=== PATIENT | male | born 1935 | race Caucasian/White ===

== ENCOUNTER → 2018-01-11 07:34 | Outpatient (CLI) | payer MEDICARE, SELFPAY ==
[2018-01-11 11:49] LABS: AST(SGOT) 21 U/L (15-37); Alanine Aminotransfer ALT/SGPT 26 U/L (16-61); Albumin, Serum 3.5 g/dL (3.2-5.0); Alkaline Phosphatase 85 U/L (45-117); Anion Gap 7 (5-15); BUN 12 mg/dL (7-18); BUN/Creat Ratio 12.5 RATIO (10-20); Calcium,Total 8.5 mg/dL (8.5-10.1); Chloride 102 mmol/L (98-107); Cholesterol 123 mg/dL (200); Creatinine, Serum 0.96 mg/dL (0.70-1.30); EST Glomerular Filtration Rate 80 mL/min (>60); Est Glom Filt Rate - Afr Amer 96 mL/min (>60); Globulin 3.4 g/dL (2.2-4.2); Glucose 84 mg/dL (74-106); High Density Lipoprotein 41 mg/dL; Protein, Total 6.9 g/dL (6.4-8.2); Sodium Level 139 mmol/L (136-145); Thyroid Stim Hormone (TSH) 1.34 uIU/mL (0.358-3.74); Triglycerides 78 mg/dL; Very Low Density Lipoprotein 16 mg/dL (5-40)
== END ==
PROVIDERS: Family Provider Family Medicine; PCP Family Medicine; Referring Provider Family Medicine; Visit Provider Family Medicine
DX: I10 Essential (primary) hypertension (principal); Z79.899 Other long term (current) drug therapy
CPT/HCPCS: 80053; 80061; 84443

== ENCOUNTER → 2018-07-11 | Outpatient (CLI) | payer MEDICARE, SELFPAY ==
[2018-07-11 11:23] LABS: Hematocrit 50.3 % (40-54); Hemoglobin 16.7 g/dl (13.0-16.5); Mean Corp Hgb Conc 33.2 g/gl (32-36); Mean Corpuscular Hgb 30.2 pg (27.0-32.0); Mean Platelet Vol. 11.6 fl (6.2-12.0); Platelet Count 209 K/mm3 (150-450); RBC Distribution Width SD 46.4 fl (35.1-43.9); Red Blood Count 5.53 M/mm3 (4.6-6.2); Scan Indicated on CBC? Y/N NO; White Blood Count 4.8 K/mm3 (4.4-11.0)
[2018-07-11 11:37] LABS: ALB/GLOB Ratio 1.2 RATIO (0.9-2.4); AST(SGOT) 24 U/L (15-37); Alanine Aminotransfer ALT/SGPT 31 U/L (16-61); Albumin, Serum 3.6 g/dL (3.2-5.0); Alkaline Phosphatase 76 U/L (45-117); Anion Gap 1 (5-15); BUN 13 mg/dL (7-18); BUN/Creat Ratio 12.7 RATIO (10-20); Calcium,Total 8.5 mg/dL (8.5-10.1); Chloride 105 mmol/L (98-107); Creatinine, Serum 1.02 mg/dL (0.70-1.30); EST Glomerular Filtration Rate 74 mL/min (>60); Est Glom Filt Rate - Afr Amer 90 mL/min (>60); Globulin 3.1 g/dL (2.2-4.2); Glucose 96 mg/dL (74-106); Potassium 4.6 mmol/L (3.5-5.1); Protein, Total 6.7 g/dL (6.4-8.2); Sodium Level 137 mmol/L (136-145)
== END | disposition home or self-care (01) ==
LOC: LABSPEC 10:55
PROVIDERS: Family Provider Family Medicine; PCP Family Medicine; Referring Provider Family Medicine; Visit Provider Family Medicine
DX: I10 Essential (primary) hypertension (principal); Z79.899 Other long term (current) drug therapy
CPT/HCPCS: 80053; 85027

== ENCOUNTER → 2019-01-15 | Outpatient (CLI) | payer MEDICARE, SELFPAY ==
[2019-01-15 14:07] LABS: Cholesterol 144 mg/dL (200); High Density Lipoprotein 47 mg/dL; Triglycerides 68 mg/dL; Very Low Density Lipoprotein 14 mg/dL (5-40)
== END | disposition home or self-care (01) ==
LOC: LABSPEC 13:14
PROVIDERS: Family Provider Family Medicine; PCP Family Medicine; Referring Provider Family Medicine; Visit Provider Family Medicine
DX: E78.2 Mixed hyperlipidemia (principal); Z79.899 Other long term (current) drug therapy
CPT/HCPCS: 80061; 84443

== ENCOUNTER 2020-04-11 08:44 | Outpatient (RCR) | payer MEDICARE, SELFPAY | END 2020-04-11 23:59 | LOC: IMMUN 08:44 | PROVIDERS: PCP Family Medicine; Referring Provider Family Medicine; Visit Provider Family Medicine | DX: Z23 Encounter for immunization (principal) | CPT/HCPCS: 0011A; 0012A ==

== ENCOUNTER → 2020-06-17 12:27 | Outpatient (CLI) | payer MEDICARE, SELFPAY ==
[2020-06-17 13:43] LABS: Potassium 4.9 mmol/L (3.5-5.1)
== END ==
PROVIDERS: PCP Family Medicine; Referring Provider Family Medicine; Visit Provider Family Medicine
DX: E87.5 Hyperkalemia (principal)
CPT/HCPCS: 84132

== ENCOUNTER → 2020-06-23 12:34 | Outpatient (CLI) | payer MEDICARE, SELFPAY ==
[2020-06-23 13:20] LABS: PSA,Total - Annual Screen 1.22 ng/mL (0.00-4.00)
== END ==
PROVIDERS: PCP Family Medicine; Visit Provider Family Medicine
DX: Z12.5 Encounter for screening for malignant neoplasm of prostate (principal)
CPT/HCPCS: 84153; G0103

== ENCOUNTER 2024-11-30 10:19 | Inpatient (IN) | payer MEDICARE, SELFPAY ==
[2024-11-30] VITALS (15 sets, daily range): BP systolic 148–192; BP diastolic 63–109; PULSE 59–80; RESP 15–19; TEMP 36.3–36.6; O2SAT 92–98; BMI 26.4; BMI 25.6
--- NOTE | 2024-11-30 11:32 | EKG12_ITS ---
Test Reason : SOB Blood Pressure : */* mmHG Vent. Rate : 71 BPM Atrial Rate : 71 BPM P-R Int : 194 ms QRS Dur : 80 ms QT Int : 374 ms P-R-T Axes : 62 -20 5 degrees QTcB Int : 406 ms Normal sinus rhythm Normal ECG Confirmed by MARY JO TEJADA ([id number]), copy editor ERROL PORTILLO ([id number]) on 12/03/2024 9:11:48 AM Referred By: ALEX/JENNA Confirmed By: MARY JO TEJADA
--- NOTE | 2024-11-30 11:42 | RAD_ITS ---
PROCEDURE: CHEST PA AND LATERAL 11/30/2024 REASON FOR EXAM: SHORTNESS OF BREATH TECHNIQUE: Procedure Code: RADCXR Modality: DX Procedure: CHEST PA AND LATERAL COMPARISON: None provided. RAD/Chest PA and Lateral IMPRESSION: A small right pleural effusion is seen. No definite left pleural effusion is noted. A mild degree of interstitial pulmonary edema is seen. No focal infiltrate is appreciated. The cardiomediastinal silhouette is remarkable for a partially calcified aorta. No evidence of cardiomegaly. Mild thoracic spine degenerative changes are seen, along with multiple mild wed ge compression fractures. No subluxation is evident. Reading Location: [id number]
[2024-11-30 11:46] LABS: Hematocrit 44.9 % (40-54); Hemoglobin 15.2 g/dL (13.0-16.5); Immature Granulocytes Count 0.020 X10^3/uL (0.0-0.0); Mean Corp Hgb Conc 33.9 g/dL (32-36); Mean Corpuscular Volume 95.5 fL (80-94); Mean Platelet Vol. 10.9 fl (6.2-12.0); NRBC Flagged by Analyzer 0 % (0-5); POSITIVE DIFFERENTIAL YES; Platelet Count 213 K/mm3 (150-450); RBC Distribution Width CV 13.0 % (11.6-14.6); RBC Distribution Width SD 46.2 fl (35.1-43.9); Red Blood Count 4.70 M/mm3 (4.6-6.2); White Blood Count 7.4 K/mm3 (4.4-11.0)
--- NOTE | 2024-11-30 11:49 | ED.VIS.DYS ---
HPI History of Present Illness Chief Complaint: Shortness of Breath Narrative Narrative: Chief complaint and HPI: 89-year-old male with past medical history of HTN, remote asthma, tremor presents for evaluation of shortness of breath. Patient states that yesterday he developed shortness of breath. Worse with exertion. States he does not regularly take anything for his asthma. States he has an albuterol inhaler that is a-year-old and that he has not used it. He denies any fever, chills, URI symptoms, chest pain abdominal pain, nausea, vomiting. Review of systems: See HPI Medications: As listed on the chart Allergies: As listed on the chart PFSH: Per chart Vital signs: As listed on the chart. Reviewed. Physical exam: Gen: A&O x3, NAD Head: Normocephalic, atraumatic Eyes: No sclera icterus, conjunctiva clear ENT: Moist mucous membranes Neck: Trachea midline, No JVD CV: RRR, no murmurs, no peripheral edema Resp: Lungs CTA BL, with expiratory wheezing GI: Abd soft, non-distended, non-tender, no r/r/g Musc: Full ROM, no deformity Skin: Warm, dry Neuro: Alert, oriented, grossly intact, sensation intact Psych: Cooperative, appropriate mood and affect no clear reason for your pain at this time [facility] Medical History (Updated 11/30/24 @ 11:39 by Alla Castaneda) Asthma Home Medications Medication Instructions Recorded Last Taken Type aspirin 81 mg tablet,delayed 81 mg PO DAILY 11/30/24 Unknown History release (Adult Aspirin Regimen) losartan 100 mg tablet 100 mg PO DAILY 11/30/24 Unknown History metoprolol succinate 25 mg 25 mg PO DAILY 11/30/24 Unknown History tablet,extended release 24 hr primidone 50 mg tablet 200 mg PO DAILY 11/30/24 Unknown History simvastatin 20 mg tablet 20 mg PO QHS 11/30/24 Unknown History Allergy/AdvReac Type Severity Reaction Status Date / Time No Known Allergies Allergy Verified 11/30/24 10:24 Social History Smoking Status: Never smoker EXAM Physical Exam Const Vital Signs: 11/30/24 10:21 11/30/24 11:31 11/30/24 11:38 Temperature 97.8 F Temperature Source Oral Pulse Rate 74 Respiratory Rate 16 Respiratory Effort Respiratory Pattern Blood Pressure 185/105 H Blood Pressure Mean 131 Pulse Ox 95 92 Oxygen Delivery Method Room Air Room Air 11/30/24 11:59 11/30/24 12:36 11/30/24 13:00 Temperature Temperature Source Pulse Rate 59 L 61 62 Respiratory Rate 16 18 15 Respiratory Effort Respiratory Pattern Blood Pressure 155/87 H 160/82 H Blood Pressure Mean 109 108 Pulse Ox 96 98 Oxygen Delivery Method Room Air 11/30/24 13:23 Temperature Temperature Source Pulse Rate Respiratory Rate Respiratory Effort Short of Breath Respiratory Pattern Tachypnea Blood Pressure Blood Pressure Mean Pulse Ox Oxygen Delivery Method Room Air MDM MDM MDM Narrative Medical decision making narrative: 89-year-old male with past medical history of HTN, remote asthma, tremor presents for evaluation of shortness of breath. Patient states that yesterday he developed shortness of breath. Worse with exertion. States he does not regularly take anything for his asthma. States he has an albuterol inhaler that is a-year-old and that he has not used it. He denies any fever, chills, URI symptoms, chest pain abdominal pain, nausea, vomiting. On presentation, patient no acute distress. Hypertensive otherwise vitals are stable. Physical exam unremarkable except for mild expiratory wheezing. Differential diagnosis includes is not limited to asthma exacerbation, pneumonia, viral illness, CHF, ACS. Prednisone, albuterol, DuoNeb, hydralazine ordered for symptoms. Respiratory/cardiac workup ordered. EKG and chest x-ray reviewed. During patient's workup, his blood pressure improved without need for hydralazine. CBC without leukocytosis or anemia. BMP unremarkable. BNP unremarkable. Troponin 26 and 31 although patient not endorsing any chest pain. He has a moderate heart score. Patient's symptoms align more with asthma exacerbation. Patient states that shortness of breath has improved after DuoNeb along with his wheezing. He was ambulated in the emergency department and became hypoxic at 84% on room air. Wheezing worsened after walking as well. Had another DuoNeb ordered. Blood pressure increased after ambulation but slowly improving with rest. Patient will warrant admission for his acute hypoxia secondary to asthma exacerbation. I spoke with the patient who confirmed understanding of the plan and results. Dr. Ward accepted admission. EKG: Interpreted by me/EM physician: EKG shows normal sinus rhythm without any acute ischemic changes. Heart rate 71 Diagnostic: Interpreted by me/EM physician: Chest x-ray without pneumonia, large effusion, cardiomegaly. Patient has some interstitial increased markings. Radiology in agreement. Per them suspect more edema. Impression: 1. Acute hypoxia with exertion 2. Asthma exacerbation Lab Data Labs: Laboratory Results - last 24 hr 11/30/24 11/30/24 11:20 13:33 WBC 7.4 RBC 4.70 Hgb 15.2 Hct 44.9 MCV 95.5 H MCH 32.3 H MCHC 33.9 RDW Std Deviation 46.2 H RDW Coeff of Adria 13.0 Plt Count 213 MPV 10.9 Immature Gran % (Auto) 0.300 Neut % (Auto) 79.4 H Lymph % (Auto) 8.1 L [place] % (Auto) 9.6 Eos % (Auto) 2.3 Baso % (Auto) 0.3 Absolute Neuts (auto) 5.9 Absolute Lymphs (auto) 0.60 L Nucleated RBC % 0 Sodium 133 Potassium 4.9 Chloride 100 Carbon Dioxide 22.6 Anion Gap 10 BUN 12 Creatinine 0.79 Estim Creat Clear Calc 61.75 Est GFR (MDRD) Non-Af 86 BUN/Creatinine Ratio 15.8 Glucose 101 H Calcium 8.4 Troponin T High Sens 26 H Troponin T Hi Sens 2 Hr 31 H NT pro BNP II 449 Radiography Diagnostic Testing: Clinical Impression(s) from Imaging Studies Chest X-Ray 11/30/24 11:42 IMPRESSION: A small right pleural effusion is seen. No definite left pleural effusion is noted. A mild degree of interstitial pulmonary edema is seen. No focal infiltrate is appreciated. The cardiomediastinal silhouette is remarkable for a partially calcified aorta. No evidence of cardiomegaly. Mild thoracic spine degenerative changes are seen, along with multiple mild wedge compression fractures. No subluxation is evident. Reading Location: [address] Discharge Plan Triage Chief Complaint: Shortness of Breath ED Provider: Saqib Jiang Dx/Rx/DC Orders Primary Care Provider: Damir Chávez Referrals: Damir Chávez MD [Primary Care Provider, [facility]] Print Language: Georgian
[2024-11-30] MEDS: Albuterol 2.5 MG/3 ML VIAL.NEB. INHALATION (11:57)
--- OUTSIDE RECORDS SUMMARY | 2024-11-30 12:15 | XMS RPT_ITS | CCD ---
Author Organization [facility] Care Team Providers Care Wireworker Name Role Phone Eladio Chávez MD Primary Care Provider ELADIO CHÁVEZ Primary Care Unavailab CHRIS Coffey Referring Unavailable CHRIS MERCEDES Attending Unavailable CHRIS MERCEDES Admitting Unavailable REENA SALGADO Referring Unavailable CHRIS MERCEDES Attending Unavailable ELADIO CHÁVEZ Primary Care Unavailab Eladio Boone MD Primary Care Provider Eladio Chávez MD Primary Care Provider Podlogar PLUG MACHINE OPERATOR.Natalie SOL Unavailable [place] PLUG MACHINE OPERATOR.Nessa SOL Unavailable ELADIO CHÁVEZ Referring Unavailab ELADIO Boone Primary Care Unavailab ELADIO Boone Attending Unavailab ELADIO Boone Primary Care Unavailab ELADIO Boone Referring Unavailab ELADIO Boone Primary Care Unavailab ELADIO Boone Attending Unavailab ELADIO Boone Primary Care Unavailab CHRIS Coffey Attending Unavailable ELADIO CHÁVEZ Primary Care Unavailab ELADIO Boone Primary Care Unavailab KENISHA Pickens Referring Unavailable ELADIO CHÁVEZ Primary Care Unavailab ELADIO Boone Attending Unavailab ELADIO Boone Primary Care Unavailab ELADIO Boone Attending Unavailab ELADIO Boone Primary Care Unavailab le Allergies Allergy Classification Reported Allergen(s) Allergy Type Date of Onset Reaction(s) Facility (20 sources) amLODIPine; Translations: [AMLODIPINE] Drug Allergy 05-31-2023 Other: See Comments, Swelling [facility] Work Phone: Medications Current Medications Medication Drug Class(es) Dates Sig (Normalized) Sig (Original) [id number] 200 actuat albuterol 0.09 mg/actuat metered dose inhaler (20 sources) beta2-Adrenergic Agonist Start: 12-19-2019 End: 03-13-2024 take 2 puff(s) by inhalation four times daily as needed albuterol HFA (PROAIR HFA) 90 mcg/actuation inhaler Inhale 2 Puffs as instructed four times a day as needed. 18 g 2 03/13/2024 Active Comment on above: Inhale 2 Puffs as in structed four times daily as needed. aspirin 81 mg chewable tablet (20 sources) Platelet Aggregation Inhibitor, Nonsteroidal Anti-inflammatory Drug take 1 tablet by mouth once daily aspirin 81 mg chewable tablet Take 81 mg by mouth once daily. Active Comment on above: Take 81 mg by mouth once daily. benzonatate 100 mg oral capsule (1 source) Non-narcotic Antitussive Start: 04-18-2024 End: 04-25-2024 take 1 capsule by mouth three times daily as needed for cough benzonatate (TESSALON PERLE) 100 mg capsule Indications: Acute cough Take 1 capsule by mouth three times a day as needed for cough for up to 7 days. 21 capsule 04/18/2024 04/25/2024 Active diflorasone diacetate 0.0005 mg/mg topical ointment (20 sources) Corticosteroid Start: 01-25-2019 Diflorasone Diacetate 0.05 % ointment Apply to affected area twice daily as needed. 01/25/2019 Active Comment on above: Apply to affected ar ea twice daily as needed. fluticasone propionate 0.05 mg/actuat metered dose nasal spray (8 sources) Corticosteroid Start: 03-13-2024 End: 06-11-2024 take 2 spray(s) nasal route once daily fluticasone (FLONASE) 50 mcg/actuation nasal spray Use 2 Sprays in each nostril once daily. 1 Each 2 03/13/2024 06/11/2024 Active Start: 12-19-2019 End: 10-22-2021 take 2 spray(s) nasal route once daily fluticasone (FLONASE) 50 mcg/actuation nasal spray Use 2 Sprays in each nostril once daily. 1 Each 2 07/24/2021 10/22/2021 Active Comment on above: Use 2 Sprays in each nostril once daily. latanoprost 0.05 mg/ml ophthalmic solution (20 sources) Prostaglandin Analog Start: XALATAN 0.005 % EYE DROPS One gtt each eye daily. 0 06/12/2005 Active Comment on above: One gtt each eye oneida ly. losartan potassium 100 mg oral tablet (20 sources) Angiotensin 2 Receptor Anna Start: 5 End: 6 take 1 tablet by mouth once daily losartan (COZAAR) 100 mg tablet Indications: Essential hypertension Take 1 tablet by mouth once daily. 90 tablet 1 09/11/2024 03/10/2025 Active Start: 08-18-2022 End: 02-02-2025 take 1.5 tablets by mouth once daily losartan (COZAAR) 50 mg tablet Indications: Essential hypertension Take 1.5 tablets by mouth once daily. 135 tablet 1 08/06/2024 09/11/2024 Discontinued Start: 07-05-2022 End: 01-31-2023 take 1 tablet by mouth once daily losartan (COZAAR) 50 mg tablet Indications: Essential hypertension Take 1 tablet by mouth once daily. 90 tablet 1 08/04/2022 08/18/2022 Discontinued Comment on above: Take 1 tablet by judit th once daily. Take 1.5 tablets by mouth once daily. 24 hr metoprolol succinate 25 mg extended release oral tablet (3 sources) beta-Adrenergic Anna Start: 5 End: 6 take 1 tablet by mouth once daily metoprolol succinate ER (TOPROL XL) 25 mg 24 hr tablet Take 1 tablet by mouth once daily. 90 tablet 1 11/13/2024 05/12/2025 Active Miscellaneous Medical Supply (BLOOD PRESSURE CUFF) (20 sources) Start: 0 Miscellaneous Medical Supply (BLOOD PRESSURE CUFF) Indications: Essential hypertension 1 Each as needed. Automatic BP cuff to be used as directed to monitor hypertension. 1 Each 01/03/2020 Active Start: 01-03-2020 Miscellaneous Medical Supply (BLOOD PRESSURE CUFF) Indications: Essential hypertension 1 Each as needed. Automatic BP cuff to be used as directed to monitor hypertension. 1 Each 0 01/03/2020 Active Comment on above: 1 Each as needed. Au tomatic BP cuff to be used as directed to monitor hypertension. Multivitamins-[place] als-Lutein (CENTRUM SILVER) tab (20 sources) Start: 01-31-20 13 take 1 tablet by mouth once daily Multivitamins-Mineral s-Lutein (CENTRUM SILVER) tab Take 1 tablet by mouth once daily. 0 01/30/2013 Active Comment on above: Take 1 tablet by judit once daily. predniSONE 10 mg oral tablet (1 source) Start: 04-18-19 25 End: 04-23-19 25 take 1 tablet by mouth twice daily predniSONE (DELTASONE) 10 mg tablet Indications: Mild intermittent asthma, uncomplicated Take 1 tablet by mouth two times a day for 5 days. 10 tablet 04/18/2024 04/23/2024 Active primidone 50 mg oral tablet (20 sources) Anti-epileptic Agent Start: 08-05-19 23 End: 03-10-19 26 take 4 tablets by mouth once daily primidone (MYSOLINE) 50 mg tablet Indications: Essential tremor Take 4 tablets by mouth once daily. 360 tablet 1 09/11/2024 03/10/2025 Active Start: 02-01-2022 End: 10-02-2022 take 3 tablets by mouth once daily primidone (MYSOLINE) 50 mg tablet Indications: Essential tremor Take 3 tablets by mouth once daily. 270 tablet 1 08/04/2022 08/04/2022 Discontinued Start: 01-12-2021 End: 07-14-2022 take 2 tablets by mouth once daily primidone (MYSOLINE) 50 mg tablet Indications: Essential tremor Take 2 tablets by mouth once daily. 180 tablet 1 01/15/2022 02/01/2022 Discontinued Comment on above: Take 2 tablets by mo ut once daily. Take 3 tablets by mo ut once daily. Take 4 tablets by mo uth once daily. psyllium seed/sucrose(METAMUCI L ORAL POWDER) (20 sources) Start: 8 take 1 [tsp_us] by mouth once daily psyllium seed/sucrose(METAMUC IL ORAL POWDER) one teaspoon daily 0 07/26/2007 Active Comment on above: one teaspoon daily simvastatin 20 mg oral tablet (20 sources) HMG-CoA Reductase Inhibitor Start: 3 End: 5 take 1 tablet by mouth once daily at bedtime simvastatin (ZOCOR) 20 mg tablet Take 1 tablet by mouth daily at bedtime. 90 tablet 1 10/02/2024 Active Start: 06-23-2020 End: 08-04-2022 take 1 tablet by mouth once daily at bedtime simvastatin (ZOCOR) 20 mg tablet Indications: Mixed hyperlipidemia Take 1 tablet by mouth daily at bedtime. 90 tablet 1 08/04/2022 Active Comment on above: Take 1 tablet by judit th daily at bedtime. 12 hr timolol 5 mg/ml ophthalmic solution (20 sources) beta-Adrenergic Anna Start: 01-06-20 take 1 drop(s) into the eye(s) twice daily timolol (TIMOPTIC) 0.5 % OPHTHALMIC Drop one drop twice daily each eye 0 01/05/2007 Active Comment on above: one drop twice daily each eye triamcinolone acetonide 0.001 mg/mg topical ointment (19 sources) Corticosteroid Start: 03-31-19 triamcinolone acetonide (KENALOG) 0.1 % ointment 03/31/2023 Active Completed/Discontinued Medications Medication Drug Class(es) Dates Sig (Normalized) Sig (Original) amLODIPine 5 mg oral tablet (5 sources) Dihydropyridine Calcium Channel Anna Start: 02-18-20 End: 08-10-19 take 1 tablet by mouth once daily amLODIPine (NORVASC) 5 mg tablet Indications: Essential hypertension Take 1 tablet by mouth once daily. 90 tablet 0 05/11/2022 07/05/2022 Discontinued Comment on above: Take 1 tablet by judit th once daily. folic acid 1 mg oral tablet (14 sources) Start: 12-11-19 End: 08-05-19 FOLIC ACID 1 MG TAB Take one(1) tablet daily. 0 12/10/2004 08/04/2022 Discontinued Comment on above: Take one(1) tablet d aily. hydroCHLOROthiazide 25 mg oral tablet (4 sources) Thiazide Diuretic Start: 02-03-20 End: 05-03-19 23 take 1 tablet by mouth once daily hydroCHLOROthiazide (HYDRODIURIL, ESIDRIX) 25 mg tablet Indications: Essential hypertension Take 1 tablet by mouth once daily. 30 tablet 2 02/02/2022 02/17/2022 Discontinued Comment on above: Take 1 tablet by judit th once daily. lidocaine 50 mg/ml topical cream (2 sources) Antiarrhythmic, Amide Local Anesthetic Start: 04-20-19 End: 04-22-19 24 lidocaine (ANECREAM5) crea Apply to affected area as directed for 2 days. Apply to procedure site the evening before and morning of procedure 15 g 0 04/20/2023 04/22/2023 Comment on above: Apply to affected ar ea as directed for 2 days. Apply to procedure site the evening before and morning of procedure lisinopril 40 mg oral tablet (9 sources) Angiotensin Converting Enzyme Inhibitor Start: 03-19-19 End: 08-01-19 23 take 1 tablet by mouth once daily lisinopril (ZESTRIL, PRINIVIL) 40 mg tablet Indications: Essential hypertension Take 1 tablet by mouth once daily. 90 tablet 1 02/01/2022 02/01/2022 Discontinued Comment on above: Take 1 tablet by judit once daily. Problems Active Problems Problem Classification Problem Date Documented Date Episodic/Chronic Asthma (20 sources) Mild intermittent asthma; Translations: [Mild intermittent asthma, uncomplicated] Onset: 01-05-2007 Resolved: 01-10-2017 01-10-2017 Chronic Cardiac dysrhythmias (20 sources) Premature atrial contraction; Translations: [Atrial premature depolarization] Onset: 06-23-2020 06-23-2020 Chronic Deficiency and other anemia (1 source) Increased hemoglobin; Translations: [Other hemoglobinopathies] Chronic Disorders of lipid metabolism (20 sources) Mixed hyperlipidemia; Translations: [Mixed hyperlipidemia] Onset: 12-10-2004 Resolved: 01-05-2016 Chronic Diverticulosis and diverticulitis (20 sources) Diverticulosis of colon; Translations: [Diverticulosis of large intestine without perforation or abscess without bleeding] Onset: 08-07-2012 01-24-2006 Chronic Essential hypertension (20 sources) Essential hypertension; Translations: [Essential (primary) hypertension] Onset: 01-05-2007 07-09-2020 Chronic Fluid and electrolyte disorders (4 sources) Hyperkalemia; Translations: [Hyperkalemia] Episodic Glaucoma (20 sources) Glaucoma; Translations: [Other specified glaucoma] Onset: 08-10-2023 01-10-2017 Chronic Immunizations and screening for infectious disease (2 sources) Needs influenza immunization; Translations: [Encounter for immunization] Episodic Melanomas of skin (20 sources) Malignant melanoma of skin of chest; Translations: [Malignant melanoma of other part of trunk] Onset: 05-06-2023 04-21-2023 Chronic Other and unspecified benign neoplasm (20 sources) History of polyp of colon; Translations: [Personal history of colonic polyps] 01-24-2006 Episodic Other circulatory disease (2 sources) History of transient ischemic attack; Translations: [Personal history of transient ischemic attack (TIA), and cerebral infarction without residual deficits] Episodic Other connective tissue disease (2 sources) Swelling of bilateral feet; Translations: [Other specified soft tissue disorders] Episodic Other diseases of veins and lymphatics (2 sources) Lymphedema; Translations: [Lymphedema, not elsewhere classified] 04-21-2023 Chronic Other diseases of veins and lymphatics (1 source) Lymphedema, not elsewhere classified; Translations: [Lymphedema] Onset: 05-13-2023 Chronic Other hereditary and degenerative nervous system conditions (20 sources) Essential tremor; Translations: [Essential tremor] Onset: 01-05-2007 01-10-2017 Chronic Other hereditary and degenerative nervous system conditions (1 source) Essential tremor; Translations: [Essential tremor] Onset: 01-10-2017 Chronic Other inflammatory condition of skin (20 sources) Psoriasis; Translations: [Other psoriasis] Onset: 11-21-2005 06-21-2009 Chronic Other inflammatory condition of skin (1 source) Psoriasis, unspecified; Translations: [Psoriasis] Onset: 09-11-2024 Chronic Other lower respiratory disease (1 source) Cough; Translations: [Acute cough] 04-18-2024 Episodic Other male genital disorders (20 sources) Male erectile dysfunction, unspecified; Translations: [Impotence of organic origin] 01-10-2017 Chronic Other male genital disorders (20 sources) Hydrocele of testis; Translations: [Hydrocele, unspecified] 07-08-2016 Episodic Other upper respiratory infections (1 source) Acute upper respiratory infection; Translations: [Acute upper respiratory infection, unspecified] 04-18-2024 Episodic Retinal detachments; defects; vascular occlusion; and retinopathy (20 sources) Exudative age-related macular degeneration; Translations: [Exudative age-related macular degeneration, unspecified eye, stage unspecified] Onset: 01-25-2019 01-25-2019 Chronic Past or Other Problems Problem Classification Problem Date Documented Da te Episodic/Chronic Allergic reactions (20 sources) Solar degeneration; Translations: [Other skin changes due to chronic exposure to nonionizing radiation] Onset: 11-21-2005 Resolved: 09-08-2011 11-21-2011 Episodic Anal and rectal conditions (17 sources) Anorectal pain; Translations: [Other specified diseases of anus and rectum] Onset: 01-05-2007 Resolved: 02-04-2014 02-04-2014 Episodic Esophageal disorders (20 sources) Hernández's esophagus; Translations: [Hernández's esophagus without dysplasia] Onset: 08-11-2010 Resolved: 08-10-2023 08-11-2010 Chronic Esophageal disorders (17 sources) Esophagitis; Translations: [Esophagitis, unspecified] Onset: 08-05-2010 Resolved: 01-10-2017 01-10-2017 Episodic Genitourinary symptoms and ill-defined conditions (20 sources) Nocturia; Translations: [Nocturia] Onset: 12-10-2004 12-10-2004 Episodic Malaise and fatigue (17 sources) Malaise and fatigue; Translations: [Other malaise] Onset: 12-10-2004 Resolved: 02-04-2014 02-04-2014 Episodic Miscellaneous mental health disorders (17 sources) Psychosexual dysfunction; Translations: [Unspecified sexual dysfunction not due to a substance or known physiological condition] Resolved: 01-10-2017 01-10-2017 Chronic Neoplasms of unspecified nature or uncertain behavior (17 sources) Neoplasm of uncertain behavior of skin; Translations: [Neoplasm of uncertain behavior of skin] Onset: 07-29-2006 Resolved: 09-08-2011 09-08-2011 Episodic Other and unspecified benign neoplasm (17 sources) Benign neoplasm of skin of trunk; Translations: [Other benign neoplasm of skin of trunk] Onset: 11-16-2007 Resolved: 09-08-2011 09-08-2011 Episodic Other gastrointestinal disorders (20 sources) Dysphagia, unspecified; Translations: [Dysphagia, unspecified] Onset: 08-05-2010 08-05-2010 Episodic Other inflammatory condition of skin (17 sources) Disorder of integument; Translations: [Other psoriasis] Resolved: 02-04-2014 02-04-2014 Chronic Other inflammatory condition of skin (20 sources) Other specified erythematous conditions; Translations: [Other specified erythematous conditions] Onset: 07-29-2006 Resolved: 09-08-2011 09-16-2008 Episodic Other non-epithelial cancer of skin (18 sources) Squamous cell carcinoma of skin of face; Translations: [Squamous cell carcinoma of skin of unspecified parts of face] Onset: 08-10-2023 08-10-2023 Episodic Other screening for suspected conditions (not mental disorders or infectious disease) (4 sources) Patient encounter status; Translations: [Encounter for screening for malignant neoplasm of prostate] Onset: 03-13-2024 03-13-2024 Episodic Other skin disorders (20 sources) Inflamed seborrheic keratosis; Translations: [Inflamed seborrheic keratosis] Onset: 11-21-2005 09-25-2010 Episodic Other skin disorders (20 sources) Solar lentigo; Translations: [Other melanin hyperpigmentation] Onset: 11-21-2011 11-21-2011 Episodic Other skin disorders (20 sources) Asteatosis cutis; Translations: [Xerosis cutis] Onset: 06-19-2012 06-19-2012 Episodic Other skin disorders (18 sources) Actinic keratosis; Translations: [Actinic keratosis] Onset: 11-21-2005 Resolved: 02-04-2014 Episodic Other skin disorders (17 sources) Disorder of skin pigmentation; Translations: [Disorder of pigmentation, unspecified] Onset: 07-29-2006 Resolved: 09-08-2011 09-08-2011 Episodic Other skin disorders (20 sources) Seborrheic keratosis; Translations: [Other seborrheic keratosis] Onset: 02-14-2007 Resolved: 02-04-2014 09-08-2011 Episodic Other skin disorders (17 sources) Scar conditions and fibrosis of skin; Translations: [Scar conditions and fibrosis of skin] Onset: 11-16-2007 Resolved: 09-08-2011 09-08-2011 Episodic Other skin disorders (17 sources) Disorder of sebaceous gland; Translations: [Other specified follicular disorders] Onset: 09-16-2008 Resolved: 09-08-2011 09-08-2011 Episodic Other skin disorders (17 sources) Skin tag; Translations: [Other hypertrophic disorders of the skin] Onset: 09-08-2011 Resolved: 02-04-2014 02-04-2014 Episodic Other skin disorders (17 sources) Scar; Translations: [Scar conditions and fibrosis of skin] Onset: 11-21-2011 Resolved: 07-08-2016 07-08-2016 Episodic Residual codes; unclassified (20 sources) Family history of aneurysm of abdominal aorta; Translations: [Family history of ischemic heart disease and other diseases of the circulatory system] Onset: 08-04-2022 Episodic Screening and history of mental health and substance abuse codes (2 sources) Encounter for screening for depression; Translations: [Encounter for screening examination for other mental health and behavioral disorders] Onset: 03-13-2024 Episodic Viral infection (17 sources) Verruca vulgaris; Translations: [Viral wart, unspecified] Onset: 11-21-2005 Resolved: 09-08-2011 09-08-2011 Episodic Results Test Name Value Interpretation Reference Range Facility [facility] 11-13-2024 CNOV Office Visit (FAMPWS ) CRISTINE MENA ([id number]) 1935 M Date Time Provider Department 11/13/24 9:00 AM ELADIO CHÁVEZ During your visit today, we recorded the following information about you: Pulse Blood pressure Weight Height 90/minute 130/80 75.3 kg 1.702 m Eladio Chávez MD 11/13/2024 8:58 AM Signed Chief Complaint Patient presents with: Blood Pressure Check Recording using Acer software for draft documentation of the visit was discussed with the patient/authorized primary care sales representative; all questions welcomed and answered. Patient/authorized primary care sales representative agreed to proceed HPI Cristine Mena is a 89 year old male who presents here today for Above Complaints.. Hypertension: - rCistine Mena recently started on metoprolol 25 mg daily; reports it really did the trick. - Cristine experiences occasional flatulence since starting metoprolol. - Denies lightheadedness, dizziness, chest pain, dyspnea, palpitations, fevers, or chills. - Home BP readings range from 110/85 to 130/83 mmHg; heart rates between 60-90 bpm. PACs: - Occasional skipped beats noted.r. 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 - Plans to attend a fair and walk around. - Discussed flu shot timing; prefers to wait until December. - States that he went to the [facility] and they told him as long as he had his glasses on, he could drive. Past medical history, appointments, medications, allergies reviewed. Previous Medical History PAST MEDICAL HISTORY Diagnosis Date Acute, but ill-defined, cerebrovascular disease possible TIA Asthma (HCC) Hernández's esophagus EGD negative for Barretts 07/2017. Diverticulosis of colon (without mention of hemorrhage) Diverticulosis Erectile dysfunction Essential tremor Family history of abdominal aortic aneurysm (AAA) Family history of malignant neoplasm of gastrointestinal tract Glaucoma Dr. 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, Stage IB Nocturia Other and unspecified hyperlipidemia Other psoriasis and similar disorders Psoriasis PAC (premature atrial contraction) Personal history of colonic polyps Colon polyps Squamous cell carcinoma, face [facility] Stroke (HCC) Pt reports possible TIA in 2002 w/ symptoms of dizzyness Unspecified essential hypertension Previous Surgical History PAST SURGICAL HISTORY Procedure Laterality Date COLONOSCOPY FLX DX W/COLLJ SPEC WHEN PFRMD 07/24/2003 Colonoscopy COLONOSCOPY FLX DX W/COLLJ SPEC WHEN PFRMD 07/22/2010 COLONOSCOPY FLX DX W/COLLJ SPEC WHEN PFRMD 09/08/2012 COLONOSCOPY FLX DX W/COLLJ SPEC WHEN PFRMD 07/27/2017 Colonoscopy EGD TRANSORAL BIOPSY SINGLE/MULTIPLE 08/05/2010 EGD W/O BRSH SPECIMEN W/BX 08/20/2014 repeat in 5 years ESOPHAGOGASTRODUODENOSCOPY TRANSORAL DIAGNOSTIC 09/04/2003 EGD ESOPHAGOGASTRODUODENOSCOPY TRANSORAL DIAGNOSTIC 09/08/2012 EGD ESOPHAGOGASTRODUODENOSCOPY TRANSORAL DIAGNOSTIC 07/27/2017 EGD PAST SURGICAL HISTORY OF 2016 MOHs procedure on scalp PAST SURGICAL HISTORY OF 05/13/2023 Wide Local Excision of Chest Melanoma RM[facility] CORNEO-SCLL SCTJ 08/2008, right Cataract removal RPR 1ST INGUN HRNA AGE 6 YRS/> REDUCIBLE right and left Hernia repair, inguinal TONSILLECTOMY PRIMARY/SECONDARY [facility] L[facility] PROSTH W/O ECP left Cataract Removal Family History FAMILY HISTORY Problem Relation Age of Onset other (gallbladder) Mother Cancer Father rectal cancer, mi Cancer Brother prostate cancer Pancreatic Cancer Brother Heart Brother mi Aneurysm Brother AAA Patient Allergies ALLERGIES Allergen Reactions Amlodipine Swelling Current Medications Current Outpatient Medications on File Prior to Visit Medication Sig metoprolol succinate ER (TOPROL XL) 25 mg 24 hr tablet Take 1 tablet by mouth once daily. simvastatin (ZOCOR) 20 mg tablet Take 1 tablet by mouth daily at bedtime. primidone (MYSOLINE) 50 mg tablet Take 4 tablets by mouth once daily. losartan (COZAAR) 100 mg tablet Take 1 tablet by mouth once daily. albuterol HFA (PROAIR HFA) 90 mcg/actuation inhaler Inhale 2 Puffs as instructed four times a day as needed. triamcinolone acetonide (KENALOG) 0.1 % ointment aspirin 81 mg chewable tablet Take 81 mg by mouth once daily. Miscellaneous Medical Supply (BLOOD PRESSURE CUFF) 1 Each as needed. Automatic BP cuff to be used as directed to monitor hypertension. Diflorasone Diacetate 0.05 % ointment Apply to affected area twice daily as needed. Uuclmnawvalwh-Nhxhiwnl-Obtbg n (CENTRUM SILVER) tab Take 1 tablet by mouth once daily. psyllium seed/sucrose(METAMUCIL ORAL POWDER) one teaspoon daily timolol (TIMOPTIC) 0.5 % OPHTHALMIC Drop (more content not included)... Normal [facility] CNOVon 10-30-2024 CNOV Office Visit (FAMPWS ) CRISTINE MENA ([id number]) 1935 M Date Time Provider Department 10/30/24 9:00 AM ELADIO CHÁVEZ During your visit today, we recorded the following information about you: Pulse Blood pressure Weight Height 65/minute 151/94 75.4 kg 1.702 m Eladio Chávez MD 10/30/2024 8:59 AM Signed Chief Complaint Patient presents with: Hypertension: Follow up for elevated BP Recording using Acer software for draft documentation of the visit was discussed with the patient/authorized primary care sales representative; all questions welcomed and answered. Patient/authorized primary care sales representative agreed to proceed HPI Cristine Mena is a 89 year old male who presents here today for Above Complaints. Hypertension: - Home blood pressure readings range from 120s-130s/90s. - Home heart rate readings range from 80s-90s. - Cristine denies headaches, vision changes, chest pain, dyspnea, or dizziness. - Cristine reports decreased exercise tolerance. - Cristine adheres to losartan regimen; spouse assists with medication management. - Cristine consumes two diluted cups of coffee daily; denies excessive salt intake. - Previous issues with amlodipine causing edema. Past medical history, appointments, medications, allergies reviewed. Previous Medical History PAST MEDICAL HISTORY Diagnosis Date Acute, but ill-defined, cerebrovascular disease possible TIA Asthma (HCC) Hernández's esophagus EGD negative for Barretts 07/2017. Diverticulosis of colon (without mention of hemorrhage) Diverticulosis Erectile dysfunction Essential tremor Family history of abdominal aortic aneurysm (AAA) Family history of malignant neoplasm of gastrointestinal tract Glaucoma Dr. Rivera and Francisco Hydrocele of testis Macular degeneration, wet (HCC) left Malignant melanoma (HCC) 05/2023 Chest, Stage IB Nocturia Other and unspecified hyperlipidemia Other psoriasis and similar disorders Psoriasis PAC (premature atrial contraction) Personal history of colonic polyps Colon polyps Squamous cell carcinoma, face [facility] Stroke (HCC) Pt reports possible TIA in 2002 w/ symptoms of dizzyness Unspecified essential hypertension Previous Surgical History PAST SURGICAL HISTORY Procedure Laterality Date COLONOSCOPY FLX DX W/COLLJ SPEC WHEN PFRMD 07/24/2003 Colonoscopy COLONOSCOPY FLX DX W/COLLJ SPEC WHEN PFRMD 07/22/2010 COLONOSCOPY FLX DX W/COLLJ SPEC WHEN PFRMD 09/08/2012 COLONOSCOPY FLX DX W/COLLJ SPEC WHEN PFRMD 07/27/2017 Colonoscopy EGD TRANSORAL BIOPSY SINGLE/MULTIPLE 08/05/2010 EGD W/O BRSH SPECIMEN W/BX 08/20/2014 repeat in 5 years ESOPHAGOGASTRODUODENOSCOPY TRANSORAL DIAGNOSTIC 09/04/2003 EGD ESOPHAGOGASTRODUODENOSCOPY TRANSORAL DIAGNOSTIC 09/08/2012 EGD ESOPHAGOGASTRODUODENOSCOPY TRANSORAL DIAGNOSTIC 07/27/2017 EGD PAST SURGICAL HISTORY OF 2015 MOHs procedure on scalp PAST SURGICAL HISTORY OF 05/13/2023 Wide Local Excision of Chest Melanoma RMVL SEC MEMBRANOUS CTRC CORNEO-SCLL SCTJ 08/2008, right Cataract removal RPR 1ST INGUN HRNA AGE 6 YRS/> REDUCIBLE right and left Hernia repair, inguinal TONSILLECTOMY PRIMARY/SECONDARY Tonsillectomy XCAPSL CTRC RMVL INSJ IO LENS PROSTH W/O ECP left Cataract Removal Family History FAMILY HISTORY Problem Relation Age of Onset other (gallbladder) Mother Cancer Father rectal cancer, mi Cancer Brother prostate cancer Pancreatic Cancer Brother Heart Brother mi Aneurysm Brother AAA Patient Allergies ALLERGIES Allergen Reactions Amlodipine Swelling Current Medications Current Outpatient Medications on File Prior to Visit Medication Sig simvastatin (ZOCOR) 20 mg tablet Take 1 tablet by mouth daily at bedtime. primidone (MYSOLINE) 50 mg tablet Take 4 tablets by mouth once daily. losartan (COZAAR) 100 mg tablet Take 1 tablet by mouth once daily. albuterol HFA (PROAIR HFA) 90 mcg/actuation inhaler Inhale 2 Puffs as instructed four times a day as needed. triamcinolone acetonide (KENALOG) 0.1 % ointment aspirin 81 mg chewable tablet Take 81 mg by mouth once daily. Miscellaneous Medical Supply (BLOOD PRESSURE CUFF) 1 Each as needed. Automatic BP cuff to be used as directed to monitor hypertension. Diflorasone Diacetate 0.05 % ointment Apply to affected area twice daily as needed. Ppkryuiqjkgst-Qzthfrww-Uyafl n (CENTRUM SILVER) tab Take 1 tablet by mouth once daily. psyllium seed/sucrose(METAMUCIL ORAL POWDER) one teaspoon daily timolol (TIMOPTIC) 0.5 % OPHTHALMIC Drop one drop twice daily each eye XALATAN 0.005 % EYE DROPS One gtt each eye daily. No current facility-administered medications on file prior to visit. Social History SOCIAL HISTORY[1] Review of Symptoms REVIEW OF SYSTEMS See HPI EXAM: BP 151/94 Pulse 65 Ht 170.2 cm (5' 7") Wt 75.4 kg (166 lb 3.2 oz) B (more content not included)... Normal [facility] 10-25-2024 CNPN Telephone (FAMPWS) CRISTINE MENA ([id number]) 1935 M Date Time Provider Department 10/25/24 ELADIO CHÁVEZ [facility] During your visit today, we recorded the following information about you: Dede Gilbert MA 10/25/2024 2:[address] Chávez Patient presented to office today with spouse for spouse's GIOVANNY consult. Patient requested this MA to take BP. BP at time of appointment 165/90 with HR 94-denies cardiac symptoms Patient suggested taking additional 1/2 tablet Losartan. Advised patient to continue taking medication as prescribed by PCP (repeatedly during visit) until seen at [facility] 10/30/24 with PCP and would update PCP on BP today. Also instructed patient to keep record of BP reading at home from now until appointment. Patient verbalized understanding of instructions. VALENTÍN Biggs Christopher B, MD 10/25/2024 2:11 PM Signed Have him continue current regimen and will check BP at OV in 5 days with Eugenio BP. If he has a cuff at home, would have him check it daily and bring readings and cuff to appointment to review. Call with readings at home >160/100. Johana Evans MA 10/25/2024 2:20 PM Signed Patient was here in office with . Given message per Dede Gilbert MA. Johana Evans MA Allergies As of Date: 10/25/2024 Noted Allergy Reaction AMLODIPINE 08/04/2022 7 - Swelling Date Reviewed: 09/11/2024 Reviewed by: Johana Evans MA - Fully Assessed Reason for Visit: Patient Update [1234] Prescriptions as of 10/25/2024 - simvastatin (ZOCOR) 20 mg tablet Take 1 tablet by mouth daily at bedtime. - primidone (MYSOLINE) 50 mg tablet Take 4 tablets by mouth once daily. - losartan (COZAAR) 100 mg tablet Take 1 tablet by mouth once daily. - albuterol HFA (PROAIR HFA) 90 mcg/actuation inhaler Inhale 2 Puffs as instructed four times a day as needed. - triamcinolone acetonide (KENALOG) 0.1 % ointment - aspirin 81 mg chewable tablet Take 81 mg by mouth once daily. - Miscellaneous Medical Supply (BLOOD PRESSURE CUFF) 1 Each as needed. Automatic BP cuff to be used as directed to monitor hypertension. - Diflorasone Diacetate 0.05 % ointment Apply to affected area twice daily as needed. - Kcofggpbkgscj-Qhxtjokv-Asrce n (CENTRUM SILVER) tab Take 1 tablet by mouth once daily. - psyllium seed/sucrose(METAMUCIL ORAL POWDER) one teaspoon daily - timolol (TIMOPTIC) 0.5 % OPHTHALMIC Drop one drop twice daily each eye - XALATAN 0.005 % EYE DROPS One gtt each eye daily. Problem List As Of Date 10/25/2024 Noted Resolved Hyperlipidemia [E78.5] 12/10/2004 01/05/2016 NOCTURIA [R35.1] 12/10/2004 Other malaise and fatigue [R53.81, R53.83] 12/10/2004 02/04/2014 ACTINIC KERATOSES (Premalignant AK's) [L57.0] 11/21/2005 02/04/2014 SEBORRHEIC KERATOSIS IRRITATED//INFLAMED [L82.0]11/21/2005 Viral warts, unspecified [B07.9] 11/21/2005 09/08/2011 PSORIASIS [L40.8] 11/21/2005 CHR SOLAR SKIN DAMAGE NOS [L57.8] 11/21/2005 09/16/2008 Glaucoma [H40.9] DIVERTICULOSIS OF COLON W/O BLEED [K57.30] PERS HX COLONIC POLYPS [Z86.0100] Other psoriasis and similar disorders [L40.8] 02/04/2014 Psychosexual dysfunction, unspecified [F52.9] 01/10/2017 Neoplasm of uncertain behavior of skin [D48.5] 07/29/2006 09/08/2011 ERYTHEMATOUS COND NEC [L53.8] 07/29/2006 09/16/2008 SOLAR LENTIGINES////DYSCHROMIA OTHER [L81.9] 07/29/2006 09/08/2011 Mild persistent asthma without complication [J4*01/05/2007 01/10/2017 Essential hypertension [I10] 01/05/2007 Essential tremor [G25.0] 01/05/2007 Anal or rectal pain [K62.89] 01/05/2007 02/04/2014 Other seborrheic keratosis [L82.1] 02/14/2007 09/08/2011 Benign neoplasm of skin of trunk, except scrotu*11/16/2007 09/08/2011 Scar condition and fibrosis of skin [L90.5] 11/16/2007 09/08/2011 Contact dermatitis and other eczema, due to uns*09/16/2008 09/08/2011 INTERTRIGO///ERYTHEMATOUS COND NEC [L53.8] 09/16/2008 09/08/2011 ACTINIC DAMAGE///CHR SOLAR SKIN DAMAGE NOS [L57*09/16/2008 09/08/2011 XEROSIS///SEBACEOUS GLAND DIS NEC [L73.8] 09/16/2008 09/08/2011 Esophagitis, unspecified [K20.90] 08/05/2010 01/10/2017 Dysphagia, unspecified [R13.10] 08/05/2010 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] 08/11/2010 08/10/2023 Skin tag [L91.8] 09/08/2011 02/04/2014 Actinic skin damage [L57.8] 11/21/2011 Scars [L90.5] 11/21/2011 07/08/2016 Solar Lentigines [L81.4] 11/21/2011 Xerosis cutis [L85.3] 06/19/2012 Other seborrheic keratosis [L82.1] 06/19/2012 02/04/2014 Diverticulitis [K57.92] 08/07/2012 Mixed hyperlipidemia [E78.2] 01/05/2016 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] Mild intermittent asthma, uncomplicated [J45.20]01/10/2017 Erectile dysfunction [N52.9] Macular degeneration, 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] PAC (premature atrial contraction) [I49.1] Family history of abdominal aortic aneurysm (AA*08/04/2022 Malignant melanoma (HCC) [C43.9] 05/24 (more content not included)... Normal [facility] CBC W Auto Differential pane l (Bld)on 09-11-2024 Basophils (Bld) [#/Vol] 0.03 10*3/uL [facility] Basophils/100 WBC (Bld) 0.4 % [facility] Differential cell count method Nom (Bld) Auto [facility] Eosinophils (Bld) [#/Vol] 0.18 10*3/uL [facility] Eosinophils/100 WBC (Bld) 2.3 % [facility] Erythrocyte distribution width (RBC) [Ratio] 12.7 % 11.5 - 15.0 % [facility] Hematocrit (Bld) [Volume fraction] 50.2 % 39.0 - 51.0 % [facility] Hemoglobin (Bld) [Mass/Vol] 16.9 g/dL 13.0 - 17.0 g/dL [facility] Immature granulocytes (Bld) [#/Vol] [facility] Immature granulocytes/100 WBC (Bld) 0.3 % [facility] Interpretation and review of laboratory results Abnormal [facility] Lymphocytes (Bld) [#/Vol] 0.93 10*3/uL Low [facility] Lymphocytes/100 WBC (Bld) 12 % [facility] MCH (RBC) [Entitic mass] 31.9 pg 26.0 - 34.0 pg [facility] MCHC (RBC) [Mass/Vol] 33.7 g/dL 30.5 - 36.0 g/dL [facility] MCV (RBC) [Entitic vol] 94.9 fL 80.0 - 100.0 fL [facility] Monocytes (Bld) [#/Vol] 0.89 10*3/uL High [facility] Monocytes/100 WBC (Bld) 11.5 % [facility] Neutrophils (Bld) [#/Vol] 5.71 10*3/uL [facility] Neutrophils/100 WBC (Bld) 73.5 % [facility] Nucleated RBC (Bld) [#/Vol] NINF [facility] Nucleated RBC/100 WBC (Bld) [Ratio] 0 % /100 WBC [facility] Platelet mean volume (Bld) [Entitic vol] 12.2 fL 9.0 - 12.7 fL [facility] Platelets (Bld) [#/Vol] 243 10*3/uL [facility] RBC (Bld) [#/Vol] 5.29 10*6/uL 4.20 - 6.0 0 m/uL [facility] WBC (Bld) [#/Vol] 7.76 10*3/uL [facility] Basophils (Bld) [#/Vol] 0.03 10*3/uL Normal <0.[address] [facility] Comment on above: Order Comment: Speci men Type: BLOOD SPECIMENOrdering Facility: [facility] Address: [address] [place] [address] Performed By: #### 5 7021-8 ####[facility] LABCLIA [id number] [place] [address] [place] Basophils/100 WBC (Bld) 0.4 % Normal [facility] Comment on above: Order Comment: Speci men Type: BLOOD SPECIMENOrdering Facility: [facility] Address: [address] [place] [address] Performed By: #### 5 7021-8 ####[facility] LABCLIA [id number] [place] [address] [place] Differential cell count method Nom (Bld) Auto Normal [facility] Comment on above: Order Comment: Speci men Type: BLOOD SPECIMENOrdering Facility: [facility] Address: [address] [place] [address] Performed By: #### 5 7021-8 ####[facility] LABCLIA [id number] [place] [address] [place] Eosinophils (Bld) [#/Vol] 0.18 10*3/uL Normal <0.[address] [facility] Comment on above: Order Comment: Speci men Type: BLOOD SPECIMENOrdering Facility: [facility] Address: [address] [place] [address] Performed By: #### 5 7021-8 ####[facility] LABCLIA [id number] [facility] [address], [facility] [place] Eosinophils/100 WBC (Bld) 2.3 % Normal [facility] Comment on above: Order Comment: Speci men Type: BLOOD SPECIMENOrdering Facility: [facility] Address: [address] [place] [address] Performed By: #### 5 7021-8 ####[facility] LABCLIA [id number] [address], [place] [address] [place] Erythrocyte distribution width (RBC) [Ratio] 12.7 % Normal 11.5-15.[address] [facility] Comment on above: Order Comment: Speci men Type: BLOOD SPECIMENOrdering Facility: [facility] Address: [address] [place] [address] Performed By: #### 5 7021-8 ####[facility] LABIA [id number] [address] [place] Hematocrit (Bld) [Volume fraction] 50.2 % Normal 39.0-51.[address] [facility] Comment on above: Order Comment: Speci men Type: BLOOD SPECIMENOrdering Facility: [facility] Address: [address] [place] [address] Performed By: #### 5 7021-8 ####[facility] LABIA [id number] [place] [id number] [place] Hemoglobin (Bld) [Mass/Vol] 16.9 g/dL Normal 13.0-17.[address] [facility] Comment on above: Order Comment: Speci men Type: BLOOD SPECIMENOrdering Facility: [facility] Address: [address] [place] [address] Performed By: #### 5 7021-8 ####[facility] LABCLIA [id number] [place] [address] [place] Immature granulocytes (Bld) [#/Vol] 10*3/uL Normal <0.[address] [facility] Comment on above: Order Comment: Speci men Type: BLOOD SPECIMENOrdering Facility: [facility] Address: [address] [place] [address] Performed By: #### 5 7021-8 ####[facility] LABCLIA [id number] [place] [address] [place] Immature granulocytes/100 WBC (Bld) 0.3 % Normal [facility] Comment on above: Order Comment: Speci men Type: BLOOD SPECIMENOrdering Facility: [facility] Address: [address] [place] [address] Performed By: #### 5 7021-8 ####[facility] LABCLIA [id number] [place] [address] [place] Lymphocytes (Bld) [#/Vol] 0.93 10*3/uL Low 1.00-4.[address] [facility] Comment on above: Order Comment: Speci men Type: BLOOD SPECIMENOrdering Facility: [facility] Address: [address] [place] [address] Performed By: #### 5 7021-8 ####[facility] LABCLIA [id number] [place] [address] [place] Lymphocytes/100 WBC (Bld) 12.0 % Normal [facility] Comment on above: Order Comment: Speci men Type: BLOOD SPECIMENOrdering Facility: [facility] Address: [address] [place] [address] Performed By: #### 5 7021-8 ####[facility] LABCLIA [id number] [place] [address] [place] MCH (RBC) [Entitic mass] 31.9 pg Normal 26.0-34.[address] [facility] Comment on above: Order Comment: Speci men Type: BLOOD SPECIMENOrdering Facility: [facility] Address: [address] [place] [address] Performed By: #### 5 7021-8 ####[facility] LABIA [id number] [place] [address] [place] MCHC (RBC) [Mass/Vol] 33.7 g/dL Normal 30.5-36.[address] [facility] Comment on above: Order Comment: Speci men Type: BLOOD SPECIMENOrdering Facility: [facility] Address: [address] [place] [address] Performed By: #### 5 7021-8 ####[facility] LABIA [id number] [place] [address] [place] MCV (RBC) [Entitic vol] 94.9 fL Normal 80.0-100.[address] [facility] Comment on above: Order Comment: Speci men Type: BLOOD SPECIMENOrdering Facility: [facility] Address: [address] [place] [address] Performed By: #### 5 7021-8 ####[facility] LABIA [id number] [place] [address] [place] Monocytes (Bld) [#/Vol] 0.89 10*3/uL High <0.[address] [facility] Comment on above: Order Comment: Speci men Type: BLOOD SPECIMENOrdering Facility: [facility] Address: [address] [place] [address] Performed By: #### 5 7021-8 ####[facility] LABIA [id number] [address] [place] Monocytes/100 WBC (Bld) 11.5 % Normal [facility] Comment on above: Order Comment: Speci men Type: BLOOD SPECIMENOrdering Facility: [facility] Address: [address] [place] [address] Performed By: #### 5 7021-8 ####[facility] LABCLIA [id number] [address] [place] [address] [place] Neutrophils (Bld) [#/Vol] 5.71 10*3/uL Normal 1.45-7.[address] [facility] Comment on above: Order Comment: Speci men Type: BLOOD SPECIMENOrdering Facility: [facility] Address: [address] [place] [address] Performed By: #### 5 7021-8 ####[facility] LABCLIA [id number] [facility] [address], [place] [address] [place] Neutrophils/100 WBC (Bld) 73.5 % Normal [facility] Comment on above: Order Comment: Speci men Type: BLOOD SPECIMENOrdering Facility: [facility] Address: [address] [place] [address] Performed By: #### 5 7021-8 ####[facility] LABCLIA [id number] [facility] [address], [facility] [place] Nucleated RBC (Bld) [#/Vol] 10*3/uL Normal <0.[address] [facility] Comment on above: Order Comment: Speci men Type: BLOOD SPECIMENOrdering Facility: [facility] Address: [address] [place] [address] Performed By: #### 5 7021-8 ####[facility] LABCLIA [id number] [facility] [address], [facility] [place] Nucleated RBC/100 WBC (Bld) [Ratio] 0.0 /100 WBC Normal [facility] Comment on above: Order Comment: Speci men Type: BLOOD SPECIMENOrdering Facility: [facility] Address: [address] [place] [address] Performed By: #### 5 7021-8 ####[facility] LABCLIA [id number] [address] [place] [address] [place] Platelet mean volume (Bld) [Entitic vol] 12.2 fL Normal 9.0-12.[address] [facility] Comment on above: Order Comment: Speci men Type: BLOOD SPECIMENOrdering Facility: [facility] Address: [address] [place] [address] Performed By: #### 5 7021-8 ####[facility] LABIA [id number] [place] [address] [place] Platelets (Bld) [#/Vol] 243 10*3/uL Normal 150-[address] [facility] Comment on above: Order Comment: Speci men Type: BLOOD SPECIMENOrdering Facility: [facility] Address: [address] [place] [address] Performed By: #### 5 7021-8 ####[facility] LABIA [id number] [place] [address] [place] RBC (Bld) [#/Vol] 5.29 10*6/uL Normal 4.20-6.00 [facility] Comment on above: Order Comment: Speci men Type: BLOOD SPECIMENOrdering Facility: [facility] Address: [address] [place] [address] Performed By: #### 5 7021-8 ####[facility] LABIA [id number] [place] [id number] [place] WBC (Bld) [#/Vol] 7.76 10*3/uL Normal 3.70-11.00 [facility] Comment on above: Order Comment: Speci men Type: BLOOD SPECIMENOrdering Facility: [facility] Address: [address] [place] [address] Performed By: #### 5 7021-8 ####[facility] LABIA [id number] [place] [id number] [place] CNOVon 09-11-2024 [facility] CRISTINE MENA ([id number]) 1935 M Date Time Provider Department 09/11/24 10:40 AM ELADIO CHÁVEZ During your visit today, we recorded the following information about you: Pulse Blood pressure Weight Height 72/minute 141/90 76.7 kg 1.702 m Eladio Chávez MD 09/11/2024 12:13 PM Signed Chief Complaint Patient presents with: 6 Month Exam Recording using [employer] software for draft documentation of the visit was discussed with the patient/authorized primary care sales representative; all questions welcomed and answered. Patient/authorized primary care sales representative agreed to proceed HPI Cristine Mena is a 89 year old male who presents here today for Above Complaints. Essential Tremor: - Taking primidone 150 mg daily; previously increased to 200 mg daily but experienced headaches, prompting a return to 150 mg. - Tremor primarily affects hands during eating and writing; denies significant impact on daily activities. - Inquiring about stronger medication options that would not impair driving ability. Hypertension: - Previously taking losartan 50 mg 1.5 tablets daily; increased to 2 tablets daily without consulting a physician. - Home blood pressure readings improved with increased dosage, now averaging 128-130/100 mmHg. - Previous readings were 140-150 mmHg. Glaucoma and Macular Degeneration: - Undergoing treatment with Dr. Salcedo in [place], receiving intravitreal injections every 3 months. - Reports significant vision loss in the left eye, described as "pretty well shot," with only peripheral vision remaining. - No recent changes in vision; denies new black spots or further vision loss. - Recent eyeglass prescription adjustment to improve distance vision; reports better reading vision without glasses. - Denies difficulty seeing while driving; continues to drive regularly, including to medical appointments in [place]. Psoriasis: - Managed with triamcinolone ointment as needed. - Reports improvement in symptoms with current treatment. Past medical history, appointments, medications, allergies reviewed. Previous Medical History PAST MEDICAL HISTORY Diagnosis Date Acute, but ill-defined, cerebrovascular disease possible TIA Asthma (HCC) Hernández's esophagus EGD negative for Barretts 07/2017. Diverticulosis of colon (without mention of hemorrhage) Diverticulosis Erectile dysfunction Essential tremor Family history of abdominal aortic aneurysm (AAA) Family history of malignant neoplasm of gastrointestinal tract Glaucoma Dr. Rivera and Francisco Hydrocele of testis Macular degeneration, wet (HCC) left Malignant melanoma (HCC) 05/2023 Chest, Stage IB Nocturia Other and unspecified hyperlipidemia Other psoriasis and similar disorders Psoriasis PAC (premature atrial contraction) Personal history of colonic polyps Colon polyps Squamous cell carcinoma, face [facility] Stroke (HCC) Pt reports possible TIA in 2002 w/ symptoms of dizzyness Unspecified essential hypertension Previous Surgical History PAST SURGICAL HISTORY Procedure Laterality Date COLONOSCOPY FLX DX W/COLLJ SPEC WHEN PFRMD 07/24/2003 Colonoscopy COLONOSCOPY FLX DX W/COLLJ SPEC WHEN PFRMD 07/22/2010 COLONOSCOPY FLX DX W/COLLJ SPEC WHEN PFRMD 09/08/2012 COLONOSCOPY FLX DX W/COLLJ SPEC WHEN PFRMD 07/27/2017 Colonoscopy EGD TRANSORAL BIOPSY SINGLE/MULTIPLE 08/05/2010 EGD W/O BRSH SPECIMEN W/BX 08/20/2014 repeat in 5 years ESOPHAGOGASTRODUODENOSCOPY TRANSORAL DIAGNOSTIC 09/04/2003 EGD ESOPHAGOGASTRODUODENOSCOPY TRANSORAL DIAGNOSTIC 09/08/2012 EGD ESOPHAGOGASTRODUODENOSCOPY TRANSORAL DIAGNOSTIC 07/27/2017 EGD PAST SURGICAL HISTORY OF 2016 MOHs procedure on scalp PAST SURGICAL HISTORY OF 05/13/2023 Wide Local Excision of Chest Melanoma RMVL SEC MEMBRANOUS CTRC CORNEO-SCLL SCTJ 08/2008, right Cataract removal RPR 1ST INGUN HRNA AGE 5 YRS/> REDUCIBLE right and left Hernia repair, inguinal TONSILLECTOMY PRIMARY/SECONDARY Tonsillectomy XCAPSL CTRC RMVL INSJ IO LENS PROSTH W/O ECP left Cataract Removal Family History FAMILY HISTORY Problem Relation Age of Onset other (gallbladder) Mother Cancer Father rectal cancer, mi Cancer Brother prostate cancer Pancreatic Cancer Brother Heart Brother mi Aneurysm Brother AAA Patient Allergies ALLERGIES Allergen Reactions Amlodipine Swelling Current Medications Current Outpatient Medications on File Prior to Visit Medication Sig losartan (COZAAR) 50 mg tablet Take 1.5 tablets by mouth once daily. albuterol HFA (PROAIR HFA) 90 mcg/actuation inhaler Inhale 2 Puffs as instructed four times a day as needed. simvastatin (ZOCOR) 20 mg tablet Take 1 tablet by mouth daily at bedtime. primidone (MYSOLINE) 50 mg tablet Take 4 tablets by mouth once daily. triamcinolone lena (more content not included)... Normal [facility] Comprehensive metabolic 2000 panelon 09-11-2024 Albumin [Mass/Vol] 4.2 g/dL Normal 3.9-4.9 [facility] Comment on above: Order Comment: Speci men Type: BLOOD SPECIMENOrdering Facility: [facility] Address: [address] [place] [address] Performed By: #### L IPNF, ####[facility] LABCLIA [id number] [place] [address] [place] ALP [Catalytic activity/Vol] 108 U/L Normal 38-[address] [facility] Comment on above: Order Comment: Speci men Type: BLOOD SPECIMENOrdering Facility: [facility] Address: [address] [place] [address] Performed By: #### L IPNF, 41774-2 ####[facility] LABIA [id number] [place] [address] [place] ALT [Catalytic activity/Vol] 38 U/L Normal 10-[address] [facility] Comment on above: Order Comment: Speci men Type: BLOOD SPECIMENOrdering Facility: [facility] Address: [address] [place] [address] Performed By: #### L IPNF, ####[facility] LABCLIA [id number] [place] [address] [place] Anion gap [Moles/Vol] 12 mmol/L Normal 8-[address] [facility] Comment on above: Order Comment: Speci men Type: BLOOD SPECIMENOrdering Facility: [facility] Address: [address] [place] [address] Performed By: #### L IPNF, ####[facility] LABCLIA [id number] [address] [place] [address] [place] AST [Catalytic activity/Vol] 25 U/L Normal 14-[address] [facility] Comment on above: Order Comment: Speci men Type: BLOOD SPECIMENOrdering Facility: [facility] Address: [address] [place] [address] Performed By: #### L IPNF, 39536-0 ####[facility] LABCLIA [id number] [address] [place] [address] [place] Bilirubin [Mass/Vol] 0.7 mg/dL Normal 0.2-1.[address] [facility] Comment on above: Order Comment: Speci men Type: BLOOD SPECIMENOrdering Facility: [facility] Address: [address] [place] [address] Performed By: #### L IPIVANA, 91770-2 ####[facility] LABCLIA [id number] [address], [facility] [place] Calcium [Mass/Vol] 9.1 mg/dL Normal 8.5-10.2 [facility] Comment on above: Order Comment: Speci men Type: BLOOD SPECIMENOrdering Facility: [facility] Address: [address] [place] [address] Performed By: #### L IPNF, 99850-4 ####[facility] LABCLIA [id number] [address], [facility] [place] Chloride [Moles/Vol] 98 mmol/L Normal 98-[address] [facility] Comment on above: Order Comment: Speci men Type: BLOOD SPECIMENOrdering Facility: [facility] Address: [address] [place] [address] Performed By: #### L IPNF, 38748-0 ####[facility] LABCLIA [id number] [address] [place] [address] [place] CO2 [Moles/Vol] 23 mmol/L Normal 22-[address] [facility] Comment on above: Order Comment: Speci men Type: BLOOD SPECIMENOrdering Facility: [facility] Address: [address] [place] [address] Performed By: #### L IPNF, 15174-3 ####[facility] LABCLIA [id number] [facility] [address] [address] [place] Creatinine [Mass/Vol] 0.91 mg/dL Normal 0.73-1.[address] [facility] Comment on above: Order Comment: Speci men Type: BLOOD SPECIMENOrdering Facility: [facility] Address: [address] [place] [address] Performed By: #### L IPNF, 69666-8 ####[facility] LABCLIA [id number] [facility] [address] [address] [place] Creatinine and Glomerular filtration rate.predicted panel (S/P/Bld) 81 mL/min/1.73m??? Normal >=[address] [facility] Comment on above: Order Comment: Speci men Type: BLOOD SPECIMENOrdering Facility: [facility] Address: [address] [place] [address] Result Comment: Vanessa mated Glomerular Filtration Rate (eGFR) is calculated using the 2020 CKD-EPI creatinine equation. This equation utilizes serum creatinine, sex, and age as parameters. The creatinine assay has traceable calibration to isotope dilution-mass spectrometry. Refer to KDIGO guidelines for clinical interpretation. In patients with unstable renal function, e.g. those with acute kidney injury, the eGFR may not accurately reflect actual GFR. Performed By: #### L IPNF, 92975-5 ####[facility] LABCLIA [id number] [facility] [address] [address] [place] Glucose [Mass/Vol] 97 mg/dL Normal 74-99 [facility] Comment on above: Order Comment: Speci men Type: BLOOD SPECIMENOrdering Facility: [facility] Address: [address] [place] [address] Result Comment: The [place] Diabetes Association (ADA) provides guidance for cutoff values for fasting glucose and random glucose. The ADA defines fasting as no caloric intake for at least 8 hours. Fasting plasma glucose results between 100 to 125 mg/dL indicate increased risk for diabetes (prediabetes). Fasting plasma glucose results greater than or equal to 126 mg/dL meet the criteria for diagnosis of diabetes. In the absence of unequivocal hyperglycemia, results should be confirmed by repeat testing. In a patient with classic symptoms of hyperglycemia or hyperglycemic crisis, random plasma glucose results greater than or equal to 200 mg/dL meet the criteria for diagnosis of diabetes. Reference: Standards of Medical Care in Diabetes 2016, [place] Diabetes Association. Diabetes Care. 2016.39(Suppl 1). Performed By: #### L IPNF, 14855-8 ####[facility] LABCLIA [id number] [place] [address] [place] Potassium [Moles/Vol] 5.1 mmol/L Normal 3.7-5.[address] [facility] Comment on above: Order Comment: Speci men Type: BLOOD SPECIMENOrdering Facility: [facility] Address: [address] [place] [address] Performed By: #### L IPNF, 77976-1 ####[facility] LABCLIA [id number] [place] [address] [place] Protein [Mass/Vol] 6.6 g/dL Normal 6.3-8.0 [facility] Comment on above: Order Comment: Yamileti men Type: BLOOD SPECIMENOrdering Facility: [facility] Address: [address] [place] [address] Performed By: #### L IPNF, 70402-0 ####[facility] LABCLIA [id number] [place] [id number] [place] Sodium [Moles/Vol] 133 mmol/L Low 136-144 [facility] Comment on above: Order Comment: Speci men Type: BLOOD SPECIMENOrdering Facility: [facility] Address: [address] [place] [address] Performed By: #### L IPNF, ####[facility] LABCLIA [id number] [address] [place] [address] [place] Urea nitrogen [Mass/Vol] 14 mg/dL Normal 9-[address] [facility] Comment on above: Order Comment: Speci men Type: BLOOD SPECIMENOrdering Facility: [facility] Address: [address] [place] [address] Performed By: #### L IPNF, 28595-8 ####[facility] LABCLIA [id number] [address] [place] [address] [place] LIPID PANEL, NONFASTINGon Cholesterol [Mass/Vol] 143 mg/dL Normal <[address] [facility] Comment on above: Order Comment: Speci men Type: BLOOD SPECIMENOrdering Facility: [facility] Address: [address] [place] [address] Result Comment: <200 mg/dL, Desirable 200-239 mg/dL, Borderline high >239 mg/dL, High Performed By: #### L IPNF, 98901-6 ####[facility] LABCLIA [id number] [address], [facility] [place] HDL CHOLESTEROL, NF 46 mg/dL Normal >[address] [facility] Comment on above: Order Comment: Speci men Type: BLOOD SPECIMENOrdering Facility: [facility] Address: [address] [place] [address] Result Comment: 40-5 9 mg/dL, Acceptable >59 mg/dL, High: Negative risk factor for coronary heart disease <40 mg/dL, Low: Positive risk factor for coronary heart disease Performed By: #### L IPNF, 43166-5 ####[facility] LABCLIA [id number] [place] [id number] [place] LDL CHOLESTEROL CALCULATED, NF 83 mg/dL Normal <[address] [facility] Comment on above: Order Comment: Speci men Type: BLOOD SPECIMENOrdering Facility: [facility] Address: [address] [place] [address] Result Comment: <100 mg/dL, Optimal 100-129 mg/dL, Near optimal/above optimal 130-159 mg/dL, Borderline high 160-189 mg/dL, High >189 mg/dL, Very high Secondary prevention optimal LDL Cholesterol levels are recommended to be <70 mg/dL LDL cholesterol is calculated using the Duque-NIH equation. Performed By: #### L MINGO, 07444-3 ####[facility] LABCLIA [id number] [address] LDL/HDL RATIO, NF 1.80 mg/dL Normal <2.54 [facility] Comment on above: Order Comment: Carlitos watson Type: BLOOD SPECIMENOrdering Facility: [facility] Address: [address] [place] [address] Result Comment: Refe rence: 1. National Cholesterol Education Program ATP III Guideline At-A-Glance Quick Desk Reference: National Heart, Lung, and Blood [place]. National Institutes of Health. 2001: NIH Publication No. 01-3305. 2. An International Atherosclerosis Society position paper: global recommendations for the management of dyslipidemia: executive summary, Atherosclerosis. 2014: 232(2):410-413. Performed By: #### L MINGO, ####[facility] LABIA [id number] [address] NON HDL CHOL, NF 97 mg/dL Normal <[address] [facility] Comment on above: Order Comment: Carlitos watson Type: BLOOD SPECIMENOrdering Facility: [facility] Address: [address] [place] [address] Result Comment: <130 mg/dL, Optimal 130-159 mg/dL, Near optimal/above optimal 160-189 mg/dL, Borderline high 190-219 mg/dL, High >219 mg/dL, Very high Secondary prevention optimal non HDL Cholesterol levels are recommended to be <100 mg/dL Performed By: #### L MINGO, ####[facility] LABCLIA [id number] [address] [facility] T CHOL/HDL RATIO NF 3.11 mg/dL Normal <5.[address] [facility] Comment on above: Order Comment: Speci men Type: BLOOD SPECIMENOrdering Facility: [facility] Address: [address] [place] [address] Performed By: #### L IPNF, 75601-5 ####[facility] LABCLIA [id number] [place] [address] [place] TRIGLYCERIDES, NF 73 mg/dL Normal <150 [facility] Comment on above: Order Comment: Speci men Type: BLOOD SPECIMENOrdering Facility: [facility] Address: [address] [place] [address] Result Comment: <150 mg/dL, Normal 150-199 mg/dL, Borderline high 200-499 mg/dL, High >499 mg/dL, Very high Performed By: #### L IPNF, 30162-3 ####[facility] LABCLIA [id number] [place] [address] [place] VLDL CHOLESTEROL, NF 11 mg/dL Normal <[address] [facility] Comment on above: Order Comment: Speci men Type: BLOOD SPECIMENOrdering Facility: [facility] Address: [address] [place] [address] Performed By: #### L IPNF, 67575-8 ####[facility] LABCLIA [id number] [address] [place] CNOVon 04-18-2024 CNOV Office Visit (UCWSTR ) CRISTINE MENA ([id number]) 1935 M Date Time Provider Department 04/18/24 3:15 PM KENISHA JIMENEZ [facility] During your visit today, we recorded the following information about you: Temperature Pulse Respiration Blood pressure 98.8 degrees 75/minute 18/minute 151/72 Weight 78.5 kg Kenisha Jimenez PA-C 04/18/2024 4:26 PM Signed This note was created using [employer]. Subjective Cristine Mena is a 88 year old male. Patient is an 88-year-old male who complains of congestion and cough that he has been experiencing for the past 2 days. Patient also reports low-grade fever. Patient denies sinus pressure, ear pain or sore throat. Patient does have asthma and states that he is using his albuterol inhaler for episodes of wheezing. Patient also states that he does have a history of pneumonia and is concerned about development of same today. Patient has no history of COPD and does not smoke. Patient did receive the influenza vaccine. Cough Associated symptoms include wheezing. Review of Systems Constitutional: Positive for fever. HENT: Positive for congestion. Respiratory: Positive for cough and wheezing. All other systems reviewed and are negative. Objective BP 151/72 Pulse 75 Temp 37.1 ?C (98.8 ?F) Resp 18 Wt 78.5 kg (173 lb 1 oz) SpO2 96% BMI 27.11 kg/m? Physical Exam Vitals and nursing note reviewed. Constitutional: Appearance: Normal appearance. He is normal weight. HENT: Head: Normocephalic and atraumatic. Right Ear: Tympanic membrane, ear canal and external ear normal. Left Ear: Tympanic membrane, ear canal and external ear normal. Nose: Nose normal. Mouth/Throat: Mouth: Mucous membranes are moist. Pharynx: Oropharynx is clear. Eyes: Extraocular Movements: Extraocular movements intact. Conjunctiva/sclera: Conjunctivae normal. Pupils: Pupils are equal, round, and reactive to light. Cardiovascular: Rate and Rhythm: Normal rate and regular rhythm. Pulses: Normal pulses. Heart sounds: Normal heart sounds. Pulmonary: Effort: Pulmonary effort is normal. Breath sounds: Wheezing present. Musculoskeletal: Cervical back: Normal range of motion and neck supple. Skin: General: Skin is warm and dry. Capillary Refill: Capillary refill takes less than 2 seconds. Neurological: General: No focal deficit present. Mental Status: He is alert and oriented to person, place, and time. Psychiatric: Mood and Affect: Mood normal. Behavior: Behavior normal. Thought Content: Thought content normal. Judgment: Judgment normal. Assessment and Plan Physical exam findings as noted above. Chest x-ray is negative for acute findings as reported by the radiologist. Patient was provided with prescriptions for prednisone 10 mg and Tessalon 100 mg. Supportive care instructions were discussed and the patient verbalizes excellent understanding of same. CLINICAL IMPRESSION: Acute URI; Asthma ASSESSMENT/PLAN: 1. Acute cough - ICD9: 786.2, ICD10: R05.1 (primary diagnosis) - XR CHEST 2V FRONTAL/LAT - BENZONATATE 100 MG CAPSULE 2. Acute URI - ICD9: 465.9, ICD10: J06.9 3. Mild intermittent asthma, uncomplicated - ICD9: 493.90, ICD10: J45.20 - PREDNISONE 10 MG TABLET Kenisha Jimenez PA-C Allergies As of Date: 04/18/2024 Noted Allergy Reaction AMLODIPINE 08/04/2022 7 - Swelling Date Reviewed: 04/18/2024 Reviewed by: Micheline Rowe MA - Fully Assessed Reason for Visit: Cough [28] Cmt: Chest congestion, fever x5 days Primary Visit Diagnosis:Acute cough [R05.1] Other Visit Diagnoses:Acute URI [J06.9] Mild intermittent asthma, uncomplicated [J45.20] Order(s):XR CHEST 2V FRONTAL/LAT [[id number]] Order #: [id number] #:[id number] predniSONE (DELTASONE) 10 mg tabletTake 1 tablet by mouth two times a day for 5 days.Disp: 10 tabletRfl: 0 benzonatate (TESSALON PERLE) 100 mg capsuleTake 1 capsule by mouth three times a day as needed for cough for up to 7 days.Disp: 21 capsuleRfl: 0 Prescriptions as of 04/18/2024 - predniSONE (DELTASONE) 10 mg tablet Take 1 tablet by mouth two times a day for 5 days. - benzonatate (TESSALON PERLE) 100 mg capsule Take 1 capsule by mouth three times a day as needed for cough for up to 7 days. - fluticasone (FLONASE) 50 mcg/actuation nasal spray Use 2 Sprays in each nostril once daily. - albuterol HFA (PROAIR HFA) 90 mcg/actuation inhaler Inhale 2 Puffs as instructed four times a day as needed. - simvastatin (ZOCOR) 20 mg tablet Take 1 tablet by mouth daily at bedtime. - losartan (COZAAR) 50 mg tablet Take 1.5 tablets by mouth once daily. - primidone (MYSOLINE) 50 mg tablet Take 4 tablets by mouth once daily. - triamcinolone acetonide (KENALOG) 0.1 % ointment - aspirin 81 mg chewable tablet Take 81 mg by mouth once daily. - Miscellaneous Medical Supply (BLOOD PRESSURE CUFF) (more content not included)... Normal [facility] XR CHEST 2V FRONTAL/LATon XR CHEST 2V FRONTAL/LAT * * *Final Report* * * DATE OF EXAM: Apr 18 2024 4:09PM WOX [id number] - XR CHEST 2V FRONTAL/LAT / PROCEDURE REASON: Acute cough * * * * Physician Interpretation * * * * EXAMINATION: CHEST RADIOGRAPH (2 VIEW FRONTAL and LATERAL) CLINICAL HISTORY: Acute cough MQ: XC2_6 EXAM DATE/TIME: 04/18/2024 4:09 PM COMPARISON: Thoracic spine radiographs and chest radiograph dated 06/15/2016 RESULT: Lines, tubes, and devices: None. Lungs and pleura: No consolidation. No lung mass. No pleural effusion. No pneumothorax. Cardiomediastinal silhouette: Normal cardiomediastinal silhouette. Bones and soft tissues: Osseous demineralization. Chronic multilevel mild to moderate compression deformities in the thoracic spine. IMPRESSION: No acute radiographic abnormality. Account Analyst: ROXY Transcribe Date/Time: Apr 18 2024 4:10P Dictated by : ROMULO RAINES MD This examination was interpreted and the report reviewed and electronically signed by: ROMULO RAINES MD on Apr 18 2024 4:11PM EST [id number] Normal [facility] XR Chest PA and Lateralon IMPRESSION: No acute radiographic abnormality. Account Analyst: ROXY Transcribe Date/Time: Apr 18 2024 4:10P Dictated by : ROMULO RAINES MD This examination was interpreted and the report reviewed and electronically signed by: ROMULO RAINES MD on Apr 18 2024 4:11PM EST DIVISION OF RADIOLOGY * * *Final Report* * * DATE OF EXAM: Apr 18 2024 4:09PM WOX 5291 - XR CHEST 2V FRONTAL/LAT / PROCEDURE REASON: Acute cough * * * * Physician Interpretation * * * * EXAMINATION: CHEST RADIOGRAPH (2 VIEW FRONTAL & LATERAL) CLINICAL HISTORY: Acute cough MQ: XC2_6 EXAM DATE/TIME: 04/18/2024 4:09 PM COMPARISON: Thoracic spine radiographs and chest radiograph dated 06/15/2016 RESULT: Lines, tubes, and devices: None. Lungs and pleura: No consolidation. No lung mass. No pleural effusion. No pneumothorax. Cardiomediastinal silhouette: Normal cardiomediastinal silhouette. Bones and soft tissues: Osseous demineralization. Chronic multilevel mild to moderate compression deformities in the thoracic spine. DIVISION OF RADIOLOGY Provider, [facility] - 04/18/2024 * * *Final Report* * * DATE OF EXAM: Apr 18 2024 4:09PM WOX 5291 - XR CHEST 2V FRONTAL/LAT / PROCEDURE REASON: Acute cough * * * * Physician Interpretation * * * * EXAMINATION: CHEST RADIOGRAPH (2 VIEW FRONTAL & LATERAL) CLINICAL HISTORY: Acute cough MQ: XC2_6 EXAM DATE/TIME: 04/18/2024 4:09 PM COMPARISON: Thoracic spine radiographs and chest radiograph dated 06/15/2016 RESULT: Lines, tubes, and devices: None. Lungs and pleura: No consolidation. No lung mass. No pleural effusion. No pneumothorax. Cardiomediastinal silhouette: Normal cardiomediastinal silhouette. Bones and soft tissues: Osseous demineralization. Chronic multilevel mild to moderate compression deformities in the thoracic spine. IMPRESSION IMPRESSION: No acute radiographic abnormality. Account Analyst: PSCB Transcribe Date/Time: Apr 18 2024 4:10P Dictated by : ROMULO RAINES MD This examination was interpreted and the report reviewed and electronically signed by: ROMULO RAINES MD on Apr 18 2024 4:11PM EST [facility] Radiology Study observation (narrative) [facility] XR Chest PA and LateralOrder ed By: Cc Provider on 04-18-2024 [facility] CNPNon 03-14-2024 CNPN Telephone (FAMPWS) CRISTINE MENA ([id number]) 1935 M Date Time Provider Department 03/14/24 ELADIO CHÁVEZ During your visit today, we recorded the following information about you: Ruba Limon LPN 03/14/2024 7:14 AM Signed ----- Message from Eladio Chávez MD sent at 03/14/2024 7:00 AM EST ----- Normal labs. PSA normal/negative to screen for prostate cancer. No change in regimen. Mary Hendrix LPN 03/14/2024 2:34 PM Signed Telephone call placed to patient. Made aware of results and recommendations. Voices understanding. Mary Hendrix LPN Allergies As of Date: 03/14/2024 Noted Allergy Reaction AMLODIPINE 08/04/2022 14 - Other: See Comments Comments: Leg swelling Date Reviewed: 03/13/2024 Reviewed by: Eladio Chávez MD - Fully Assessed Reason for Visit: Results [95] Prescriptions as of 03/27/2024 - fluticasone (FLONASE) 50 mcg/actuation nasal spray Use 2 Sprays in each nostril once daily. - albuterol HFA (PROAIR HFA) 90 mcg/actuation inhaler Inhale 2 Puffs as instructed four times a day as needed. - simvastatin (ZOCOR) 20 mg tablet Take 1 tablet by mouth daily at bedtime. - losartan (COZAAR) 50 mg tablet Take 1.5 tablets by mouth once daily. - primidone (MYSOLINE) 50 mg tablet Take 4 tablets by mouth once daily. - triamcinolone acetonide (KENALOG) 0.1 % ointment - aspirin 81 mg chewable tablet Take 81 mg by mouth once daily. - Miscellaneous Medical Supply (BLOOD PRESSURE CUFF) 1 Each as needed. Automatic BP cuff to be used as directed to monitor hypertension. - Diflorasone Diacetate 0.05 % ointment Apply to affected area twice daily as needed. - Lchsevliymujd-Wmoqruqd-Jhhia n (CENTRUM SILVER) tab Take 1 tablet by mouth once daily. - psyllium seed/sucrose(METAMUCIL ORAL POWDER) one teaspoon daily - timolol (TIMOPTIC) 0.5 % OPHTHALMIC Drop one drop twice daily each eye - XALATAN 0.005 % EYE DROPS One gtt each eye daily. Problem List As Of Date 03/14/2024 Noted Resolved Hyperlipidemia [E78.5] 12/10/2004 01/05/2016 NOCTURIA [R35.1] 12/10/2004 Other malaise and fatigue [R53.81, R53.83] 12/10/2004 02/04/2014 ACTINIC KERATOSES (Premalignant AK's) [L57.0] 11/21/2005 02/04/2014 SEBORRHEIC KERATOSIS IRRITATED//INFLAMED [L82.0]11/21/2005 Viral warts, unspecified [B07.9] 11/21/2005 09/08/2011 PSORIASIS [L40.8] 11/21/2005 CHR SOLAR SKIN DAMAGE NOS [L57.8] 11/21/2005 09/16/2008 Glaucoma [H40.9] DIVERTICULOSIS OF COLON W/O BLEED [K57.30] PERS HX COLONIC POLYPS [Z86.0100] Other psoriasis and similar disorders [L40.8] 02/04/2014 Psychosexual dysfunction, unspecified [F52.9] 01/10/2017 Neoplasm of uncertain behavior of skin [D48.5] 07/29/2006 09/08/2011 ERYTHEMATOUS COND NEC [L53.8] 07/29/2006 09/16/2008 SOLAR LENTIGINES////DYSCHROMIA OTHER [L81.9] 07/29/2006 09/08/2011 Mild persistent asthma without complication [J4*01/05/2007 01/10/2017 Essential hypertension [I10] 01/05/2007 Essential tremor [G25.0] 01/05/2007 Anal or rectal pain [K62.89] 01/05/2007 02/04/2014 Other seborrheic keratosis [L82.1] 02/14/2007 09/08/2011 Benign neoplasm of skin of trunk, except scrotu*11/16/2007 09/08/2011 Scar condition and fibrosis of skin [L90.5] 11/16/2007 09/08/2011 Contact dermatitis and other eczema, due to uns*09/16/2008 09/08/2011 INTERTRIGO///ERYTHEMATOUS COND NEC [L53.8] 09/16/2008 09/08/2011 ACTINIC DAMAGE///CHR SOLAR SKIN DAMAGE NOS [L57*09/16/2008 09/08/2011 XEROSIS///SEBACEOUS GLAND DIS NEC [L73.8] 09/16/2008 09/08/2011 Esophagitis, unspecified [K20.90] 08/05/2010 01/10/2017 Dysphagia, unspecified [R13.10] 08/05/2010 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] 08/11/2010 08/10/2023 Skin tag [L91.8] 09/08/2011 02/04/2014 Actinic skin damage [L57.8] 11/21/2011 Scars [L90.5] 11/21/2011 07/08/2016 Solar Lentigines [L81.4] 11/21/2011 Xerosis cutis [L85.3] 06/19/2012 Other seborrheic keratosis [L82.1] 06/19/2012 02/04/2014 Diverticulitis [K57.92] 08/07/2012 Mixed hyperlipidemia [E78.2] 01/05/2016 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] Mild intermittent asthma, uncomplicated [J45.20]01/10/2017 Erectile dysfunction [N52.9] Macular degeneration, 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] PAC (premature atrial contraction) [I49.1] Family history of abdominal aortic aneurysm (AA*08/04/2022 Malignant melanoma (HCC) [C43.9] 05/2023 Squamous cell carcinoma, 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 2 mg/dL [facility] Chloride [Moles/Vol] 99 mmol/L 98 - 107 mmol/L [facility] CO2 [Moles/Vol] 26 mmol/L 22 - 30 mmol/L [facility] Creatinine [Mass/Vol] 0.89 mg/dL 0.73 - 1.22 mg/dL [facility] GFR/1.73 sq M.predicted among non-blacks MDRD (S/P/Bld) [Vol rate/Area] 83 mL/min/{1.73_m2} - PINF [facility] Comment on above: Estimated Glomerular Filtration Rate (eGFR) is calculated using the 2020 CKD-EPI creatinine equation. This equation utilizes serum creatinine, sex, and age as parameters. The creatinine assay has traceable calibration to isotope dilution-mass spectrometry. Refer to KDIGO guidelines for clinical interpretation. In patients with unstable renal function, e.g. those with acute kidney injury, the eGFR may not accurately reflect actual GFR. Glucose [Mass/Vol] 98 mg/dL 74 - 99 mg/dL [facility] Comment on above: The [place] [employer] Association (ADA) provides guidance for cutoff values for fasting glucose and random glucose. The ADA defines fasting as no caloric intake for at least 8 hours. Fasting plasma glucose results between 100 to 125 mg/dL indicate increased risk for diabetes (prediabetes). Fasting plasma glucose results greater than or equal to 126 mg/dL meet the criteria for diagnosis of diabetes. In the absence of unequivocal hyperglycemia, results should be confirmed by repeat testing. In a patient with classic symptoms of hyperglycemia or hyperglycemic crisis, random plasma glucose results greater than or equal to 200 mg/dL meet the criteria for diagnosis of diabetes. Reference: Standards of Medical Care in Diabetes 2016, [place] [employer]. Diabetes Care. 2016.39(Suppl 1). Interpretation and review of laboratory results Normal [facility] Potassium [Moles/Vol] 5.0 mmol/L 3.7 - 5.1 mmol/L [facility] Protein [Mass/Vol] 7.2 g/dL 6.3 - 8.0 g/dL [facility] Sodium [Moles/Vol] 136 mmol/L 136 - 144 mmol/L [facility] Urea nitrogen [Mass/Vol] 13 mg/dL 9 - 24 mg/dL [facility] CNOVon 03-13-2024 CNOV Office Visit (FAMPWS ) TRINACRISTINE ([id number]) 1935 M Date Time Provider Department 03/13/24 10:00 AM ELADIO CHÁVEZ During your visit today, we recorded the following information about you: Pulse Respiration Blood pressure Weight 56/minute 16/minute 138/82 77.7 kg Eladio Chávez MD 03/14/2024 7:35 AM Signed Cristine De Oliveira Trina is a 88 year old male here for a Medicare wellness visit. Patient has been in good health without recent hospitalizations, ER visits, or falls. No concerns today. Had melanoma removed from his chest about 9-10 months ago. Due for prostate cancer screening. Gets up once at night. Occasional weak stream. Denies straining, dysuria, hematuria. Up to date on immunizations. Requesting refills today. Medicare Health Risk Assessment General Health Good Exercise: Minutes/Day 20 min Exercise: Days/Week 6 days Alcohol: Daily Use 2-4 times a month Alcohol: Drinks/Day 1 or 2 Alcohol: 6 or more drinks Never Feel off balance No Concerns: Teeth/Dentures No Concerns: Sexual function No Troubled by feelings Stressed Frequency: Eating healthy diet Nearly every day ADLs requiring help None of the above Safety precautions in home/vehicle Yes Smoke, vape, chews tobacco No Difficulty hearing No Difficulty seeing Yes (only peripheral vision in his left eye.) Current Providers Specialists: I have reviewed specialist-related care of the patient in the medical record. Current care team: Patient Care Team: Eladio Chávez MD as PCP - General (Family Medicine) Podlogar, VALERIE Estrada.SWETA as Pot Builder (Family Medicine) Outside specialists seen: Optho: Dr Rivera and Francisco, Dermatology: Dr. Torre Medical/Family history review Reviewed and updated problem list, medical/surgical/family/soci al history, medications, and allergies. Opioid use review Opioid Medications (last 90 days) No data to display Anxiety/Depression screening PHQ-2 Score: 0 (Lower risk for anxiety) Recommendation: no further intervention at this time Cognitive screening Mini Cog Score: 4 Cognitive screening reviewed and No further action needed (score 3-5). 4/5. Functional Observation Was the patient's Timed Up AND Go test unsteady or >= 12 seconds? No Advance Care Planning Surrogate decision maker and/or advance care plan documented Living will has not been scanned in, but he has one at home. Full code. Measurements BP 138/82 Pulse (!) 56 Resp 16 Wt 77.7 kg (171 lb 6.4 oz) SpO2 98% BMI 26.85 kg/m? Vision Screening: Right: 20/25 Left: 20/ Both: 20/30 with correction- patient only reports peripheral in left eye Latest Ref Rn 08/10/2023 WBC 3.70 - 11.00 k/uL 7.42 RBC 4.20 - 6.00 m/uL 5.09 Hemoglobin 13.0 - 17.0 g/dL 16.6 Hematocrit 39.0 - 51.0 % 49.7 MCV 80.0 - 100.0 fL 97.6 MCH 26.0 - 34.0 pg 32.6 MCHC 30.5 - 36.0 g/dL 33.4 RDW-CV 11.5 - 15.0 % 12.9 Platelet Count 150 - 400 k/uL 231 MPV 9.0 - 12.7 fL 12.1 Neut% % 73.2 Abs Neut (ANC) 1.45 - 7.50 k/uL 5.43 Lymph% % 13.3 Abs Lymph 1.00 - 4.00 k/uL 0.99 (L) [place]% % 11.1 Abs [place] <0.87 k/uL 0.82 Eosin% % 2.0 Abs Eosin <0.46 k/uL 0.15 Baso% % 0.3 Abs Baso <0.11 k/uL <0.03 Immature Gran % % 0.1 IMMATURE GRANS (ABS) <0.10 k/uL <0.03 NRBC /100 WBC 0.0 Absolute nRBC <0.01 k/uL <0.01 DTYPE Auto Protein, Total 6.3 - 8.0 g/dL 6.2 (L) Albumin 3.9 - 4.9 g/dL 4.1 Calcium 8.5 - 10.2 mg/dL 9.3 Bilirubin, Total 0.2 - 1.3 mg/dL 0.6 Alkaline Phosphatase 38 - 113 U/L 86 AST 14 - 40 U/L 26 ALT 10 - 54 U/L 22 Glucose 74 - 99 mg/dL 115 (H) BUN 9 - 24 mg/dL 16 Creatinine 0.73 - 1.22 mg/dL 0.96 Sodium 136 - 144 mmol/L 136 Potassium 3.7 - 5.1 mmol/L 4.6 Chloride 98 - 107 mmol/L 101 CO2 22 - 30 mmol/L 26 Anion Gap 8 - 15 mmol/L 9 eGFR >=60 mL/min/1.73m? 77 Total Cholesterol, Nonfasting <200 mg/dL 158 Triglycerides, Nonfasting <150 mg/dL 94 HDL Cholesterol, Nonfasting >39 mg/dL 48 LDL Cholesterol, Nonfasting <100 mg/dL 91 Non HDL Cholesterol, Nonfasting <130 mg/dL 110 VLDL Cholesterol, Nonfasting <30 mg/dL 19 Total Chol/HDL Ratio, Nonfasting <5.10 mg/dL 3.29 LDL/HDL Ratio, Nonfasting <2.54 mg/dL 1.90 Legend: (L) Low (H) High ASSESSMENT/PLAN: 1. Medicare annual wellness visit, subsequent - ICD9: V70.0, ICD10: Z00.00 (primary diagnosis) - Counseled on healthy diet and regular exercise - Fall avoidance information provided - Personalized prevention plan provided - COMPREHENSIVE METABOLIC PANEL 2. Screening for depression - ICD9: V79.0, ICD10: Z13.31 Negative. - DEPRESSION SCREENING 3. Encounter for screening examination for other mental health and behavioral disorders - ICD9: V79.8, ICD10: Z13.39 Negative. - ANXIETY SCREENING 4. Screening for prostate cancer - ICD9: V76.44, ICD10: Z12.5 Obtain PSA. Will call with results. - PSA/PROSTATE SP (more content not included)... Normal [facility] Comprehensive metabolic 2000 panelon 03-13-2024 Albumin [Mass/Vol] 4.5 g/dL Normal 3.9-4.9 [facility] Comment on above: Order Comment: Speci men Type: BLOOD SPECIMENOrdering Facility: [facility] Address: [address] [place] [address] Performed By: #### 2 4323-8 ####[facility] LABIA [id number] [place] [address] [place] ALP [Catalytic activity/Vol] 89 U/L Normal 38-[address] [facility] Comment on above: Order Comment: Speci men Type: BLOOD SPECIMENOrdering Facility: [facility] Address: [address] [place] [address] Performed By: #### 2 4323-8 ####[facility] LABIA [id number] [place] [address] [place] ALT [Catalytic activity/Vol] 25 U/L Normal 10-[address] [facility] Comment on above: Order Comment: Speci men Type: BLOOD SPECIMENOrdering Facility: [facility] Address: [address] [place] [address] Performed By: #### 2 4323-8 ####[facility] LABIA [id number] [place] [address] [place] Anion gap [Moles/Vol] 11 mmol/L Normal 8-[address] [facility] Comment on above: Order Comment: Speci men Type: BLOOD SPECIMENOrdering Facility: [facility] Address: [address] [place] [address] Performed By: #### 2 4323-8 ####[facility] LABIA [id number] [place] [address] [place] AST [Catalytic activity/Vol] 27 U/L Normal 14-[address] [facility] Comment on above: Order Comment: Speci men Type: BLOOD SPECIMENOrdering Facility: [facility] Address: [address] [place], [place] [id number] Performed By: #### 2 4323-8 ####[facility] LABCLIA [id number] [address] [address] [place] Bilirubin [Mass/Vol] 0.7 mg/dL Normal 0.2-1.[address] [facility] Comment on above: Order Comment: Speci men Type: BLOOD SPECIMENOrdering Facility: [facility] Address: [address] [place] [address] Performed By: #### 2 4323-8 ####[facility] LABCLIA [id number] [place] [address] [place] Calcium [Mass/Vol] 9.6 mg/dL Normal 8.5-10.2 [facility] Comment on above: Order Comment: Speci men Type: BLOOD SPECIMENOrdering Facility: [facility] Address: [address] [place], [place] [address] Performed By: #### 2 4323-8 ####[facility] LABCLIA [id number] [place] [address] [place] Chloride [Moles/Vol] 99 mmol/L Normal 98-[address] [facility] Comment on above: Order Comment: Speci men Type: BLOOD SPECIMENOrdering Facility: [facility] Address: [address] [place], [place] [address] Performed By: #### 2 4323-8 ####[facility] LABCLIA [id number] [place] [address] [place] CO2 [Moles/Vol] 26 mmol/L Normal 22-[address] [facility] Comment on above: Order Comment: Speci men Type: BLOOD SPECIMENOrdering Facility: [facility] Address: [address] [place], [place] [address] Performed By: #### 2 4323-8 ####[facility] LABCLIA [id number] [address] [address] [place] Creatinine [Mass/Vol] 0.89 mg/dL Normal 0.73-1.[address] [facility] Comment on above: Order Comment: Carlitos watson Type: BLOOD SPECIMENOrdering Facility: [facility] Address: [address] [place] [address] Performed By: #### 2 4323-8 ####[facility] LABIA [id number] [address] [facility] Creatinine and Glomerular filtration rate.predicted panel (S/P/Bld) 83 mL/min/1.73m??? Normal >=[address] [facility] Comment on above: Order Comment: Carlitos watson Type: BLOOD SPECIMENOrdering Facility: [facility] Address: [address] [place] [address] Result Comment: Vanessa mated Glomerular Filtration Rate (eGFR) is calculated using the 2020 CKD-EPI creatinine equation. This equation utilizes serum creatinine, sex, and age as parameters. The creatinine assay has traceable calibration to isotope dilution-mass spectrometry. Refer to KDIGO guidelines for clinical interpretation. In patients with unstable renal function, e.g. those with acute kidney injury, the eGFR may not accurately reflect actual GFR. Performed By: #### 2 4323-8 ####[facility] LABIA [id number] [place] [address] [place] Glucose [Mass/Vol] 98 mg/dL Normal 74-99 [facility] Comment on above: Order Comment: Carlitos watson Type: BLOOD SPECIMENOrdering Facility: [facility] Address: [address] [place] [address] Result Comment: The [place] Diabetes Association (ADA) provides guidance for cutoff values for fasting glucose and random glucose. The ADA defines fasting as no caloric intake for at least 8 hours. Fasting plasma glucose results between 100 to 125 mg/dL indicate increased risk for diabetes (prediabetes). Fasting plasma glucose results greater than or equal to 126 mg/dL meet the criteria for diagnosis of diabetes. In the absence of unequivocal hyperglycemia, results should be confirmed by repeat testing. In a patient with classic symptoms of hyperglycemia or hyperglycemic crisis, random plasma glucose results greater than or equal to 200 mg/dL meet the criteria for diagnosis of diabetes. Reference: Standards of Medical Care in Diabetes 2016, [place] [employer]. Diabetes Care. 2016.39(Suppl 1). Performed By: #### 2 4323-8 ####[facility] LABCLIA [id number] [place] [address] [place] Potassium [Moles/Vol] 5.0 mmol/L Normal 3.7-5.[address] [facility] Comment on above: Order Comment: Speci men Type: BLOOD SPECIMENOrdering Facility: [facility] Address: [address] [place] [address] Performed By: #### 2 4323-8 ####[facility] LABCLIA [id number] [place] [address] [place] Protein [Mass/Vol] 7.2 g/dL Normal 6.3-8.0 [facility] Comment on above: Order Comment: Speci men Type: BLOOD SPECIMENOrdering Facility: [facility] Address: [address] [place] [address] Performed By: #### 2 4323-8 ####[facility] LABCLIA [id number] [place] [address] [place] Sodium [Moles/Vol] 136 mmol/L Normal 136-144 [facility] Comment on above: Order Comment: Speci men Type: BLOOD SPECIMENOrdering Facility: [facility] Address: [address] [place] [address] Performed By: #### 2 4323-8 ####[facility] LABCLIA [id number] [place] [address] [place] Urea nitrogen [Mass/Vol] 13 mg/dL Normal 9-[address] [facility] Comment on above: Order Comment: Speci men Type: BLOOD SPECIMENOrdering Facility: [facility] Address: [address] [place] [address] Performed By: #### 2 4323-8 ####[facility] LABIA [id number] [place] [address] [place] PSA/PROSTATE SPECIFIC ANTIGE N SCREENINGon 03-13-2024 Interpretation and review of laboratory results Normal [facility] Prostate specific Ag [Mass/Vol] 1.79 ng/mL NINF - 2.60 ng/mL [facility] Comment on above: Total PSA test metho dology used is the Electrochemiluminescence Immunoassay by [employer]. Total PSA values by differing methodologies cannot be interchanged. [facility] Prostate specific Ag [Mass/Vol] 1.79 ng/mL Normal <2.[address] [facility] Comment on above: Order Comment: Speci men Type: BLOOD SPECIMENOrdering Facility: [facility] Address: [address] [place] [address] Result Comment: Tota l PSA test methodology used is the Electrochemiluminescence Immunoassay by [employer]. Total PSA values by differing methodologies cannot be interchanged. Performed By: #### P SAS1 ####[facility] LABIA [id number] [place] [address] [place] CNOVon 11-21-2023 CNOV Office Visit ([place] ) CRISTINE MENA ([id number]) 1935 M Date Time Provider Department 11/21/23 2:00 PM CHRIS MERCEDES During your visit today, we recorded the following information about you: Pulse Blood pressure Weight 61/minute 169/92 77.5 kg Chris Mercedes MD 11/21/2023 2:04 PM Signed Chris Mercedes M.D. Surgical Oncology [address] [facility], [address] [place] [id number] Plan SUBJECTIVE HPI Crsitine Mena is a 88 year old male presenting for follow up of stage IB melanoma of the chest. Patient was last seen in clinic about 3 months ago. He reports that he has been doing well. He has no new or worsening symptoms. He reports no significant changes to his medical history. He continues to follow with dermatology as scheduled. Review of Systems Constitutional: Negative for malaise/fatigue and weight loss. HENT: Negative for sore throat. Eyes: Negative for blurred vision and double vision. Respiratory: Negative for cough, hemoptysis, shortness of breath and stridor. Cardiovascular: Negative for palpitations, claudication and leg swelling. Gastrointestinal: Negative for abdominal pain, blood in stool, nausea and vomiting. Genitourinary: Negative for dysuria, flank pain and hematuria. Musculoskeletal: Negative for falls, joint pain and myalgias. Skin: Negative for rash. Neurological: Negative for speech change, focal weakness and headaches. Endo/Heme/Allergies: Does not bruise/bleed easily. Psychiatric/Behavioral: Negative for depression and memory loss. The patient is not nervous/anxious. The medical, surgical, family, and social history were reviewed by Chris Mercedes MD. OBJECTIVE BP 169/92 Pulse 61 Wt 77.5 kg (170 lb 13.7 oz) SpO2 97% BMI 26.76 kg/m? BMI 26.76 kg/(m2) Physical Exam Constitutional: General: He is not in acute distress. HENT: Head: Normocephalic and atraumatic. Eyes: Pupils: Pupils are equal, round, and reactive to light. Neck: Thyroid: No thyromegaly. Trachea: No tracheal deviation. Cardiovascular: Rate and Rhythm: Normal rate and regular rhythm. Heart sounds: Normal heart sounds. Pulmonary: Effort: Pulmonary effort is normal. No respiratory distress. Breath sounds: Normal breath sounds. No stridor. Abdominal: General: There is no distension. Palpations: Abdomen is soft. Tenderness: There is no abdominal tenderness. Musculoskeletal: General: No deformity. Normal range of motion. Lymphadenopathy: Cervical: No cervical adenopathy. Upper Body: Right upper body: No supraclavicular or axillary adenopathy. Left upper body: No supraclavicular or axillary adenopathy. Skin: General: Skin is warm and dry. Findings: No erythema or rash. Comments: Well healed WLE site of the chest. No nodularity or pigmentation concerning for recurrence Neurological: Mental Status: He is alert and oriented to person, place, and time. Psychiatric: Mood and Affect: Affect normal. Judgment: Judgment normal. ASSESSMENT AND PLAN 88 year old man with stage IB melanoma of the chest. Patient is currently DOMENICA. I discussed with patient his ongoing surveillance. I advised him to follow up with dermatology as scheduled and he will follow up with surgical oncology in 6 months. I spent a total of 20 minutes on the date of the service which included preparing to see the patient, completing clinical documentation, performing a medically appropriate examination, and counseling and educating the patient/family/caregiver. Chris Mercedes MD 11/21/2023 1:48 PM Allergies As of Date: 11/21/2023 Noted Allergy Reaction AMLODIPINE 08/04/2022 14 - Other: See Comments Comments: Leg swelling Date Reviewed: 11/21/2023 Reviewed by: Chris Mercedes MD - Fully Assessed Reason for Visit: Follow Up [171] Cmt: Malignant melanoma of torso excluding breast Primary Visit Diagnosis: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) [C43.59] Prescriptions as of 11/21/2023 - losartan (COZAAR) 50 mg tablet Take 1.5 tablets by mouth once daily. - simvastatin (ZOCOR) 20 mg tablet Take 1 tablet by mouth daily at bedtime. - primidone (MYSOLINE) 50 mg tablet Take 4 tablets by mouth once daily. - triamcinolone acetonide (KENALOG) 0.1 % ointment - albuterol HFA (PROAIR HFA) 90 mcg/actuation inhaler Inhale 2 Puffs as instructed four times daily as needed. - aspirin 81 mg chewable tablet Take 81 mg by mouth once daily. - Miscellaneous Medical Supply (BLOOD PRESSURE CUFF) 1 Each as needed. Automatic BP cuff to be used as directed to monitor hypertension. - Diflorasone Diacetate 0.05 % ointment Apply to affected area twice daily as needed. - Ssadnvrhgyjvu-Qbdjmbzx-Iumwm n (CENTRUM SILVER) tab Take 1 tablet by mouth once daily. - psyllium seed/sucrose(METAMUCIL ORAL POWDER) one teaspoon daily - t (more content not included)... Normal [facility] CBC W Auto Differential pane l (Bld)on 08-10-2023 Basophils (Bld) [#/Vol] [facility] Basophils/100 WBC (Bld) 0.3 % [facility] Differential cell count method Nom (Bld) Auto [facility] Eosinophils (Bld) [#/Vol] 0.15 10*3/uL [facility] Eosinophils/100 WBC (Bld) 2.0 % [facility] Erythrocyte distribution width (RBC) [Ratio] 12.9 % 11.5 - 15.0 % [facility] Hematocrit (Bld) [Volume fraction] 49.7 % 39.0 - 51.0 % [facility] Hemoglobin (Bld) [Mass/Vol] 16.6 g/dL 13.0 - 17.0 g/dL [facility] Immature granulocytes (Bld) [#/Vol] [facility] Immature granulocytes/100 WBC (Bld) 0.1 % [facility] Interpretation and review of laboratory results Abnormal [facility] Lymphocytes (Bld) [#/Vol] 0.99 10*3/uL Low [facility] Lymphocytes/100 WBC (Bld) 13.3 % [facility] MCH (RBC) [Entitic mass] 32.6 pg 26.0 - 34.0 pg [facility] MCHC (RBC) [Mass/Vol] 33.4 g/dL 30.5 - 36.0 g/dL [facility] MCV (RBC) [Entitic vol] 97.6 fL 80.0 - 100.0 fL [facility] Monocytes (Bld) [#/Vol] 0.82 10*3/uL [facility] Monocytes/100 WBC (Bld) 11.1 % [facility] Neutrophils (Bld) [#/Vol] 5.43 10*3/uL [facility] Neutrophils/100 WBC (Bld) 73.2 % [facility] Nucleated RBC (Bld) [#/Vol] [facility] Nucleated RBC/100 WBC (Bld) [Ratio] 0.0 % /100 WBC [facility] Platelet mean volume (Bld) [Entitic vol] 12.1 fL 9.0 - 12.7 fL [facility] Platelets (Bld) [#/Vol] 231 10*3/uL [facility] RBC (Bld) [#/Vol] 5.09 10*6/uL 4.20 - 6.0 0 m/uL [facility] WBC (Bld) [#/Vol] 7.42 10*3/uL [facility] Comprehensive metabolic 2000 panelon 08-10-2023 Albumin [Mass/Vol] 4.1 g/dL 3.9 - 4.9 g/dL [facility] ALP [Catalytic activity/Vol] 86 U/L 38 - 113 U/L [facility] ALT [Catalytic activity/Vol] 22 U/L 10 - 54 U/L [facility] Anion gap [Moles/Vol] 9 mmol/L 8 - 15 mmol/L [facility] AST [Catalytic activity/Vol] 26 U/L 14 - 40 U/L [facility] Bilirubin [Mass/Vol] 0.6 mg/dL 0.2 - 1.3 mg/dL [facility] Calcium [Mass/Vol] 9.3 mg/dL 8.5 - 10. 2 mg/dL [facility] Chloride [Moles/Vol] 101 mmol/L 98 - 107 mmol/L [facility] CO2 [Moles/Vol] 26 mmol/L 22 - 30 mmol/L [facility] Creatinine [Mass/Vol] 0.96 mg/dL 0.73 - 1.22 mg/dL [facility] GFR/1.73 sq M.predicted among non-blacks MDRD (S/P/Bld) [Vol rate/Area] 77 mL/min/{1.73_m2} - PINF [facility] Comment on above: Estimated Glomerular Filtration Rate (eGFR) is calculated using the 2020 CKD-EPI creatinine equation. This equation utilizes serum creatinine, sex, and age as parameters. The creatinine assay has traceable calibration to isotope dilution-mass spectrometry. Refer to KDIGO guidelines for clinical interpretation. In patients with unstable renal function, e.g. those with acute kidney injury, the eGFR may not accurately reflect actual GFR. Glucose [Mass/Vol] 115 mg/dL High 74 - 99 mg/dL [facility] Comment on above: The [place] Diabete s Association (ADA) provides guidance for cutoff values for fasting glucose and random glucose. The ADA defines fasting as no caloric intake for at least 8 hours. Fasting plasma glucose results between 100 to 125 mg/dL indicate increased risk for diabetes (prediabetes). Fasting plasma glucose results greater than or equal to 126 mg/dL meet the criteria for diagnosis of diabetes. In the absence of unequivocal hyperglycemia, results should be confirmed by repeat testing. In a patient with classic symptoms of hyperglycemia or hyperglycemic crisis, random plasma glucose results greater than or equal to 200 mg/dL meet the criteria for diagnosis of diabetes. Reference: Standards of Medical Care in Diabetes 2016, [place] [employer] Association. Diabetes Care. 2016.39(Suppl 1). Interpretation and review of laboratory results Abnormal [facility] Potassium [Moles/Vol] 4.6 mmol/L 3.7 - 5.1 mmol/L [facility] Protein [Mass/Vol] 6.2 g/dL Low 6.3 - 8.0 g/dL [facility] Sodium [Moles/Vol] 136 mmol/L 136 - 144 mmol/L [facility] Urea nitrogen [Mass/Vol] 16 mg/dL 9 - 24 mg/dL [facility] LIPID PANEL, NONFASTINGon Cholesterol [Mass/Vol] 158 mg/dL NINF - 200 mg/dL [facility] Comment on above: <200 mg/dL, Desirabl e 200-239 mg/dL, Borderline high >239 mg/dL, High HDL Cholesterol, Nonfasting 48 mg/dL 39 - PINF mg/dL [facility] Comment on above: 40-59 mg/dL, Accepta ble >59 mg/dL, High: Negative risk factor for coronary heart disease <40 mg/dL, Low: Positive risk factor for coronary heart disease Interpretation and review of laboratory results Normal [facility] LDL Cholesterol, Nonfasting 91 mg/dL NINF - 100 mg/dL [facility] Comment on above: <100 mg/dL, Optimal 100-129 mg/dL, Near optimal/above optimal 130-159 mg/dL, Borderline high 160-189 mg/dL, High >189 mg/dL, Very high Secondary prevention optimal LDL Cholesterol levels are recommended to be < 70 mg/dL LDL/HDL Ratio, Nonfasting 1.90 mg/dL NINF - 2.54 mg/dL [facility] Comment on above: Reference: 1. National Cholesterol Education Program ATP III Guideline At-A-Glance Quick Desk Reference: National Heart, Lung, and Blood [place]. National Institutes of Health. 2001: NIH Publication No. 01-3305. 2. An International Atherosclerosis Society position paper: global recommendations for the management of dyslipidemia: executive summary, Atherosclerosis. 2014: 232(2):410-413. Non HDL Cholesterol, Nonfasting 110 mg/dL NINF - 130 mg/dL [facility] Comment on above: <130 mg/dL, Optimal 130-159 mg/dL, Near optimal/above optimal 160-189 mg/dL, Borderline high 190-219 mg/dL, High >219 mg/dL, Very high Secondary prevention optimal non HDL Cholesterol levels are recommended to be <100 mg/dL Total Chol/HDL Ratio, Nonfasting 3.29 mg/dL NINF - 5.10 mg/dL [facility] Triglycerides, Nonfasting 94 mg/dL NINF - 150 mg/dL [facility] Comment on above: <150 mg/dL, Normal 150-199 mg/dL, Borderline high 200-499 mg/dL, High >499 mg/dL, Very high VLDL Cholesterol, Nonfasting 19 mg/dL NINF - 30 mg/dL [facility] No Panel Informationon 08-09 [facility] ALLIED HEALTHon 05-13-2023 ALLIED HEALTH HNO ID: [id number] Author: HAMILTON PUCKETT Chaplain Service: ? Author Type: Vacuum Truck Driver Type: Allied Health Filed: 05/13/2023 07:28 Note Text: SPIRITUAL CARE PROGRESS NOTE SERVICE DATE: 05/13/2023 SERVICE TIME: 7:15 AM As a shredded filler cigar maker machine I responded to a page for pre surgery prayer. Met with PT and 3 family/friends at the bedside. Exchanged pleasantries and prayed. To contact the Spiritual Care Department: Please call [phone]. SIGNATURE: Chaplain Ricardo PATIENT NAME: Cristine Mena DATE: May 13, 2023 TIME: 7:27 AM PAGER/CONTACT #: [phone] Normal [facility] ANES POSTPROC EVALon 024 ANES POSTPROC EVAL HNO ID: [id number] Author: MANAV BARKSDALE MD Service: Anesthesiology Author Type: Anesthesiologist Type: Anesthesia Postprocedure Evaluation Filed: 05/13/2023 14:29 Note Text: POST ANESTHESIA EVALUATION NOTE : 1935 Procedure Summary Date: 05/13/23 Room / Location: [facility] [place] OR Anesthesia Start: 3 Anesthesia Stop: 1249 Procedure: WIDE LOCAL EXCISION OF CHEST MELANOMA 3 CM (Chest) Diagnosis: 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) Lymphedema (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) [C43.59]) (Lymphedema [I89.0]) Surgeons: Chris Mercedes MD Responsible Provider: Manav Barksdale MD Anesthesia Type: general ASA Status: 3 Anesthesia Type: general Airway Type: ETT Last Vitals Vitals Value Taken Time BP 178/79 05/13/23 1300 Temp 36.2 ?C (97.2 ?F) 05/13/23 1300 HR SpO2 63 05/13/23 1302 Resp 15 05/13/23 1301 SpO2 95 % 05/13/23 1302 Vitals shown include unfiled device data. Post Anesthesia Patient Status Patient Evaluation: PACU. PACU/ICU Patient Condition: stable. Anticipated Disposition: phase 2 then home. Neurological Status: aware and responsive. Pulmonary Status: breathing comfortably on room air Cardiovascular Status: stable. Pain Management: clinically adequate Postoperative Hydration: acceptable. Intraoperative Events: no significant anesthesia events Post Operative Nausea/Vomiting Status: no significant post operative nausea or vomiting Recommendation: continue current plan of care. Anesthesia Observations No Documentation SIGNATURE: Manav Barksdale MD PATIENT NAME: Cristine Mena DATE: May 13, 2023 TIME: 2:29 PM CSN: [id number] [facility] ANES PRE-OPon 05-13-2023 ANES PRE-OP HNO ID: [id number] Author: WALE HART MD Service: Anesthesiology Author Type: Anesthesiologist Type: Anesthesia Preprocedure Evaluation Filed: 05/13/2023 11:37 Note Text: ANESTHESIOLOGY DAY OF SURGERY NOTE : 1935 Procedure Information Anesthesia Start Date/Time: 05/13/23 1113 Procedures: WIDE LOCAL EXCISION OF CHEST MELANOMA 3 CM (Chest) SENTINEL LYMPH NODE BIOPSY Location: [facility] [place] OR Surgeons: Chris Mercedes MD Estimated body mass index is 27.57 kg/m? as calculated from the following: Height as of 04/20/23: 170.2 cm (5' 7"). Weight as of 04/20/23: 79.8 kg (176 lb). Most recent hematocrit and potassium results: Hematocrit 52.1 07/29/2022 K 5.1 02/08/2023 Relevant Problems CARDIO (+) Essential hypertension (+) PAC (premature atrial contraction) NEURO-PSYCH (+) Personal history of colonic polyps PULMONARY (+) Mild intermittent asthma, uncomplicated I - PHYSICAL EVALUATION AIRWAY Patient intubated: No. Tracheostomy tube not present Mallampati: II. TM distance: >3 FB. Neck ROM: full ROM without neurological symptoms. Mouth opening: adequate. Short neck: no. Thick neck: no DENTAL Dentures, upper: complete. Dentures, lower: partial. II - ANESTHESIA PLAN ASA Score: 3 Anesthetic Plan: general Airway type: ETT NPO Status: adequate Beta Anna Monitoring Plan Monitoring plan: standard ASA. Post Procedure Analgesic Plan Postoperative analgesic plan: parenteral or oral opioids, multimodal analgesia and per surgical service. Informed Consent Anesthetic risks, benefits, alternatives, personnel and consent discussed: yes. Patient / Responsible Republican agrees to proceed: yes Patient / Surrogate agrees to blood products: Yes Vitals Value Taken Time BP 181/94 05/13/23 0916 Pulse 60 05/13/23915 Resp 18 05/13/23915 Temp 36.2 ?C (97.2 ?F) 05/13/23 09 SpO2 97 % 05/13/23 09 Facility-Administered Medications as of 05/13/2023 Medication Dose Route Frequency - [COMPLETED] enoxaparin 40 mg injection (LOVENOX) 40 mg SUBCUTANEOUS ONCE - lidocaine 10 mg/mL (1 %) 1-2 mg injection (XYLOCAINE) 0.1-0.2 mL INTRADERMAL PRN - lactated ringers iv infusion 5-30 mL/hr INTRAVENOUS CONTINUOUS - NaCl 0.9% iv flush bag 20 mL INTRAVENOUS PRN - [COMPLETED] acetaminophen 975 mg tab(s) (TYLENOL) 975 mg ORAL Pre-Op Once - [COMPLETED] celecoxib 400 mg cap(s) (CeleBREX) 400 mg ORAL Pre-Op Once - ceFAZolin iv piggyback 2 g in D5W (iso-osmotic) 100 mL (ANCEF) 2 g INTRAVENOUS Pre-Op Once Outpatient Medications as of 05/13/2023 Medication Sig - triamcinolone acetonide (KENALOG) 0.1 % ointment - losartan (COZAAR) 50 mg tablet Take 1.5 tablets by mouth once daily. - albuterol HFA (PROAIR HFA) 90 mcg/actuation inhaler Inhale 2 Puffs as instructed four times daily as needed. - primidone (MYSOLINE) 50 mg tablet Take 4 tablets by mouth once daily. (Patient taking differently: Take 200 mg by mouth once daily. Taking 3 tablets daily) - aspirin 81 mg chewable tablet Take 81 mg by mouth once daily. - Diflorasone Diacetate 0.05 % ointment Apply to affected area twice daily as needed. - Yuyigmylpfkwn-Xorjfwan-Hhext n (CENTRUM SILVER) tab Take 1 tablet by mouth once daily. - psyllium seed/sucrose(METAMUCIL ORAL POWDER) one teaspoon daily - timolol (TIMOPTIC) 0.5 % OPHTHALMIC Drop one drop twice daily each eye - XALATAN 0.005 % EYE DROPS One gtt each eye daily. - [] lidocaine (ANECREAM5) crea Apply to affected area as directed for 2 days. Apply to procedure site the evening before and morning of procedure - simvastatin (ZOCOR) 20 mg tablet Take 1 tablet by mouth daily at bedtime. - Miscellaneous Medical Supply (BLOOD PRESSURE CUFF) 1 Each as needed. Automatic BP cuff to be used as directed to monitor hypertension. I have interviewed and examined the patient. I have reviewed the medical record and/or the pre-anesthesia evaluation, pertinent labs, and test results. This contains updated information obtained within 48 hours of Surgery/Procedure. SIGNATURE: Wale Hart MD PATIENT NAME: Cristine Mena DATE: May 13, 2023 TIME: 11:36 AM CSN: [id number] [facility] BRIEF OP NOTon 05-13-2023 BRIEF OP NOT HNO ID: [id number] Author: SAVANNA LYNCH PA-C Service: General Surgery Author Type: Physician Rfid Systems Architect Type: Brief Op Note Filed: 05/13/2023 12:51 Note Text: BRIEF OPERATIVE / PROCEDURE NOTE LOG ID: [id number] SURGERY/PROCEDURE DATE: 05/13/2023 INCISION/PROCEDURE START TIME: 11:52 AM INCISION CLOSE/PROCEDURE END TIME: 12:34 PM SURGEON(S)/PROCEDURALIST(S) AND TAXONOMIST(S): Surgeon(s) and Role: * Chris Mercedes MD - Primary * Joel Spring DO - Resident - Assisting Physician Rfid Systems Architect: Savanna Lynch PA-C SURGERY/PROCEDURE(S): Wide local excision of chest melanoma ANESTHESIA: General FINDINGS: Unable to perform sentinel lymph node biopsy due to depth of localizer under clavicle ESTIMATED BLOOD LOSS: 5 mls SPECIMENS: wide local excision COMPLICATIONS: None CLOSURE TECHNIQUE: Primary PRE-OP/PRE-PROCEDURE DIAGNOSIS: Melanoma of chest POST-OP/POST-PROCEDURE DIAGNOSIS: Same as Preop SIGNATURE: Savanna Lynch PA-C PATIENT NAME: Cristine Mena DATE: May 13, 2023 TIME: 12:50 PM Normal [facility] HISTORY PHYSICALon HISTORY PHYSICAL HNO ID: [id number] Author: TONG LARA DO Service: General Surgery Author Type: Resident Type: H&P Filed: 05/13/2023 10:56 Note Text: Attestation signed by Chris Mercedes MD at 05/13/2023 11:47 AM I personally saw and examined the patient. I reviewed the resident's note. I agree with the resident's assessment and plan except as noted below. Plan of care discussed with: Provider, RN, Patient. UPDATED HISTORY AND PHYSICAL EXAMINATION SERVICE DATE: 05/13/2023 SERVICE TIME: 10:56 AM PHYSICAL EXAM MUST BE COMPLETED ON ADMISSION The History and Physical (completed in the past 30 days) has been reviewed and the patient has been examined. The contents accurately reflect the patient's condition with the following additions or revisions since the HANDP was completed. Examination indicates no changes. This HANDP can be found in the Electronic Medical Record dated 04/20/2023. SIGNATURE: Tong Lara DO PATIENT NAME: Cristine Mena DATE: May 13, 2023 TIME: 10:56 AM [facility] NM LYMPH NODE IMAGINGon NM LYMPH NODE IMAGING * * *Final Report* * * DATE OF EXAM: May 13 2023 8:33AM [facility] 0033 - NM LYMPH NODE IMAGING / PROCEDURE REASON: Lymphedema * * * * Physician Interpretation * * * * EXAMINATION: NM LYMPH NODE IMAGING PATIENT/TECHNOLOGIST PROVIDED HISTORY: Melanoma CLINICAL INFORMATION: Lymphedema COMPARISON: None TECHNIQUE: A total dose of 1.02 mCi of Tc-99m Lymphoseek was injected in 4 nearly equal aliquots. Four subdermal injections were made in each of the 4 quadrants around the site of melanoma in the chest. RESULTS: Evans lymph node identified in the left upper chest. IMPRESSION: Successful sentinel lymph node injection. Account Analyst: ROXY Transcribe Date/Time: May 13 2023 9:01A Dictated by : RANDI RM MD This examination was interpreted and the report reviewed and electronically signed by: RANDI MR MD on May 13 2023 9:10AM EST [id number] [facility] OPERATIVE NOon 05-13-2023 OPERATIVE NO HNO ID: [id number] Author: CHRIS MERCEDES MD Service: General Surgery Author Type: Physician Type: Operative Report Filed: 05/22/2023 13:18 Note Text: OPERATIVE/PROCEDURE REPORT LOG ID: [id number] SURGERY/PROCEDURE DATE: 05/13/2023 INCISION/PROCEDURE START TIME: 11:52 AM INCISION CLOSE/PROCEDURE END TIME: 12:34 PM SURGEON(S)/PROCEDURALIST(S) AND TAXONOMIST(S): Surgeon(s) and Role: * Chris Mercedes MD - Primary * Joel Spring DO - Resident - Assisting Physician Rfid Systems Architect: Savanna Lynch PA-C INDICATIONS: Patient is an 87 year old man presenting with a pigmented lesion. Biopsy revealed a 1.1 mm Breslow depth melanoma on the mid chest. He was offered WLE with SLNB and agreed to proceed. SURGERY/PROCEDURE(S): Procedure(s): WIDE LOCAL EXCISION OF CHEST MELANOMA 3 CM INTERMEDIATE WOUND CLOSURE 6 CM ANESTHESIA: General SURGERY/PROCEDURE DETAILS: After correct patient identification, the patient was brought to the operating room and placed in supine position. A pre-procedure checklist was performed. Appropriate DVT prophylaxis and perioperative antibiotics were given prior to the induction of general anesthesia. Patient was then prepped and draped in usual fashion and a surgical timeout was performed. Evaluation of the radiotracer revealed the the uptake noted on lymphoscintigraphy as deep to the clavicle. This was felt to likely represent a level III axillary lymph node versus a deep supraclavicular lymph node. In either case the approach to the lymph node was felt to be more risk than benefit and therefore we did not proceed with SLNB. Turning our attention to the WLE. A margin of 1 cm was marked around the melanoma site on mid chest. Incision was made with scalpel and dissection carried down to muscular fascia with sharp dissection and electrocautery. The specimen was then oriented by short stitch at 12:00 and long stitch at 3:00 and passed off the field for permanent analysis. The resulting wound measured 3 cm in diameter. The wound was closed in layers after excision of standing cutaneous deformities. We used deep dermal 3-0 vicryl sutures and 4-0 running monocryl in the skin. Total incision length was 6 cm. Surgical glue was applied. Commission on Cancer - Standard 5.5: Wide Local Excision for Primary Cutaneous Melanoma Operation performed with curative intent: Yes Original Breslow thickness of the lesion: 1.1 mm (to the tenth of a millimeter) Clinical margin with: 1 cm Depth of excision: Full-thickness skin and subcutaneous fat down to fascia Savanna Lynch PA-C assisted with the entire as there was no other qualified licensed physical therapist assistant. Anesthesia was then completed without incident and the patient transferred to recovery in stable condition. All sponge, needle, and instrument counts were correct at the end of this case. I was present for the critical steps of the procedure. PRE-OP/PRE-PROCEDURE DIAGNOSIS: melanoma POST-OP/POST-PROCEDURE DIAGNOSIS: melanoma ESTIMATED BLOOD LOSS: 5 mls SPECIMENS: ID Type Source Tests Collected by Time Destination A : wide local excision of chest, short stitch cotto 12 o'clock, long stitch cotto 3 o'clock Tissue SKIN WIDE EXCISION SURGICAL PATHOLOGY Chris Mercedes MD 05/13/2023 11:58 AM B : wide local excision of chest, additional 12 o'clock margin Tissue MARGIN DERM SURGICAL PATHOLOGY Chris Mercedes MD 05/13/2023 12:10 PM C : wide local excision of chest, additional 6 o'clock margin Tissue MARGIN DERM SURGICAL PATHOLOGY Chris eMrcedes MD 05/13/2023 12:12 PM IMPLANTABLE DEVICES: * No implants in log * DRAINS: None COMPLICATIONS: None SIGNATURE: Chris Mercedes MD PATIENT NAME: Cristine Mena DATE: May 22, 2023 1:12 PM Normal [facility] SURGICAL PATHOLOGYon 024 CASE REPORT Normal [facility] Comment on above: Order Comment: Speci men Type: TISSUE SPECIMEN Ordering Facility: [facility] Address: [address] [place] [address] Result Comment: Surg ical Pathology Report Case: [id number] Authorizing Provider: Chris Mercedes MD Collected: 05/13/2023 11:58 AM Ordering Location: [facility] Received: 05/16/2023 06:45 AM Pathologist: Ty Alcantara MD Specimens: A) - SKIN WIDE EXCISION, wide local excision of chest, short stitch cotto 12 o'clock, long stitch cotto 3 o'clock B) - MARGIN DERM, wide local excision of chest, additional 12 o'clock margin C) - MARGIN DERM, wide local excision of chest, additional 6 o'clock margin Performed By: #### S #### [facility] CLIA [id number] [address] [place] [address] [place] CLINICAL HISTORY Normal [facility] Comment on above: Order Comment: Speci men Type: TISSUE SPECIMEN Ordering Facility: [facility] Address: [address] [place] [address] Result Comment: Pre- op diagnosis: 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) [C43.59] Lymphedema [I89.0] Performed By: #### S #### [facility] CLIA [id number] [address] [place] [address] DIAGNOSIS COMMENT The small intraderma l nevus was reviewed by Dr. Mando Singh who agrees with this assessment. Normal [facility] Comment on above: Order Comment: Speci men Type: TISSUE SPECIMEN Ordering Facility: [facility] Address: [address] [place] [address] Performed By: #### S #### [facility] CLIA [id number] [address] FINAL DIAGNOSIS Normal [facility] Comment on above: Order Comment: Speci men Type: TISSUE SPECIMEN Ordering Facility: [facility] Address: [address] [place] [address] Result Comment: A. S kin of chest, wide local excision: - Benign skin with scar and small intradermal nevus. Negative for residual melanocytic neoplasm. See comment. B. Skin of chest, additional 12:00 margin: - No pathologic abnormalities. C. Skin of chest, additional 6:00 margin: - No pathologic abnormalities. Performed By: #### S #### [facility] CLIA [id number] [address] [place] [address] FINAL PERFORMING LAB Normal [facility] Comment on above: Order Comment: Speci men Type: TISSUE SPECIMEN Ordering Facility: [facility] Address: [address] [place] [address] Result Comment: Diag nostic interpretation performed at [facility], [address] [place] [address] CLIA# [id number] Director Of Coding: Ty Alcantara M.D. Performed By: #### S #### [facility] CLIA [id number] [address] [place] [address] GROSS DESCRIPTION [facility] Comment on above: Order Comment: Speci men Type: TISSUE SPECIMEN Ordering Facility: [facility] Address: [address] [place] [address] Result Comment: A. S KIN WIDE EXCISION Received in formalin labeled as "wide local excision of chest" is an oriented elliptical shaped segment of skin with underlying subcutaneous tissue measuring 2.5 x 2.0 x 1.5 cm. The specimen has been oriented, per the requisition, with a short stitch at 12:00 and a long stitch at 3:00. The margins are inked as follows: 12:00 margin-blue ink, 6:00 margin-orange ink, and deep margin-black ink. The skin surface demonstrates a 0.6 x 0.5 x 0.1 cm, slightly elevated, austin-brown lesion, the lesion extends within 0.2 cm from the superior margin, 0.5 cm from the 9:00 to, and greater than 1.5 cm from the remaining margins. No other gross abnormalities are seen. The specimen is entirely submitted as follows: A1-3:00 tip, shaved A2-9:00 tip, shaved A3-A4 lesion in relationship to 12:00, 6:00, and deep margins A5-A7 remainder of specimen with 12:00, 6:00 and deep margins B. MARGIN DERM Received in formalin labeled as "wide local excision of chest, additional 12:00 margin" is a dogear shaped segment of skin measuring 1.8 x 1.0 x 0.5 cm. The deep and lateral margins are inked black. The skin appears grossly unremarkable. Specimen is serially sectioned and totally submitted as follows: B1-tip, shaved B2-shave of side C. MARGIN DERM Received in formalin labeled as "wide local excision of chest, additional 6:00 margin" is a dogear shaped segment of skin with underlying subcutaneous tissue measuring 2.0 x 1.0 x 0.9 cm. The deep and lateral margins are inked black. A skin lesion is not identified. The specimen is sectioned and totally submitted as follows: C1-tip, shaved C2-shaved of side Gross examination performed at [facility], [address] [place] [address] CLIA#[id number] [facility] May 16, 2023 10:26 AM Performed By: #### S #### [facility] CLIA [id number] [address] OF [facility] CNOVon 04-20-2023 CNOV Office Visit (AGGENS 3) CRISTINE MENA ([id number]) 1935 M Date Time Provider Department 04/20/23 10:00 AM CHRIS MERCEDES3 During your visit today, we recorded the following information about you: Pulse Blood pressure Weight Height 60/minute 148/80 79.8 kg 1.702 m Chris Mercedes MD 04/28/2023 3:23 PM Signed Chris Mercedes M.D. Surgical Oncology 1 [facility], [facility] [address] [address] SUBJECTIVE HPI Cristine Mena is a 87 year old male presenting for newly diagnosed melanoma of the chest. Patient was recently seen by dermatology for skin evaluation. A pigmented lesion was noted on his chest. This was biopsied and demonstrated a 1.1 mm Breslow depth melanoma with no ulceration and a mitotic rate of 1. The deep margin was focally involved by invasive melanoma and the peripheral margin was involved for melanoma in situ. 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 This was treated by his java application engineer. Currently, patient reports no systemic symptoms related to this melanoma. No concerning neurologic or musculoskeletal symptoms. No blood in the stool, no abdominal pain. He reports no other concerning pigmented lesions or lymphadenopathy Review of Systems Constitutional: Negative for malaise/fatigue and weight loss. HENT: Negative for sore throat. Eyes: Negative for blurred vision and double vision. Respiratory: Negative for cough, hemoptysis, shortness of breath and stridor. Cardiovascular: Negative for palpitations, claudication and leg swelling. Gastrointestinal: Negative for abdominal pain, blood in stool, nausea and vomiting. Genitourinary: Negative for dysuria, flank pain and hematuria. Musculoskeletal: Negative for falls, joint pain and myalgias. Skin: Negative for rash. Neurological: Negative for speech change, focal weakness and headaches. Endo/Heme/Allergies: Does not bruise/bleed easily. Psychiatric/Behavioral: Negative for depression and memory loss. The patient is not nervous/anxious. PAST MEDICAL HISTORY Diagnosis Date Acute, but ill-defined, cerebrovascular disease possible TIA Asthma Hernández's esophagus EGD negative for Barretts 07/2017. Diverticulosis of colon (without mention of hemorrhage) Diverticulosis Erectile dysfunction Family history of abdominal aortic aneurysm (AAA) Family history of malignant neoplasm of gastrointestinal tract Glaucoma Dr. Rivera and Francisco Hydrocele of testis Macular degeneration, wet (HCC) left Nocturia Occasional tremors Other and unspecified hyperlipidemia Other psoriasis and similar disorders Psoriasis PAC (premature atrial contraction) Personal history of colonic polyps Colon polyps Skin cancer of scalp melanoma? Seen at [facility] Unspecified essential hypertension PAST SURGICAL HISTORY Procedure Laterality Date COLONOSCOPY FLX DX W/COLLJ SPEC WHEN PFRMD 07/24/2003 Colonoscopy COLONOSCOPY FLX DX W/COLLJ SPEC WHEN PFRMD 07/22/10 COLONOSCOPY FLX DX W/COLLJ SPEC WHEN PFRMD 09-08-12 COLONOSCOPY FLX DX W/COLLJ SPEC WHEN PFRMD 07/27/2017 Colonoscopy EGD TRANSORAL BIOPSY SINGLE/MULTIPLE 08/05/10 EGD W/O BRSH SPECIMEN W/BX 08-20-14 repeat in 5 years ESOPHAGOGASTRODUODENOSCOPY TRANSORAL DIAGNOSTIC 09/04/2003 EGD ESOPHAGOGASTRODUODENOSCOPY TRANSORAL DIAGNOSTIC 09-08-12 EGD ESOPHAGOGASTRODUODENOSCOPY TRANSORAL DIAGNOSTIC 07/27/2017 EGD PAST SURGICAL HISTORY OF 2016 MOHs procedure on scalp RMVL SEC MEMBRANOUS CTRC CORNEO-SCLL SCTJ 08/2008, right Cataract removal RPR 1ST INGUN HRNA AGE 6 YRS/> REDUCIBLE right and left Hernia repair, inguinal TONSILLECTOMY PRIMARY/SECONDARY Tonsillectomy XCAPSL CTRC RMVL INSJ IO LENS PROSTH W/O ECP left Cataract Removal Social History Tobacco Use Smoking status: Never Smokeless tobacco: Never Substance Use Topics Alcohol use: Yes Alcohol/week: 1.0 standard drink of alcohol Types: 1 Glasses of Wine (5oz) per week Comment: occasionally Drug use: No FAMILY HISTORY Problem Relation Age of Onset other (gallbladder) Mother Cancer Father rectal cancer, mi Cancer Brother prostate cancer Pancreatic Cancer Brother Heart Brother mi Aneurysm Brother AAA The ROS, medical, surgical, family, and social history were reviewed by Chris Mercedes MD ALLERGIES Allergen Reactions Amlodipine Other: See Comments Leg swelling Current Outpatient Medications Medication Sig losartan (COZAAR) 50 mg tablet Take 1.5 tablets by mouth once daily. simvastatin (ZOCOR) 20 mg tablet Take 1 tablet by mouth daily at bedtime. albuterol HFA (PROAIR HFA) 90 mcg/actuation inhaler Inhale 2 Puffs as instructed four times daily as needed. aspirin 81 mg chewable tablet Take 81 mg by mouth once daily. Miscellaneous Medical Supply (BLOOD [place] (more content not included)... Normal [facility] US SCREENING FOR AAAon 08-09 [facility] Comprehensive metabolic 2000 panelon 03-03-2022 Albumin [Mass/Vol] 4.3 g/dL 3.9 - 4.9 g/dL [facility] ALP [Catalytic activity/Vol] 96 U/L 38 - 113 U/L [facility] ALT [Catalytic activity/Vol] 24 U/L 10 - 54 U/L [facility] Anion gap [Moles/Vol] 8 mmol/L Low 9 - 18 mmol/L [facility] AST [Catalytic activity/Vol] 28 U/L 14 - 40 U/L [facility] Bilirubin [Mass/Vol] 0.7 mg/dL 0.2 - 1.3 mg/dL [facility] Calcium [Mass/Vol] 9.3 mg/dL 8.5 - 10. 2 mg/dL [facility] Chloride [Moles/Vol] 101 mmol/L 97 - 105 mmol/L [facility] CO2 [Moles/Vol] 28 mmol/L 22 - 30 mmol/L [facility] Creatinine [Mass/Vol] 0.86 mg/dL 0.73 - 1.22 mg/dL [facility] Estimated Glomerular Filtration Rate 85 mL/min/1.73m >=60 mL/min/1.73m [facility] Glucose [Mass/Vol] 99 mg/dL 74 - 99 mg/dL [facility] Potassium [Moles/Vol] 4.7 mmol/L 3.7 - 5.1 mmol/L [facility] Protein [Mass/Vol] 7.1 g/dL 6.3 - 8.0 g/dL [facility] Sodium [Moles/Vol] 137 mmol/L 136 - 144 mmol/L [facility] Urea nitrogen [Mass/Vol] 12 mg/dL 9 - 24 mg/dL [facility] POTASSIUM BLDon 07-17-2021 Potassium [Moles/Vol] 4.8 mmol/L 3.7 - 5.1 mmol/L [facility] CBC panel Auto (Bld)on 07-13 Erythrocyte distribution width (RBC) [Ratio] 12.8 % 11.5 - 15.0 % [facility] Hematocrit (Bld) [Volume fraction] 52.4 % High 39.0 - 51.0 % [facility] Hemoglobin (Bld) [Mass/Vol] 17.1 g/dL High 13.0 - 17.0 g/dL [facility] MCH (RBC) [Entitic mass] 31.7 pg 26.0 - 34.0 pg [facility] MCHC (RBC) [Mass/Vol] 32.6 g/dL 30.5 - 36.0 g/dL [facility] MCV (RBC) [Entitic vol] 97.2 fL 80.0 - 100.0 fL [facility] Nucleated RBC (Bld) [#/Vol] 10*3/uL <0.01 k/uL [facility] Platelet mean volume (Bld) [Entitic vol] 11.1 fL 9.0 - 12.7 fL [facility] Platelets (Bld) [#/Vol] 236 10*3/uL 150 - 400 k/uL [facility] RBC (Bld) [#/Vol] 5.39 10*6/uL 4.20 - 6.0 0 m/uL [facility] WBC (Bld) [#/Vol] 5.85 10*3/uL 3.70 - 11. 00 k/uL [facility] PSA,Total - Annual Screenon 06-23-2020 PSA,TOT SCREEN 1.22 ng/mL Normal 0.00-4.00 [facility] Comment on above: Result Comment: This test was performed using the TPSA assay method for the [employer] chemistry system. Values obtained with different assay methods cannot be used interchangably. When changing PSA assays in the course of monitoring a patient, additional sequential testing should be carried out to confirm baseline values. Performed By: #### L [id number] #### [facility] [place], [address] Potassiumon 06-17-2020 Potassium [Moles/Vol] 4.9 mmol/L Normal 3.5-5.1 [facility] Comment on above: Result Comment: Slig ht Hemolysis, Result may be falsely increased. Performed By: #### L [id number] #### [facility] [address] [place], [address] Vital Signs Date Time Vital Sign Value Performing Clinician Faci lity 11-13-2024 08:37-0400 Body height 170.2 cm Eladio Chávez MD Work Phone: [facility] 11-13-2024 08:37-0400 Body mass index (BMI) [Ratio] 26 kg/m2 Eladio Chávez MD Work Phone: [facility] 11-13-2024 08:37-0400 Body weight 75.3 kg Eladio Chávez MD Work Phone: [facility] 11-13-2024 08:37-0400 Diastolic blood pressure 80 mm[Hg] Eladio Chávez MD Work Phone: [facility] 11-13-2024 08:37-0400 Heart rate 90 /min Eladio Chávez MD Work Phone: [facility] 11-13-2024 08:37-0400 SaO2% (BldA) [Mass fraction] 98 % Eladio Chávez MD Work Phone: [facility] 11-13-2024 08:37-0400 Systolic blood pressure 130 mm[Hg] Eladio Chávez MD Work Phone: [facility] 10-30-2024 08:30-0400 Diastolic blood pressure 94 mm[Hg] Eladio Chávez MD Work Phone: [facility] Comment on above: Eugenio BP 10-30-2024 08:30-0400 Systolic blood pressure 151 mm[Hg] Eladio Chávez MD Work Phone: [facility] Comment on above: Eugenio BP 10-30-2024 08:22-0400 Body height 170.2 cm Eladio Chávez MD Work Phone: [facility] 10-30-2024 08:22-0400 Body mass index (BMI) [Ratio] 26.03 kg/m2 Eladio Chávez MD Work Phone: [facility] 10-30-2024 08:22-0400 Body weight 75.39 kg Eladio Chávez MD Work Phone: [facility] 10-30-2024 08:22-0400 Heart rate 65 /min Eladio Chávez MD Work Phone: [facility] 09-11-2024 12:01-0400 Diastolic blood pressure 90 mm[Hg] Eladio Chávez MD Work Phone: [facility] 09-11-2024 12:01-0400 Systolic blood pressure 141 mm[Hg] Eladio Chávez MD Work Phone: [facility] 09-11-2024 10:33-0400 Body height 170.2 cm Eladio Chávez MD Work Phone: [facility] 09-11-2024 10:33-0400 Body mass index (BMI) [Ratio] 26.47 kg/m2 Eladio Chávez MD Work Phone: [facility] 09-11-2024 10:33-0400 Body weight 76.66 kg Eladio Chávez MD Work Phone: [facility] 09-11-2024 10:33-0400 Heart rate 72 /min Eladio Chávez MD Work Phone: [facility] 04-18-2024 15:31-0500 Body mass index (BMI) [Ratio] 27.11 kg/m2 Kenisha Clutter PA-C Work Phone: [facility] 04-18-2024 15:31-0500 Body temperature 98.8 [degF] Kenisha Clutter PA-C Work Phone: [facility] 04-18-2024 15:31-0500 Body weight 78.5 kg Kenisha Clutter PA-C Work Phone: [facility] 04-18-2024 15:31-0500 Diastolic blood pressure 72 mm[Hg] Kenisha Clutter PA-C Work Phone: [facility] 04-18-2024 15:31-0500 Heart rate 75 /min Kenisha Clutter PA-C Work Phone: [facility] 04-18-2024 15:31-0500 Respiratory rate 18 /min Kenisha Clutter PA-C Work Phone: [facility] 04-18-2024 15:31-0500 SaO2% (BldA) [Mass fraction] 96 % Kenisha Clutter PA-C Work Phone: [facility] 04-18-2024 15:31-0500 Systolic blood pressure 151 mm[Hg] Kenisha Clutter PA-C Work Phone: [facility] 03-13-2024 10:00-0500 Body mass index (BMI) [Ratio] 26.85 kg/m2 Eladio Chávez MD Work Phone: [facility] 03-13-2024 10:00-0500 Body weight 77.75 kg Eladio Chávez MD Work Phone: [facility] 03-13-2024 10:00-0500 Diastolic blood pressure 82 mm[Hg] Eladio Chávez MD Work Phone: [facility] 03-13-2024 10:00-0500 Heart rate 56 /min Eladio Chávez MD Work Phone: [facility] 03-13-2024 10:00-0500 Respiratory rate 16 /min Eladio Chávez MD Work Phone: [facility] 03-13-2024 10:00-0500 SaO2% (BldA) [Mass fraction] 98 % Eladio Chávez MD Work Phone: [facility] 03-13-2024 10:00-0500 Systolic blood pressure 138 mm[Hg] Eladio Chávez MD Work Phone: [facility] 11-21-2023 13:43-0400 Body mass index (BMI) [Ratio] 26.76 kg/m2 Chris Mercedes MD Work Phone: [facility] 11-21-2023 13:43-0400 Body weight 77.5 kg Chris Mercedes MD Work Phone: [facility] 11-21-2023 13:43-0400 Diastolic blood pressure 92 mm[Hg] Chris Mercedes MD Work Phone: [facility] 11-21-2023 13:43-0400 Heart rate 61 /min Chris Mercedes MD Work Phone: [facility] 11-21-2023 13:43-0400 SaO2% (BldA) [Mass fraction] 97 % Chris Mercedes MD Work Phone: [facility] 11-21-2023 13:43-0400 Systolic blood pressure 169 mm[Hg] Chris Mercedes MD Work Phone: [facility] 08-22-2023 12:57-0400 Body mass index (BMI) [Ratio] 26.79 kg/m2 Chris Mercedes MD Work Phone: [facility] 08-22-2023 12:57-0400 Body weight 77.6 kg Chris Mercedes MD Work Phone: [facility] 08-22-2023 12:57-0400 Diastolic blood pressure 84 mm[Hg] Chris Mercedes MD Work Phone: [facility] 08-22-2023 12:57-0400 Heart rate 75 /min Chris Mercedes MD Work Phone: [facility] 08-22-2023 12:57-0400 SaO2% (BldA) [Mass fraction] 100 % Chris Mercedes MD Work Phone: [facility] 08-22-2023 12:57-0400 Systolic blood pressure 179 mm[Hg] Chris Mercedes MD Work Phone: [facility] 08-10-2023 08:36-0400 Body mass index (BMI) [Ratio] 26.78 kg/m2 Eladio Chávez MD Work Phone: [facility] 08-10-2023 08:36-0400 Body weight 77.56 kg Eladio Chávez MD Work Phone: [facility] 08-10-2023 08:36-0400 Diastolic blood pressure 78 mm[Hg] Eladio Chávez MD Work Phone: [facility] 08-10-2023 08:36-0400 Heart rate 62 /min Eladio Chávez MD Work Phone: [facility] 08-10-2023 08:36-0400 Respiratory rate 18 /min Eladio Chávez MD Work Phone: [facility] 08-10-2023 08:36-0400 SaO2% (BldA) [Mass fraction] 97 % Eladio Chávez MD Work Phone: [facility] 08-10-2023 08:36-0400 Systolic blood pressure 132 mm[Hg] Eladio Chávez MD Work Phone: [facility] 05-23-2023 14:12-0400 Body height 170.2 cm Chris Mercedes MD Work Phone: [facility] 05-23-2023 14:12-0400 Diastolic blood pressure 90 mm[Hg] Chris Mercedes MD Work Phone: [facility] 05-23-2023 14:12-0400 Heart rate 67 /min Chris Mercedes MD Work Phone: [facility] 05-23-2023 14:12-0400 SaO2% (BldA) [Mass fraction] 97 % Chris Mercedes MD Work Phone: [facility] 05-23-2023 14:12-0400 Systolic blood pressure 177 mm[Hg] Chris Mercedes MD Work Phone: [facility] 04-20-2023 09:32-0500 Body height 170.2 cm Chris Mercedes MD Work Phone: [facility] 04-20-2023 09:32-0500 Body weight 79.83 kg Chris Mercedes MD Work Phone: [facility] 04-20-2023 09:32-0500 Diastolic blood pressure 80 mm[Hg] Chris Mercedes MD Work Phone: [facility] 04-20-2023 09:32-0500 Heart rate 60 /min Chris Mercedes MD Work Phone: [facility] 04-20-2023 09:32-0500 SaO2% (BldA) [Mass fraction] 97 % Chris Mercedes MD Work Phone: [facility] 04-20-2023 09:32-0500 Systolic blood pressure 148 mm[Hg] Chris Mercedes MD Work Phone: [facility] 09-01-2022 08:44-0400 Body weight 79.56 kg 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 Work Phone: [facility] 09-01-2022 08:44-0400 Diastolic blood pressure 74 mm[Hg] 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 Work Phone: [facility] 09-01-2022 08:44-0400 Heart rate 64 /min 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 Work Phone: [facility] 09-01-2022 08:44-0400 Respiratory rate 16 /min 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 Work Phone: [facility] 09-01-2022 08:44-0400 SaO2% (BldA) [Mass fraction] 96 % 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 Work Phone: [facility] 09-01-2022 08:44-0400 Systolic blood pressure 130 mm[Hg] 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 Work Phone: [facility] 08-04-2022 08:48-0400 Diastolic blood pressure 80 mm[Hg] Eladio Chávez MD Work Phone: [facility] 08-04-2022 08:48-0400 Heart rate 55 /min Eladio Chávez MD Work Phone: [facility] 08-04-2022 08:48-0400 Systolic blood pressure 140 mm[Hg] Eladio Chávez MD Work Phone: [facility] 08-04-2022 08:29-0400 Body weight 79.83 kg Eladio Chávez MD Work Phone: [facility] 08-04-2022 08:29-0400 Respiratory rate 16 /min Eladio Chávez MD Work Phone: [facility] 07-05-2022 15:44-0400 Diastolic blood pressure 78 mm[Hg] Eladio Chávez MD Work Phone: [facility] 07-05-2022 15:44-0400 Heart rate 64 /min Eladio Chávez MD Work Phone: [facility] 07-05-2022 15:44-0400 Respiratory rate 16 /min Eladio Chávez MD Work Phone: [facility] 07-05-2022 15:44-0400 SaO2% (BldA) [Mass fraction] 96 % Eladio Chávez MD Work Phone: [facility] 07-05-2022 15:44-0400 Systolic blood pressure 140 mm[Hg] Eladio Chávez MD Work Phone: [facility] 02-16-2022 12:51-0500 Body weight 78.38 kg 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 Work Phone: [facility] 02-16-2022 12:51-0500 Diastolic blood pressure 84 mm[Hg] 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 Work Phone: [facility] 02-16-2022 12:51-0500 Heart rate 64 /min 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 Work Phone: [facility] 02-16-2022 12:51-0500 Respiratory rate 18 /min 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 Work Phone: [facility] 02-16-2022 12:51-0500 SaO2% (BldA) [Mass fraction] 97 % Natalie Mendez PLUG MACHINE OPERATOR.CRANBERRY SORTER Work Phone: [facility] 02-16-2022 12:51-0500 Systolic blood pressure 138 mm[Hg] Natalie Mendez PLUG MACHINE OPERATOR.CRANBERRY SORTER Work Phone: [facility] 02-01-2022 09:16-0500 Body weight 79.38 kg Eladio Chávez MD Work Phone: [facility] 02-01-2022 09:16-0500 Diastolic blood pressure 78 mm[Hg] Eladio Chávez MD Work Phone: [facility] 02-01-2022 09:16-0500 Heart rate 89 /min Eladio Chávez MD Work Phone: [facility] 02-01-2022 09:16-0500 Respiratory rate 18 /min Eladio Chávez MD Work Phone: [facility] 02-01-2022 09:16-0500 SaO2% (BldA) [Mass fraction] 93 % Eladio Chávez MD Work Phone: [facility] 02-01-2022 09:16-0500 Systolic blood pressure 138 mm[Hg] Eladio Chávez MD Work Phone: [facility] 07-24-2021 08:36-0400 Body weight 79.38 kg Eladio Chávez MD Work Phone: [facility] 07-24-2021 08:36-0400 Diastolic blood pressure 80 mm[Hg] Eladio Chávez MD Work Phone: [facility] 07-24-2021 08:36-0400 Heart rate 57 /min Eladio Chávez MD Work Phone: [facility] 07-24-2021 08:36-0400 Respiratory rate 18 /min Eladio Chávez MD Work Phone: [facility] 07-24-2021 08:36-0400 SaO2% (BldA) [Mass fraction] 96 % Eladio Chávez MD Work Phone: [facility] 07-24-2021 08:36-0400 Systolic blood pressure 124 mm[Hg] Eladio Chávez MD Work Phone: [facility] Encounters Encounter Date Encounter Type Care Provider Facility Start: 11-13-2024 End: 11-13-2024 Patient encounter procedure Eladio Chávez MD Work Phone: [facility] [place] Comment on above: Essential hypertensi on (Primary Dx) Start: 11-13-2024 End: 11-13-2024 ambulatory ELADIO CHÁVEZ Facility:[facility] Start: 10-30-2024 End: 10-30-2024 Patient encounter procedure Eladio Chávez MD Work Phone: [facility] [place] Comment on above: Essential hypertensi on (Primary Dx); PAC (premature atrial contraction) Start: 10-30-2024 End: 10-30-2024 ambulatory ELADIO CHÁVEZ Facility:[facility] Start: 10-25-2024 End: 10-25-2024 Telephone encounter Eladio Chávez MD Work Phone: [facility] [place] Comment on above: Patient Update Start: 10-02-2024 End: 10-02-2024 Refill Eladio Chávez MD Work Phone: [facility] Comment on above: Refill Request Start: 09-13-2024 End: 09-13-2024 Follow-up encounter Eladio Chávez MD Work Phone: [facility] [place] Comment on above: Results Start: 09-11-2024 End: 09-11-2024 ambulatory ELADIO CHÁVEZ Facility:[facility] Start: 09-11-2024 End: 09-11-2024 Patient encounter procedure Eladio Chávez MD Work Phone: [facility] [place] Comment on above: Essential hypertensi on (Primary Dx); Mixed hyperlipidemia; Essential tremor; PAC (premature atrial contraction); Glaucoma of both eyes, unspecified glaucoma type; Exudative age-related macular degeneration, unspecified laterality, unspecified stage (HCC); Malignant melanoma, unspecified site (HCC); Psoriasis Start: 09-11-2024 End: 09-11-2024 ambulatory ELADIO CHÁVEZ Facility:[facility] Start: 08-06-2024 End: 08-06-2024 Refill Eladio Chávez MD Work Phone: [facility] [place] Comment on above: Refill Request Start: 04-18-2024 End: 04-18-2024 Subsequent hospital visit by physician [facility] Work Phone: Radiology Comment on above: Acute cough [R05.1] Start: 04-18-2024 End: 04-18-2024 ambulatory ELADIO CHÁVEZ Facility:[facility] Start: 04-18-2024 End: 04-18-2024 Office outpatient new 30 minutes Kenisha Jimenez PA-C Work Phone: [facility] Comment on above: Acute cough (Primary Dx); Acute URI; Mild intermittent asthma, uncomplicated Start: 03-14-2024 End: 03-27-2024 Telephone encounter Eladio Chávez MD Work Phone: [facility] [place] Comment on above: Results Start: 03-13-2024 End: 03-13-2024 ambulatory ELADIO CHÁVEZ Facility:[facility] Start: 03-13-2024 End: 03-13-2024 Patient encounter procedure Eladio Chávez MD Work Phone: [facility] [place] Comment on above: Medicare annual well ness visit, subsequent (Primary Dx); Screening for depression; Encounter for screening examination for other mental health and behavioral disorders; Screening for prostate cancer Start: 03-13-2024 End: 03-13-2024 ambulatory ELADIO CHÁVEZ Facility:[facility] Start: 02-14-2024 End: 02-14-2024 Refill Eladio Chávez MD Work Phone: [facility] [place] Comment on above: Refill Request Start: 01-17-2024 End: 01-17-2024 Refill Eladio Chávez MD Work Phone: [facility] [place] Comment on above: Refill Request Start: 11-21-2023 End: 11-21-2023 ambulatory CHRIS MERCEDES Facility:[facility] Start: 11-21-2023 End: 11-21-2023 Office outpatient visit 15 minutes Chris Mercedes MD Work Phone: General Surgery Comment on above: 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) Start: 08-22-2023 End: 08-22-2023 Office outpatient visit 15 minutes Chris Mercedes MD Work Phone: General Surgery Comment on above: 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) Start: 08-11-2023 Telephone encounter Damir Chávez MD Work Phone: [facility] [place] Comment on above: Results Start: 08-10-2023 End: 08-10-2023 Patient encounter procedure Eladio Chávez MD Work Phone: [facility] Comment on above: Essential hypertensi on (Primary Dx); Mixed hyperlipidemia; Essential tremor; Malignant melanoma, unspecified site (HCC); Mild intermittent asthma, uncomplicated; Exudative age-related macular degeneration of left eye, unspecified stage (HCC); Squamous cell carcinoma, face; Encounter for immunization Start: 05-30-2023 Refill Eladio Chávez MD Work Phone: [facility] Start: 05-23-2023 End: 05-23-2023 Office outpatient visit 15 minutes Chris Mercedes MD Work Phone: General Surgery Comment on above: 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); Lymphedema Start: 04-20-2023 End: 04-20-2023 ambulatory REENA SALGADO Facility:[facility] Start: 04-20-2023 End: 04-20-2023 Office outpatient new 45 minutes Chris Mercedes MD Work Phone: [facility] Comment on above: Lymphedema Start: 09-01-2022 End: 09-01-2022 Patient encounter procedure Natalie Hillshahana PADILLA.CRANBERRY SORTER Work Phone: [facility] [place] Comment on above: Essential hypertensi on (Primary Dx); Blood pressure check Start: 09-01-2022 End: 09-01-2022 Patient encounter status Natalie Hillshahana PLUG MACHINE OPERATOR.CRANBERRY SORTER Work Phone: [facility] [place] Start: 08-09-2022 End: 08-09-2022 Subsequent hospital visit by physician [facility] Work Phone: Radiology Comment on above: Family history of ab dominal aortic aneurysm (AAA) [Z82.49] Start: 08-04-2022 End: 08-04-2022 Patient encounter procedure Eladio Chávez MD Work Phone: [facility] [place] Comment on above: Bilateral swelling o f feet (Primary Dx); Essential hypertension; Essential tremor; Mixed hyperlipidemia; Mild intermittent asthma, uncomplicated; Family history of abdominal aortic aneurysm (AAA); History of TIA (transient ischemic attack); Other glaucoma of both eyes; Exudative age-related macular degeneration, unspecified laterality, unspecified stage (HCC); PSORIASIS Start: 07-05-2022 End: 07-05-2022 Patient encounter procedure Eladio Chávez MD Work Phone: [facility] [place] Comment on above: Bilateral swelling o f feet (Primary Dx); Essential hypertension; Mixed hyperlipidemia Start: 05-11-2022 Refill Eladio Chávez MD Work Phone: [facility] [place] Comment on above: Refill Request Start: 04-05-2022 Telephone encounter Damir Chávez MD Work Phone: [facility] [place] Comment on above: Orders Start: 02-17-2022 Telephone encounter Damir Chávez MD Work Phone: [facility] [place] Comment on above: Results Start: 02-16-2022 End: 02-16-2022 Patient encounter procedure Natalie Andrea BARRCRANBERRY SORTER Work Phone: [facility] Comment on above: Essential hypertensi on (Primary Dx); Hyperkalemia Start: 02-01-2022 End: 02-01-2022 Patient encounter procedure Eladio Chávez MD Work Phone: [facility] Comment on above: Essential tremor (Pr imary Dx); Essential hypertension; Hyperkalemia; History of TIA (transient ischemic attack); Exudative age-related macular degeneration, unspecified laterality, unspecified stage (HCC); Other glaucoma of both eyes; PSORIASIS; Mixed hyperlipidemia; Elevated hemoglobin (HCC); Need for influenza vaccination Start: 01-15-2022 Refill Eladio Chávez MD Work Phone: [facility] Comment on above: Refill Request Start: 01-04-2022 Telephone encounter Damir Chávez MD Work Phone: [facility] Comment on above: Orders Start: 07-24-2021 End: 07-24-2021 Patient encounter procedure Eladio Chávez MD Work Phone: [facility] Comment on above: Essential tremor (Pr imary Dx); Essential hypertension; Mixed hyperlipidemia; Mild intermittent asthma, uncomplicated; Exudative age-related macular degeneration, unspecified laterality, unspecified stage (HCC); Other glaucoma of both eyes; AK (actinic keratosis); PSORIASIS Start: 07-14-2021 Telephone encounter Damir Chávez MD Work Phone: [facility] Comment on above: Results Start: 07-13-2021 Telephone encounter Eleonora Newman MA [facility] Comment on above: Orders Refill Request Procedures Date Procedure Procedure Detail Performing Clinician Start: 04-18-2024 Radiologic exam ches t 2 views Kenisha Jimenez PA-C Work Phone: Start: 03-13-2024 Adult depression scr eening assessment Eladio Chávez MD Work Phone: Start: 08-10-2023 [email or web address] COVI D-19 VACCINE (2023-24 SEASON) AGE 12+ YR Eladio Chávez MD Work Phone: Start: 08-09-2022 Us abdominal aorta r eal time screen study aaa Eladio Chávez MD Work Phone: Start: 02-01-2022 INFLUENZA SEASONAL QUADRIVALENT HIGH DOSE AGE 65+ Eladio hCávez MD Work Phone: Plan of Treatment Date Care Activity Detail Author Start: 09-12-2027 Diabetes Screening Diabetes Screenin g [facility] Start: 07-14-2027 Urine microalbumin profile [facility] Start: 03-13-2027 Diabetes Screening Diabetes Screenin [facility] Start: 08-09-2026 Diabetes Screening Diabetes Screenin g [facility] Start: 02-08-2026 [facility] Start: 09-03-2025 Influenza vaccination Influenza Vacc ine (#1) [facility] Comment on above: Postponed from 11/05 (Declined at this time) Start: 07-29-2025 DIABETES SCREEN DIABETES SCREEN [facility] Start: 07-29-2025 Diabetes Screening Diabetes Screenin [facility] Start: 03-18-2025 End: 03-18-2025 Patient encounter procedure 03/18/2025 12:00 PM EST Office Visit Family Ajith Gillette [address] [place] [address] PodlogarNatalie APRN.CRANBERRY SORTER [address] [facility] [place] [id number] 6 month follow up [facility] Ajith Gillette Comment on above: 6 month follow up Start: 03-13-2025 Anxiety Screening Anxiety Screening [facility] Start: 03-13-2025 Depression Screening Depression Scre ening [facility] Start: 03-03-2025 DIABETES SCREEN DIABETES SCREEN [facility] Start: 01-22-2025 DIABETES SCREEN DIABETES SCREEN [facility] Start: 11-13-2024 End: 11-13-2024 Patient encounter procedure 11/13/2024 9:00 AM EDT Office Visit Family [facility] [place] [address] [place] [address] Eladio Chávez MD [address] [facility] [place] [address] 2 week BP follow up. Family Ajith Gillette Comment on above: 2 week BP follow up. Start: 11-05-2024 Influenza vaccination Influenza Vacc ine (#1) [facility] Start: 10-30-2024 End: 10-30-2024 Patient encounter procedure 10/30/2024 9:00 AM EDT Office Visit Family Ajith Gillette [address] [facility], [place] [id number] Eladio Chávez MD [address] [facility], [place] [id number] Elevated BP. Family Ajith Gillette Comment on above: Elevated BP. Start: 10-14-2024 End: 01-13-2025 Comprehensive metabolic 2000 panel - Serum or Plasma COMPREHENSIVE METABOLIC PANEL Lab Routine Hyponatremia Expected: 10/14/2024, Expires: 01/13/2025 [facility] Work Phone: Comment on above: Expected: 10/14/2024 , Expires: 01/13/2025 Start: 09-11-2024 End: 12-11-2024 Comprehensive metabolic 2000 panel - Serum or Plasma [facility] Work Phone: Comment on above: Expected: 09/11/2024 , Expires: 12/11/2024 Start: 09-11-2024 End: 12-11-2024 LIPID PANEL, NONFASTING [facility] Comment on above: Expected: 09/11/2024 , Expires: 12/11/2024 Start: 09-11-2024 End: 09-11-2024 Patient encounter procedure 09/11/2024 10:40 AM EDT Office Visit Family Ajith Gillette [address] [place], [place] [phone] Eladio Chávez MD [address] [place], [place] [id number] 6 month follow up Family Ajith Gillette Comment on above: 6 month follow up Start: 06-11-2025 Covid-19 Vaccine ( season) Covid-19 Vaccine () [facility] Start: 07-13-2024 DIABETES SCREEN DIABETES SCREEN [facility] Start: 03-13-2024 End: 03-13-2024 Patient encounter procedure 03/13/2024 10:00 AM EST Office Visit Family Medicine [place] [address] [place] [address] Eladio Chávez MD [address] [facility] [place] [address] Medicare Wellness-02/13/24 reschedule [facility] Comment on above: Medicare Wellness- reschedule Start: 02-13-2024 End: 02-13-2024 Patient encounter procedure 02/13/2024 10:00 AM EST Office Visit Family Medicine [place] [address] [place] [address] Eladio Chávez MD [address] [facility] [place] [address] Medicare Wellness [facility] Comment on above: Medicare Wellness Start: 02-10-2024 End: 02-10-2024 Patient encounter procedure 02/10/2024 10:00 AM EST Office Visit Family [facility] [place] [address] [place] [address] Eladio Chávez MD [address] [facility] [place] [address] Medicare Wellness [facility] Comment on above: Medicare Wellness Start: 02-09-2024 Spirometry Spirometry [facility] Comment on above: Postponed from 06/24 (Declined at this time) Start: 01-13-2024 DIABETES SCREEN DIABETES SCREEN [facility] Start: 11-06-2023 Covid-19 Vaccine ( season) Covid-19 Vaccine () [facility] Start: 11-06-2023 Influenza vaccination Influenza Vacc ine (#1) [facility] Start: 08-22-2023 End: 08-22-2023 Patient encounter procedure 08/22/2023 1:15 PM EDT Office Visit General Surgery [address] [facility] [place] [address] Chris Mercedes MD [address] [facility] [place] [address] 3Month melanoma Follow up General Surgery Comment on above: 3Month melanoma Foll ow up Start: 03-07-2023 Advance Directive Discussion Advance Directive Discussion [facility] Start: 03-07-2023 Behavioral Health Screening Behavioral Health Screening [facility] Start: 03-07-2023 Depression Assessment Depression Ass essment [facility] Start: 03-06-2023 [facility] Comment on above: Postponed from 03/07 (Declined at this time) Start: 02-01-2023 COVID-19 VACCINE (5 - Booster for Moderna series) COVID-19 VACCINE (5 - Booster for Moderna series) [facility] Comment on above: Postponed from 09/19 (Declined at this time) Start: 11-05-2022 Covid-19 Vaccine (2022-24 season) Covid-19 Vaccine ( season) [facility] Start: 11-05-2022 Influenza vaccination Influenza Vacc ine (#1) [facility] Start: 07-24-2022 COVID-19 VACCINE (4 - Booster for Moderna series) COVID-19 VACCINE (4 - Booster for Moderna series) [facility] Comment on above: Postponed from 05/22 (Declined at this time) Start: 07-05-2022 End: 09-04-2022 CBC W Auto Differential panel - Blood CBC + DIFF Lab Routine Essential hypertension Expected: 07/05/2022, Expires: 09/04/2022 [facility] Work Phone: Comment on above: Expected: 07/05/2022 , Expires: 09/04/2022 Start: 07-05-2022 End: 09-04-2022 Comprehensive metabolic 2000 panel - Serum or Plasma COMP METABOLIC PANEL Lab Routine Essential hypertension Expected: 07/05/2022, Expires: 09/04/2022 [facility] Work Phone: Comment on above: Expected: 07/05/2022 , Expires: 09/04/2022 Start: 07-05-2022 End: 09-04-2022 LIPID PANEL, NONFASTING LIPID PANEL, NONFASTING Lab Routine Essential hypertension Expected: 07/05/2022, Expires: 09/04/2022 [facility] Work Phone: Comment on above: Expected: 07/05/2022 , Expires: 09/04/2022 Start: 03-07-2022 ADVANCE DIRECTIVE DISCUSSION ADVANCE DIRECTIVE DISCUSSION [facility] Start: 03-07-2022 DEPRESSION ASSESSMENT DEPRESSION ASS ESSMENT [facility] Start: 02-16-2022 End: 04-18-2022 Comprehensive metabolic 2000 panel - Serum or Plasma COMP METABOLIC PANEL Lab Routine Essential hypertension Expected: 02/16/2022, Expires: 04/18/2022 [facility] Work Phone: Comment on above: Expected: 02/16/2022 , Expires: 04/18/2022 Start: 02-01-2022 End: 04-03-2022 POTASSIUM BLD [facility] Work Phone: Comment on above: Expected: 02/01/2022 , Expires: 04/03/2022 Start: 01-04-2022 End: 03-06-2022 CBC W Auto Differential panel - Blood CBC + DIFF Lab Routine Essential hypertension Expected: 01/04/2022, Expires: 03/06/2022 [facility] Work Phone: Comment on above: Expected: 01/04/2022 , Expires: 03/06/2022 Start: 01-04-2022 End: 03-06-2022 Comprehensive metabolic 2000 panel - Serum or Plasma COMP METABOLIC PANEL Lab Routine Essential hypertension Expected: 01/04/2022, Expires: 03/06/2022 [facility] Work Phone: Comment on above: Expected: 01/04/2022 , Expires: 03/06/2022 Start: 11-05-2021 Influenza vaccination INFLUENZA (#1) [facility] Start: 09-19-2021 COVID-19 VACCINE (5 - Booster for Moderna series) COVID-19 VACCINE (5 - Booster for Moderna series) [facility] Start: 07-13-2021 End: 09-12-2021 Comprehensive metabolic 2000 panel - Serum or Plasma [facility] Work Phone: Comment on above: Expected: 07/13/2021 , Expires: 09/12/2021 Start: 07-13-2021 End: 09-12-2021 LIPID PANEL, NONFASTING [facility] Work Phone: Comment on above: Expected: 07/13/2021 , Expires: 09/12/2021 Start: 03-07-2021 ADVANCE DIRECTIVE DISCUSSION ADVANCE DIRECTIVE DISCUSSION [facility] Start: 03-07-2021 DEPRESSION ASSESSMENT DEPRESSION ASS ESSMENT [facility] Start: 1996 RSV Vaccine (1 - 1-d ose 60+ series) RSV Vaccine (1 - 1-dose 60+ series) [facility] Start: 1954 Anxiety Screening Anxiety Screening [facility] Start: 1954 Depression Screening Depression Scre ening [facility] Start: 1954 SPIROMETRY SPIROMETRY [facility] End: 05-18-2024 NM Lymph node Views NM LYMPH NODE IMAGING Radiology Routine Lymphedema 1 Occurrences starting 04/20/2023 until 05/18/2024 [facility] Work Phone: Comment on above: 1 Occurrences starti ng 04/20/2023 until 05/18/2024 End: 09-03-2023 Us abdominal aorta real time screen study aaa US SCREENING FOR AAA Radiology Routine Family history of abdominal aortic aneurysm (AAA) 1 Occurrences starting 08/04/2022 until 09/03/2023 [facility] Work Phone: Comment on above: 1 Occurrences starti ng 08/04/2022 until 09/03/2023 [facility] [place] [facility] Immunizations Immunization Date Immunization Notes Care Provider Iván garcia 01-24-2024 influenza, high dose seasonal, preservative-free Eladio Chávez MD Work Phone: [facility] 01-24-2024 influenza virus vaccine, unspecified formulation Eladio Chávez MD Work Phone: [facility] 08-10-2023 COVID-19 vaccine, ag e 12+ yr, season (EvertaleBIONTECH) Eladio Chávez MD Work Phone: [facility] 02-11-2023 respiratory syncytia l virus (RSV) vaccine, adjuvanted (AREXVY) Eladio Chávez MD Work Phone: [facility] 02-08-2023 COVID-19 vaccine, ag e 12+ yr, season ([email or web address].COM) Chris Mercedes MD Work Phone: [facility] 02-08-2023 influenza (HD-IIV4) vaccine, age 65+ yr, high dose, quadrivalent, PF (FLUZONE HIGH-DOSE) Chris Mercedes MD Work Phone: [facility] 02-08-2023 influenza virus vaccine, unspecified formulation Chris Mercedes MD Work Phone: [facility] 08-05-2022 COVID-19 original vaccine, full dose, monovalent (MODERNA) 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 Work Phone: [facility] 08-05-2022 COVID-19 vaccine, ag e 12+ yr, bivalent (MODERNA) Eladio Chávez MD Work Phone: [facility] 02-01-2022 COVID-19 booster vaccine, age 12+ yr, bivalent (MODERNA) 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 Work Phone: [facility] 02-01-2022 influenza, high-dose , quadrivalent vaccine (FLUZONE HIGH DOSE QUADRIVALENT) Eladio Chávez MD Work Phone: [facility] 02-01-2022 influenza virus vaccine, unspecified formulation Us 2 Work Phone: [facility] 07-25-2021 COVID-19 original vaccine, full dose, monovalent (MODERNA) Eladio Chávez MD Work Phone: [facility] 12-24-2020 influenza, high-dose , quadrivalent vaccine (FLUZONE HIGH DOSE QUADRIVALENT) Eleonora Newman [facility] 09-01-2020 zoster vaccine recombinant Eleonora Newman MA [facility] 05-09-2020 COVID-19 vaccine, fu ll dose (MODERNA) Eleonora Newman [facility] Work Phone: 04-11-2020 COVID-19 vaccine, fu ll dose (MODERNA) Eleonora Newman [facility] Work Phone: 02-14-2020 zoster vaccine recombinant Eleonora Newman [facility] 12-19-2019 influenza, high-dose , quadrivalent vaccine (FLUZONE HIGH DOSE QUADRIVALENT) Eleonora Newman VALENTÍN [facility] 01-25-2019 influenza, high dose seasonal, preservative-free Eleonora Cristine [facility] 01-20-2018 influenza, high dose seasonal, preservative-free Eleonora Cristine [facility] 01-10-2017 influenza, high dose seasonal, preservative-free Eleonora Newman [facility] 01-05-2016 influenza, high dose seasonal, preservative-free Eleonora Newman [facility] 09-02-2015 pneumococcal conjuga te vaccine, 13 valent Eleonora Newman [facility] 02-05-2015 influenza, high dose seasonal, preservative-free Eleonora Newman [facility] 02-04-2014 influenza, seasonal, injectable Eleonora Cristine [facility] 01-30-2013 influenza virus vaccine, unspecified formulation Eleonora Cristine LAURA [facility] 01-28-2012 influenza virus vaccine, unspecified formulation Eleonora Newman [facility] 12-28-2011 zoster vaccine, live Eleonora Freedman Bc [facility] 12-24-2011 influenza virus vaccine, unspecified formulation Eleonora Cristine [facility] 01-27-2011 influenza virus vaccine, unspecified formulation Eleonora Newman VALENTÍN [facility] 01-23-2010 influenza virus vaccine, unspecified formulation Eleonora Newman [facility] 01-23-2010 tetanus and diphther ia toxoids, adsorbed, preservative free, for adult use (2 Lf of tetanus toxoid and 2 Lf of diphtheria toxoid) Eleonora Newman MA [facility] 02-23-2008 pneumococcal polysaccharide vaccine, 23 valent Eleonora Newman MA [facility] 02-06-2008 influenza virus vaccine, unspecified formulation Eleonora Newman MA [facility] Work Phone: 01-05-2007 influenza virus vaccine, unspecified formulation Eleonora Newman MA [facility] Work Phone: 01-11-2006 influenza virus vaccine, unspecified formulation Eleonora Newman MA [facility] Work Phone: 01-05-2001 influenza virus vaccine, unspecified formulation Eleonora Newman MA [facility] Work Phone: 02-23-2000 pneumococcal polysaccharide vaccine, 23 valent Eleonora Newman MA [facility] Work Phone: 10-27-1999 diphtheria and tetan us toxoids, adsorbed for pediatric use Eleonora Newman MA [facility] Work Phone: Payers Date Payer Category Payer Medicare [employer] [place] [id number] 2012-Present [phone] [address] [place] [address] [facility] [id number] 2012 Medicare [employer] [place] [id number] 2012-Present [phone] [address] [place] [address] [facility] [id number] 2012 Medicare (Managed Care) [place] MED[place] [id number] 2012 Medicare [id number] Social History Date Type Detail Facility Start: 02-01-2022 Tobacco smoking stat [facility] Never smoked tobacco [facility] Start: 12-24-2020 End: 11-13-2024 Alcohol intake Current drinker of alcohol (finding) [facility] Start: 12-24-2020 End: 08-04-2022 Alcohol intake [facility] Work Phone: Start: 07-27-2017 History SDOH Alcohol Comment occasionally [facility] Start: 1935 Sex Assigned At Not on file [facility] Start: 07-03-2021 End: 02-01-2022 Exposure to SARS-CoV-2 (event) Not sure [facility] Start: 02-01-2022 Tobacco use and exposure Smokeless tobacco non-user [facility] Start: 08-04-2022 End: 03-13-2024 Tobacco use panel [facility] Work Phone: Start: 02-06-2012 Adult Depression Screening Assessment 0 [facility] Work Phone: How often to you hav e a drink containing alcohol? 2-4 times a month [facility] Work Phone: How many standard drinks containing alcohol do you have on a typical day? 1 or 2 [facility] Work Phone: How often do you hav e 6 or more drinks on 1 occasion? Never [facility] Work Phone: Functional Status Date Assessment Result Facility 08-12-2014 Are you deaf, or do you have serious difficulty hearing No 08/12/2014 8:01 AM Humberto Rodarte No [facility] 08-12-2014 Are you blind, or do you have serious difficulty seeing, even when wearing glasses No 08/12/2014 8:01 AM Humberto Rodarte No [facility] 08-12-2014 Do you have serious difficulty walking or climbing stairs No 08/12/2014 8:01 AM Humberto Rodarte [facility] 08-12-2014 Because of a physica l, mental, or emotional condition, do you have difficulty doing errands alone such as visiting a physician's office or shopping No 08/12/2014 8:01 AM EDT Humberto Chery No [facility] 08-05-2014 Do you have difficul ty dressing or bathing No 08/05/2014 9:47 AM EDT Kelsey Goode, STACY No [facility] Mental Status Date Assessment Result Facility 08-12-2014 Because of a physica l, mental, or emotional condition, do you have serious difficulty concentrating, remembering, or making decisions No 08/12/2014 8:01 AM EDT Humberto Chery No [facility] Clinical Notes 06-19-2012 to 11-13-2024 Patient InstructionsEladio Chávez MD - 11/13/2024 8:42 AM EDTPatient InstructionsEladio Chávez MD - 10/30/2024 8:40 AM EDTPatient InstructionsPatient Instructions Note Date & Type Note Facility 11-13-2024 Instructions Eladio Chávez MD - 11/13/2024 8:51 AM EDT - Continue metoprolol 25 mg once daily as prescribed. - A 90-day prescription for metoprolol will be sent to [facility]. - Plan to receive your annual flu shot in early to mid-December, either here or at your local pharmacy. - Contact the office if you experience lightheadedness, dizziness, chest pain, shortness of breath, or any new leg swelling. - Keep your scheduled 6-month follow-up appointment with Natalie in March. documented in this encounter [facility] 11-13-2024 Note HNO ID: [id number] Author: ELADIO CHÁVEZ MD Service: ? Author Type: Physician Type: Progress Notes Filed: 11/13/2024 08:58 Note Text: Chief Complaint Patient presents with: Blood Pressure Check Recording using Acer software for draft documentation of the visit was discussed with the patient/authorized primary care sales representative; all questions welcomed and answered. Patient/authorized primary care sales representative agreed to proceed HPI Cristine Mena is a 89 year old male who presents here today for Above Complaints.. Hypertension: - Cristine Mena recently started on metoprolol 25 mg daily; reports it really did the trick. - Cristine experiences occasional flatulence since starting metoprolol. - Denies lightheadedness, dizziness, chest pain, dyspnea, palpitations, fevers, or chills. - Home BP readings range from 110/85 to 130/83 mmHg; heart rates between 60-90 bpm. PACs: - Occasional skipped beats noted.r. 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 - Plans to attend a fair and walk around. - Discussed flu shot timing; prefers to wait until December. - States that he went to the [facility] and they told him as long as he had his glasses on, he could drive. Past medical history, appointments, medications, allergies reviewed. Previous Medical History PAST MEDICAL HISTORY Diagnosis Date Acute, but ill-defined, cerebrovascular disease possible TIA Asthma (HCC) Hernández's esophagus EGD negative for Barretts 07/2017. Diverticulosis of colon (without mention of hemorrhage) Diverticulosis Erectile dysfunction Essential tremor Family history of abdominal aortic aneurysm (AAA) Family history of malignant neoplasm of gastrointestinal tract Glaucoma Dr. Rivera and Francisco Hydrocele of testis Macular degeneration, wet (HCC) left Malignant melanoma (HCC) 05/2023 Chest, Stage IB Nocturia Other and unspecified hyperlipidemia Other psoriasis and similar disorders Psoriasis PAC (premature atrial contraction) Personal history of colonic polyps Colon polyps Squamous cell carcinoma, face [facility] Stroke (HCC) Pt reports possible TIA in 2002 w/ symptoms of dizzyness Unspecified essential hypertension Previous Surgical History PAST SURGICAL HISTORY Procedure Laterality Date COLONOSCOPY FLX DX W/COLLJ SPEC WHEN PFRMD 07/24/2003 Colonoscopy COLONOSCOPY FLX DX W/COLLJ SPEC WHEN PFRMD 07/22/2010 COLONOSCOPY FLX DX W/COLLJ SPEC WHEN PFRMD 09/08/2012 COLONOSCOPY FLX DX W/COLLJ SPEC WHEN PFRMD 07/27/2017 Colonoscopy EGD TRANSORAL BIOPSY SINGLE/MULTIPLE 08/05/2010 EGD W/O BRSH SPECIMEN W/BX 08/20/2014 repeat in 5 years ESOPHAGOGASTRODUODENOSCOPY TRANSORAL DIAGNOSTIC 09/04/2003 EGD ESOPHAGOGASTRODUODENOSCOPY TRANSORAL DIAGNOSTIC 09/08/2012 EGD ESOPHAGOGASTRODUODENOSCOPY TRANSORAL DIAGNOSTIC 07/27/2017 EGD PAST SURGICAL HISTORY OF 2016 MOHs procedure on scalp PAST SURGICAL HISTORY OF 05/13/2023 Wide Local Excision of Chest Melanoma RMVL SEC MEMBRANOUS CTRC CORNEO-SCLL SCTJ 08/2008, right Cataract removal RPR 1ST INGUN HRNA AGE 5 YRS/> REDUCIBLE right and left Hernia repair, inguinal TONSILLECTOMY PRIMARY/SECONDARY Tonsillectomy XCAPSL CTRC RMVL INSJ IO LENS PROSTH W/O ECP left Cataract Removal Family History FAMILY HISTORY Problem Relation Age of Onset other (gallbladder) Mother Cancer Father rectal cancer, mi Cancer Brother prostate cancer Pancreatic Cancer Brother Heart Brother mi Aneurysm Brother AAA Patient Allergies ALLERGIES Allergen Reactions Amlodipine Swelling Current Medications Current Outpatient Medications on File Prior to Visit Medication Sig metoprolol succinate ER (TOPROL XL) 25 mg 24 hr tablet Take 1 tablet by mouth once daily. simvastatin (ZOCOR) 20 mg tablet Take 1 tablet by mouth daily at bedtime. primidone (MYSOLINE) 50 mg tablet Take 4 tablets by mouth once daily. losartan (COZAAR) 100 mg tablet Take 1 tablet by mouth once daily. albuterol HFA (PROAIR HFA) 90 mcg/actuation inhaler Inhale 2 Puffs as instructed four times a day as needed. triamcinolone acetonide (KENALOG) 0.1 % ointment aspirin 81 mg chewable tablet Take 81 mg by mouth once daily. Miscellaneous Medical Supply (BLOOD PRESSURE CUFF) 1 Each as needed. Automatic BP cuff to be used as directed to monitor hypertension. Diflorasone Diacetate 0.05 % ointment Apply to affected area twice daily as needed. Gnxwldiomcabc-Khmeiksy-Hrfjho (CENTRUM SILVER) tab Take 1 tablet by mouth once daily. psyllium seed/sucrose(METAMUCIL ORAL POWDER) one teaspoon daily timolol (TIMOPTIC) 0.5 % OPHTHALMIC Drop one drop twice daily each eye XALATAN 0.005 % EYE DROPS One gtt each eye daily. No current facility-administered medications on file prior to visit. Social History SOCIAL HISTORY[1] Review of Symptoms REVIEW OF SYSTEMS GENERAL: No weight loss, malaise or feve (more content not included)... [facility] 11-13-2024 History of Presen t illness Narrative Chief Complaint Patient presents with: Blood Pressure Check Recording using ambient Locationary software for draft documentation of the visit was discussed with the patient/authorized primary care sales representative; all questions welcomed and answered. Patient/authorized primary care sales representative agreed to proceed HPI Cristine Mena is a 89 year old male who presents here today for Above Complaints.. Hypertension: - Cristine Mena recently started on metoprolol 25 mg daily; reports it "really did the trick." - Cristine experiences occasional flatulence since starting metoprolol. - Denies lightheadedness, dizziness, chest pain, dyspnea, palpitations, fevers, or chills. - Home BP readings range from 110/85 to 130/83 mmHg; heart rates between 60-90 bpm. PACs: - Occasional skipped beats noted.r. 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 - Plans to attend a fair and walk around. - Discussed flu shot timing; prefers to wait until December. - States that he went to the [facility] and they told him as long as he had his glasses on, he could drive. Past medical history, appointments, medications, allergies reviewed. Previous Medical History PAST MEDICAL HISTORY Diagnosis Date Acute, but ill-defined, cerebrovascular disease possible TIA Asthma (HCC) Hernández's esophagus EGD negative for Barretts 07/2017. Diverticulosis of colon (without mention of hemorrhage) Diverticulosis Erectile dysfunction Essential tremor Family history of abdominal aortic aneurysm (AAA) Family history of malignant neoplasm of gastrointestinal tract Glaucoma Dr. Rivera and Francisco Hydrocele of testis Macular degeneration, wet (HCC) left Malignant melanoma (HCC) 05/2023 Chest, Stage IB Nocturia Other and unspecified hyperlipidemia Other psoriasis and similar disorders Psoriasis PAC (premature atrial contraction) Personal history of colonic polyps Colon polyps Squamous cell carcinoma, face [facility] Stroke (HCC) Pt reports possible TIA in 2002 w/ symptoms of dizzyness Unspecified essential hypertension Previous Surgical History PAST SURGICAL HISTORY Procedure Laterality Date COLONOSCOPY FLX DX W/COLLJ SPEC WHEN PFRMD 07/24/2003 Colonoscopy COLONOSCOPY FLX DX W/COLLJ SPEC WHEN PFRMD 07/22/2010 COLONOSCOPY FLX DX W/COLLJ SPEC WHEN PFRMD 09/08/2012 COLONOSCOPY FLX DX W/COLLJ SPEC WHEN PFRMD 07/27/2017 Colonoscopy EGD TRANSORAL BIOPSY SINGLE/MULTIPLE 08/05/2010 EGD W/O BRSH SPECIMEN W/BX 08/20/2014 repeat in 5 years ESOPHAGOGASTRODUODENOSCOPY TRANSORAL DIAGNOSTIC 09/04/2003 EGD ESOPHAGOGASTRODUODENOSCOPY TRANSORAL DIAGNOSTIC 09/08/2012 EGD ESOPHAGOGASTRODUODENOSCOPY TRANSORAL DIAGNOSTIC 07/27/2017 EGD PAST SURGICAL HISTORY OF 2015 MOHs procedure on scalp PAST SURGICAL HISTORY OF 05/13/2023 Wide Local Excision of Chest Melanoma RMVL SEC MEMBRANOUS CTRC CORNEO-SCLL SCTJ 08/2008, right Cataract removal RPR 1ST INGUN HRNA AGE 6 YRS/> REDUCIBLE right and left Hernia repair, inguinal TONSILLECTOMY PRIMARY/SECONDARY <AGE 13 Tonsillectomy XCAPSL CTRC RMVL INSJ IO LENS PROSTH W/O ECP left Cataract Removal Family History FAMILY HISTORY Problem Relation Age of Onset other (gallbladder) Mother Cancer Father rectal cancer, mi Cancer Brother prostate cancer Pancreatic Cancer Brother Heart Brother mi Aneurysm Brother AAA Patient Allergies ALLERGIES Allergen Reactions Amlodipine Swelling Current Medications Current Outpatient Medications on File Prior to Visit Medication Sig metoprolol succinate ER (TOPROL XL) 25 mg 24 hr tablet Take 1 tablet by mouth once daily. simvastatin (ZOCOR) 20 mg tablet Take 1 tablet by mouth daily at bedtime. primidone (MYSOLINE) 50 mg tablet Take 4 tablets by mouth once daily. losartan (COZAAR) 100 mg tablet Take 1 tablet by mouth once daily. albuterol HFA (PROAIR HFA) 90 mcg/actuation inhaler Inhale 2 Puffs as instructed four times a day as needed. triamcinolone acetonide (KENALOG) 0.1 % ointment aspirin 81 mg chewable tablet Take 81 mg by mouth once daily. Miscellaneous Medical Supply (BLOOD PRESSURE CUFF) 1 Each as needed. Automatic BP cuff to be used as directed to monitor hypertension. Diflorasone Diacetate 0.05 % ointment Apply to affected area twice daily as needed. Vvmupjhxlporr-Zpbsairz-Gcmano (CENTRUM SILVER) tab Take 1 tablet by mouth once daily. psyllium seed/sucrose(METAMUCIL ORAL POWDER) one teaspoon daily timolol (TIMOPTIC) 0.5 % OPHTHALMIC Drop one drop twice daily each eye XALATAN 0.005 % EYE DROPS One gtt each eye daily. No current facility-administered medications on file prior to visit. Social History SOCIAL HISTORY[1] Review of Symptoms REVIEW OF SYSTEMS GENERAL: No weight loss, malaise or fevers RESPIRATORY: Negative for cough, hemoptysis, wheezing, COPD, dyspnea or shortness of breath CARDIOVASCULAR: Negative for chest pain, leg swelling, hypertension, CHF or palpitations GI: No nausea, vomiting, or diarrhea EXAM: BP 130/80 Pulse 90 Ht 170.2 cm (5' 7") Wt 75.3 kg (166 lb) SpO2 98% BMI 26.00 kg/m General Appearance: Well appearing, alert, in no acute distress, well-hydrated, well nourished.. Skin: Skin color, texture, turgor normal, no suspicious rashes or lesions. Lungs: Lungs clear to auscultation. No wheezing, rhonchi, rales.. Heart: RRR without murmur, gallop, or rubs. Positive findings: occasional ectopic beats consistent with his history of PACs. Abdomen: Normal abdominal exam, Abdomen soft, non-tender. Bowel sounds normal. No masses, organomegaly. Extremities: No deformities, edema, skin discoloration, clubbing or cyanosis. Good capillary refill. . Health Maintenance List Influenza Vaccine(1) due on 09/03/2025 Depression Screening due on 03/13/2025 Anxiety Screening due on 03/13/2025 DTaP,Tdap,Td Vaccine(4 - Td or Tdap) due on 07/14/2027 Diabetes Screening due on 09/12/2027 Advance Directive Discussion Completed RSV Vaccine Completed Medicare Advantage Annual Wellness Visit Completed Shingrix Vaccine Completed Pneumococcal Vaccine: 50+ Completed Data reviewed Latest Ref Rng 09/11/2024 WBC 3.70 - 11.00 k/uL 7.76 RBC 4.20 - 6.00 m/uL 5.29 Hemoglobin 13.0 - 17.0 g/dL 16.9 Hematocrit 39.0 - 51.0 % 50.2 MCV 80.0 - 100.0 fL 94.9 MCH 26.0 - 34.0 pg 31.9 MCHC 30.5 - 36.0 g/dL 33.7 RDW-CV 11.5 - 15.0 % 12.7 Platelet Count 150 - 400 k/uL 243 MPV 9.0 - 12.7 fL 12.2 Neut% % 73.5 Abs Neut (ANC) 1.45 - 7.50 k/uL 5.71 Lymph% % 12.0 Abs Lymph 1.00 - 4.00 k/uL 0.93 (L) [place]% % 11.5 Abs [place] <0.87 k/uL 0.89 (H) Eosin% % 2.3 Abs Eosin <0.46 k/uL 0.18 Baso% % 0.4 Abs Baso <0.11 k/uL 0.03 Immature Gran % % 0.3 IMMATURE GRANS (ABS) <0.10 k/uL <0.03 NRBC /100 WBC 0.0 Absolute nRBC <0.01 k/uL <0.01 DTYPE Auto Protein, Total 6.3 - 8.0 g/dL 6.6 Albumin 3.9 - 4.9 g/dL 4.2 Calcium 8.5 - 10.2 mg/dL 9.1 Bilirubin, Total 0.2 - 1.3 mg/dL 0.7 Alkaline Phosphatase 38 - 113 U/L 108 AST 14 - 40 U/L 25 ALT 10 - 54 U/L 38 Glucose 74 - 99 mg/dL 97 BUN 9 - 24 mg/dL 14 Creatinine 0.73 - 1.22 mg/dL 0.91 Sodium 136 - 144 mmol/L 133 (L) Potassium 3.7 - 5.1 mmol/L 5.1 Chloride 98 - 107 mmol/L 98 CO2 22 - 30 mmol/L 23 Anion Gap 8 - 15 mmol/L 12 eGFR >=60 mL/min/1.73m 81 Total Cholesterol, Nonfasting <200 mg/dL 143 Triglycerides, Nonfasting <150 mg/dL 73 HDL Cholesterol, Nonfasting >39 mg/dL 46 LDL Cholesterol Calculated, Nonfasting <100 mg/dL 83 Non HDL Cholesterol, Nonfasting <130 mg/dL 97 VLDL Cholesterol, Nonfasting <30 mg/dL 11 Total Chol/HDL Ratio, Nonfasting <5.10 mg/dL 3.11 LDL/HDL Ratio, Nonfasting <2.54 mg/dL 1.80 Legend: (L) Low (H) High 1. Essential hypertension (I10) - Blood pressure well-controlled on metoprolol 25 mg daily; home readings range from 110/85 mmHg to 130/83 mmHg, with heart rates in the 60s to 90s. - No reported side effects other than mild gas; no lightheadedness, dizziness, chest pain, shortness of breath, or palpitations. - Continue metoprolol 25 mg daily; 90-day prescription sent. - Advised patient to report any new symptoms such as lightheadedness or dizziness. - Follow-up in March as scheduled. Eladio Chávez MD [1] Social History Tobacco Use Smoking status: Never Smokeless tobacco: Never Substance Use Topics Alcohol use: Yes Alcohol/week: 1.0 standard drink of alcohol Types: 1 Glasses of Wine (5oz) per week Comment: occasionally Drug use: No documented in this encounter [facility] 10-30-2024 Instructions Eladio Chávez MD - 10/30/2024 8:56 AM EDT - Start metoprolol 25 mg once daily to help lower your blood pressure and heart rate; prescription sent to [facility] pharmacy. - Continue your current losartan dose as prescribed. - Measure and record your blood pressure and pulse at home daily until your next appointment. - Call the office right away if your blood pressure is consistently below 100/60 mmHg, your heart rate falls below 60 bpm, or you feel lightheaded or dizzy. - Limit sodium (salt) intake to less than 2,000 mg per day. - Restrict coffee to one cup per day. - Schedule a follow-up blood pressure check in about two weeks. - Our staff will contact the [facility] today to arrange Kayley gallardo INR check in approximately one week. documented in this encounter [facility] 10-30-2024 Note HNO ID: [id number] Author: ELADIO CHÁVEZ MD Service: ? Author Type: Physician Type: Progress Notes Filed: 10/30/2024 08:59 Note Text: Chief Complaint Patient presents with: Hypertension: Follow up for elevated BP Recording using Acer software for draft documentation of the visit was discussed with the patient/authorized primary care sales representative; all questions welcomed and answered. Patient/authorized primary care sales representative agreed to proceed HPI Cristine Mena is a 89 year old male who presents here today for Above Complaints. Hypertension: - Home blood pressure readings range from 120s-130s/90s. - Home heart rate readings range from 80s-90s. - Cristine denies headaches, vision changes, chest pain, dyspnea, or dizziness. - Cristine reports decreased exercise tolerance. - Cristine adheres to losartan regimen; spouse assists with medication management. - Cristine consumes two diluted cups of coffee daily; denies excessive salt intake. - Previous issues with amlodipine causing edema. Past medical history, appointments, medications, allergies reviewed. Previous Medical History PAST MEDICAL HISTORY Diagnosis Date Acute, but ill-defined, cerebrovascular disease possible TIA Asthma (HCC) Hernández's esophagus EGD negative for Barretts 07/2017. Diverticulosis of colon (without mention of hemorrhage) Diverticulosis Erectile dysfunction Essential tremor Family history of abdominal aortic aneurysm (AAA) Family history of malignant neoplasm of gastrointestinal tract Glaucoma Dr. Rivera and Francisco Hydrocele of testis Macular degeneration, wet (HCC) left Malignant melanoma (HCC) 05/2023 Chest, Stage IB Nocturia Other and unspecified hyperlipidemia Other psoriasis and similar disorders Psoriasis PAC (premature atrial contraction) Personal history of colonic polyps Colon polyps Squamous cell carcinoma, face [facility] Stroke (HCC) Pt reports possible TIA in 2002 w/ symptoms of dizzyness Unspecified essential hypertension Previous Surgical History PAST SURGICAL HISTORY Procedure Laterality Date COLONOSCOPY FLX DX W/COLLJ SPEC WHEN PFRMD 07/24/2003 Colonoscopy COLONOSCOPY FLX DX W/COLLJ SPEC WHEN PFRMD 07/22/2010 COLONOSCOPY FLX DX W/COLLJ SPEC WHEN PFRMD 09/08/2012 COLONOSCOPY FLX DX W/COLLJ SPEC WHEN PFRMD 07/27/2017 Colonoscopy EGD TRANSORAL BIOPSY SINGLE/MULTIPLE 08/05/2010 EGD W/O BRSH SPECIMEN W/BX 08/20/2014 repeat in 5 years ESOPHAGOGASTRODUODENOSCOPY TRANSORAL DIAGNOSTIC 09/04/2003 EGD ESOPHAGOGASTRODUODENOSCOPY TRANSORAL DIAGNOSTIC 09/08/2012 EGD ESOPHAGOGASTRODUODENOSCOPY TRANSORAL DIAGNOSTIC 07/27/2017 EGD PAST SURGICAL HISTORY OF 2016 MOHs procedure on scalp PAST SURGICAL HISTORY OF 05/13/2023 Wide Local Excision of Chest Melanoma RMVL SEC MEMBRANOUS CTRC CORNEO-SCLL SCTJ 08/2008, right Cataract removal RPR 1ST INGUN HRNA AGE 6 YRS/> REDUCIBLE right and left Hernia repair, inguinal TONSILLECTOMY PRIMARY/SECONDARY Tonsillectomy XCAPSL CTRC RMVL INSJ IO LENS PROSTH W/O ECP left Cataract Removal Family History FAMILY HISTORY Problem Relation Age of Onset other (gallbladder) Mother Cancer Father rectal cancer, mi Cancer Brother prostate cancer Pancreatic Cancer Brother Heart Brother mi Aneurysm Brother AAA Patient Allergies ALLERGIES Allergen Reactions Amlodipine Swelling Current Medications Current Outpatient Medications on File Prior to Visit Medication Sig simvastatin (ZOCOR) 20 mg tablet Take 1 tablet by mouth daily at bedtime. primidone (MYSOLINE) 50 mg tablet Take 4 tablets by mouth once daily. losartan (COZAAR) 100 mg tablet Take 1 tablet by mouth once daily. albuterol HFA (PROAIR HFA) 90 mcg/actuation inhaler Inhale 2 Puffs as instructed four times a day as needed. triamcinolone acetonide (KENALOG) 0.1 % ointment aspirin 81 mg chewable tablet Take 81 mg by mouth once daily. Miscellaneous Medical Supply (BLOOD PRESSURE CUFF) 1 Each as needed. Automatic BP cuff to be used as directed to monitor hypertension. Diflorasone Diacetate 0.05 % ointment Apply to affected area twice daily as needed. Rtjyiiyrbfvbk-Iimvaxiv-Xoehgm (CENTRUM SILVER) tab Take 1 tablet by mouth once daily. psyllium seed/sucrose(METAMUCIL ORAL POWDER) one teaspoon daily timolol (TIMOPTIC) 0.5 % OPHTHALMIC Drop one drop twice daily each eye XALATAN 0.005 % EYE DROPS One gtt each eye daily. No current facility-administered medications on file prior to visit. Social History SOCIAL HISTORY[1] Review of Symptoms REVIEW OF SYSTEMS See HPI EXAM: BP 151/94 Pulse 65 Ht 170.2 cm (5' 7") Wt 75.4 kg (166 lb 3.2 oz) BMI 26.03 kg/m? Home Cuff: 164/100 General Appearance: Well appearing, alert, in no acute distress, well-hydrated, well nourished.. Skin: Skin color, texture, turgor normal, no suspicious rashes or lesions. Lungs: Lungs clear to auscultation. No wheezing, rhonchi, ra (more content not included)... [facility] 08-26-2025 History of Presen t illness Narrative Chief Complaint Patient presents with: Hypertension: Follow up for elevated BP Recording using Acer software for draft documentation of the visit was discussed with the patient/authorized primary care sales representative; all questions welcomed and answered. Patient/authorized primary care sales representative agreed to proceed HPI Cristine Mena is a 89 year old male who presents here today for Above Complaints. Hypertension: - Home blood pressure readings range from 120s-130s/90s. - Home heart rate readings range from 80s-90s. - Cristine denies headaches, vision changes, chest pain, dyspnea, or dizziness. - Cristine reports decreased exercise tolerance. - Cristine adheres to losartan regimen; spouse assists with medication management. - Cristine consumes two diluted cups of coffee daily; denies excessive salt intake. - Previous issues with amlodipine causing edema. Past medical history, appointments, medications, allergies reviewed. Previous Medical History PAST MEDICAL HISTORY Diagnosis Date Acute, but ill-defined, cerebrovascular disease possible TIA Asthma (HCC) Hernández's esophagus EGD negative for Barretts 07/2017. Diverticulosis of colon (without mention of hemorrhage) Diverticulosis Erectile dysfunction Essential tremor Family history of abdominal aortic aneurysm (AAA) Family history of malignant neoplasm of gastrointestinal tract Glaucoma Dr. Rivera and Francisco Hydrocele of testis Macular degeneration, wet (HCC) left Malignant melanoma (HCC) 05/2023 Chest, Stage IB Nocturia Other and unspecified hyperlipidemia Other psoriasis and similar disorders Psoriasis PAC (premature atrial contraction) Personal history of colonic polyps Colon polyps Squamous cell carcinoma, face [facility] Stroke (HCC) Pt reports possible TIA in 2002 w/ symptoms of dizzyness Unspecified essential hypertension Previous Surgical History PAST SURGICAL HISTORY Procedure Laterality Date COLONOSCOPY FLX DX W/COLLJ SPEC WHEN PFRMD 07/24/2003 Colonoscopy COLONOSCOPY FLX DX W/COLLJ SPEC WHEN PFRMD 07/22/2010 COLONOSCOPY FLX DX W/COLLJ SPEC WHEN PFRMD 09/08/2012 COLONOSCOPY FLX DX W/COLLJ SPEC WHEN PFRMD 07/27/2017 Colonoscopy EGD TRANSORAL BIOPSY SINGLE/MULTIPLE 08/05/2010 EGD W/O BRSH SPECIMEN W/BX 08/20/2014 repeat in 5 years ESOPHAGOGASTRODUODENOSCOPY TRANSORAL DIAGNOSTIC 09/04/2003 EGD ESOPHAGOGASTRODUODENOSCOPY TRANSORAL DIAGNOSTIC 09/08/2012 EGD ESOPHAGOGASTRODUODENOSCOPY TRANSORAL DIAGNOSTIC 07/27/2017 EGD PAST SURGICAL HISTORY OF 2016 MOHs procedure on scalp PAST SURGICAL HISTORY OF 05/13/2023 Wide Local Excision of Chest Melanoma RMVL SEC MEMBRANOUS CTRC CORNEO-SCLL SCTJ 08/2008, right Cataract removal RPR 1ST INGUN HRNA AGE 6 YRS/> REDUCIBLE right and left Hernia repair, inguinal TONSILLECTOMY PRIMARY/SECONDARY <AGE 13 Tonsillectomy XCAPSL CTRC RMVL INSJ IO LENS PROSTH W/O ECP left Cataract Removal Family History FAMILY HISTORY Problem Relation Age of Onset other (gallbladder) Mother Cancer Father rectal cancer, mi Cancer Brother prostate cancer Pancreatic Cancer Brother Heart Brother mi Aneurysm Brother AAA Patient Allergies ALLERGIES Allergen Reactions Amlodipine Swelling Current Medications Current Outpatient Medications on File Prior to Visit Medication Sig simvastatin (ZOCOR) 20 mg tablet Take 1 tablet by mouth daily at bedtime. primidone (MYSOLINE) 50 mg tablet Take 4 tablets by mouth once daily. losartan (COZAAR) 100 mg tablet Take 1 tablet by mouth once daily. albuterol HFA (PROAIR HFA) 90 mcg/actuation inhaler Inhale 2 Puffs as instructed four times a day as needed. triamcinolone acetonide (KENALOG) 0.1 % ointment aspirin 81 mg chewable tablet Take 81 mg by mouth once daily. Miscellaneous Medical Supply (BLOOD PRESSURE CUFF) 1 Each as needed. Automatic BP cuff to be used as directed to monitor hypertension. Diflorasone Diacetate 0.05 % ointment Apply to affected area twice daily as needed. Zkesdcqlnclol-Failrlkq-Arrsjg (CENTRUM SILVER) tab Take 1 tablet by mouth once daily. psyllium seed/sucrose(METAMUCIL ORAL POWDER) one teaspoon daily timolol (TIMOPTIC) 0.5 % OPHTHALMIC Drop one drop twice daily each eye XALATAN 0.005 % EYE DROPS One gtt each eye daily. No current facility-administered medications on file prior to visit. Social History SOCIAL HISTORY[1] Review of Symptoms REVIEW OF SYSTEMS See HPI EXAM: BP 151/94 Pulse 65 Ht 170.2 cm (5' 7") Wt 75.4 kg (166 lb 3.2 oz) BMI 26.03 kg/m Home Cuff: 164/100 General Appearance: Well appearing, alert, in no acute distress, well-hydrated, well nourished.. Skin: Skin color, texture, turgor normal, no suspicious rashes or lesions. Lungs: Lungs clear to auscultation. No wheezing, rhonchi, rales.. Heart: RRR without murmur, gallop, or rubs. No ectopy, Negative findings: no murmurs, clicks, or gallops, Positive findings: occasional ectopic beats consistent with his history of PACs. Abdomen: Normal abdominal exam, Abdomen soft, non-tender. Bowel sounds normal. No masses, organomegaly. Extremities: No deformities, edema, skin discoloration, clubbing or cyanosis. Good capillary refill. . Health Maintenance List Influenza Vaccine(1) due on 11/05/2024 Depression Screening due on 03/13/2025 Anxiety Screening due on 03/13/2025 DTaP,Tdap,Td Vaccine(4 - Td or Tdap) due on 07/14/2027 Diabetes Screening due on 09/12/2027 Advance Directive Discussion Completed RSV Vaccine Completed Medicare Advantage Annual Wellness Visit Completed Shingrix Vaccine Completed Pneumococcal Vaccine: 50+ Completed Data reviewed Latest Ref Rng 09/11/2024 WBC 3.70 - 11.00 k/uL 7.76 RBC 4.20 - 6.00 m/uL 5.29 Hemoglobin 13.0 - 17.0 g/dL 16.9 Hematocrit 39.0 - 51.0 % 50.2 MCV 80.0 - 100.0 fL 94.9 MCH 26.0 - 34.0 pg 31.9 MCHC 30.5 - 36.0 g/dL 33.7 RDW-CV 11.5 - 15.0 % 12.7 Platelet Count 150 - 400 k/uL 243 MPV 9.0 - 12.7 fL 12.2 Neut% % 73.5 Abs Neut (ANC) 1.45 - 7.50 k/uL 5.71 Lymph% % 12.0 Abs Lymph 1.00 - 4.00 k/uL 0.93 (L) [place]% % 11.5 Abs [place] <0.87 k/uL 0.89 (H) Eosin% % 2.3 Abs Eosin <0.46 k/uL 0.18 Baso% % 0.4 Abs Baso <0.11 k/uL 0.03 Immature Gran % % 0.3 IMMATURE GRANS (ABS) <0.10 k/uL <0.03 NRBC /100 WBC 0.0 Absolute nRBC <0.01 k/uL <0.01 DTYPE Auto Protein, Total 6.3 - 8.0 g/dL 6.6 Albumin 3.9 - 4.9 g/dL 4.2 Calcium 8.5 - 10.2 mg/dL 9.1 Bilirubin, Total 0.2 - 1.3 mg/dL 0.7 Alkaline Phosphatase 38 - 113 U/L 108 AST 14 - 40 U/L 25 ALT 10 - 54 U/L 38 Glucose 74 - 99 mg/dL 97 BUN 9 - 24 mg/dL 14 Creatinine 0.73 - 1.22 mg/dL 0.91 Sodium 136 - 144 mmol/L 133 (L) Potassium 3.7 - 5.1 mmol/L 5.1 Chloride 98 - 107 mmol/L 98 CO2 22 - 30 mmol/L 23 Anion Gap 8 - 15 mmol/L 12 eGFR >=60 mL/min/1.73m 81 Total Cholesterol, Nonfasting <200 mg/dL 143 Triglycerides, Nonfasting <150 mg/dL 73 HDL Cholesterol, Nonfasting >39 mg/dL 46 LDL Cholesterol Calculated, Nonfasting <100 mg/dL 83 Non HDL Cholesterol, Nonfasting <130 mg/dL 97 VLDL Cholesterol, Nonfasting <30 mg/dL 11 Total Chol/HDL Ratio, Nonfasting <5.10 mg/dL 3.11 LDL/HDL Ratio, Nonfasting <2.54 mg/dL 1.80 Legend: (L) Low (H) High 1. Essential hypertension (I10) - Home BP readings range from 120s-130s/90s; in-office BP 158/94; home cuff reading 164/100. - On maximum dose of losartan; no missed doses reported. - No new headaches, vision changes, chest pain, dyspnea, edema, or orthostatic symptoms. - Start metoprolol 25 mg daily. - Advised to monitor BP and pulse regularly at home; instructed to call if BP <100/60 mmHg, HR <60 bpm, or if lightheadedness/dizziness occurs. - Advised to limit sodium intake to <2,000 mg/day and reduce coffee intake to 1 cup daily. - Follow-up in 2 weeks to reassess BP control and medication tolerance. 2. PAC (premature atrial contraction) (I49.1) - Exam today consistent with PACs. Will recheck at future OV. I would expect this to improve with addition of beta anna to his regimen. Eladio Chávez MD [1] Social History Tobacco Use Smoking status: Never Smokeless tobacco: Never Substance Use Topics Alcohol use: Yes Alcohol/week: 1.0 standard drink of alcohol Types: 1 Glasses of Wine (5oz) per week Comment: occasionally Drug use: No documented in this encounter [facility] 10-25-2024 Telephone encounter Note Patient was here in office with . Given message per Dede Gilbert MA. Johana Evans MA [facility] 10-25-2024 Miscellaneous Notes Patient was here in office with . Given message per Dede Gilbert MA. Johnaa Evans MA Have him continue current regimen and will check BP at OV in 5 days with Eugenio BP. If he has a cuff at home, would have him check it daily and bring readings and cuff to appointment to review. Call with readings at home >160/100. KELVIN Chávez Patient presented to office today with spouse for spouse's GIOVANNY consult. Patient requested this MA to take BP. BP at time of appointment 165/90 with HR 94-denies cardiac symptoms Patient suggested taking additional 1/2 tablet Losartan. Advised patient to continue taking medication as prescribed by PCP (repeatedly during visit) until seen at OV 10/30/24 with PCP and would update PCP on BP today. Also instructed patient to keep record of BP reading at home from now until appointment. Patient verbalized understanding of instructions. Dede Gilbert MA documented in this encounter [facility] 10-25-2024 Telephone encounter Note Have him continue current regimen and will check BP at OV in 5 days with Eugenio BP. If he has a cuff at home, would have him check it daily and bring readings and cuff to appointment to review. Call with readings at home >160/100. [facility] 10-25-2024 Telephone encounter Note KELVIN Chávez Patient presented to office today with spouse for spouse's GIOVANNY consult. Patient requested this MA to take BP. BP at time of appointment 165/90 with HR 94-denies cardiac symptoms Patient suggested taking additional 1/2 tablet Losartan. Advised patient to continue taking medication as prescribed by PCP (repeatedly during visit) until seen at OV 10/30/24 with PCP and would update PCP on BP today. Also instructed patient to keep record of BP reading at home from now until appointment. Patient verbalized understanding of instructions. Dede Gilbert MA [facility] 10-02-2024 Telephone encounter Note Prescription Refill Information The patient has been identified by name and date of : Yes Caregiver verified no other encounters exist for this prescription request: Yes Caregiver confirmed with patient/requestor that no other refills are due, in the near future, with this provider at this time: Yes The last office visit in the department: 09/11/24 Does the patient have a future office visit with this provider/department: Yes (03/18/25) Requested Prescriptions Pending Prescriptions Disp Refills simvastatin (ZOCOR) 20 mg tablet 90 tablet 1 Sig: Take 1 tablet by mouth daily at bedtime. Mary Perea RN October 02, 2024 1:00 PM [facility] 10-02-2024 Miscellaneous Notes Prescription Refill Information The patient has been identified by name and date of : Yes Caregiver verified no other encounters exist for this prescription request: Yes Caregiver confirmed with patient/requestor that no other refills are due, in the near future, with this provider at this time: Yes The last office visit in the department: 09/11/24 Does the patient have a future office visit with this provider/department: Yes (03/18/25) Requested Prescriptions Pending Prescriptions Disp Refills simvastatin (ZOCOR) 20 mg tablet 90 tablet 1 Sig: Take 1 tablet by mouth daily at bedtime. Mary Perea RN October 02, 2024 1:00 PM documented in this encounter [facility] 09-13-2024 Telephone encounter Note Patient asking about when he was to complete repeat lab work. Went over results, notes from Dr Chávez again with him with understanding. Patient said was told to watch the salt now my sodium is low. [facility] 09-13-2024 Miscellaneous Notes Patient asking about when he was to complete repeat lab work. Went over results, notes from Dr Chávez again with him with understanding. Patient said was told to watch the salt now my sodium is low. Pt informed Nori Austin MA ----- Message from Eladio Chávez MD sent at 09/13/2024 7:06 AM EDT ----- Normal labs aside from mildly low sodium level. Repeat level in 1 month. documented in this encounter [facility] 09-13-2024 Telephone encounter Note Pt informed Nori Austin MA [facility] 09-13-2024 Telephone encounter Note ----- Message from Eladio Chávez MD sent at 09/13/2024 7:06 AM EDT ----- Normal labs aside from mildly low sodium level. Repeat level in 1 month. [facility] 09-11-2024 Instructions Eladio Chávez MD - 09/11/2024 11:51 AM EDT - Primidone increase: begin taking 200 mg once daily. Use two 50 mg tablets each morning until your pharmacy supplies 100 mg tablets, then take one 100 mg tablet daily. Prescription sent to [facility] in [place]. - Losartan adjustment: continue one 100 mg tablet daily. Until the 100 mg tablets arrive, you may take two of your current 50 mg tablets each day. Refill called in to [facility] in [place]. - Home blood pressure checks: monitor daily. If readings stay above 140/90 mmHg, contact our office. - Headache and tremor monitoring: note whether headaches recur or hand shaking improves after the primidone increase; report any concerns. - Eye care: continue receiving your scheduled eye injections in [place] every three months [address]. Salcedo. - Vision safety and driving: wear your updated glasses. Be aware you may receive a notice from the [facility] asking you to retake vision and on-road driving tests; please complete any required evaluations to confirm you remain safe to drive. - Dermatology appointment: keep your [facility] visit on the to evaluate your skin lesions. - Psoriasis care: apply the triamcinolone ointment mixed with Vaseline to affected areas for up to two weeks as needed. Let us know if your rash does not improve. - Lab work: blood was drawn today for cholesterol, blood count, kidney, and liver function tests. - Records request: we will obtain your recent eye-doctor records to coordinate ongoing care. documented in this encounter [facility] 09-11-2024 Note HNO ID: [id number] Author: ELADIO CHÁVEZ MD Service: ? Author Type: Physician Type: Progress Notes Filed: 09/11/2024 12:13 Note Text: Chief Complaint Patient presents with: 6 Month Exam Recording using Acer software for draft documentation of the visit was discussed with the patient/authorized primary care sales representative; all questions welcomed and answered. Patient/authorized primary care sales representative agreed to proceed HPI Cristine Mena is a 89 year old male who presents here today for Above Complaints. Essential Tremor: - Taking primidone 150 mg daily; previously increased to 200 mg daily but experienced headaches, prompting a return to 150 mg. - Tremor primarily affects hands during eating and writing; denies significant impact on daily activities. - Inquiring about stronger medication options that would not impair driving ability. Hypertension: - Previously taking losartan 50 mg 1.5 tablets daily; increased to 2 tablets daily without consulting a physician. - Home blood pressure readings improved with increased dosage, now averaging 128-130/100 mmHg. - Previous readings were 140-150 mmHg. Glaucoma and Macular Degeneration: - Undergoing treatment with Dr. Salcedo in [place], receiving intravitreal injections every 3 months. - Reports significant vision loss in the left eye, described as "pretty well shot," with only peripheral vision remaining. - No recent changes in vision; denies new black spots or further vision loss. - Recent eyeglass prescription adjustment to improve distance vision; reports better reading vision without glasses. - Denies difficulty seeing while driving; continues to drive regularly, including to medical appointments in [place]. Psoriasis: - Managed with triamcinolone ointment as needed. - Reports improvement in symptoms with current treatment. Past medical history, appointments, medications, allergies reviewed. Previous Medical History PAST MEDICAL HISTORY Diagnosis Date Acute, but ill-defined, cerebrovascular disease possible TIA Asthma (HCC) Hernández's esophagus EGD negative for Barretts 07/2017. Diverticulosis of colon (without mention of hemorrhage) Diverticulosis Erectile dysfunction Essential tremor Family history of abdominal aortic aneurysm (AAA) Family history of malignant neoplasm of gastrointestinal tract Glaucoma Dr. Rivera and Francisco Hydrocele of testis Macular degeneration, wet (HCC) left Malignant melanoma (HCC) 05/2023 Chest, Stage IB Nocturia Other and unspecified hyperlipidemia Other psoriasis and similar disorders Psoriasis PAC (premature atrial contraction) Personal history of colonic polyps Colon polyps Squamous cell carcinoma, face [facility] Stroke (HCC) Pt reports possible TIA in 2002 w/ symptoms of dizzyness Unspecified essential hypertension Previous Surgical History PAST SURGICAL HISTORY Procedure Laterality Date COLONOSCOPY FLX DX W/COLLJ SPEC WHEN PFRMD 07/24/2003 Colonoscopy COLONOSCOPY FLX DX W/COLLJ SPEC WHEN PFRMD 07/22/2010 COLONOSCOPY FLX DX W/COLLJ SPEC WHEN PFRMD 09/08/2012 COLONOSCOPY FLX DX W/COLLJ SPEC WHEN PFRMD 07/27/2017 Colonoscopy EGD TRANSORAL BIOPSY SINGLE/MULTIPLE 08/05/2010 EGD W/O BRSH SPECIMEN W/BX 08/20/2014 repeat in 5 years ESOPHAGOGASTRODUODENOSCOPY TRANSORAL DIAGNOSTIC 09/04/2003 EGD ESOPHAGOGASTRODUODENOSCOPY TRANSORAL DIAGNOSTIC 09/08/2012 EGD ESOPHAGOGASTRODUODENOSCOPY TRANSORAL DIAGNOSTIC 07/27/2017 EGD PAST SURGICAL HISTORY OF 2016 MOHs procedure on scalp PAST SURGICAL HISTORY OF 05/13/2023 Wide Local Excision of Chest Melanoma RMVL SEC MEMBRANOUS CTRC CORNEO-SCLL SCTJ 08/2008, right Cataract removal RPR 1ST INGUN HRNA AGE 6 YRS/> REDUCIBLE right and left Hernia repair, inguinal TONSILLECTOMY PRIMARY/SECONDARY Tonsillectomy XCAPSL CTRC RMVL INSJ IO LENS PROSTH W/O ECP left Cataract Removal Family History FAMILY HISTORY Problem Relation Age of Onset other (gallbladder) Mother Cancer Father rectal cancer, mi Cancer Brother prostate cancer Pancreatic Cancer Brother Heart Brother mi Aneurysm Brother AAA Patient Allergies ALLERGIES Allergen Reactions Amlodipine Swelling Current Medications Current Outpatient Medications on File Prior to Visit Medication Sig losartan (COZAAR) 50 mg tablet Take 1.5 tablets by mouth once daily. albuterol HFA (PROAIR HFA) 90 mcg/actuation inhaler Inhale 2 Puffs as instructed four times a day as needed. simvastatin (ZOCOR) 20 mg tablet Take 1 tablet by mouth daily at bedtime. primidone (MYSOLINE) 50 mg tablet Take 4 tablets by mouth once daily. triamcinolone acetonide (KENALOG) 0.1 % ointment aspirin 81 mg chewable tablet Take 81 mg by mouth once daily. Miscellaneous Medical Supply (BLOOD PRESSURE CUFF) 1 Each as needed. Automatic BP cuff to be used as directed to monitor hypertension. Diflorasone Diacetate 0.05 % ointment A (more content not included)... [facility] 09-11-2024 History of Presen t illness Narrative Chief Complaint Patient presents with: 6 Month Exam Recording using Acer software for draft documentation of the visit was discussed with the patient/authorized primary care sales representative; all questions welcomed and answered. Patient/authorized primary care sales representative agreed to proceed HPI Cristine Mena is a 89 year old male who presents here today for Above Complaints. Essential Tremor: - Taking primidone 150 mg daily; previously increased to 200 mg daily but experienced headaches, prompting a return to 150 mg. - Tremor primarily affects hands during eating and writing; denies significant impact on daily activities. - Inquiring about stronger medication options that would not impair driving ability. Hypertension: - Previously taking losartan 50 mg 1.5 tablets daily; increased to 2 tablets daily without consulting a physician. - Home blood pressure readings improved with increased dosage, now averaging 128-130/100 mmHg. - Previous readings were 140-150 mmHg. Glaucoma and Macular Degeneration: - Undergoing treatment with Dr. Salcedo in [place], receiving intravitreal injections every 3 months. - Reports significant vision loss in the left eye, described as "pretty well shot," with only peripheral vision remaining. - No recent changes in vision; denies new black spots or further vision loss. - Recent eyeglass prescription adjustment to improve distance vision; reports better reading vision without glasses. - Denies difficulty seeing while driving; continues to drive regularly, including to medical appointments in [place]. Psoriasis: - Managed with triamcinolone ointment as needed. - Reports improvement in symptoms with current treatment. Past medical history, appointments, medications, allergies reviewed. Previous Medical History PAST MEDICAL HISTORY Diagnosis Date Acute, but ill-defined, cerebrovascular disease possible TIA Asthma (HCC) Hernández's esophagus EGD negative for Barretts 07/2017. Diverticulosis of colon (without mention of hemorrhage) Diverticulosis Erectile dysfunction Essential tremor Family history of abdominal aortic aneurysm (AAA) Family history of malignant neoplasm of gastrointestinal tract Glaucoma Dr. Rivera and Francisco Hydrocele of testis Macular degeneration, wet (HCC) left Malignant melanoma (HCC) 05/2023 Chest, Stage IB Nocturia Other and unspecified hyperlipidemia Other psoriasis and similar disorders Psoriasis PAC (premature atrial contraction) Personal history of colonic polyps Colon polyps Squamous cell carcinoma, face [facility] Stroke (HCC) Pt reports possible TIA in 2002 w/ symptoms of dizzyness Unspecified essential hypertension Previous Surgical History PAST SURGICAL HISTORY Procedure Laterality Date COLONOSCOPY FLX DX W/COLLJ SPEC WHEN PFRMD 07/24/2003 Colonoscopy COLONOSCOPY FLX DX W/COLLJ SPEC WHEN PFRMD 07/22/2010 COLONOSCOPY FLX DX W/COLLJ SPEC WHEN PFRMD 09/08/2012 COLONOSCOPY FLX DX W/COLLJ SPEC WHEN PFRMD 07/27/2017 Colonoscopy EGD TRANSORAL BIOPSY SINGLE/MULTIPLE 08/05/2010 EGD W/O BRSH SPECIMEN W/BX 08/20/2014 repeat in 5 years ESOPHAGOGASTRODUODENOSCOPY TRANSORAL DIAGNOSTIC 09/04/2003 EGD ESOPHAGOGASTRODUODENOSCOPY TRANSORAL DIAGNOSTIC 09/08/2012 EGD ESOPHAGOGASTRODUODENOSCOPY TRANSORAL DIAGNOSTIC 07/27/2017 EGD PAST SURGICAL HISTORY OF 2016 MOHs procedure on scalp PAST SURGICAL HISTORY OF 05/13/2023 Wide Local Excision of Chest Melanoma RMVL SEC MEMBRANOUS CTRC CORNEO-SCLL SCTJ 08/2008, right Cataract removal RPR 1ST INGUN HRNA AGE 6 YRS/> REDUCIBLE right and left Hernia repair, inguinal TONSILLECTOMY PRIMARY/SECONDARY <AGE 13 Tonsillectomy XCAPSL CTRC RMVL INSJ IO LENS PROSTH W/O ECP left Cataract Removal Family History FAMILY HISTORY Problem Relation Age of Onset other (gallbladder) Mother Cancer Father rectal cancer, mi Cancer Brother prostate cancer Pancreatic Cancer Brother Heart Brother mi Aneurysm Brother AAA Patient Allergies ALLERGIES Allergen Reactions Amlodipine Swelling Current Medications Current Outpatient Medications on File Prior to Visit Medication Sig losartan (COZAAR) 50 mg tablet Take 1.5 tablets by mouth once daily. albuterol HFA (PROAIR HFA) 90 mcg/actuation inhaler Inhale 2 Puffs as instructed four times a day as needed. simvastatin (ZOCOR) 20 mg tablet Take 1 tablet by mouth daily at bedtime. primidone (MYSOLINE) 50 mg tablet Take 4 tablets by mouth once daily. triamcinolone acetonide (KENALOG) 0.1 % ointment aspirin 81 mg chewable tablet Take 81 mg by mouth once daily. Miscellaneous Medical Supply (BLOOD PRESSURE CUFF) 1 Each as needed. Automatic BP cuff to be used as directed to monitor hypertension. Diflorasone Diacetate 0.05 % ointment Apply to affected area twice daily as needed. Dcttsmalhiagv-Vjzaexdq-Zwlhem (CENTRUM SILVER) tab Take 1 tablet by mouth once daily. psyllium seed/sucrose(METAMUCIL ORAL POWDER) one teaspoon daily timolol (TIMOPTIC) 0.5 % OPHTHALMIC Drop one drop twice daily each eye XALATAN 0.005 % EYE DROPS One gtt each eye daily. No current facility-administered medications on file prior to visit. Social History Social History Tobacco Use Smoking status: Never Smokeless tobacco: Never Substance Use Topics Alcohol use: Yes Alcohol/week: 1.0 standard drink of alcohol Types: 1 Glasses of Wine (5oz) per week Comment: occasionally Drug use: No Review of Symptoms REVIEW OF SYSTEMS GENERAL: No weight loss, malaise or fevers RESPIRATORY: Negative for cough, hemoptysis, wheezing, COPD, dyspnea or shortness of breath CARDIOVASCULAR: Negative for chest pain, leg swelling, hypertension, CHF or palpitations GI: No nausea, vomiting, or diarrhea SKIN: Negative for lesions, rash, and itching EXAM: BP 141/90 Pulse 72 Ht 170.2 cm (5' 7") Wt 76.7 kg (169 lb) BMI 26.47 kg/m General Appearance: Well appearing, alert, in no acute distress, well-hydrated, well nourished.. Skin: mild psoriasis rash on LE bilaterally with small AKs on cheeks and forehead. Eyes: PERRLA, EOMI. Unable to see fingers held up in front of his left eye with right eye closed. Lungs: Lungs clear to auscultation. No wheezing, rhonchi, rales.. Heart: RRR without murmur, gallop, or rubs. No ectopy. Abdomen: Normal abdominal exam, Abdomen soft, non-tender. Bowel sounds normal. No masses, organomegaly. Extremities: No deformities, edema, skin discoloration, clubbing or cyanosis. Good capillary refill. . Health Maintenance List Covid-19 Vaccine( season) due on 08/15/2024 Influenza Vaccine(1) due on 11/05/2024 Depression Screening due on 03/13/2025 Anxiety Screening due on 03/13/2025 Diabetes Screening due on 03/13/2027 DTaP,Tdap,Td Vaccine(4 - Td or Tdap) due on 07/14/2027 Advance Directive Discussion Completed RSV Vaccine Completed Medicare Advantage Annual Wellness Visit Completed Shingrix Vaccine Completed Pneumococcal Vaccine: 50+ Completed Data reviewed Latest Ref Rng 08/10/2023 03/13/2024 WBC 3.70 - 11.00 k/uL 7.42 RBC 4.20 - 6.00 m/uL 5.09 Hemoglobin 13.0 - 17.0 g/dL 16.6 Hematocrit 39.0 - 51.0 % 49.7 MCV 80.0 - 100.0 fL 97.6 MCH 26.0 - 34.0 pg 32.6 MCHC 30.5 - 36.0 g/dL 33.4 RDW-CV 11.5 - 15.0 % 12.9 Platelet Count 150 - 400 k/uL 231 MPV 9.0 - 12.7 fL 12.1 Neut% % 73.2 Abs Neut (ANC) 1.45 - 7.50 k/uL 5.43 Lymph% % 13.3 Abs Lymph 1.00 - 4.00 k/uL 0.99 (L) [place]% % 11.1 Abs [place] <0.87 k/uL 0.82 Eosin% % 2.0 Abs Eosin <0.46 k/uL 0.15 Baso% % 0.3 Abs Baso <0.11 k/uL <0.03 Immature Gran % % 0.1 IMMATURE GRANS (ABS) <0.10 k/uL <0.03 NRBC /100 WBC 0.0 Absolute nRBC <0.01 k/uL <0.01 DTYPE Auto Protein, Total 6.3 - 8.0 g/dL 6.2 (L) 7.2 Albumin 3.9 - 4.9 g/dL 4.1 4.5 Calcium 8.5 - 10.2 mg/dL 9.3 9.6 Bilirubin, Total 0.2 - 1.3 mg/dL 0.6 0.7 Alkaline Phosphatase 38 - 113 U/L 86 89 AST 14 - 40 U/L 26 27 ALT 10 - 54 U/L 22 25 Glucose 74 - 99 mg/dL 115 (H) 98 BUN 9 - 24 mg/dL 16 13 Creatinine 0.73 - 1.22 mg/dL 0.96 0.89 Sodium 136 - 144 mmol/L 136 136 Potassium 3.7 - 5.1 mmol/L 4.6 5.0 Chloride 98 - 107 mmol/L 101 99 CO2 22 - 30 mmol/L 26 26 Anion Gap 8 - 15 mmol/L 9 11 eGFR >=60 mL/min/1.73m 77 83 Total Cholesterol, Nonfasting <200 mg/dL 158 Triglycerides, Nonfasting <150 mg/dL 94 HDL Cholesterol, Nonfasting >39 mg/dL 48 LDL Cholesterol Calculated, Nonfasting <100 mg/dL 91 Non HDL Cholesterol, Nonfasting <130 mg/dL 110 VLDL Cholesterol, Nonfasting <30 mg/dL 19 Total Chol/HDL Ratio, Nonfasting <5.10 mg/dL 3.29 LDL/HDL Ratio, Nonfasting <2.54 mg/dL 1.90 PSA Screening <2.60 ng/mL 1.79 Legend: (L) Low (H) High 1. Essential hypertension (I10) - Blood pressure readings improved at home with increased dosage of losartan to 100 mg daily; previously 1.5 tablets of 50 mg. Still elevated today. - Ordered 100 mg tablets of losartan; instructed patient to take one tablet daily. - Advised patient to monitor blood pressure at home; report readings above 140/90 mmHg. recheck in 2 weeks. 2. Mixed hyperlipidemia (E78.2) - Ordered lipid panel to assess current status. 3. Essential tremor (G25.0) - Current medication: Primidone 150 mg, three tablets daily. - Previous attempt to increase to four tablets resulted in headaches; patient willing to retry higher dose. - Increased primidone to four tablets (200mg) daily; monitor for reduction in tremor and recurrence of headaches. - Prescription for increased dosage sent to [facility] pharmacy in [place]. 4. PAC (premature atrial contraction) (I49.1) - Occasional PACs auscultated during examination. - No new episodes of chest pain or palpitations reported. 5. Glaucoma of both eyes, unspecified glaucoma type (H40.9) 6. 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 Salcedo in [place]; receiving intravitreal injections every three months. 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 Unable to see fingers held up in front of his face today with right eye closed. - Discussed concerns about driving safety due to impaired vision. - Initiated process for [facility] vision and driving assessment to ensure patient safety. Patient refusing to sign V Request for Statement of Physician form. 7. Malignant melanoma, unspecified site (HCC) (C43.9) - Follow-up appointment scheduled with [facility] on the . - Recent history of seborrheic keratosis and actinic damage; no new suspicious lesions observed on examination. 8. Psoriasis (L40.9) - Currently using triamcinolone ointment mixed with Vaseline as needed. - Advised to continue current treatment and report any worsening of symptoms to java application engineer. Eladio Chávez MD documented in this encounter [facility] 08-06-2024 Telephone encounter Note Prescription Refill Information The patient has been identified by name and date of : Yes Caregiver verified no other encounters exist for this prescription request: Yes Caregiver confirmed with patient/requestor that no other refills are due, in the near future, with this provider at this time: Yes The last office visit in the department: 03/13/24 Does the patient have a future office visit with this provider/department: Yes-09/11/24 Requested Prescriptions Pending Prescriptions Disp Refills losartan (COZAAR) 50 mg tablet 135 tablet 1 Sig: Take 1.5 tablets by mouth once daily. Ruba Limon LPN August 06, 2024 9:52 AM [facility] 08-06-2024 Miscellaneous Notes Prescription Refill Information The patient has been identified by name and date of : Yes Caregiver verified no other encounters exist for this prescription request: Yes Caregiver confirmed with patient/requestor that no other refills are due, in the near future, with this provider at this time: Yes The last office visit in the department: 03/13/24 Does the patient have a future office visit with this provider/department: Yes-09/11/24 Requested Prescriptions Pending Prescriptions Disp Refills losartan (COZAAR) 50 mg tablet 135 tablet 1 Sig: Take 1.5 tablets by mouth once daily. Ruba Limon LPN August 06, 2024 9:52 AM documented in this encounter [facility] 04-18-2024 History of Presen t illness Narrative Radiology Service Progress Note PATIENT NAME: Cristine Mena DATE OF SERVICE: April 18, 2024 TIME: 3:53 PM PATIENT IDENTITY VERIFICATION COMPLETED USING TWO (2) IDENTIFIERS: Name and Date of confirmed by patient verbally. FALL SCREENING: Has the patient had 2 falls in the last year or 1 fall with injury or currently using an Ambulatory Assistive Device (Walker, Cane, Wheelchair, Crutches, etc.)? No PATIENT GENDER DATA: Assigned male at PATIENT RELEVANT IMPLANT DATA REVIEWED: Yes PATIENT PRESENTS WITH AN IMPLANTABLE OR ATTACHED R PROGRAMMER: No RADIOLOGY DEPARTMENT: General X-ray: Exam(s) Completed: Chest X-Ray PERIPHERAL IV DATA: Not applicable SIGNED BY: YAMILKA Melvin) April 18, 2024 3:53 PM documented in this encounter [facility] 04-18-2024 Note HNO ID: [id number] Author: RIGOBERTO DIAS RT (R) Service: ? Author Type: Pocket Maker Type: Progress Notes Filed: 04/18/2024 16:09 Note Text: Radiology Service Progress Note PATIENT NAME: Cristine Mena DATE OF SERVICE: April 18, 2024 TIME: 3:53 PM PATIENT IDENTITY VERIFICATION COMPLETED USING TWO (2) IDENTIFIERS: Name and Date of confirmed by patient verbally. FALL SCREENING: Has the patient had 2 falls in the last year or 1 fall with injury or currently using an Ambulatory Assistive Device (Walker, Cane, Wheelchair, Crutches, etc.)? No PATIENT GENDER DATA: Assigned male at PATIENT RELEVANT IMPLANT DATA REVIEWED: Yes PATIENT PRESENTS WITH AN IMPLANTABLE OR ATTACHED R PROGRAMMER: No RADIOLOGY DEPARTMENT: General X-ray: Exam(s) Completed: Chest X-Ray PERIPHERAL IV DATA: Not applicable SIGNED BY: RT Olegario(R) April 18, 2024 3:[address] [facility] 04-18-2024 Note HNO ID: [id number] Author: KENISHA JIMENEZ PA-C Service: ? Author Type: Physician Rfid Systems Architect Type: Progress Notes Filed: 04/18/2024 16:26 Note Text: This note was created using [employer]. Subjective Cristine Mena is a 88 year old male. Patient is an 88-year-old male who complains of congestion and cough that he has been experiencing for the past 2 days. Patient also reports low-grade fever. Patient denies sinus pressure, ear pain or sore throat. Patient does have asthma and states that he is using his albuterol inhaler for episodes of wheezing. Patient also states that he does have a history of pneumonia and is concerned about development of same today. Patient has no history of COPD and does not smoke. Patient did receive the influenza vaccine. Cough Associated symptoms include wheezing. Review of Systems Constitutional: Positive for fever. HENT: Positive for congestion. Respiratory: Positive for cough and wheezing. All other systems reviewed and are negative. Objective BP 151/72 Pulse 75 Temp 37.1 ?C (98.8 ?F) Resp 18 Wt 78.5 kg (173 lb 1 oz) SpO2 96% BMI 27.11 kg/m? Physical Exam Vitals and nursing note reviewed. Constitutional: Appearance: Normal appearance. He is normal weight. HENT: Head: Normocephalic and atraumatic. Right Ear: Tympanic membrane, ear canal and external ear normal. Left Ear: Tympanic membrane, ear canal and external ear normal. Nose: Nose normal. Mouth/Throat: Mouth: Mucous membranes are moist. Pharynx: Oropharynx is clear. Eyes: Extraocular Movements: Extraocular movements intact. Conjunctiva/sclera: Conjunctivae normal. Pupils: Pupils are equal, round, and reactive to light. Cardiovascular: Rate and Rhythm: Normal rate and regular rhythm. Pulses: Normal pulses. Heart sounds: Normal heart sounds. Pulmonary: Effort: Pulmonary effort is normal. Breath sounds: Wheezing present. Musculoskeletal: Cervical back: Normal range of motion and neck supple. Skin: General: Skin is warm and dry. Capillary Refill: Capillary refill takes less than 2 seconds. Neurological: General: No focal deficit present. Mental Status: He is alert and oriented to person, place, and time. Psychiatric: Mood and Affect: Mood normal. Behavior: Behavior normal. Thought Content: Thought content normal. Judgment: Judgment normal. Assessment and Plan Physical exam findings as noted above. Chest x-ray is negative for acute findings as reported by the radiologist. Patient was provided with prescriptions for prednisone 10 mg and Tessalon 100 mg. Supportive care instructions were discussed and the patient verbalizes excellent understanding of same. CLINICAL IMPRESSION: Acute URI; Asthma ASSESSMENT/PLAN: 1. Acute cough - ICD9: 786.2, ICD10: R05.1 (primary diagnosis) - XR CHEST 2V FRONTAL/LAT - BENZONATATE 100 MG CAPSULE 2. Acute URI - ICD9: 465.9, ICD10: J06.9 3. Mild intermittent asthma, uncomplicated - ICD9: 493.90, ICD10: J45.20 - PREDNISONE 10 MG TABLET Kenisha Jimenez PA-C [facility] 04-18-2024 History of Presen t illness Narrative This note was created using [employer]. Subjective Cristine Mena is a 88 year old male. Patient is an 88-year-old male who complains of congestion and cough that he has been experiencing for the past 2 days. Patient also reports low-grade fever. Patient denies sinus pressure, ear pain or sore throat. Patient does have asthma and states that he is using his albuterol inhaler for episodes of wheezing. Patient also states that he does have a history of pneumonia and is concerned about development of same today. Patient has no history of COPD and does not smoke. Patient did receive the influenza vaccine. Cough Associated symptoms include wheezing. Review of Systems Constitutional: Positive for fever. HENT: Positive for congestion. Respiratory: Positive for cough and wheezing. All other systems reviewed and are negative. Objective BP 151/72 Pulse 75 Temp 37.1 C (98.8 F) Resp 18 Wt 78.5 kg (173 lb 1 oz) SpO2 96% BMI 27.11 kg/m Physical Exam Vitals and nursing note reviewed. Constitutional: Appearance: Normal appearance. He is normal weight. HENT: Head: Normocephalic and atraumatic. Right Ear: Tympanic membrane, ear canal and external ear normal. Left Ear: Tympanic membrane, ear canal and external ear normal. Nose: Nose normal. Mouth/Throat: Mouth: Mucous membranes are moist. Pharynx: Oropharynx is clear. Eyes: Extraocular Movements: Extraocular movements intact. Conjunctiva/sclera: Conjunctivae normal. Pupils: Pupils are equal, round, and reactive to light. Cardiovascular: Rate and Rhythm: Normal rate and regular rhythm. Pulses: Normal pulses. Heart sounds: Normal heart sounds. Pulmonary: Effort: Pulmonary effort is normal. Breath sounds: Wheezing present. Musculoskeletal: Cervical back: Normal range of motion and neck supple. Skin: General: Skin is warm and dry. Capillary Refill: Capillary refill takes less than 2 seconds. Neurological: General: No focal deficit present. Mental Status: He is alert and oriented to person, place, and time. Psychiatric: Mood and Affect: Mood normal. Behavior: Behavior normal. Thought Content: Thought content normal. Judgment: Judgment normal. Assessment and Plan Physical exam findings as noted above. Chest x-ray is negative for acute findings as reported by the radiologist. Patient was provided with prescriptions for prednisone 10 mg and Tessalon 100 mg. Supportive care instructions were discussed and the patient verbalizes excellent understanding of same. CLINICAL IMPRESSION: Acute URI; Asthma ASSESSMENT/PLAN: 1. Acute cough - ICD9: 786.2, ICD10: R05.1 (primary diagnosis) - XR CHEST 2V FRONTAL/LAT - BENZONATATE 100 MG CAPSULE 2. Acute URI - ICD9: 465.9, ICD10: J06.9 3. Mild intermittent asthma, uncomplicated - ICD9: 493.90, ICD10: J45.20 - PREDNISONE 10 MG TABLET Kenisha Jimenez PA-C documented in this encounter [facility] 03-14-2024 Telephone encounter Note Telephone call placed to patient. Made aware of results and recommendations. Voices understanding. Mary Hendrix LPN [facility] 03-14-2024 Miscellaneous Notes Telephone call placed to patient. Made aware of results and recommendations. Voices understanding. Mary Hendrix LPN ----- Message from Eladio Chávez MD sent at 03/14/2024 7:00 AM EST ----- Normal labs. PSA normal/negative to screen for prostate cancer. No change in regimen. documented in this encounter [facility] 03-14-2024 Telephone encounter Note ----- Message from Eladio Chávez MD sent at 03/14/2024 7:00 AM EST ----- Normal labs. PSA normal/negative to screen for prostate cancer. No change in regimen. [facility] 03-13-2024 Instructions Eladio Chávez MD - 03/13/2024 10:05 AM EST PLEASE BRING IN A COPY OF YOUR LIVING WILL FOR OUR RECORDS. Screening schedule The following prevention plan is recommended: Spirometry Never done Depression Screening Never done Anxiety Screening Never done Advance Directive Discussion due on 03/07/2024 WHAT YOU CAN DO TO PREVENT FALLS Many falls can be prevented. By making some changes, you can lower your chances of falling. Four things YOU can do to prevent falls for you* and your caregiver 1. Begin a regular exercise program Exercise is one of the most important ways to lower your chances of falling. It makes you stronger and helps you feel better. Exercises that improve balance and coordination (like Roly Chi) are the most helpful. Lack of exercise leads to weakness and increases your chances of falling. Ask your doctor or health care provider about the best type of exercise program for you. 2. Have your health care provider review your medicines Have your doctor or pharmacist review all the medicines you take, even [id number] medicines. As you get older, the way medicines work in your body can change. Some medicines, or combinations of medicines, can make you sleepy or dizzy and can cause you to fall. 3. Have your vision checked Have your eyes checked by an eye doctor at least once a year. You may be wearing the wrong glasses or have a condition like glaucoma or cataracts that limits your vision. Poor vision can increase your chances of falling. 4. Make your home safer About half of all falls happen at home. To make your home safer: Remove things you can trip over (like papers, books, clothes, and shoes) from stairs and places where you walk. Remove small throw rugs or use double-sided tape to keep the rugs from slipping. Keep items you use often in cabinets you can reach easily without using a step stool. Have grab bars put in next to your toilet and in the tub or shower. Use non-slip mats in the bathtub and on shower floors. Improve the lighting in your home. As you get older, you need brighter lights to see well. Hang light-weight curtains or shades to reduce glare. Have handrails and lights put in on all staircases. Wear shoes both inside and outside the house. Avoid going barefoot or wearing slippers. For more information, contact: Centers for Disease Control and Prevention www.cdc.gov/injury * This information may not apply if you have certain medical conditions. documented in this encounter [facility] 03-13-2024 Note HNO ID: [id number] Author: ELADIO CHÁVEZ MD Service: ? Author Type: Physician Type: Progress Notes Filed: 03/14/2024 07:35 Note Text: Cristine Mena is a 88 year old male here for a Medicare wellness visit. Patient has been in good health without recent hospitalizations, ER visits, or falls. No concerns today. Had melanoma removed from his chest about 9-10 months ago. Due for prostate cancer screening. Gets up once at night. Occasional weak stream. Denies straining, dysuria, hematuria. Up to date on immunizations. Requesting refills today. Medicare Health Risk Assessment General Health Good Exercise: Minutes/Day 20 min Exercise: Days/Week 6 days Alcohol: Daily Use 2-4 times a month Alcohol: Drinks/Day 1 or 2 Alcohol: 6 or more drinks Never Feel off balance No Concerns: Teeth/Dentures No Concerns: Sexual function No Troubled by feelings Stressed Frequency: Eating healthy diet Nearly every day ADLs requiring help None of the above Safety precautions in home/vehicle Yes Smoke, vape, chews tobacco No Difficulty hearing No Difficulty seeing Yes (only peripheral vision in his left eye.) Current Providers Specialists: I have reviewed specialist-related care of the patient in the medical record. Current care team: Patient Care Team: Eladio Chávez MD as PCP - General (Family Medicine) Podlogar, VALERIE Estrada.SWETA as Pot Builder (Family Medicine) Outside specialists seen: Optho: Dr Rivera and Francisco, Dermatology: Dr. Torre Medical/Family history review Reviewed and updated problem list, medical/surgical/family/social history, medications, and allergies. Opioid use review Opioid Medications (last 90 days) No data to display Anxiety/Depression screening PHQ-2 Score: 0 (Lower risk for anxiety) Recommendation: no further intervention at this time Cognitive screening Mini Cog Score: 4 Cognitive screening reviewed and No further action needed (score 3-5). 4/5. Functional Observation Was the patient's Timed Up AND Go test unsteady or >= 12 seconds? No Advance Care Planning Surrogate decision maker and/or advance care plan documented Living will has not been scanned in, but he has one at home. Full code. Measurements BP 138/82 Pulse (!) 56 Resp 16 Wt 77.7 kg (171 lb 6.4 oz) SpO2 98% BMI 26.85 kg/m? Vision Screening: Right: 20/25 Left: 20/ Both: 20/30 with correction- patient only reports peripheral in left eye Latest Ref Rng 08/10/2023 WBC 3.70 - 11.00 k/uL 7.42 RBC 4.20 - 6.00 m/uL 5.09 Hemoglobin 13.0 - 17.0 g/dL 16.6 Hematocrit 39.0 - 51.0 % 49.7 MCV 80.0 - 100.0 fL 97.6 MCH 26.0 - 34.0 pg 32.6 MCHC 30.5 - 36.0 g/dL 33.4 RDW-CV 11.5 - 15.0 % 12.9 Platelet Count 150 - 400 k/uL 231 MPV 9.0 - 12.7 fL 12.1 Neut% % 73.2 Abs Neut (ANC) 1.45 - 7.50 k/uL 5.43 Lymph% % 13.3 Abs Lymph 1.00 - 4.00 k/uL 0.99 (L) [place]% % 11.1 Abs [place] <0.87 k/uL 0.82 Eosin% % 2.0 Abs Eosin <0.46 k/uL 0.15 Baso% % 0.3 Abs Baso <0.11 k/uL <0.03 Immature Gran % % 0.1 IMMATURE GRANS (ABS) <0.10 k/uL <0.03 NRBC /100 WBC 0.0 Absolute nRBC <0.01 k/uL <0.01 DTYPE Auto Protein, Total 6.3 - 8.0 g/dL 6.2 (L) Albumin 3.9 - 4.9 g/dL 4.1 Calcium 8.5 - 10.2 mg/dL 9.3 Bilirubin, Total 0.2 - 1.3 mg/dL 0.6 Alkaline Phosphatase 38 - 113 U/L 86 AST 14 - 40 U/L 26 ALT 10 - 54 U/L 22 Glucose 74 - 99 mg/dL 115 (H) BUN 9 - 24 mg/dL 16 Creatinine 0.73 - 1.22 mg/dL 0.96 Sodium 136 - 144 mmol/L 136 Potassium 3.7 - 5.1 mmol/L 4.6 Chloride 98 - 107 mmol/L 101 CO2 22 - 30 mmol/L 26 Anion Gap 8 - 15 mmol/L 9 eGFR >=60 mL/min/1.73m? 77 Total Cholesterol, Nonfasting <200 mg/dL 158 Triglycerides, Nonfasting <150 mg/dL 94 HDL Cholesterol, Nonfasting >39 mg/dL 48 LDL Cholesterol, Nonfasting <100 mg/dL 91 Non HDL Cholesterol, Nonfasting <130 mg/dL 110 VLDL Cholesterol, Nonfasting <30 mg/dL 19 Total Chol/HDL Ratio, Nonfasting <5.10 mg/dL 3.29 LDL/HDL Ratio, Nonfasting <2.54 mg/dL 1.90 Legend: (L) Low (H) High ASSESSMENT/PLAN: 1. Medicare annual wellness visit, subsequent - ICD9: V70.0, ICD10: Z00.00 (primary diagnosis) - Counseled on healthy diet and regular exercise - Fall avoidance information provided - Personalized prevention plan provided - COMPREHENSIVE METABOLIC PANEL 2. Screening for depression - ICD9: V79.0, ICD10: Z13.31 Negative. - DEPRESSION SCREENING 3. Encounter for screening examination for other mental health and behavioral disorders - ICD9: V79.8, ICD10: Z13.39 Negative. - ANXIETY SCREENING 4. Screening for prostate cancer - ICD9: V76.44, ICD10: Z12.5 Obtain PSA. Will call with results. - PSA/PROSTATE SPECIFIC ANTIGEN SCREENING Eladio Chávez MD [facility] 03-13-2024 History of Presen t illness Narrative Images from the original note were not included. Cristine Mena is a 88 year old male here for a Medicare wellness visit. Patient has been in good health without recent hospitalizations, ER visits, or falls. No concerns today. Had melanoma removed from his chest about 9-10 months ago. Due for prostate cancer screening. Gets up once at night. Occasional weak stream. Denies straining, dysuria, hematuria. Up to date on immunizations. Requesting refills today. Medicare Health Risk Assessment General Health Good Exercise: Minutes/Day 20 min Exercise: Days/Week 6 days Alcohol: Daily Use 2-4 times a month Alcohol: Drinks/Day 1 or 2 Alcohol: 6 or more drinks Never Feel off balance No Concerns: Teeth/Dentures No Concerns: Sexual function No Troubled by feelings Stressed Frequency: Eating healthy diet Nearly every day ADLs requiring help None of the above Safety precautions in home/vehicle Yes Smoke, vape, chews tobacco No Difficulty hearing No Difficulty seeing Yes (only peripheral vision in his left eye.) Current Providers Specialists: I have reviewed specialist-related care of the patient in the medical record. Current care team: Patient Care Team: Eladio Chávez MD as PCP - General (Family Medicine) Podlogar, VALERIE Estrada.CRANBERRY SORTER as Pot Builder (Family Medicine) Outside specialists seen: Optho: Dr Rivera and Francisco, Dermatology: Dr. Torre Medical/Family history review Reviewed and updated problem list, medical/surgical/family/social history, medications, and allergies. Opioid use review Opioid Medications (last 90 days) No data to display Anxiety/Depression screening PHQ-2 Score: 0 (Lower risk for anxiety) Recommendation: no further intervention at this time Cognitive screening Mini Cog Score: 4 Cognitive screening reviewed and No further action needed (score 3-5). 4/5. Functional Observation Was the patient's Timed Up & Go test unsteady or >= 12 seconds? No Advance Care Planning Surrogate decision maker and/or advance care plan documented Living will has not been scanned in, but he has one at home. Full code. Measurements BP 138/82 Pulse (!) 56 Resp 16 Wt 77.7 kg (171 lb 6.4 oz) SpO2 98% BMI 26.85 kg/m Vision Screening: Right: 20/25 Left: 20/ Both: 20/30 with correction- patient only reports peripheral in left eye Latest Ref Rng 08/10/2023 WBC 3.70 - 11.00 k/uL 7.42 RBC 4.20 - 6.00 m/uL 5.09 Hemoglobin 13.0 - 17.0 g/dL 16.6 Hematocrit 39.0 - 51.0 % 49.7 MCV 80.0 - 100.0 fL 97.6 MCH 26.0 - 34.0 pg 32.6 MCHC 30.5 - 36.0 g/dL 33.4 RDW-CV 11.5 - 15.0 % 12.9 Platelet Count 150 - 400 k/uL 231 MPV 9.0 - 12.7 fL 12.1 Neut% % 73.2 Abs Neut (ANC) 1.45 - 7.50 k/uL 5.43 Lymph% % 13.3 Abs Lymph 1.00 - 4.00 k/uL 0.99 (L) [place]% % 11.1 Abs [place] <0.87 k/uL 0.82 Eosin% % 2.0 Abs Eosin <0.46 k/uL 0.15 Baso% % 0.3 Abs Baso <0.11 k/uL <0.03 Immature Gran % % 0.1 IMMATURE GRANS (ABS) <0.10 k/uL <0.03 NRBC /100 WBC 0.0 Absolute nRBC <0.01 k/uL <0.01 DTYPE Auto Protein, Total 6.3 - 8.0 g/dL 6.2 (L) Albumin 3.9 - 4.9 g/dL 4.1 Calcium 8.5 - 10.2 mg/dL 9.3 Bilirubin, Total 0.2 - 1.3 mg/dL 0.6 Alkaline Phosphatase 38 - 113 U/L 86 AST 14 - 40 U/L 26 ALT 10 - 54 U/L 22 Glucose 74 - 99 mg/dL 115 (H) BUN 9 - 24 mg/dL 16 Creatinine 0.73 - 1.22 mg/dL 0.96 Sodium 136 - 144 mmol/L 136 Potassium 3.7 - 5.1 mmol/L 4.6 Chloride 98 - 107 mmol/L 101 CO2 22 - 30 mmol/L 26 Anion Gap 8 - 15 mmol/L 9 eGFR >=60 mL/min/1.73m 77 Total Cholesterol, Nonfasting <200 mg/dL 158 Triglycerides, Nonfasting <150 mg/dL 94 HDL Cholesterol, Nonfasting >39 mg/dL 48 LDL Cholesterol, Nonfasting <100 mg/dL 91 Non HDL Cholesterol, Nonfasting <130 mg/dL 110 VLDL Cholesterol, Nonfasting <30 mg/dL 19 Total Chol/HDL Ratio, Nonfasting <5.10 mg/dL 3.29 LDL/HDL Ratio, Nonfasting <2.54 mg/dL 1.90 Legend: (L) Low (H) High ASSESSMENT/PLAN: 1. Medicare annual wellness visit, subsequent - ICD9: V70.0, ICD10: Z00.00 (primary diagnosis) - Counseled on healthy diet and regular exercise - Fall avoidance information provided - Personalized prevention plan provided - COMPREHENSIVE METABOLIC PANEL 2. Screening for depression - ICD9: V79.0, ICD10: Z13.31 Negative. - DEPRESSION SCREENING 3. Encounter for screening examination for other mental health and behavioral disorders - ICD9: V79.8, ICD10: Z13.39 Negative. - ANXIETY SCREENING 4. Screening for prostate cancer - ICD9: V76.44, ICD10: Z12.5 Obtain PSA. Will call with results. - PSA/PROSTATE SPECIFIC ANTIGEN SCREENING Eladio Chávez MD documented in this encounter [facility] 02-14-2024 Telephone encounter Note Prescription Refill Information The patient has been identified by name and date of : Yes Caregiver verified no other encounters exist for this prescription request: Yes Caregiver confirmed with patient/requestor that no other refills are due, in the near future, with this provider at this time: Yes The last office visit in the department: 08/10/23 Does the patient have a future office visit with this provider/department: Yes-03/13/24 Requested Prescriptions Pending Prescriptions Disp Refills losartan (COZAAR) 50 mg tablet 135 tablet 1 Sig: Take 1.5 tablets by mouth once daily. Ruba Limon LPN February 14, 2024 10:55 AM [facility] 02-14-2024 Miscellaneous Notes Prescription Refill Information The patient has been identified by name and date of : Yes Caregiver verified no other encounters exist for this prescription request: Yes Caregiver confirmed with patient/requestor that no other refills are due, in the near future, with this provider at this time: Yes The last office visit in the department: 08/10/23 Does the patient have a future office visit with this provider/department: Yes-03/13/24 Requested Prescriptions Pending Prescriptions Disp Refills losartan (COZAAR) 50 mg tablet 135 tablet 1 Sig: Take 1.5 tablets by mouth once daily. Ruba Limon LPN February 14, 2024 10:55 AM documented in this encounter [facility] 01-17-2024 Telephone encounter Note Prescription Refill Information The patient has been identified by name and date of : Yes Caregiver verified no other encounters exist for this prescription request: Yes Caregiver confirmed with patient/requestor that no other refills are due, in the near future, with this provider at this time: Yes The last office visit in the department: 08/10/23 Does the patient have a future office visit with this provider/department: Yes-02/13/24 Requested Prescriptions Pending Prescriptions Disp Refills primidone (MYSOLINE) 50 mg tablet 360 tablet 1 Sig: Take 4 tablets by mouth once daily. Ruba Limon LPN January 17, 2024 10:16 AM [facility] 01-17-2024 Miscellaneous Notes Prescription Refill Information The patient has been identified by name and date of : Yes Caregiver verified no other encounters exist for this prescription request: Yes Caregiver confirmed with patient/requestor that no other refills are due, in the near future, with this provider at this time: Yes The last office visit in the department: 08/10/23 Does the patient have a future office visit with this provider/department: Yes-02/13/24 Requested Prescriptions Pending Prescriptions Disp Refills primidone (MYSOLINE) 50 mg tablet 360 tablet 1 Sig: Take 4 tablets by mouth once daily. Ruba Limon LPN January 17, 2024 10:16 AM documented in this encounter [facility] 11-21-2023 Note HNO ID: [id number] Author: CHRIS MERCEDES MD Service: ? Author Type: Physician Type: Progress Notes Filed: 11/21/2023 14:04 Note Text: Chris Mercedes M.D. Surgical Oncology [address] [place] [address], [facility] [address] [address] Plan SUBJECTIVE HPI Cristine Mena is a 88 year old male presenting for follow up of stage IB melanoma of the chest. Patient was last seen in clinic about 3 months ago. He reports that he has been doing well. He has no new or worsening symptoms. He reports no significant changes to his medical history. He continues to follow with dermatology as scheduled. Review of Systems Constitutional: Negative for malaise/fatigue and weight loss. HENT: Negative for sore throat. Eyes: Negative for blurred vision and double vision. Respiratory: Negative for cough, hemoptysis, shortness of breath and stridor. Cardiovascular: Negative for palpitations, claudication and leg swelling. Gastrointestinal: Negative for abdominal pain, blood in stool, nausea and vomiting. Genitourinary: Negative for dysuria, flank pain and hematuria. Musculoskeletal: Negative for falls, joint pain and myalgias. Skin: Negative for rash. Neurological: Negative for speech change, focal weakness and headaches. Endo/Heme/Allergies: Does not bruise/bleed easily. Psychiatric/Behavioral: Negative for depression and memory loss. The patient is not nervous/anxious. The medical, surgical, family, and social history were reviewed by Chris Mercedes MD. OBJECTIVE BP 169/92 Pulse 61 Wt 77.5 kg (170 lb 13.7 oz) SpO2 97% BMI 26.76 kg/m? BMI 26.76 kg/(m2) Physical Exam Constitutional: General: He is not in acute distress. HENT: Head: Normocephalic and atraumatic. Eyes: Pupils: Pupils are equal, round, and reactive to light. Neck: Thyroid: No thyromegaly. Trachea: No tracheal deviation. Cardiovascular: Rate and Rhythm: Normal rate and regular rhythm. Heart sounds: Normal heart sounds. Pulmonary: Effort: Pulmonary effort is normal. No respiratory distress. Breath sounds: Normal breath sounds. No stridor. Abdominal: General: There is no distension. Palpations: Abdomen is soft. Tenderness: There is no abdominal tenderness. Musculoskeletal: General: No deformity. Normal range of motion. Lymphadenopathy: Cervical: No cervical adenopathy. Upper Body: Right upper body: No supraclavicular or axillary adenopathy. Left upper body: No supraclavicular or axillary adenopathy. Skin: General: Skin is warm and dry. Findings: No erythema or rash. Comments: Well healed WLE site of the chest. No nodularity or pigmentation concerning for recurrence Neurological: Mental Status: He is alert and oriented to person, place, and time. Psychiatric: Mood and Affect: Affect normal. Judgment: Judgment normal. ASSESSMENT AND PLAN 88 year old man with stage IB melanoma of the chest. Patient is currently DOMENICA. I discussed with patient his ongoing surveillance. I advised him to follow up with dermatology as scheduled and he will follow up with surgical oncology in 6 months. I spent a total of 20 minutes on the date of the service which included preparing to see the patient, completing clinical documentation, performing a medically appropriate examination, and counseling and educating the patient/family/caregiver. Chris Mercedes MD 11/21/2023 1:[address] [facility] 11-21-2023 History of Presen t illness Narrative Images from the original note were not included. Chris Mercedes M.D. Surgical Oncology [address] [facility], [address] [place] [address] Plan SUBJECTIVE HPI Cristine Mena is a 88 year old male presenting for follow up of stage IB melanoma of the chest. Patient was last seen in clinic about 3 months ago. He reports that he has been doing well. He has no new or worsening symptoms. He reports no significant changes to his medical history. He continues to follow with dermatology as scheduled. Review of Systems Constitutional: Negative for malaise/fatigue and weight loss. HENT: Negative for sore throat. Eyes: Negative for blurred vision and double vision. Respiratory: Negative for cough, hemoptysis, shortness of breath and stridor. Cardiovascular: Negative for palpitations, claudication and leg swelling. Gastrointestinal: Negative for abdominal pain, blood in stool, nausea and vomiting. Genitourinary: Negative for dysuria, flank pain and hematuria. Musculoskeletal: Negative for falls, joint pain and myalgias. Skin: Negative for rash. Neurological: Negative for speech change, focal weakness and headaches. Endo/Heme/Allergies: Does not bruise/bleed easily. Psychiatric/Behavioral: Negative for depression and memory loss. The patient is not nervous/anxious. The medical, surgical, family, and social history were reviewed by Chris Mercedes MD. OBJECTIVE BP 169/92 Pulse 61 Wt 77.5 kg (170 lb 13.7 oz) SpO2 97% BMI 26.76 kg/m BMI 26.76 kg/(m^2) Physical Exam Constitutional: General: He is not in acute distress. HENT: Head: Normocephalic and atraumatic. Eyes: Pupils: Pupils are equal, round, and reactive to light. Neck: Thyroid: No thyromegaly. Trachea: No tracheal deviation. Cardiovascular: Rate and Rhythm: Normal rate and regular rhythm. Heart sounds: Normal heart sounds. Pulmonary: Effort: Pulmonary effort is normal. No respiratory distress. Breath sounds: Normal breath sounds. No stridor. Abdominal: General: There is no distension. Palpations: Abdomen is soft. Tenderness: There is no abdominal tenderness. Musculoskeletal: General: No deformity. Normal range of motion. Lymphadenopathy: Cervical: No cervical adenopathy. Upper Body: Right upper body: No supraclavicular or axillary adenopathy. Left upper body: No supraclavicular or axillary adenopathy. Skin: General: Skin is warm and dry. Findings: No erythema or rash. Comments: Well healed WLE site of the chest. No nodularity or pigmentation concerning for recurrence Neurological: Mental Status: He is alert and oriented to person, place, and time. Psychiatric: Mood and Affect: Affect normal. Judgment: Judgment normal. ASSESSMENT AND PLAN 88 year old man with stage IB melanoma of the chest. Patient is currently DOMENICA. I discussed with patient his ongoing surveillance. I advised him to follow up with dermatology as scheduled and he will follow up with surgical oncology in 6 months. I spent a total of 20 minutes on the date of the service which included preparing to see the patient, completing clinical documentation, performing a medically appropriate examination, and counseling and educating the patient/family/caregiver. Chris Mercedes MD 11/21/2023 1:48 PM documented in this encounter [facility] 08-22-2023 History of Presen t illness Narrative Images from the original note were not included. Chris Mercedes M.D. Surgical Oncology [address] [facility], [address] [place] [address] SUBJECTIVE HPI Cristine Mena is a 88 year old male presenting for follow up of a stage IB melanoma of the chest. Patient underwent resection on 05/13/3023 with aborted sentinel lymph node biopsy. Patient was last seen about 3 months ago. He reports that overall he is doing well. No new medical conditions. No new or worsening symptoms. He does want to have an evaluation of a nodule on his left flank that he reports has been present for about 1 year. He reports no significant symptoms from this. Occasionally it is tender when he leans on that side. Review of Systems Constitutional: Negative for malaise/fatigue and weight loss. HENT: Negative for sore throat. Eyes: Negative for blurred vision and double vision. Respiratory: Negative for cough, hemoptysis, shortness of breath and stridor. Cardiovascular: Negative for palpitations, claudication and leg swelling. Gastrointestinal: Negative for abdominal pain, blood in stool, nausea and vomiting. Genitourinary: Negative for dysuria, flank pain and hematuria. Musculoskeletal: Negative for falls, joint pain and myalgias. Skin: Negative for rash. Neurological: Negative for speech change, focal weakness and headaches. Endo/Heme/Allergies: Does not bruise/bleed easily. Psychiatric/Behavioral: Negative for depression and memory loss. The patient is not nervous/anxious. PAST MEDICAL HISTORY Diagnosis Date Acute, but ill-defined, cerebrovascular disease possible TIA Asthma Hernández's esophagus EGD negative for Barretts 07/2017. Diverticulosis of colon (without mention of hemorrhage) Diverticulosis Erectile dysfunction Essential tremor Family history of abdominal aortic aneurysm (AAA) Family history of malignant neoplasm of gastrointestinal tract Glaucoma Dr. Rivera and Francisco Hydrocele of testis Macular degeneration, wet (HCC) left Malignant melanoma (HCC) 05/2023 Chest, Stage IB Nocturia Other and unspecified hyperlipidemia Other psoriasis and similar disorders Psoriasis PAC (premature atrial contraction) Personal history of colonic polyps Colon polyps Squamous cell carcinoma, face Stroke (HCC) Pt reports possible TIA in 2002 w/ symptoms of dizzyness Unspecified essential hypertension PAST SURGICAL HISTORY Procedure Laterality Date COLONOSCOPY FLX DX W/COLLJ SPEC WHEN PFRMD 07/24/2003 Colonoscopy COLONOSCOPY FLX DX W/COLLJ SPEC WHEN PFRMD 07/22/2010 COLONOSCOPY FLX DX W/COLLJ SPEC WHEN PFRMD 09/08/2012 COLONOSCOPY FLX DX W/COLLJ SPEC WHEN PFRMD 07/27/2017 Colonoscopy EGD TRANSORAL BIOPSY SINGLE/MULTIPLE 08/05/2010 EGD W/O BRSH SPECIMEN W/BX 08/20/2014 repeat in 5 years ESOPHAGOGASTRODUODENOSCOPY TRANSORAL DIAGNOSTIC 09/04/2003 EGD ESOPHAGOGASTRODUODENOSCOPY TRANSORAL DIAGNOSTIC 09/08/2012 EGD ESOPHAGOGASTRODUODENOSCOPY TRANSORAL DIAGNOSTIC 07/27/2017 EGD PAST SURGICAL HISTORY OF 2016 MOHs procedure on scalp PAST SURGICAL HISTORY OF 05/13/2023 Wide Local Excision of Chest Melanoma RMVL SEC MEMBRANOUS CTRC CORNEO-SCLL SCTJ 08/2008, right Cataract removal RPR 1ST INGUN HRNA AGE 6 YRS/> REDUCIBLE right and left Hernia repair, inguinal TONSILLECTOMY PRIMARY/SECONDARY <AGE 13 Tonsillectomy XCAPSL CTRC RMVL INSJ IO LENS PROSTH W/O ECP left Cataract Removal Social History Tobacco Use Smoking status: Never Smokeless tobacco: Never Substance Use Topics Alcohol use: Yes Alcohol/week: 1.0 standard drink of alcohol Types: 1 Glasses of Wine (5oz) per week Comment: occasionally Drug use: No FAMILY HISTORY Problem Relation Age of Onset other (gallbladder) Mother Cancer Father rectal cancer, mi Cancer Brother prostate cancer Pancreatic Cancer Brother Heart Brother mi Aneurysm Brother AAA The ROS, medical, surgical, family, and social history were reviewed by Chris Mercedes MD ALLERGIES Allergen Reactions Amlodipine Other: See Comments Leg swelling Current Outpatient Medications Medication Sig losartan (COZAAR) 50 mg tablet Take 1.5 tablets by mouth once daily. simvastatin (ZOCOR) 20 mg tablet Take 1 tablet by mouth daily at bedtime. primidone (MYSOLINE) 50 mg tablet Take 4 tablets by mouth once daily. triamcinolone acetonide (KENALOG) 0.1 % ointment albuterol HFA (PROAIR HFA) 90 mcg/actuation inhaler Inhale 2 Puffs as instructed four times daily as needed. aspirin 81 mg chewable tablet Take 81 mg by mouth once daily. Miscellaneous Medical Supply (BLOOD PRESSURE CUFF) 1 Each as needed. Automatic BP cuff to be used as directed to monitor hypertension. Diflorasone Diacetate 0.05 % ointment Apply to affected area twice daily as needed. Sxeshjkmfnflb-Jsxmrupl-Fzsayu (CENTRUM SILVER) tab Take 1 tablet by mouth once daily. psyllium seed/sucrose(METAMUCIL ORAL POWDER) one teaspoon daily timolol (TIMOPTIC) 0.5 % OPHTHALMIC Drop one drop twice daily each eye XALATAN 0.005 % EYE DROPS One gtt each eye daily. No current facility-administered medications for this visit. OBJECTIVE BP 179/84 Pulse 75 Wt 77.6 kg (171 lb 1.2 oz) SpO2 100% BMI 26.79 kg/m BMI 26.79 kg/(m^2) Physical Exam Constitutional: General: He is not in acute distress. HENT: Head: Normocephalic and atraumatic. Eyes: Pupils: Pupils are equal, round, and reactive to light. Neck: Thyroid: No thyromegaly. Trachea: No tracheal deviation. Cardiovascular: Rate and Rhythm: Normal rate and regular rhythm. Heart sounds: Normal heart sounds. Pulmonary: Effort: Pulmonary effort is normal. No respiratory distress. Breath sounds: Normal breath sounds. No stridor. Abdominal: General: There is no distension. Palpations: Abdomen is soft. Tenderness: There is no abdominal tenderness. Musculoskeletal: General: No deformity. Normal range of motion. Lymphadenopathy: Cervical: No cervical adenopathy. Upper Body: Right upper body: No supraclavicular or axillary adenopathy. Left upper body: No supraclavicular or axillary adenopathy. Lower Body: No right inguinal adenopathy. No left inguinal adenopathy. Skin: General: Skin is warm and dry. Findings: No erythema or rash. Comments: Well healed WLE of the chest. ~1 subcutaneous nodule of the left flank/back. Neurological: Mental Status: He is alert and oriented to person, place, and time. Psychiatric: Mood and Affect: Affect normal. Judgment: Judgment normal. ASSESSMENT AND PLAN Plan 88 year old man with stage IB melanoma of the chest. Patient is currently DOMENICA. I advised patient that I would like to see him back for a surveillance visit in 3 months. Regarding his nodule I believe this is a lipoma. I advised patient that I would not recommend any treatment at this time since it does not seem to be growing or particularly symptomatic. Patient is agreeable to this plan. I spent a total of 20 minutes on the date of the service which included preparing to see the patient, completing clinical documentation, performing a medically appropriate examination, and counseling and educating the patient/family/caregiver. Chris Mercedes MD 08/22/2023 1:03 PM documented in this encounter [facility] 08-11-2023 Telephone encounter Note Pt returned call and given provider's message below with verbalized understanding. [facility] 08-11-2023 Miscellaneous Notes Pt returned call and given provider's message below with verbalized understanding. TC no answer. Left VM to return call. AMINATA Davis ----- Message from Eladio Chávez MD sent at 08/11/2023 8:35 AM EDT ----- Labs unremarkable. No change in regimen. Continue to work on healthy diet and exercise as able. documented in this encounter [facility] 08-11-2023 Telephone encounter Note TC no answer. Left VM to return call. AMINATA Davis [facility] 08-11-2023 Telephone encounter Note ----- Message from Eladio Chávez MD sent at 08/11/2023 8:35 AM EDT ----- Labs unremarkable. No change in regimen. Continue to work on healthy diet and exercise as able. [facility] 08-10-2023 History of Presen t illness Narrative Chief Complaint Patient presents with: Follow Up: 6 month follow up HPI Cristine Mena is a 88 year old male who presents here today for Above Complaints. Patient following up with dermatology at [facility] for melanoma on his chest. Had wide excision in May with general surgery. Unable to do sentinel lymph node biopsy. 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 . Also notes that he had SCC successfully removed from his forehead by [facility]. Has f/u with [facility] on Tuesday and f/u with general surgery on 08/21. Denies new skin lesions today. Taking primidone for essential tremor which has not been helping much with symptoms. Went down to 3 tablets from 4 tablets daily about 1-2 months ago due to intermittent headache. States that he was not on higher dosage long enough to see if it worked for him. HTN: Mr. Mena indicates that he is feeling well and denies any symptoms referable to elevated blood pressure. Specifically denies headache, chest pain, palpitations, dyspnea, and peripheral edema. Patient denies any side effects of his medication(s) and is compliant with their regimen. He does check BP's away from this office with average BP's in the 130's/80's range. Cristine works out regularly 7 times per week with walking. He watches his diet for sodium, low fat and low cholesterol most of the time. Last 3 Encounter BP Readings: Date: BP: 08/10/2023 132/78 05/23/2023 177/90 05/13/2023 162/84 Asthma: patient denies cough, wheezing, SOB. Uses albuterol inhaler about every other month. Denies vision changes with glaucoma and macular degeneration. Vision better in his right eye. Legally blind in his right eye. F/u with optho every 4 months for injection. Compliant with eye drops. Past medical history, appointments, medications, allergies reviewed. Previous Medical History PAST MEDICAL HISTORY Diagnosis Date Acute, but ill-defined, cerebrovascular disease possible TIA Asthma Hernández's esophagus EGD negative for Barretts 07/2017. Diverticulosis of colon (without mention of hemorrhage) Diverticulosis Erectile dysfunction Family history of abdominal aortic aneurysm (AAA) Family history of malignant neoplasm of gastrointestinal tract Glaucoma Dr. Rivera and Francisco Hydrocele of testis Macular degeneration, wet (HCC) left Malignant melanoma (HCC) 05/2023 Chest Nocturia Occasional tremors Other and unspecified hyperlipidemia Other psoriasis and similar disorders Psoriasis PAC (premature atrial contraction) Personal history of colonic polyps Colon polyps Skin cancer of scalp melanoma? Seen at [facility] Pt reports possible TIA in 2002 w/ symptoms of dizzyness Unspecified essential hypertension Previous Surgical History PAST SURGICAL HISTORY Procedure Laterality Date COLONOSCOPY FLX DX W/COLLJ SPEC WHEN PFRMD 07/24/2003 Colonoscopy COLONOSCOPY FLX DX W/COLLJ SPEC WHEN PFRMD 07/22/2010 COLONOSCOPY FLX DX W/COLLJ SPEC WHEN PFRMD 09/08/2012 COLONOSCOPY FLX DX W/COLLJ SPEC WHEN PFRMD 07/27/2017 Colonoscopy EGD TRANSORAL BIOPSY SINGLE/MULTIPLE 08/05/2010 EGD W/O BRSH SPECIMEN W/BX 08/20/2014 repeat in 5 years ESOPHAGOGASTRODUODENOSCOPY TRANSORAL DIAGNOSTIC 09/04/2003 EGD ESOPHAGOGASTRODUODENOSCOPY TRANSORAL DIAGNOSTIC 09/08/2012 EGD ESOPHAGOGASTRODUODENOSCOPY TRANSORAL DIAGNOSTIC 07/27/2017 EGD PAST SURGICAL HISTORY OF 2015 MOHs procedure on scalp PAST SURGICAL HISTORY OF 05/13/2023 Wide Local Excision of Chest Melanoma RMVL SEC MEMBRANOUS CTRC CORNEO-SCLL SCTJ 08/2008, right Cataract removal RPR 1ST INGUN HRNA AGE 6 YRS/> REDUCIBLE right and left Hernia repair, inguinal TONSILLECTOMY PRIMARY/SECONDARY <AGE 13 Tonsillectomy XCAPSL CTRC RMVL INSJ IO LENS PROSTH W/O ECP left Cataract Removal Family History FAMILY HISTORY Problem Relation Age of Onset other (gallbladder) Mother Cancer Father rectal cancer, mi Cancer Brother prostate cancer Pancreatic Cancer Brother Heart Brother mi Aneurysm Brother AAA Patient Allergies ALLERGIES Allergen Reactions Amlodipine Other: See Comments Leg swelling Current Medications Current Outpatient Medications on File Prior to Visit Medication Sig primidone (MYSOLINE) 50 mg tablet Take 4 tablets by mouth once daily. triamcinolone acetonide (KENALOG) 0.1 % ointment simvastatin (ZOCOR) 20 mg tablet Take 1 tablet by mouth daily at bedtime. albuterol HFA (PROAIR HFA) 90 mcg/actuation inhaler Inhale 2 Puffs as instructed four times daily as needed. aspirin 81 mg chewable tablet Take 81 mg by mouth once daily. Miscellaneous Medical Supply (BLOOD PRESSURE CUFF) 1 Each as needed. Automatic BP cuff to be used as directed to monitor hypertension. Diflorasone Diacetate 0.05 % ointment Apply to affected area twice daily as needed. Dnkxqxobljsih-Lyqgtyix-Ddiqeb (CENTRUM SILVER) tab Take 1 tablet by mouth once daily. psyllium seed/sucrose(METAMUCIL ORAL POWDER) one teaspoon daily timolol (TIMOPTIC) 0.5 % OPHTHALMIC Drop one drop twice daily each eye XALATAN 0.005 % EYE DROPS One gtt each eye daily. losartan (COZAAR) 50 mg tablet Take 1.5 tablets by mouth once daily. No current facility-administered medications on file prior to visit. Social History Social History Tobacco Use Smoking status: Never Smokeless tobacco: Never Substance Use Topics Alcohol use: Yes Alcohol/week: 1.0 standard drink of alcohol Types: 1 Glasses of Wine (5oz) per week Comment: occasionally Drug use: No Review of Symptoms REVIEW OF SYSTEMS GENERAL: No weight loss, malaise or fevers RESPIRATORY: Negative for cough, hemoptysis, wheezing, COPD, dyspnea or shortness of breath CARDIOVASCULAR: Negative for chest pain, leg swelling, hypertension, CHF or palpitations GI: No nausea, vomiting, or diarrhea SKIN: See HPI EXAM: BP 132/78 Pulse 62 Resp 18 Wt 77.6 kg (171 lb) SpO2 97% BMI 26.78 kg/m General Appearance: Well appearing, alert, in no acute distress, well-hydrated, well nourished.. Skin: Skin color, texture, turgor normal, no suspicious rashes or lesions. Lungs: Lungs clear to auscultation. No wheezing, rhonchi, rales.. Heart: RRR without murmur, gallop, or rubs. No ectopy. Abdomen: Normal abdominal exam, Abdomen soft, non-tender. Bowel sounds normal. No masses, organomegaly. Extremities: No deformities, edema, skin discoloration, clubbing or cyanosis. Good capillary refill. Neuro: mild to moderate tremor in both hands with use. Mild tremor at rest. Health Maintenance List Advance Directive Discussion due on 03/07/2023 Behavioral Health Screening Never done Covid-19 Vaccine(2022- season) due on 06/10/2023 Spirometry due on 02/09/2024 Diabetes Screening due on 02/08/2026 DTaP,Tdap,Td Vaccine(4 - Td or Tdap) due on 07/14/2027 Influenza Vaccine Completed RSV Vaccine Completed Shingrix Vaccine Completed Pneumococcal Vaccine: 65+ Completed Data reviewed Latest Ref Rng 07/29/2022 02/08/2023 WBC 3.70 - 11.00 k/uL 5.44 RBC 4.20 - 6.00 m/uL 5.34 Hemoglobin 13.0 - 17.0 g/dL 17.0 Hematocrit 39.0 - 51.0 % 52.1 (H) MCV 80.0 - 100.0 fL 97.6 MCH 26.0 - 34.0 pg 31.8 MCHC 30.5 - 36.0 g/dL 32.6 RDW-CV 11.5 - 15.0 % 13.3 Platelet Count 150 - 400 k/uL 217 MPV 9.0 - 12.7 fL 11.4 Neut% % 67.7 Abs Neut (ANC) 1.45 - 7.50 k/uL 3.69 Lymph% % 18.8 Abs Lymph 1.00 - 4.00 k/uL 1.02 [place]% % 10.1 Abs [place] <0.87 k/uL 0.55 Eosin% % 2.8 Abs Eosin <0.46 k/uL 0.15 Baso% % 0.4 Abs Baso <0.11 k/uL <0.03 Immature Gran % % 0.2 IMMATURE GRANS (ABS) <0.10 k/uL <0.03 NRBC /100 WBC 0.0 Absolute nRBC <0.01 k/uL <0.01 DTYPE Auto Protein, Total 6.3 - 8.0 g/dL 6.8 7.3 Albumin 3.9 - 4.9 g/dL 4.2 4.4 Calcium 8.5 - 10.2 mg/dL 9.2 9.2 Bilirubin, Total 0.2 - 1.3 mg/dL 0.8 0.8 Alkaline Phosphatase 38 - 113 U/L 84 99 AST 14 - 40 U/L 30 33 ALT 10 - 54 U/L 24 26 Glucose 74 - 99 mg/dL 103 (H) 102 (H) BUN 9 - 24 mg/dL 12 10 Creatinine 0.73 - 1.22 mg/dL 0.93 0.84 Sodium 136 - 144 mmol/L 135 (L) 136 Potassium 3.7 - 5.1 mmol/L 5.0 5.1 Chloride 97 - 105 mmol/L 103 99 CO2 22 - 30 mmol/L 24 28 Anion Gap 9 - 18 mmol/L 8 (L) 9 eGFR >=60 mL/min/1.73m 80 85 Total Cholesterol, Nonfasting <200 mg/dL 167 Triglycerides, Nonfasting <150 mg/dL 81 HDL Cholesterol, Nonfasting >39 mg/dL 52 LDL Cholesterol, Nonfasting <100 mg/dL 99 Non HDL Cholesterol, Nonfasting <130 mg/dL 115 VLDL Cholesterol, Nonfasting <30 mg/dL 16 Total Chol/HDL Ratio, Nonfasting <5.10 mg/dL 3.21 LDL/HDL Ratio, Nonfasting <2.54 mg/dL 1.90 Legend: (H) High (L) Low ASSESSMENT/PLAN: 1. Essential hypertension - ICD9: 401.9, ICD10: I10 (primary diagnosis) - Controlled - Continue current medications - Recommend home blood pressure monitoring, to bring results to next visit - Encouraged sodium restriction, DASH or Mediterranean diet - Recommend regular aerobic exercise - LOSARTAN 50 MG TABLET - COMPLETE BLOOD COUNT AND DIFFERENTIAL - COMPREHENSIVE METABOLIC PANEL 2. Mixed hyperlipidemia - ICD9: 272.2, ICD10: E78.2 - Control undetermined, due for labs - Continue current medications - Counseled on healthy diet and regular exercise - SIMVASTATIN 20 MG TABLET - LIPID PANEL, NONFASTING 3. Essential tremor - ICD9: 333.1, ICD10: G25.0 Uncontrolled on Primidone 150 mg. Patient will increase back to 200 mg daily and call with side effects or if symptoms not improved. 4. Malignant melanoma, unspecified site (HCC) - ICD9: 172.9, ICD10: C43.9 S/p excision. No new lesions. Keep f/u with dermatology and general surgery as scheduled. 5. Mild intermittent asthma, uncomplicated - ICD9: 493.90, ICD10: J45.20 - Mild intermittent asthma stable - Continue current medications - Avoidance of triggers recommended 6. Exudative age-related macular degeneration of left eye, unspecified stage (HCC) - ICD9: 362.52, ICD10: H35.3220 Recommendations per optho. 7. 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 ' 8. Encounter for immunization - ICD9: V03.89, ICD10: Z23 - PFIZER-BIONTECH COVID-19 VACCINE (2022- [place]) AGE 12+ YR Eladio Chávez MD documented in this encounter [facility] 05-30-2023 Miscellaneous Notes Patient has been identified by name and date of : Yes Patient in office in person for refill(s): Requested Prescriptions Pending Prescriptions Disp Refills primidone (MYSOLINE) 50 mg tablet 360 tablet 1 Sig: Take 4 tablets by mouth once daily. Date of last office visit in primary care: 02/08/2023 Date of next office visit in primary care: 08/10/2023 Patient requesting at least enough medication to get him through until 08/10/23 appointment Please advise. Thank you. Ruba Limon LPN. documented in this encounter [facility] 05-23-2023 History of Presen t illness Narrative Images from the original note were not included. Chris Mercedes M.D. Surgical Oncology [address] [place] [address], [address] [place] [address] SUBJECTIVE HPI Cristine Mena is a 87 year old male presenting for follow-up visit status post wide local excision of the chest melanoma. Patient underwent wide local excision of the chest melanoma with planned sentinel lymph node biopsy. However, we were unable to complete a sentinel lymph node biopsy since the node was located deep to the clavicle. Currently, patient reports that overall he is doing well. He reports no significant issues with his surgical site. He reports no significant pain. No changes to his medical history since his last visit and no new or worsening symptoms. Review of Systems Constitutional: Negative for malaise/fatigue and weight loss. HENT: Negative for sore throat. Respiratory: Negative for cough, hemoptysis, shortness of breath and stridor. Cardiovascular: Negative for palpitations, claudication and leg swelling. Gastrointestinal: Negative for abdominal pain, blood in stool, nausea and vomiting. Genitourinary: Negative for dysuria, flank pain and hematuria. Musculoskeletal: Negative for falls, joint pain and myalgias. Skin: Negative for rash. Neurological: Negative for speech change, focal weakness and headaches. Endo/Heme/Allergies: Does not bruise/bleed easily. Psychiatric/Behavioral: Negative for depression and memory loss. The patient is not nervous/anxious. PAST MEDICAL HISTORY Diagnosis Date Acute, but ill-defined, cerebrovascular disease possible TIA Asthma Hernández's esophagus EGD negative for Barretts 07/2017. Diverticulosis of colon (without mention of hemorrhage) Diverticulosis Erectile dysfunction Family history of abdominal aortic aneurysm (AAA) Family history of malignant neoplasm of gastrointestinal tract Glaucoma Dr. Rivera and Francisco Hydrocele of testis Macular degeneration, wet (HCC) left Malignant melanoma (HCC) 05/2023 Chest Nocturia Occasional tremors Other and unspecified hyperlipidemia Other psoriasis and similar disorders Psoriasis PAC (premature atrial contraction) Personal history of colonic polyps Colon polyps Skin cancer of scalp melanoma? Seen at [facility] Stroke (HCC) Pt reports possible TIA in 2002 w/ symptoms of dizzyness Unspecified essential hypertension PAST SURGICAL HISTORY Procedure Laterality Date COLONOSCOPY FLX DX W/COLLJ SPEC WHEN PFRMD 07/24/2003 Colonoscopy COLONOSCOPY FLX DX W/COLLJ SPEC WHEN PFRMD 07/22/2010 COLONOSCOPY FLX DX W/COLLJ SPEC WHEN PFRMD 09/08/2012 COLONOSCOPY FLX DX W/COLLJ SPEC WHEN PFRMD 07/27/2017 Colonoscopy EGD TRANSORAL BIOPSY SINGLE/MULTIPLE 08/05/2010 EGD W/O BRSH SPECIMEN W/BX 08/20/2014 repeat in 5 years ESOPHAGOGASTRODUODENOSCOPY TRANSORAL DIAGNOSTIC 09/04/2003 EGD ESOPHAGOGASTRODUODENOSCOPY TRANSORAL DIAGNOSTIC 09/08/2012 EGD ESOPHAGOGASTRODUODENOSCOPY TRANSORAL DIAGNOSTIC 07/27/2017 EGD PAST SURGICAL HISTORY OF 2016 MOHs procedure on scalp PAST SURGICAL HISTORY OF 05/13/2023 Wide Local Excision of Chest Melanoma RMVL SEC MEMBRANOUS CTRC CORNEO-SCLL SCTJ 08/2008, right Cataract removal RPR 1ST INGUN HRNA AGE 6 YRS/> REDUCIBLE right and left Hernia repair, inguinal TONSILLECTOMY PRIMARY/SECONDARY <AGE 13 Tonsillectomy XCAPSL CTRC RMVL INSJ IO LENS PROSTH W/O ECP left Cataract Removal Social History Tobacco Use Smoking status: Never Smokeless tobacco: Never Substance Use Topics Alcohol use: Yes Alcohol/week: 1.0 standard drink of alcohol Types: 1 Glasses of Wine (5oz) per week Comment: occasionally Drug use: No FAMILY HISTORY Problem Relation Age of Onset other (gallbladder) Mother Cancer Father rectal cancer, mi Cancer Brother prostate cancer Pancreatic Cancer Brother Heart Brother mi Aneurysm Brother AAA The ROS, medical, surgical, family, and social history were reviewed by Chris Mercedes MD ALLERGIES Allergen Reactions Amlodipine Other: See Comments Leg swelling Current Outpatient Medications Medication Sig triamcinolone acetonide (KENALOG) 0.1 % ointment losartan (COZAAR) 50 mg tablet Take 1.5 tablets by mouth once daily. simvastatin (ZOCOR) 20 mg tablet Take 1 tablet by mouth daily at bedtime. albuterol HFA (PROAIR HFA) 90 mcg/actuation inhaler Inhale 2 Puffs as instructed four times daily as needed. aspirin 81 mg chewable tablet Take 81 mg by mouth once daily. Miscellaneous Medical Supply (BLOOD PRESSURE CUFF) 1 Each as needed. Automatic BP cuff to be used as directed to monitor hypertension. Diflorasone Diacetate 0.05 % ointment Apply to affected area twice daily as needed. Zabndmbjtmcby-Vnyeolck-Swlffi (CENTRUM SILVER) tab Take 1 tablet by mouth once daily. psyllium seed/sucrose(METAMUCIL ORAL POWDER) one teaspoon daily timolol (TIMOPTIC) 0.5 % OPHTHALMIC Drop one drop twice daily each eye XALATAN 0.005 % EYE DROPS One gtt each eye daily. primidone (MYSOLINE) 50 mg tablet Take 4 tablets by mouth once daily. (Patient taking differently: Take 200 mg by mouth once daily. Taking 3 tablets daily) No current facility-administered medications for this visit. OBJECTIVE BP 177/90 Pulse 67 Ht 170.2 cm (5' 7") SpO2 97% BMI 27.57 kg/m No weight on file for this encounter. Physical Exam Constitutional: General: He is not in acute distress. HENT: Head: Normocephalic and atraumatic. Eyes: Pupils: Pupils are equal, round, and reactive to light. Neck: Thyroid: No thyromegaly. Trachea: No tracheal deviation. Cardiovascular: Rate and Rhythm: Normal rate and regular rhythm. Heart sounds: Normal heart sounds. Pulmonary: Effort: Pulmonary effort is normal. No respiratory distress. Breath sounds: Normal breath sounds. No stridor. Abdominal: General: There is no distension. Palpations: Abdomen is soft. Tenderness: There is no abdominal tenderness. Musculoskeletal: General: No deformity. Normal range of motion. Skin: General: Skin is warm and dry. Findings: No erythema or rash. Comments: Well healed surgical site of the mid upper chest. No signs of nodularity or infection Neurological: Mental Status: He is alert and oriented to person, place, and time. Psychiatric: Mood and Affect: Affect normal. Judgment: Judgment normal. ASSESSMENT AND PLAN Plan 87-year-old man with a stage IB melanoma of the mid chest. I discussed with patient the rationale for not completing his sentinel lymph node biopsy. I also discussed with patient that his disease was relatively low risk for regional or distant metastatic spread. Advised patient that I would like to see him in 3 months for a surveillance visit. Patient will follow-up with dermatology as scheduled. I answered all of his questions to his satisfaction and he is agreeable to this plan. I spent a total of 20 minutes on the date of the service which included preparing to see the patient, completing clinical documentation, performing a medically appropriate examination, and counseling and educating the patient/family/caregiver. Chris Mercedes MD 05/23/2023 2:16 PM documented in this encounter [facility] 05-13-2023 Note HNO ID: [id number] Author: TIM GALLEGO APRN.CRNA Service: Nursing Author Type: Nurse Metalizer Type: Anesthesia Procedure Notes Filed: 05/13/2023 11:50 Note Text: ANESTHESIOLOGY PROCEDURE NOTE Airway General Information Procedure Start Time/Medication Administration: 05/13/2023 11:26 AM Patient location during procedure: OR Timeout Performed Pre-procedure: timeout performed Consent Obtained: Yes Staffing MAINTENANCE SUPERVISOR: Tim Gallego APRN.CRNA SRNA: Layla Cagle SRNA Performed by: DALIA and MAINTENANCE SUPERVISOR Indications and Patient Condition Indications for airway management: anesthesia and airway protection Preoxygenated: yes anesthesia circuit Patient position: sniffing Method: asleep Cricoid Pressure: No Manual In-Line Stabilization: No Difficult Mask: No Airway Accessory: oral airway Final Airway Details Final airway type: endotracheal airway Final Endotracheal Airway: ETT Cuffed: yes Successful intubation technique: video laryngoscopy Devices used: Ramires Blade size: #4 ETT size (mm): 7.5 Measured from: lips Measurement (cm): 23 Placement verified by: capnometry Cormack-Lehane Classification: grade IIa - partial view of glottis Number of attempts at approach: 1 Failed airway: no Unrecognized esophageal intubation: no Airway not difficult SIGNATURE: Tim Gallego APRN.MAINTENANCE SUPERVISOR PATIENT NAME: Cristine Mena DATE: May 13, 2023 TIME: 11:47 AM CSN: [id number] [facility] 04-20-2023 Note HNO ID: [id number] Author: CHRIS MERCEDES MD Service: ? Author Type: Physician Type: Progress Notes Filed: 04/28/2023 15:23 Note Text: Chris Mercedes M.D. Surgical Oncology [address] [facility], [address] [place] [address] SUBJECTIVE HPI Cristine Mena is a 87 year old male presenting for newly diagnosed melanoma of the chest. Patient was recently seen by dermatology for skin evaluation. A pigmented lesion was noted on his chest. This was biopsied and demonstrated a 1.1 mm Breslow depth melanoma with no ulceration and a mitotic rate of 1. The deep margin was focally involved by invasive melanoma and the peripheral margin was involved for melanoma in situ. 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 This was treated by his java application engineer. Currently, patient reports no systemic symptoms related to this melanoma. No concerning neurologic or musculoskeletal symptoms. No blood in the stool, no abdominal pain. He reports no other concerning pigmented lesions or lymphadenopathy Review of Systems Constitutional: Negative for malaise/fatigue and weight loss. HENT: Negative for sore throat. Eyes: Negative for blurred vision and double vision. Respiratory: Negative for cough, hemoptysis, shortness of breath and stridor. Cardiovascular: Negative for palpitations, claudication and leg swelling. Gastrointestinal: Negative for abdominal pain, blood in stool, nausea and vomiting. Genitourinary: Negative for dysuria, flank pain and hematuria. Musculoskeletal: Negative for falls, joint pain and myalgias. Skin: Negative for rash. Neurological: Negative for speech change, focal weakness and headaches. Endo/Heme/Allergies: Does not bruise/bleed easily. Psychiatric/Behavioral: Negative for depression and memory loss. The patient is not nervous/anxious. PAST MEDICAL HISTORY Diagnosis Date Acute, but ill-defined, cerebrovascular disease possible TIA Asthma Hernández's esophagus EGD negative for Barretts 07/2017. Diverticulosis of colon (without mention of hemorrhage) Diverticulosis Erectile dysfunction Family history of abdominal aortic aneurysm (AAA) Family history of malignant neoplasm of gastrointestinal tract Glaucoma Dr. Rivera and Francisco Hydrocele of testis Macular degeneration, wet (HCC) left Nocturia Occasional tremors Other and unspecified hyperlipidemia Other psoriasis and similar disorders Psoriasis PAC (premature atrial contraction) Personal history of colonic polyps Colon polyps Skin cancer of scalp melanoma? Seen at [facility] Unspecified essential hypertension PAST SURGICAL HISTORY Procedure Laterality Date COLONOSCOPY FLX DX W/COLLJ SPEC WHEN PFRMD 07/24/2003 Colonoscopy COLONOSCOPY FLX DX W/COLLJ SPEC WHEN PFRMD 07/22/10 COLONOSCOPY FLX DX W/COLLJ SPEC WHEN PFRMD 09-08-12 COLONOSCOPY FLX DX W/COLLJ SPEC WHEN PFRMD 07/27/2017 Colonoscopy EGD TRANSORAL BIOPSY SINGLE/MULTIPLE 08/05/10 EGD W/O BRSH SPECIMEN W/BX 08-20-14 repeat in 5 years ESOPHAGOGASTRODUODENOSCOPY TRANSORAL DIAGNOSTIC 09/04/2003 EGD ESOPHAGOGASTRODUODENOSCOPY TRANSORAL DIAGNOSTIC 09-08-12 EGD ESOPHAGOGASTRODUODENOSCOPY TRANSORAL DIAGNOSTIC 07/27/2017 EGD PAST SURGICAL HISTORY OF 2016 MOHs procedure on scalp RMVL SEC MEMBRANOUS CTRC CORNEO-SCLL SCTJ 08/2008, right Cataract removal RPR 1ST INGUN HRNA AGE 5 YRS/> REDUCIBLE right and left Hernia repair, inguinal TONSILLECTOMY PRIMARY/SECONDARY Tonsillectomy XCAPSL CTRC RMVL INSJ IO LENS PROSTH W/O ECP left Cataract Removal Social History Tobacco Use Smoking status: Never Smokeless tobacco: Never Substance Use Topics Alcohol use: Yes Alcohol/week: 1.0 standard drink of alcohol Types: 1 Glasses of Wine (5oz) per week Comment: occasionally Drug use: No FAMILY HISTORY Problem Relation Age of Onset other (gallbladder) Mother Cancer Father rectal cancer, mi Cancer Brother prostate cancer Pancreatic Cancer Brother Heart Brother mi Aneurysm Brother AAA The ROS, medical, surgical, family, and social history were reviewed by Chris Mercedes MD ALLERGIES Allergen Reactions Amlodipine Other: See Comments Leg swelling Current Outpatient Medications Medication Sig losartan (COZAAR) 50 mg tablet Take 1.5 tablets by mouth once daily. simvastatin (ZOCOR) 20 mg tablet Take 1 tablet by mouth daily at bedtime. albuterol HFA (PROAIR HFA) 90 mcg/actuation inhaler Inhale 2 Puffs as instructed four times daily as needed. aspirin 81 mg chewable tablet Take 81 mg by mouth once daily. Miscellaneous Medical Supply (BLOOD PRESSURE CUFF) 1 Each as needed. Automatic BP cuff to be used as directed to monitor hypertension. Diflorasone Diacetate 0.05 % ointment Apply to affected area twice daily as needed. Uarljsalqxkdo-Yefruwws-Eailcz (CENTRUM SILVER) tab Take 1 tablet by mouth once daily. (more content not included)... [facility] 04-20-2023 History of Presen t illness Narrative Images from the original note were not included. Chris Mercedes M.D. Surgical Oncology [address] [facility], [address] [place] [address] SUBJECTIVE HPI Cristine Mena is a 87 year old male presenting for newly diagnosed melanoma of the chest. Patient was recently seen by dermatology for skin evaluation. A pigmented lesion was noted on his chest. This was biopsied and demonstrated a 1.1 mm Breslow depth melanoma with no ulceration and a mitotic rate of 1. The deep margin was focally involved by invasive melanoma and the peripheral margin was involved for melanoma in situ. 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 This was treated by his java application engineer. Currently, patient reports no systemic symptoms related to this melanoma. No concerning neurologic or musculoskeletal symptoms. No blood in the stool, no abdominal pain. He reports no other concerning pigmented lesions or lymphadenopathy Review of Systems Constitutional: Negative for malaise/fatigue and weight loss. HENT: Negative for sore throat. Eyes: Negative for blurred vision and double vision. Respiratory: Negative for cough, hemoptysis, shortness of breath and stridor. Cardiovascular: Negative for palpitations, claudication and leg swelling. Gastrointestinal: Negative for abdominal pain, blood in stool, nausea and vomiting. Genitourinary: Negative for dysuria, flank pain and hematuria. Musculoskeletal: Negative for falls, joint pain and myalgias. Skin: Negative for rash. Neurological: Negative for speech change, focal weakness and headaches. Endo/Heme/Allergies: Does not bruise/bleed easily. Psychiatric/Behavioral: Negative for depression and memory loss. The patient is not nervous/anxious. PAST MEDICAL HISTORY Diagnosis Date Acute, but ill-defined, cerebrovascular disease possible TIA Asthma Hernández's esophagus EGD negative for Barretts 07/2017. Diverticulosis of colon (without mention of hemorrhage) Diverticulosis Erectile dysfunction Family history of abdominal aortic aneurysm (AAA) Family history of malignant neoplasm of gastrointestinal tract Glaucoma Dr. Rivera and Francisco Hydrocele of testis Macular degeneration, wet (HCC) left Nocturia Occasional tremors Other and unspecified hyperlipidemia Other psoriasis and similar disorders Psoriasis PAC (premature atrial contraction) Personal history of colonic polyps Colon polyps Skin cancer of scalp melanoma? Seen at [facility] Unspecified essential hypertension PAST SURGICAL HISTORY Procedure Laterality Date COLONOSCOPY FLX DX W/COLLJ SPEC WHEN PFRMD 07/24/2003 Colonoscopy COLONOSCOPY FLX DX W/COLLJ SPEC WHEN PFRMD 07/22/10 COLONOSCOPY FLX DX W/COLLJ SPEC WHEN PFRMD 09-08-12 COLONOSCOPY FLX DX W/COLLJ SPEC WHEN PFRMD 07/27/2017 Colonoscopy EGD TRANSORAL BIOPSY SINGLE/MULTIPLE 08/05/10 EGD W/O BRSH SPECIMEN W/BX 08-20-14 repeat in 5 years ESOPHAGOGASTRODUODENOSCOPY TRANSORAL DIAGNOSTIC 09/04/2003 EGD ESOPHAGOGASTRODUODENOSCOPY TRANSORAL DIAGNOSTIC 09-08-12 EGD ESOPHAGOGASTRODUODENOSCOPY TRANSORAL DIAGNOSTIC 07/27/2017 EGD PAST SURGICAL HISTORY OF 2016 MOHs procedure on scalp RMVL SEC MEMBRANOUS CTRC CORNEO-SCLL SCTJ 08/2008, right Cataract removal RPR 1ST INGUN HRNA AGE 6 YRS/> REDUCIBLE right and left Hernia repair, inguinal TONSILLECTOMY PRIMARY/SECONDARY <AGE 13 Tonsillectomy XCAPSL CTRC RMVL INSJ IO LENS PROSTH W/O ECP left Cataract Removal Social History Tobacco Use Smoking status: Never Smokeless tobacco: Never Substance Use Topics Alcohol use: Yes Alcohol/week: 1.0 standard drink of alcohol Types: 1 Glasses of Wine (5oz) per week Comment: occasionally Drug use: No FAMILY HISTORY Problem Relation Age of Onset other (gallbladder) Mother Cancer Father rectal cancer, mi Cancer Brother prostate cancer Pancreatic Cancer Brother Heart Brother mi Aneurysm Brother AAA The ROS, medical, surgical, family, and social history were reviewed by Chris Mercedes MD ALLERGIES Allergen Reactions Amlodipine Other: See Comments Leg swelling Current Outpatient Medications Medication Sig losartan (COZAAR) 50 mg tablet Take 1.5 tablets by mouth once daily. simvastatin (ZOCOR) 20 mg tablet Take 1 tablet by mouth daily at bedtime. albuterol HFA (PROAIR HFA) 90 mcg/actuation inhaler Inhale 2 Puffs as instructed four times daily as needed. aspirin 81 mg chewable tablet Take 81 mg by mouth once daily. Miscellaneous Medical Supply (BLOOD PRESSURE CUFF) 1 Each as needed. Automatic BP cuff to be used as directed to monitor hypertension. Diflorasone Diacetate 0.05 % ointment Apply to affected area twice daily as needed. Hfqiwxpobtltg-Pjyadtgf-Acsubd (CENTRUM SILVER) tab Take 1 tablet by mouth once daily. psyllium seed/sucrose(METAMUCIL ORAL POWDER) one teaspoon daily timolol (TIMOPTIC) 0.5 % OPHTHALMIC Drop one drop twice daily each eye XALATAN 0.005 % EYE DROPS One gtt each eye daily. primidone (MYSOLINE) 50 mg tablet Take 4 tablets by mouth once daily. (Patient taking differently: Take 200 mg by mouth once daily. Taking 3 tablets daily) No current facility-administered medications for this visit. OBJECTIVE BP 148/80 Pulse 60 Ht 170.2 cm (5' 7") Wt 79.8 kg (176 lb) SpO2 97% BMI 27.57 kg/m BMI 27.57 kg/(m^2) Physical Exam Constitutional: General: He is not in acute distress. HENT: Head: Normocephalic and atraumatic. Eyes: Pupils: Pupils are equal, round, and reactive to light. Neck: Thyroid: No thyromegaly. Trachea: No tracheal deviation. Cardiovascular: Rate and Rhythm: Normal rate and regular rhythm. Heart sounds: Normal heart sounds. Pulmonary: Effort: Pulmonary effort is normal. No respiratory distress. Breath sounds: Normal breath sounds. No stridor. Abdominal: General: There is no distension. Palpations: Abdomen is soft. Tenderness: There is no abdominal tenderness. Musculoskeletal: General: No deformity. Normal range of motion. Lymphadenopathy: Cervical: No cervical adenopathy. Upper Body: Right upper body: No supraclavicular or axillary adenopathy. Left upper body: No supraclavicular or axillary adenopathy. Lower Body: No right inguinal adenopathy. No left inguinal adenopathy. Skin: General: Skin is warm and dry. Findings: No erythema or rash. Comments: Biopsy site of the upper mid chest with no obvious residual melanoma Neurological: Mental Status: He is alert and oriented to person, place, and time. Psychiatric: Mood and Affect: Affect normal. Judgment: Judgment normal. ASSESSMENT AND PLAN Plan 87-year-old man presenting with newly diagnosed melanoma of the chest. I discussed this finding with the patient and his family. Advised patient that it is reasonable to proceed with a wide local excision with a 1 cm margin. This would likely entail a primary closure however located rotation flap versus a skin graft was also possible. We also discussed the indications and rationale for sentinel lymph node biopsy. We had a thorough discussion of the risks and benefits of both the wide local excision and a sentinel lymph node biopsy. After answering all the patient's questions to his satisfaction patient was agreeable to proceed with a wide local excision with a 1 cm margin and sentinel lymph node biopsy. We will schedule him at his earliest convenience. I spent a total of 45 minutes on the date of the service which included preparing to see the patient, obtaining and/or reviewing separately obtained history, performing a medically appropriate examination, counseling and educating the patient/family/caregiver, and ordering medications, tests, or procedures. Chris Mercedes MD 04/20/2023 10:17 AM documented in this encounter [facility] 09-01-2022 History of Presen t illness Narrative 09/01/2022 Patient presents with: Blood Pressure: 2 week recheck SUBJECTIVE: This is a 87 year old that is here today for Above Complaints. BP elevated at last office appointment. Losartan increased. Taking BP daily with readings in 120-130's/70-80's. Denies visual changes, headaches, slurred speech,facial drooping, extremity numbness, tingling, weakness, SOB, dyspnea, chest pain or leg swelling. PAST MEDICAL HISTORY Diagnosis Date Acute, but ill-defined, cerebrovascular disease possible TIA Asthma Hernández's esophagus EGD negative for Barretts 07/2017. Diverticulosis of colon (without mention of hemorrhage) Diverticulosis Erectile dysfunction Family history of abdominal aortic aneurysm (AAA) Family history of malignant neoplasm of gastrointestinal tract Glaucoma Dr. Rivera and Francisco Hydrocele of testis Macular degeneration, wet (HCC) left Nocturia Occasional tremors Other and unspecified hyperlipidemia Other psoriasis and similar disorders Psoriasis PAC (premature atrial contraction) Personal history of colonic polyps Colon polyps Skin cancer of scalp melanoma? Seen at [facility] Unspecified essential hypertension ALLERGIES Amlodipine MEDICATIONS Current Outpatient Medications Medication Sig losartan (COZAAR) 50 mg tablet Take 1.5 tablets by mouth once daily. simvastatin (ZOCOR) 20 mg tablet Take 1 tablet by mouth daily at bedtime. albuterol HFA (PROAIR HFA) 90 mcg/actuation inhaler Inhale 2 Puffs as instructed four times daily as needed. primidone (MYSOLINE) 50 mg tablet Take 4 tablets by mouth once daily. (Patient taking differently: Take 200 mg by mouth once daily. Taking 3 tablets daily) aspirin 81 mg chewable tablet Take 81 mg by mouth once daily. Miscellaneous Medical Supply (BLOOD PRESSURE CUFF) 1 Each as needed. Automatic BP cuff to be used as directed to monitor hypertension. Diflorasone Diacetate 0.05 % ointment Apply to affected area twice daily as needed. Acldciawrttjw-Feansvki-Vbqmhs (CENTRUM SILVER) tab Take 1 tablet by mouth once daily. psyllium seed/sucrose(METAMUCIL ORAL POWDER) one teaspoon daily timolol (TIMOPTIC) 0.5 % OPHTHALMIC Drop one drop twice daily each eye XALATAN 0.005 % EYE DROPS One gtt each eye daily. No current facility-administered medications for this visit. Medications and allergies reviewed by this provider. SOCIAL HISTORY Social History Tobacco Use Smoking status: Never Smokeless tobacco: Never Substance Use Topics Alcohol use: Yes Alcohol/week: 2.5 standard drinks Types: 1 Glasses of Wine (5oz) per week Comment: occasionally Drug use: No REVIEW OF SYSTEMS All other reviewed and negative other than HPI. OBJECTIVE: BP 130/74 Pulse 64 Resp 16 Wt 79.6 kg (175 lb 6.4 oz) SpO2 96% BMI 27.47 kg/m . Vital signs reviewed by this provider. APPEARANCE Well appearing, alert, in no acute distress, well-hydrated, well nourished. SPIROMETRY Never done ADVANCE DIRECTIVE DISCUSSION Never done DEPRESSION ASSESSMENT due on 03/06/2023 DIABETES SCREEN due on 07/29/2025 DTAP,TDAP,TD(4 - Td or Tdap) due on 07/14/2027 INFLUENZA Completed SHINGRIX VACCINE Completed COVID-19 VACCINE Completed PNEUMOCOCCAL: 65+ Completed ASSESSMENT/PLAN: 1. Essential hypertension - ICD9: 401.9, ICD10: I10 (primary diagnosis) - Improving control - Continue current medications - Recommend home blood pressure monitoring, to bring results to next visit - Encouraged sodium restriction, DASH or Mediterranean diet - Recommend regular aerobic exercise - Discussed need for and benefit of weight loss. BMI 27.47 kg/(m^2) - Follow up in 6 months for hypertension visit - LOSARTAN 50 MG TABLET 2. Blood pressure check - ICD9: V81.1, ICD10: Z01.30 - plan as above - LOSARTAN 50 MG TABLET Natalie Mendez APRN.CNP Prescription instructions reviewed with patient as applicable. Patient advised if symptoms do not improve or if symptoms worsen sooner, to contact their primary care physician. Potential red flag symptoms discussed with the patient. Reviewed appropriate action plan to take if red flag symptoms occur. Patient agreeable to treatment plan. I spent a total of 20 minutes on the date of the service which included preparing to see the patient, [id number] patient care, completing clinical documentation, obtaining and/or reviewing separately obtained history, performing a medically appropriate examination, and counseling and educating the patient/family/caregiver. documented in this encounter [facility] 08-09-2022 History of Presen t illness Narrative Radiology Service Progress Note PATIENT NAME: Cristine Mena DATE OF SERVICE: August 09, 2022 TIME: 9:41 AM PATIENT IDENTITY VERIFICATION COMPLETED USING TWO (2) IDENTIFIERS: Name and Date of confirmed by patient verbally. FALL SCREENING: Has the patient had 2 falls in the last year or 1 fall with injury or currently using an Ambulatory Assistive Device (Walker, Cane, Wheelchair, Crutches, etc.)? No PATIENT GENDER DATA: Male PATIENT RELEVANT IMPLANT DATA REVIEWED: Not Applicable RADIOLOGY DEPARTMENT: Ultrasound PERIPHERAL IV DATA: Not applicable SIGNED BY: Belgica Tyler RDMS August 09, 2022 9:41 AM documented in this encounter [facility] 08-04-2022 History of Presen t illness Narrative Chief Complaint Patient presents with: F/U 6 months HPI Cristine Mena is a 87 year old male who presents here today for 6 month follow up. Previous HPI: Patient states that his primidone has not had much effect on 100 mg daily dosage. Has trouble with eating and writing still. Would like to try higher dosage. Denies side effects. HTN: Mr. Mena indicates that he is feeling well and denies any symptoms referable to elevated blood pressure. Specifically denies headache, chest pain, palpitations, dyspnea, and peripheral edema. Patient denies any side effects of his medication(s) and is compliant with their regimen. He does check BP's away from this office with average BP's in the 110-130/60's range. Cristine works out regularly 6-7 times per week with walking. He watches his diet for sodium, low fat and low cholesterol some of the time. Last 3 Encounter BP Readings: Date: BP: 02/01/2022 138/78 07/24/2021 124/80 12/24/2020 128/84 Taking statin on a daily basis without side effects. Last cholesterol in good range. States that he is no longer taking ASA for about a year now. States that he was not getting any bleeding or bruising symptoms on the ASA. Discussed history of possible TIA. No vision changes with history of glaucoma and macular degeneration. Managed by Dr. Rivera and Francisco. Compliant with timolol and xalatan. Getting injections into right eye every 3 months. States that he cannot read out of his left eye which has not changed. Noted elevated H&H on recent labs. Only drinking 3 glasses of water per day and drinks 2 cups of coffee. PHQ-2 / Depression screen He in the past two weeks denies having felt down, depressed, hopeless or with little interest or pleasure in doing things. Requesting flu shot today. Interim: Patient was in office about 2 weeks ago for leg swelling. Switched from Amlodipine to Losartan which has improved his swelling. Checking BP at home with typical readings in the 130's/60-70 range. Elevated here today without symptoms. Brought in letter from brother who has AAA. Patient requesting to be tested. Glaucoma unchanged from 6 months ago. Managed by dr. Rivera and Francisco. Shots and drops unchanged. Primidone increased to 150 mg daily which does seem to help somewhat with his tremors compared the 100 mg dosage. Would like to increase dose again. Asthma: mild intermittent which is controlled with albuterol 1-2 times per year. Denies cough, SOB, wheezing. Following up yearly with [facility] for psoriasis and skin cancer. Rash improved on current regimen. No new lesions. Due to f/u in the fall. Past medical history, appointments, medications, allergies reviewed. Previous Medical History PAST MEDICAL HISTORY Diagnosis Date Acute, but ill-defined, cerebrovascular disease possible TIA Asthma Hernández's esophagus EGD negative for Barretts 07/2017. Diverticulosis of colon (without mention of hemorrhage) Diverticulosis Erectile dysfunction Family history of malignant neoplasm of gastrointestinal tract Glaucoma Dr. Rivera and Francisco Hydrocele of testis Macular degeneration, wet (HCC) left Nocturia Occasional tremors Other and unspecified hyperlipidemia Other psoriasis and similar disorders Psoriasis PAC (premature atrial contraction) Personal history of colonic polyps Colon polyps Skin cancer of scalp melanoma? Seen at [facility] Unspecified essential hypertension Previous Surgical History PAST SURGICAL HISTORY Procedure Laterality Date COLONOSCOPY FLX DX W/COLLJ SPEC WHEN PFRMD 07/24/2003 Colonoscopy COLONOSCOPY FLX DX W/COLLJ SPEC WHEN PFRMD 07/22/10 COLONOSCOPY FLX DX W/COLLJ SPEC WHEN PFRMD 09-08-12 COLONOSCOPY FLX DX W/COLLJ SPEC WHEN PFRMD 07/27/2017 Colonoscopy EGD TRANSORAL BIOPSY SINGLE/MULTIPLE 08/05/10 EGD W/O BRSH SPECIMEN W/BX 08-20-14 repeat in 5 years ESOPHAGOGASTRODUODENOSCOPY TRANSORAL DIAGNOSTIC 09/04/2003 EGD ESOPHAGOGASTRODUODENOSCOPY TRANSORAL DIAGNOSTIC 09-08-12 EGD ESOPHAGOGASTRODUODENOSCOPY TRANSORAL DIAGNOSTIC 07/27/2017 EGD PAST SURGICAL HISTORY OF 2016 MOHs procedure on scalp RMVL SEC MEMBRANOUS CTRC CORNEO-SCLL SCTJ 08/2008, right Cataract removal RPR 1ST INGUN HRNA AGE 6 YRS/> REDUCIBLE right and left Hernia repair, inguinal TONSILLECTOMY PRIMARY/SECONDARY <AGE 13 Tonsillectomy XCAPSL CTRC RMVL INSJ IO LENS PROSTH W/O ECP left Cataract Removal Family History FAMILY HISTORY Problem Relation Age of Onset other (gallbladder) Mother Cancer Father rectal cancer, mi Cancer Brother prostate cancer Pancreatic Cancer Brother Heart Brother mi Patient Allergies ALLERGIES No Known Allergies Current Medications Current Outpatient Medications on File Prior to Visit Medication Sig losartan (COZAAR) 50 mg tablet Take 1 tablet by mouth once daily. primidone (MYSOLINE) 50 mg tablet Take 3 tablets by mouth once daily. aspirin 81 mg chewable tablet Take 81 mg by mouth once daily. simvastatin (ZOCOR) 20 mg tablet Take 1 tablet by mouth daily at bedtime. albuterol HFA (PROAIR HFA) 90 mcg/actuation inhaler Inhale 2 Puffs as instructed four times daily as needed. Miscellaneous Medical Supply (BLOOD PRESSURE CUFF) 1 Each as needed. Automatic BP cuff to be used as directed to monitor hypertension. Diflorasone Diacetate 0.05 % ointment Apply to affected area twice daily as needed. Lhvadjiuxxtcd-Nwkcjuwp-Cejxlb (CENTRUM SILVER) tab Take 1 tablet by mouth once daily. psyllium seed/sucrose(METAMUCIL ORAL POWDER) one teaspoon daily timolol (TIMOPTIC) 0.5 % OPHTHALMIC Drop one drop twice daily each eye XALATAN 0.005 % EYE DROPS One gtt each eye daily. FOLIC ACID 1 MG TAB Take one(1) tablet daily. (Patient not taking: No sig reported) No current facility-administered medications on file prior to visit. Social History Social History Tobacco Use Smoking status: Never Smokeless tobacco: Never Substance Use Topics Alcohol use: Yes Alcohol/week: 2.5 standard drinks Types: 1 Glasses of Wine (5oz) per week Comment: occasionally Drug use: No Review of Symptoms REVIEW OF SYSTEMS GENERAL: No weight loss, malaise or fevers RESPIRATORY: Negative for cough, hemoptysis, wheezing, COPD, dyspnea or shortness of breath CARDIOVASCULAR: Negative for chest pain, leg swelling, hypertension, CHF or palpitations GI: No nausea, vomiting, or diarrhea SKIN: Negative for lesions, rash, and itching EXAM: BP 140/80 (BP Site: Right Arm, BP Position: Sitting, BP Cuff Size: Large Adult) Pulse (!) 55 Resp 16 Wt 79.8 kg (176 lb) BMI 27.57 kg/m General Appearance: Well appearing, alert, in no acute distress, well-hydrated, well nourished.. Skin: Skin color, texture, turgor normal, no suspicious rashes or lesions. Lungs: Lungs clear to auscultation. No wheezing, rhonchi, rales.. Heart: RRR without murmur, gallop, or rubs. No ectopy. Abdomen: Normal abdominal exam, Abdomen soft, non-tender. Bowel sounds normal. No masses, organomegaly. Extremities: No deformities, edema, skin discoloration, clubbing or cyanosis. Good capillary refill. . Neurologic: Mild essential tremor with outstretched hands. Health Maintenance List SPIROMETRY Never done ADVANCE DIRECTIVE DISCUSSION Never done DEPRESSION ASSESSMENT due on 03/07/2022 DIABETES SCREEN due on 07/29/2025 DTAP,TDAP,TD(4 - Td or Tdap) due on 07/14/2027 INFLUENZA Completed SHINGRIX VACCINE Completed COVID-19 VACCINE Completed PNEUMOCOCCAL: 65+ Completed Data reviewed Component Latest Ref Rng & Units 03/03/2022 07/29/2022 WBC 3.70 - 11.00 k/uL 5.44 RBC 4.20 - 6.00 m/uL 5.34 Hemoglobin 13.0 - 17.0 g/dL 17.0 Hematocrit 39.0 - 51.0 % 52.1 (H) MCV 80.0 - 100.0 fL 97.6 MCH 26.0 - 34.0 pg 31.8 MCHC 30.5 - 36.0 g/dL 32.6 RDW-CV 11.5 - 15.0 % 13.3 Platelet Count 150 - 400 k/uL 217 MPV 9.0 - 12.7 fL 11.4 Neut% % 67.7 Abs Neut (ANC) 1.45 - 7.50 k/uL 3.69 Lymph% % 18.8 Abs Lymph 1.00 - 4.00 k/uL 1.02 [place]% % 10.1 Abs [place] <0.87 k/uL 0.55 Eosin% % 2.8 Abs Eosin <0.46 k/uL 0.15 Baso% % 0.4 Abs Baso <0.11 k/uL <0.03 Immature Gran % % 0.2 IMMATURE GRANS (ABS) <0.10 k/uL <0.03 NRBC /100 WBC 0.0 Absolute nRBC <0.01 k/uL <0.01 DTYPE Auto Protein, Total 6.3 - 8.0 g/dL 7.1 6.8 Albumin 3.9 - 4.9 g/dL 4.3 4.2 Calcium 8.5 - 10.2 mg/dL 9.3 9.2 Bilirubin, Total 0.2 - 1.3 mg/dL 0.7 0.8 Alkaline Phosphatase 38 - 113 U/L 96 84 AST 14 - 40 U/L 28 30 ALT 10 - 54 U/L 24 24 Glucose 74 - 99 mg/dL 99 103 (H) BUN 9 - 24 mg/dL 12 12 Creatinine 0.73 - 1.22 mg/dL 0.86 0.93 Sodium 136 - 144 mmol/L 137 135 (L) Potassium 3.7 - 5.1 mmol/L 4.7 5.0 Chloride 97 - 105 mmol/L 101 103 CO2 22 - 30 mmol/L 28 24 Anion Gap 9 - 18 mmol/L 8 (L) 8 (L) eGFR >=60 mL/min/1.73m 85 80 Total Cholesterol, Nonfasting <200 mg/dL 167 Triglycerides, Nonfasting <150 mg/dL 81 HDL Cholesterol, Nonfasting >39 mg/dL 52 LDL Cholesterol, Nonfasting <100 mg/dL 99 Non HDL Cholesterol, Nonfasting <130 mg/dL 115 VLDL Cholesterol, Nonfasting <30 mg/dL 16 Total Chol/HDL Ratio, Nonfasting <5.10 mg/dL 3.21 LDL/HDL Ratio, Nonfasting <2.54 mg/dL 1.90 ASSESSMENT/PLAN: 1. Bilateral swelling of feet - ICD9: 729.81, ICD10: M79.89 (primary diagnosis) Resolved with discontinuing amlodipine. 2. Essential hypertension - ICD9: 401.9, ICD10: I10 - poor control - Continue current medication(s) - Encouraged dietary sodium restriction/DASH diet - Recommended regular aerobic exercise. - Follow up in 1 month for BP recheck. - Reviewed risks of HTN and principles of treatment - Goal of BP <140/90 - LOSARTAN 50 MG TABLET 3. Essential tremor - ICD9: 333.1, ICD10: G25.0 Uncontrolled. Increase to 200 mg daily. If not improving, can increase to 250 mg. - PRIMIDONE 50 MG TABLET - PRIMIDONE 50 MG TABLET 4. Mixed hyperlipidemia - ICD9: 272.2, ICD10: E78.2 - good control - Continue current medication. - Encouraged following a low fat, low cholesterol diet. - Discussed the benefits of regular aerobic exercise and weight loss. - SIMVASTATIN 20 MG TABLET 5. Mild intermittent asthma, uncomplicated - ICD9: 493.90, ICD10: J45.20 Mild intermittent Asthma stable - Continue current meds - Avoidance of triggers recommended - ALBUTEROL SULFATE HFA 90 MCG/ACTUATION AEROSOL INHALER 6. Family history of abdominal aortic aneurysm (AAA) - ICD9: V17.49, ICD10: Z82.49 - US SCREENING FOR AAA 7. History of TIA (transient ischemic attack) - ICD9: V12.54, ICD10: Z86.73 No recurrent symptoms on medical management. Work on better BP control. If still elevated at recheck would increase losartan. 8. Other glaucoma of both eyes - ICD9: 365.89, ICD10: H40.89 Stable. F/u recommendations per optho. 9. Exudative age-related macular degeneration, unspecified laterality, unspecified stage (HCC) - ICD9: 362.52, ICD10: H35.3290 Stable. F/u recommendations per optho. 10. PSORIASIS - ICD9: 696.1, ICD10: L40.8 Improved on current regimen. Recommendations per dermatology. Eladio Chávez MD documented in this encounter [facility] 07-05-2022 Instructions Eladio Chávez MD - 07/05/2022 3:57 PM EDT Call if your blood pressure is less than 100/60 or more than 150/90. documented in this encounter [facility] 07-05-2022 History of Presen t illness Narrative Chief Complaint Patient presents with: Edema: Bilateral feet x 1 month knee problem: Complains of weakness in the knee as well HPI Cristine Mena is a 87 year old male who presents here today for Above Complaints.. Here today for complaint of swelling in his feet which he first noticed about 2-3 weeks ago. Left side worse than the right. Treating by soaking in epsom salts. Has not been elevating his legs. Does limit salt intake. No new medications in the last 2-3 weeks, but was started on Amlodipine about 6 months ago. Past medical history, appointments, medications, allergies reviewed. Previous Medical History PAST MEDICAL HISTORY Diagnosis Date Acute, but ill-defined, cerebrovascular disease possible TIA Asthma Hernández's esophagus EGD negative for Barretts 07/2017. Diverticulosis of colon (without mention of hemorrhage) Diverticulosis Erectile dysfunction Family history of malignant neoplasm of gastrointestinal tract Glaucoma Dr. Rivera and Francisco Hydrocele of testis Macular degeneration, wet (HCC) left Nocturia Occasional tremors Other and unspecified hyperlipidemia Other psoriasis and similar disorders Psoriasis PAC (premature atrial contraction) Personal history of colonic polyps Colon polyps Skin cancer of scalp melanoma? Seen at [facility] Unspecified essential hypertension Previous Surgical History PAST SURGICAL HISTORY Procedure Laterality Date COLONOSCOPY FLX DX W/COLLJ SPEC WHEN PFRMD 07/24/2003 Colonoscopy COLONOSCOPY FLX DX W/COLLJ SPEC WHEN PFRMD 07/22/10 COLONOSCOPY FLX DX W/COLLJ SPEC WHEN PFRMD 09-08-12 COLONOSCOPY FLX DX W/COLLJ SPEC WHEN PFRMD 07/27/2017 Colonoscopy EGD TRANSORAL BIOPSY SINGLE/MULTIPLE 08/05/10 EGD W/O BRSH SPECIMEN W/BX 08-20-14 repeat in 5 years ESOPHAGOGASTRODUODENOSCOPY TRANSORAL DIAGNOSTIC 09/04/2003 EGD ESOPHAGOGASTRODUODENOSCOPY TRANSORAL DIAGNOSTIC 09-08-12 EGD ESOPHAGOGASTRODUODENOSCOPY TRANSORAL DIAGNOSTIC 07/27/2017 EGD PAST SURGICAL HISTORY OF 2016 MOHs procedure on scalp RMVL SEC MEMBRANOUS CTRC CORNEO-SCLL SCTJ 08/2008, right Cataract removal RPR 1ST INGUN HRNA AGE 6 YRS/> REDUCIBLE right and left Hernia repair, inguinal TONSILLECTOMY PRIMARY/SECONDARY <AGE 13 Tonsillectomy XCAPSL CTRC RMVL INSJ IO LENS PROSTH W/O ECP left Cataract Removal Family History FAMILY HISTORY Problem Relation Age of Onset other (gallbladder) Mother Cancer Father rectal cancer, mi Cancer Brother prostate cancer Pancreatic Cancer Brother Heart Brother mi Patient Allergies ALLERGIES No Known Allergies Current Medications Current Outpatient Medications on File Prior to Visit Medication Sig amLODIPine (NORVASC) 5 mg tablet Take 1 tablet by mouth once daily. primidone (MYSOLINE) 50 mg tablet Take 3 tablets by mouth once daily. aspirin 81 mg chewable tablet Take 81 mg by mouth once daily. simvastatin (ZOCOR) 20 mg tablet Take 1 tablet by mouth daily at bedtime. albuterol HFA (PROAIR HFA) 90 mcg/actuation inhaler Inhale 2 Puffs as instructed four times daily as needed. Miscellaneous Medical Supply (BLOOD PRESSURE CUFF) 1 Each as needed. Automatic BP cuff to be used as directed to monitor hypertension. Diflorasone Diacetate 0.05 % ointment Apply to affected area twice daily as needed. Lqxlbgsszcpfg-Tgnfpvxi-Njvaee (CENTRUM SILVER) tab Take 1 tablet by mouth once daily. psyllium seed/sucrose(METAMUCIL ORAL POWDER) one teaspoon daily timolol (TIMOPTIC) 0.5 % OPHTHALMIC Drop one drop twice daily each eye XALATAN 0.005 % EYE DROPS One gtt each eye daily. FOLIC ACID 1 MG TAB Take one(1) tablet daily. (Patient not taking: Reported on 07/05/2022) No current facility-administered medications on file prior to visit. Social History Social History Tobacco Use Smoking status: Never Smokeless tobacco: Never Substance Use Topics Alcohol use: Yes Alcohol/week: 2.5 standard drinks Types: 1 Glasses of Wine (5oz) per week Comment: occasionally Drug use: No Review of Symptoms REVIEW OF SYSTEMS GENERAL: No weight loss, malaise or fevers RESPIRATORY: Negative for cough, hemoptysis, wheezing, COPD, dyspnea or shortness of breath CARDIOVASCULAR: Negative for chest pain, leg swelling, hypertension, CHF or palpitations GI: No nausea, vomiting, or diarrhea EXAM: BP 140/78 Pulse 64 Resp 16 SpO2 96% General Appearance: Well appearing, alert, in no acute distress, well-hydrated, well nourished.. Skin: Skin color, texture, turgor normal, no suspicious rashes or lesions. Lungs: Lungs clear to auscultation. No wheezing, rhonchi, rales.. Heart: RRR without murmur, gallop, or rubs. No ectopy. Extremities: Trace edema of feet bilaterally. No leg swelling, joint pain, erythema, bruising. Health Maintenance List SPIROMETRY Never done ADVANCE DIRECTIVE DISCUSSION Never done DEPRESSION ASSESSMENT due on 03/07/2022 DIABETES SCREEN due on 03/03/2025 DTAP,TDAP,TD(4 - Td or Tdap) due on 07/14/2027 INFLUENZA Completed SHINGRIX VACCINE Completed COVID-19 VACCINE Completed PNEUMOCOCCAL: 65+ Completed Data reviewed Component Latest Ref Rng & Units 01/22/2022 02/01/2022 02/16/2022 03/03/2022 WBC 3.70 - 11.00 k/uL 6.10 RBC 4.20 - 6.00 m/uL 5.46 Hemoglobin 13.0 - 17.0 g/dL 17.5 (H) Hematocrit 39.0 - 51.0 % 53.4 (H) MCV 80.0 - 100.0 fL 97.8 MCH 26.0 - 34.0 pg 32.1 MCHC 30.5 - 36.0 g/dL 32.8 RDW-CV 11.5 - 15.0 % 12.7 Platelet Count 150 - 400 k/uL 238 MPV 9.0 - 12.7 fL 11.8 Neut% % 65.6 Abs Neut (ANC) 1.45 - 7.50 k/uL 4.00 Lymph% % 20.5 Abs Lymph 1.00 - 4.00 k/uL 1.25 [place]% % 10.8 Abs [place] <0.87 k/uL 0.66 Eosin% % 2.6 Abs Eosin <0.46 k/uL 0.16 Baso% % 0.3 Abs Baso <0.11 k/uL <0.03 Immature Gran % % 0.2 IMMATURE GRANS (ABS) <0.10 k/uL <0.03 NRBC /100 WBC 0.0 Absolute nRBC <0.01 k/uL <0.01 DTYPE Auto Protein, Total 6.3 - 8.0 g/dL 6.7 6.4 7.1 Albumin 3.9 - 4.9 g/dL 4.3 4.1 4.3 Calcium 8.5 - 10.2 mg/dL 9.0 9.2 9.3 Bilirubin, Total 0.2 - 1.3 mg/dL 0.6 0.4 0.7 Alkaline Phosphatase 38 - 113 U/L 75 79 96 AST 14 - 40 U/L 31 27 28 ALT 10 - 54 U/L 29 23 24 Glucose 74 - 99 mg/dL 108 (H) 98 99 BUN 9 - 24 mg/dL 16 14 12 Creatinine 0.73 - 1.22 mg/dL 1.12 1.02 0.86 Sodium 136 - 144 mmol/L 136 134 (L) 137 Potassium 3.7 - 5.1 mmol/L 5.3 (H) 5.8 (H) 4.4 4.7 Chloride 97 - 105 mmol/L 102 96 (L) 101 CO2 22 - 30 mmol/L 26 26 28 Anion Gap 9 - 18 mmol/L 8 (L) 12 8 (L) eGFR >=60 mL/min/1.73m 64 72 85 ASSESSMENT/PLAN: 1. Bilateral swelling of feet - ICD9: 729.81, ICD10: M79.89 (primary diagnosis) May be 2/2 amlodipine. Discontinue and start on losartan instead. F/u in 4 weeks to check swelling and BP 2. Essential hypertension - ICD9: 401.9, ICD10: I10 See above. - COMP METABOLIC PANEL - CBC + DIFF - LIPID PANEL, NONFASTING 3. Mixed hyperlipidemia - ICD9: 272.2, ICD10: E78.2 - to be determined upon return of lab results - Continue current medication. - Encouraged following a low fat, low cholesterol diet. - Discussed the benefits of regular aerobic exercise and weight loss. Eladio Chávez MD documented in this encounter [facility] 05-11-2022 Miscellaneous Notes Patient phones requesting refills as follows: Requested Prescriptions Pending Prescriptions Disp Refills amLODIPine (NORVASC) 5 mg tablet 90 tablet 0 Sig: Take 1 tablet by mouth once daily. PRATIMA 02/16/22 NOV 08/04/22 Please review and advise. Ruba Limon LPN documented in this encounter [facility] 04-05-2022 Miscellaneous Notes Patient notified. Mary Hendrix LPN Saw patient in the hallway who stated his Primidone rx had been cancelled and needed new rx. Sent as requested to his pharmacy. documented in this encounter [facility] 02-18-2022 Miscellaneous Notes Reviewed. TC to patient, made aware of results and med changes below. Voices understanding and is agreeable. Has BP cuff at home and will call in with readings in 2 weeks. Mary Hendrix LPN Potassium level has improved on HCTZ, but now his sodium level is very slightly low. His HCTZ can cause low sodium. Will change him to 5 mg of amlodipine daily instead. This will not effect his potassium or sodium. Will recheck labs in 2 weeks. If he has BP cuff at home, can call in readings in 2 weeks, otherwise would have him schedule NV. documented in this encounter [facility] 02-16-2022 Instructions Natalie Mendez APRN.SWETA - 02/16/2022 1:10 PM EST Follow-up as scheduled documented in this encounter [facility] 02-16-2022 History of Presen t illness Narrative 02/16/2022 Patient presents with: Blood Pressure: Follow up SUBJECTIVE: This is a 86 year old that is here today for Above Complaints. Recently switched from lisinopril to HCTZ due to elevated potassium. Taking and tolerating without side effects. Taking BP a few times a day with readings 120-130's/70-80's. Denies headaches, lightheadedness, dizziness, visual changes, slurred speech, extremity numbness, tingling, weakness, SOB, dyspnea, or chest pain PAST MEDICAL HISTORY Diagnosis Date Acute, but ill-defined, cerebrovascular disease possible TIA Asthma Hernández's esophagus EGD negative for Barretts 07/2017. Diverticulosis of colon (without mention of hemorrhage) Diverticulosis Erectile dysfunction Family history of malignant neoplasm of gastrointestinal tract Glaucoma Dr. Rivera and Francisco Hydrocele of testis Macular degeneration, wet (HCC) left Nocturia Occasional tremors Other and unspecified hyperlipidemia Other psoriasis and similar disorders Psoriasis PAC (premature atrial contraction) Personal history of colonic polyps Colon polyps Skin cancer of scalp melanoma? Seen at [facility] Unspecified essential hypertension ALLERGIES Patient has no known allergies. MEDICATIONS Current Outpatient Medications Medication Sig hydroCHLOROthiazide (HYDRODIURIL, ESIDRIX) 25 mg tablet Take 1 tablet by mouth once daily. primidone (MYSOLINE) 50 mg tablet Take 3 tablets by mouth once daily. simvastatin (ZOCOR) 20 mg tablet Take 1 tablet by mouth daily at bedtime. albuterol HFA (PROAIR HFA) 90 mcg/actuation inhaler Inhale 2 Puffs as instructed four times daily as needed. Miscellaneous Medical Supply (BLOOD PRESSURE CUFF) 1 Each as needed. Automatic BP cuff to be used as directed to monitor hypertension. Diflorasone Diacetate 0.05 % ointment Apply to affected area twice daily as needed. Szdkjfrkqtyqe-Raotpgoa-Gfoyfd (CENTRUM SILVER) tab Take 1 tablet by mouth once daily. psyllium seed/sucrose(METAMUCIL ORAL POWDER) one teaspoon daily timolol (TIMOPTIC) 0.5 % OPHTHALMIC Drop one drop twice daily each eye XALATAN 0.005 % EYE DROPS One gtt each eye daily. FOLIC ACID 1 MG TAB Take one(1) tablet daily. (Patient not taking: ) No current facility-administered medications for this visit. Medications and allergies reviewed by this provider. SOCIAL HISTORY Social History Tobacco Use Smoking status: Never Smokeless tobacco: Never Substance Use Topics Alcohol use: Yes Alcohol/week: 2.5 standard drinks Types: 1 Glasses of Wine (5oz) per week Comment: occasionally Drug use: No REVIEW OF SYSTEMS All other reviewed and negative other than HPI. OBJECTIVE: BP 138/84 Pulse 64 Resp 18 Wt 78.4 kg (172 lb 12.8 oz) SpO2 97% BMI 27.06 kg/m . Vital signs reviewed by this provider. APPEARANCE Well appearing, alert, in no acute distress, well-hydrated, well nourished. EYES conjunctiva and sclera normal. HEART RRR with normal S1 and S2, no murmurs, no gallops, no JVD appreciated LUNG clear to auscultation. No wheezes, rhonchi, or rales SKIN Skin color, texture, turgor normal, no suspicious rashes or lesions to exposed skin SPIROMETRY Never done ADVANCE DIRECTIVE DISCUSSION Never done DIABETES SCREEN due on 01/22/2025 DTAP,TDAP,TD(4 - Td or Tdap) due on 07/14/2027 INFLUENZA Completed DEPRESSION ASSESSMENT Completed SHINGRIX VACCINE Completed COVID-19 VACCINE Completed PNEUMOCOCCAL: 65+ Completed ASSESSMENT/PLAN: 1. Essential hypertension - ICD9: 401.9, ICD10: I10 (primary diagnosis) - good control - Continue current medication(s) - Encouraged dietary sodium restriction/DASH diet - Recommended regular aerobic exercise. - Recommend home blood pressure monitoring, to bring results in on next visit - follow-up as scheduled in July, sooner if needed - Goal of BP <140/90 - Recommend home or pharmacy blood pressure monitoring - Recommended no refined sugar, low refined starch, healthy oil intake (olive oil), healthy protein (fish) along the lines of the Mediterranean diet. 2. Hyperkalemia - ICD9: 276.7, ICD10: E87.5 - POTASSIUM BLD Natalie Mendez APRN.CNP Prescription instructions reviewed with patient as applicable. Patient advised if symptoms do not improve or if symptoms worsen sooner, to contact their primary care physician. Potential red flag symptoms discussed with the patient. Reviewed appropriate action plan to take if red flag symptoms occur. Patient agreeable to treatment plan. I spent a total of 22 minutes on the date of the service which included preparing to see the patient, [id number] patient care, completing clinical documentation, obtaining and/or reviewing separately obtained history, performing a medically appropriate examination, counseling and educating the patient/family/caregiver, and ordering medications, tests, or procedures. documented in this encounter [facility] 02-02-2022 Miscellaneous Notes Rx sent to pharmacy. From message below prescription was to be sent to [facility]. Please review. Becky Gilliam LPN Patient telephoned and given message below. Voices understanding. Please send new prescription to [facility] pharmacy. Appointment scheduled for 02/16/2022. Mary Hendrix LPN Patient's repeat potassium increased from 5.3 to 5.8. This may be related to his use of Lisinopril. Will discontinue this medication and start him on HCTZ 25 mg daily instead. This is a water pill and can help to lower BP and lower potassium. Recommend repeat CMP in 5-7 days and BP check in 2 weeks. Go to ER with red flag symptoms including: chest pain, palpitations, lightheadedness/dizziness, dehydration, or passing out. documented in this encounter [facility] 02-01-2022 History of Presen t illness Narrative Chief Complaint Patient presents with: Follow Up: 6 month- reports BP 126/62 this am at home. Patient reports medication doesn't seem to be helping lately. HPI Cristine Mena is a 86 year old male who presents here today for Above Complaints.. Patient states that his primidone has not had much effect on 100 mg daily dosage. Has trouble with eating and writing still. Would like to try higher dosage. Denies side effects. HTN: Mr. Mena indicates that he is feeling well and denies any symptoms referable to elevated blood pressure. Specifically denies headache, chest pain, palpitations, dyspnea, and peripheral edema. Patient denies any side effects of his medication(s) and is compliant with their regimen. He does check BP's away from this office with average BP's in the 110-130/60's range. Cristine works out regularly 6-7 times per week with walking. He watches his diet for sodium, low fat and low cholesterol some of the time. Last 3 Encounter BP Readings: Date: BP: 02/01/2022 138/78 07/24/2021 124/80 12/24/2020 128/84 Taking statin on a daily basis without side effects. Last cholesterol in good range. States that he is no longer taking ASA for about a year now. States that he was not getting any bleeding or bruising symptoms on the ASA. Discussed history of possible TIA. No vision changes with history of glaucoma and macular degeneration. Managed by Dr. Rivera and Francisco. Compliant with timolol and xalatan. Getting injections into right eye every 3 months. States that he cannot read out of his left eye which has not changed. Noted elevated H&H on recent labs. Only drinking 3 glasses of water per day and drinks 2 cups of coffee. PHQ-2 / Depression screen He in the past two weeks denies having felt down, depressed, hopeless or with little interest or pleasure in doing things. Requesting flu shot today. Past medical history, appointments, medications, allergies reviewed. Previous Medical History PAST MEDICAL HISTORY Diagnosis Date Acute, but ill-defined, cerebrovascular disease possible TIA Asthma Hernández's esophagus EGD negative for Barretts 07/2017. Diverticulosis of colon (without mention of hemorrhage) Diverticulosis Erectile dysfunction Family history of malignant neoplasm of gastrointestinal tract Glaucoma Dr. Rivera and Francisco Hydrocele of testis Macular degeneration, wet (HCC) left Nocturia Occasional tremors Other and unspecified hyperlipidemia Other psoriasis and similar disorders Psoriasis PAC (premature atrial contraction) Personal history of colonic polyps Colon polyps Skin cancer of scalp melanoma? Seen at [facility] Unspecified essential hypertension Previous Surgical History PAST SURGICAL HISTORY Procedure Laterality Date COLONOSCOPY FLX DX W/COLLJ SPEC WHEN PFRMD 07/24/2003 Colonoscopy COLONOSCOPY FLX DX W/COLLJ SPEC WHEN PFRMD 07/22/10 COLONOSCOPY FLX DX W/COLLJ SPEC WHEN PFRMD 09-08-12 COLONOSCOPY FLX DX W/COLLJ SPEC WHEN PFRMD 07/27/2017 Colonoscopy EGD TRANSORAL BIOPSY SINGLE/MULTIPLE 08/05/10 EGD W/O BRSH SPECIMEN W/BX 08-20-14 repeat in 5 years ESOPHAGOGASTRODUODENOSCOPY TRANSORAL DIAGNOSTIC 09/04/2003 EGD ESOPHAGOGASTRODUODENOSCOPY TRANSORAL DIAGNOSTIC 09-08-12 EGD ESOPHAGOGASTRODUODENOSCOPY TRANSORAL DIAGNOSTIC 07/27/2017 EGD PAST SURGICAL HISTORY OF 2016 MOHs procedure on scalp RMVL SEC MEMBRANOUS CTRC CORNEO-SCLL SCTJ 08/2008, right Cataract removal RPR 1ST INGUN HRNA AGE 6 YRS/> REDUCIBLE right and left Hernia repair, inguinal TONSILLECTOMY PRIMARY/SECONDARY <AGE 13 Tonsillectomy XCAPSL CTRC RMVL INSJ IO LENS PROSTH W/O ECP left Cataract Removal Family History FAMILY HISTORY Problem Relation Age of Onset other (gallbladder) Mother Cancer Father rectal cancer, mi Cancer Brother prostate cancer Pancreatic Cancer Brother Heart Brother mi Patient Allergies ALLERGIES No Known Allergies Current Medications Current Outpatient Medications on File Prior to Visit Medication Sig primidone (MYSOLINE) 50 mg tablet Take 2 tablets by mouth once daily. simvastatin (ZOCOR) 20 mg tablet Take 1 tablet by mouth daily at bedtime. Bdlhybtybtfpy-Rvefsbbi-Ikrbua (CENTRUM SILVER) tab Take 1 tablet by mouth once daily. psyllium seed/sucrose(METAMUCIL ORAL POWDER) one teaspoon daily timolol (TIMOPTIC) 0.5 % OPHTHALMIC Drop one drop twice daily each eye XALATAN 0.005 % EYE DROPS One gtt each eye daily. lisinopril (ZESTRIL, PRINIVIL) 40 mg tablet Take 1 tablet by mouth once daily. albuterol HFA (PROAIR HFA) 90 mcg/actuation inhaler Inhale 2 Puffs as instructed four times daily as needed. Miscellaneous Medical Supply (BLOOD PRESSURE CUFF) 1 Each as needed. Automatic BP cuff to be used as directed to monitor hypertension. Diflorasone Diacetate 0.05 % ointment Apply to affected area twice daily as needed. FOLIC ACID 1 MG TAB Take one(1) tablet daily. (Patient not taking: ) No current facility-administered medications on file prior to visit. Social History Social History Tobacco Use Smoking status: Never Smokeless tobacco: Never Substance Use Topics Alcohol use: Yes Alcohol/week: 2.5 standard drinks Types: 1 Glasses of Wine (5oz) per week Comment: occasionally Drug use: No Review of Symptoms REVIEW OF SYSTEMS GENERAL: No weight loss, malaise or fevers RESPIRATORY: Negative for cough, hemoptysis, wheezing, COPD, dyspnea or shortness of breath CARDIOVASCULAR: Negative for chest pain, leg swelling, hypertension, CHF or palpitations GI: No nausea, vomiting, or diarrhea SKIN: Negative for lesions, rash, and itching EXAM: BP 138/78 Pulse 89 Resp 18 Wt 79.4 kg (175 lb) SpO2 93% BMI 27.41 kg/m General Appearance: Well appearing, alert, in no acute distress, well-hydrated, well nourished.. Skin: Skin color, texture, turgor normal, no suspicious rashes or lesions. Lungs: Lungs clear to auscultation. No wheezing, rhonchi, rales.. Heart: RRR without murmur, gallop, or rubs. No ectopy. Abdomen: Normal abdominal exam, Abdomen soft, non-tender. Bowel sounds normal. No masses, organomegaly. Extremities: No deformities, edema, skin discoloration, clubbing or cyanosis. Good capillary refill. . Neurologic: Poorly controlled essential tremor with outstretched hands. Health Maintenance List SPIROMETRY Never done ADVANCE DIRECTIVE DISCUSSION Never done DEPRESSION ASSESSMENT Never done COVID-19 VACCINE(5 - Booster for Moderna series) due on 09/19/2021 INFLUENZA(1) due on 11/05/2021 DIABETES SCREEN due on 01/22/2025 DTAP,TDAP,TD(4 - Td or Tdap) due on 07/14/2027 SHINGRIX VACCINE Completed PNEUMOCOCCAL: 65+ Completed Data reviewed Component Latest Ref Rng & Units 07/13/2021 07/17/2021 01/22/2022 WBC 3.70 - 11.00 k/uL 5.85 6.10 RBC 4.20 - 6.00 m/uL 5.39 5.46 Hemoglobin 13.0 - 17.0 g/dL 17.1 (H) 17.5 (H) Hematocrit 39.0 - 51.0 % 52.4 (H) 53.4 (H) MCV 80.0 - 100.0 fL 97.2 97.8 MCH 26.0 - 34.0 pg 31.7 32.1 MCHC 30.5 - 36.0 g/dL 32.6 32.8 RDW-CV 11.5 - 15.0 % 12.8 12.7 Platelet Count 150 - 400 k/uL 236 238 MPV 9.0 - 12.7 fL 11.1 11.8 Neut% % 65.6 Abs Neut (ANC) 1.45 - 7.50 k/uL 4.00 Lymph% % 20.5 Abs Lymph 1.00 - 4.00 k/uL 1.25 [place]% % 10.8 Abs [place] <0.87 k/uL 0.66 Eosin% % 2.6 Abs Eosin <0.46 k/uL 0.16 Baso% % 0.3 Abs Baso <0.11 k/uL <0.03 Immature Gran % % 0.2 IMMATURE GRANS (ABS) <0.10 k/uL <0.03 NRBC /100 WBC 0.0 Absolute nRBC <0.01 k/uL <0.01 <0.01 DTYPE Auto Protein, Total 6.3 - 8.0 g/dL 6.8 6.7 Albumin 3.9 - 4.9 g/dL 4.2 4.3 Calcium 8.5 - 10.2 mg/dL 9.3 9.0 Bilirubin, Total 0.2 - 1.3 mg/dL 0.7 0.6 Alkaline Phosphatase 38 - 113 U/L 77 75 AST 14 - 40 U/L 26 31 ALT 10 - 54 U/L 26 29 Glucose 74 - 99 mg/dL 107 (H) 108 (H) BUN 9 - 24 mg/dL 13 16 Creatinine 0.73 - 1.22 mg/dL 1.02 1.12 Sodium 136 - 144 mmol/L 137 136 Potassium 3.7 - 5.1 mmol/L 5.5 (H) 4.8 5.3 (H) Chloride 97 - 105 mmol/L 100 102 CO2 22 - 30 mmol/L 29 26 Anion Gap 9 - 18 mmol/L 8 (L) 8 (L) eGFR >=60 mL/min/1.73m 72 64 Total Cholesterol, Nonfasting <200 mg/dL 152 Triglycerides, Nonfasting <150 mg/dL 132 HDL Cholesterol, Nonfasting >39 mg/dL 42 LDL Cholesterol, Nonfasting <100 mg/dL 84 Non HDL Cholesterol, Nonfasting <130 mg/dL 110 VLDL Cholesterol, Nonfasting <30 mg/dL 26 Total Chol/HDL Ratio, Nonfasting <5.10 mg/dL 3.62 LDL/HDL Ratio, Nonfasting <2.54 mg/dL 2.00 ASSESSMENT/PLAN: 1. Essential tremor - ICD9: 333.1, ICD10: G25.0 (primary diagnosis) Uncontrolled. Increase primidone to 150 mg daily and have patient call in 1-2 weeks if not improving. Red flags for re-assessment reviewed with patient in detail. - PRIMIDONE 50 MG TABLET 2. Essential hypertension - ICD9: 401.9, ICD10: I10 - good control - Continue current medication(s) - Encouraged dietary sodium restriction/DASH diet - Recommended regular aerobic exercise. - Reviewed risks of HTN and principles of treatment - Goal of BP <140/90 - LISINOPRIL 40 MG TABLET 3. Hyperkalemia - ICD9: 276.7, ICD10: E87.5 recheck - POTASSIUM BLD 4. History of TIA (transient ischemic attack) - ICD9: V12.54, ICD10: Z86.73 No evidence of recurrence. Discussed restarting ASA for secondary stroke prevention. Continue BP control and statin. 5. Exudative age-related macular degeneration, unspecified laterality, unspecified stage (HCC) - ICD9: 362.52, ICD10: H35.3290 No change in symptoms. Managed by optho. Will obtain records and f/u their recommendations. 6. Other glaucoma of both eyes - ICD9: 365.89, ICD10: H40.89 No change in vision. Managed by optho. Will obtain records and f/u their recommendations. 7. PSORIASIS - ICD9: 696.1, ICD10: L40.8 No new rash. Discussed skin care. 8. Mixed hyperlipidemia - ICD9: 272.2, ICD10: E78.2 - good control - Continue current medication. - Encouraged following a low fat, low cholesterol diet. - Discussed the benefits of regular aerobic exercise and weight loss. 9. Elevated hemoglobin (HCC) - ICD9: 282.7, ICD10: D58.2 Suspect this is 2/2 dehydration. Encouraged him to increase water intake and will recheck in 6 months. 10. Need for influenza vaccination - ICD9: V04.81, ICD10: Z23 - INFLUENZA SEASONAL QUADRIVALENT HIGH DOSE AGE 65+ Eladio Chávez MD documented in this encounter [facility] 01-15-2022 Miscellaneous Notes Patient in this day requesting a 30 day refill be sent to [facility] [place]. Patient phones requesting refills as follows: Requested Prescriptions Pending Prescriptions Disp Refills primidone (MYSOLINE) 50 mg tablet 180 tablet 1 Sig: Take 2 tablets by mouth once daily. Please review and advise. Mary Hendrix LPN documented in this encounter [facility] 01-04-2022 Miscellaneous Notes Pt notified, verbalized understanding. Jennifer Camejo Ma Labs ordered to be completed prior to upcoming OV documented in this encounter [facility] 07-24-2021 History of Presen t illness Narrative Chief Complaint Patient presents with: Follow Up: 6 month primidone: wonders if something else he can take HPI Cristine Mena is a 86 year old male who presents here today for 6 month follow up. Has been in good health without hospitalizations or ER visits. No recent falls. Asthma well controlled. Uses albuterol at most once every 2 months. His inhaler has and he needs a refill. BP well controlled on current regimen. Occasionally getting reading high readings at home, but improves on recheck when resting. Denies hypertensive symptoms. Patient states that he has not had much change in his essential tremor since last OV. Did not try going without his medication as discussed at last OV. States that he would like to cut down to 1 pill daily and see if symptoms worsen. If no change, would have him come off of the medication and try alternative. No change in vision with glaucoma and left wet macular degeneration. Following up with Dr. Rivera every 6 months. Compliant with timolol and xalatan. Had injection in his right eye at his last appointment. States that he cannot read out of his left eye which has not changed. Denies Psoriasis rash today. Following up with [facility] Villanueva in [place], but has been more than a year since his last OV. Discussed 2nd COVID booster. States that he has not had any problems with the Moderna vaccine and will follow up with his pharmacy. Past medical history, appointments, medications, allergies reviewed. Previous Medical History PAST MEDICAL HISTORY Diagnosis Date Acute, but ill-defined, cerebrovascular disease possible TIA Asthma Hernández's esophagus EGD negative for Barretts 07/2017. Diverticulosis of colon (without mention of hemorrhage) Diverticulosis Erectile dysfunction Family history of malignant neoplasm of gastrointestinal tract Glaucoma Dr. Rivera and Francisco Hydrocele of testis Macular degeneration, wet (HCC) left Nocturia Occasional tremors Other and unspecified hyperlipidemia Other psoriasis and similar disorders Psoriasis PAC (premature atrial contraction) Personal history of colonic polyps Colon polyps Skin cancer of scalp melanoma? Seen at [facility] Unspecified essential hypertension Previous Surgical History PAST SURGICAL HISTORY Procedure Laterality Date COLONOSCOPY FLX DX W/COLLJ SPEC WHEN PFRMD 07/24/2003 Colonoscopy COLONOSCOPY FLX DX W/COLLJ SPEC WHEN PFRMD 07/22/10 COLONOSCOPY FLX DX W/COLLJ SPEC WHEN PFRMD 09-08-12 COLONOSCOPY FLX DX W/COLLJ SPEC WHEN PFRMD 07/27/2017 Colonoscopy EGD TRANSORAL BIOPSY SINGLE/MULTIPLE 08/05/10 EGD W/O BRSH SPECIMEN W/BX 08-20-14 repeat in 5 years ESOPHAGOGASTRODUODENOSCOPY TRANSORAL DIAGNOSTIC 09/04/2003 EGD ESOPHAGOGASTRODUODENOSCOPY TRANSORAL DIAGNOSTIC 09-08-12 EGD ESOPHAGOGASTRODUODENOSCOPY TRANSORAL DIAGNOSTIC 07/27/2017 EGD PAST SURGICAL HISTORY OF 2016 MOHs procedure on scalp RMVL SEC MEMBRANOUS CTRC CORNEO-SCLL SCTJ 08/2008, right Cataract removal RPR 1ST INGUN HRNA AGE 6 YRS/> REDUCIBLE right and left Hernia repair, inguinal TONSILLECTOMY PRIMARY/SECONDARY <AGE 13 Tonsillectomy XCAPSL CTRC RMVL INSJ IO LENS PROSTH W/O ECP left Cataract Removal Family History FAMILY HISTORY Problem Relation Age of Onset other (gallbladder) Mother Cancer Father rectal cancer, mi Cancer Brother prostate cancer Pancreatic Cancer Brother Heart Brother mi Patient Allergies ALLERGIES No Known Allergies Current Medications Current Outpatient Medications on File Prior to Visit Medication Sig primidone (MYSOLINE) 50 mg tablet Take 2 tablets by mouth once daily. lisinopril (ZESTRIL, PRINIVIL) 40 mg tablet Take 1 tablet by mouth once daily. simvastatin (ZOCOR) 20 mg tablet Take 1 tablet by mouth daily at bedtime. Miscellaneous Medical Supply (BLOOD PRESSURE CUFF) 1 Each as needed. Automatic BP cuff to be used as directed to monitor hypertension. fluticasone (FLONASE) 50 mcg/actuation nasal spray Use 2 Sprays in each nostril once daily. albuterol HFA (PROAIR HFA) 90 mcg/actuation inhaler Inhale 2 Puffs as instructed four times daily as needed. Diflorasone Diacetate 0.05 % ointment Apply to affected area twice daily as needed. Uqmmlklqnudni-Bjvbavsl-Vwmkna (CENTRUM SILVER) tab Take 1 tablet by mouth once daily. psyllium seed/sucrose(METAMUCIL ORAL POWDER) one teaspoon daily timolol (TIMOPTIC) 0.5 % OPHTHALMIC Drop one drop twice daily each eye XALATAN 0.005 % EYE DROPS One gtt each eye daily. FOLIC ACID 1 MG TAB Take one(1) tablet daily. (Patient not taking: ) No current facility-administered medications on file prior to visit. Social History Social History Tobacco Use Smoking status: Never Smoker Smokeless tobacco: Never Used Substance Use Topics Alcohol use: Yes Alcohol/week: 2.5 standard drinks Types: 1 Glasses of Wine (5oz) per week Comment: occasionally Drug use: No Review of Symptoms REVIEW OF SYSTEMS GENERAL: No weight loss, malaise or fevers RESPIRATORY: Negative for cough, hemoptysis, wheezing, COPD, dyspnea or shortness of breath CARDIOVASCULAR: Negative for chest pain, leg swelling, hypertension, CHF or palpitations GI: No nausea, vomiting, or diarrhea SKIN: Negative for lesions, rash, and itching EXAM: BP 124/80 Pulse (!) 57 Resp 18 Wt 79.4 kg (175 lb) SpO2 96% BMI 27.41 kg/m General Appearance: Well appearing, alert, in no acute distress, well-hydrated, well nourished.. Skin: Scattered AK on scalp and right anabaptist/cheek. No psoriasis rash on exposed skin. Lungs: Lungs clear to auscultation. No wheezing, rhonchi, rales.. Heart: RRR without murmur, gallop, or rubs. No ectopy. Abdomen: Normal abdominal exam, Abdomen soft, non-tender. Bowel sounds normal. No masses, organomegaly. Extremities: No deformities, edema, skin discoloration, clubbing or cyanosis. Good capillary refill. . Neuro: mild tremor in outstretched hands. Health Maintenance List SPIROMETRY Never done ADVANCE DIRECTIVE DISCUSSION Never done COVID-19 VACCINE(4 - Booster for Moderna series) due on 05/22/2021 DIABETES SCREEN due on 07/13/2024 DTAP,TDAP,TD(4 - Td or Tdap) due on 07/14/2027 INFLUENZA Completed PNEUMOVAX AGE 65 AND OVER WITH 5YR LOOKBACK Completed SHINGRIX VACCINE Completed MENINGOCOCCAL CONJUGATE Aged Out Data reviewed Component Latest Ref Rng & Units 01/12/2021 07/13/2021 07/17/2021 Protein, Total 6.3 - 8.0 g/dL 6.4 6.8 Albumin 3.9 - 4.9 g/dL 4.1 4.2 Calcium 8.5 - 10.2 mg/dL 9.1 9.3 Bilirubin, Total 0.2 - 1.3 mg/dL 0.7 0.7 Alkaline Phosphatase 38 - 113 U/L 89 77 AST 14 - 40 U/L 24 26 Glucose 74 - 99 mg/dL 98 107 (H) BUN 9 - 24 mg/dL 11 13 Creatinine 0.73 - 1.22 mg/dL 0.90 1.02 Sodium 136 - 144 mmol/L 136 137 Potassium 3.7 - 5.1 mmol/L 4.8 5.5 (H) 4.8 Chloride 97 - 105 mmol/L 99 100 CO2 22 - 30 mmol/L 27 29 Anion Gap 9 - 18 mmol/L 10 8 (L) ALT 10 - 54 U/L 21 26 eGFR- >60 eGFR-All Other Races . >60 eGFR >=60 mL/min/1.73m 72 WBC 3.70 - 11.00 k/uL 5.85 RBC 4.20 - 6.00 m/uL 5.39 Hemoglobin 13.0 - 17.0 g/dL 17.1 (H) Hematocrit 39.0 - 51.0 % 52.4 (H) MCV 80.0 - 100.0 fL 97.2 MCH 26.0 - 34.0 pg 31.7 MCHC 30.5 - 36.0 g/dL 32.6 RDW-CV 11.5 - 15.0 % 12.8 Platelet Count 150 - 400 k/uL 236 MPV 9.0 - 12.7 fL 11.1 Absolute nRBC <0.01 k/uL <0.01 Total Cholesterol, Nonfasting <200 mg/dL 152 Triglycerides, Nonfasting <150 mg/dL 132 HDL Cholesterol, Nonfasting >39 mg/dL 42 LDL Cholesterol, Nonfasting <100 mg/dL 84 Non HDL Cholesterol, Nonfasting <130 mg/dL 110 VLDL Cholesterol, Nonfasting <30 mg/dL 26 Total Chol/HDL Ratio, Nonfasting <5.10 mg/dL 3.62 LDL/HDL Ratio, Nonfasting <2.54 mg/dL 2.00 ASSESSMENT/PLAN: 1. Essential tremor - ICD9: 333.1, ICD10: G25.0 (primary diagnosis) Mild tremor today. Patient will cut back on medication to see if symptoms worsen. If not, will discontinue and try alternative. If symptoms do worsen, would consider increase in dosage instead. . 2. Essential hypertension - ICD9: 401.9, ICD10: I10 - good control - Continue current medication(s) - Encouraged dietary sodium restriction/DASH diet - Recommended regular aerobic exercise. - Reviewed risks of HTN and principles of treatment - Goal of BP <140/90 - LISINOPRIL 40 MG TABLET 3. Mixed hyperlipidemia - ICD9: 272.2, ICD10: E78.2 - good control - Continue current medication. - Encouraged following a low fat, low cholesterol diet. - Discussed the benefits of regular aerobic exercise and weight loss. - SIMVASTATIN 20 MG TABLET 4. Mild intermittent asthma, uncomplicated - ICD9: 493.90, ICD10: J45.20 Mild intermittent Asthma stable - Continue current meds - Avoidance of triggers recommended - ALBUTEROL SULFATE HFA 90 MCG/ACTUATION AEROSOL INHALER 5. Exudative age-related macular degeneration, unspecified laterality, unspecified stage (HCC) - ICD9: 362.52, ICD10: H35.3290 Stable Recommendations per optho. 6. 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 7. AK (actinic keratosis) - ICD9: 702.0, ICD10: L57.0 Advised patient to call for follow up appointment with dermatology for cryotherapy or topical treatment. 8. PSORIASIS - ICD9: 696.1, ICD10: L40.8 Controlled on current regimen. F/u with dermatology. documented in this encounter [facility] 07-14-2021 Miscellaneous Notes Patient notified. Mary Hendrix LPN Normal labs aside from high potassium. Recommend repeating blood work at the end of this week to rule out lab error. documented in this encounter [facility] 07-13-2021 Miscellaneous Notes Patient requesting labs before upcoming OV. documented in this encounter [facility] 07-13-2021 Miscellaneous Notes Patient has been identified by name and date of : Yes Last office visit in this department: 12/24/2020 RX INSTRUCTIONS: Patient aware RX will be sent to pharmacy. please notify patient when ready. Patient phones requesting refills as follows: Pending Prescriptions Disp Refills PRIMIDONE 50 MG TABLET 180 tablet 1 Sig: Take 2 tablets by mouth once daily. MAUREEN: No Please review and advise. Jennifer Gay Pss documented in this encounter [facility] 06-19-2012 History of Past i llness Narrative Problem Noted Date Resolved Date Other seborrheic keratosis 06/19/201202/04 Scars 11/21/2011 07/08/2016 Skin tag 09/08/2011 02/04/2014 Esophagitis, unspecified 08/05/2010 017 Contact dermatitis and other eczema, due to unspecified cause 09/16/2008 09/08/2011 INTERTRIGO///ERYTHEMATOUS COND NEC 09/16/2008 09/08/2011 ACTINIC DAMAGE///CHR SOLAR SKIN DAMAGE NOS 09/1609/08/2011 XEROSIS///SEBACEOUS GLAND DIS NEC 09/16/2008 09/08/2011 Benign neoplasm of skin of trunk, except scrotum 11/16/2007 09/08/2011 Scar condition and fibrosis of skin 11/16/2007 09/08/2011 Other seborrheic keratosis 02/14/200709/07 Mild persistent asthma without complication 03/200601/10/2017 Anal or rectal pain 01/05/2007 02/04/2014 Neoplasm of uncertain behavior of skin 7 09/08/2011 Other specified erythematous condition(695.89) 0 07/29/2006 09/16/2008 SOLAR LENTIGINES////DYSCHROMIA OTHER 07/29/2006 09/08/2011 ACTINIC KERATOSES (Premalignant AK's) 11/21/2005 02/04/2014 Viral warts, unspecified 11/21/2005 012 Other chronic dermatitis due to solar radiation 11/21/2005 09/16/2008 Hyperlipidemia 12/10/2004 01/05/2016 Other malaise and fatigue 12/10/20042013 Other psoriasis and similar disorders 02/04/2014 Overview: Psoriasis Psychosexual dysfunction, unspecified 01/10/2017 documented as of this encounter (statuses as of 07/13/2021) [facility] History of Past illness Narrative* Problem Noted Date Resolved Date Other seborrheic keratosis 06/19/201202/04 Scars 11/21/2011 07/08/2016 Skin tag 09/08/2011 02/04/2014 Esophagitis, unspecified 08/05/2010 017 Contact dermatitis and other eczema, due to unspecified cause 09/16/2008 09/08/2011 INTERTRIGO///ERYTHEMATOUS COND NEC 09/16/2008 09/08/2011 ACTINIC DAMAGE///CHR SOLAR SKIN DAMAGE NOS 09/1609/08/2011 XEROSIS///SEBACEOUS GLAND DIS NEC 09/16/2008 09/08/2011 Benign neoplasm of skin of trunk, except scrotum 11/16/2007 09/08/2011 Scar condition and fibrosis of skin 11/16/2007 09/08/2011 Other seborrheic keratosis 02/14/200709/07 Mild persistent asthma without complication 03/200601/10/2017 Anal or rectal pain 01/05/2007 02/04/2014 Neoplasm of uncertain behavior of skin 7 09/08/2011 Other specified erythematous condition(695.89) 0 07/29/2006 09/16/2008 SOLAR LENTIGINES////DYSCHROMIA OTHER 07/29/2006 09/08/2011 ACTINIC KERATOSES (Premalignant AK's) 11/21/2005 02/04/2014 Viral warts, unspecified 11/21/2005 012 Other chronic dermatitis due to solar radiation 11/21/2005 09/16/2008 Hyperlipidemia 12/10/2004 01/05/2016 Other malaise and fatigue 12/10/20042013 Other psoriasis and similar disorders 02/04/2014 Overview: Psoriasis Psychosexual dysfunction, unspecified 01/10/2017 documented as of this encounter (statuses as of 07/13/2021) [facility] History of Past illness Narrative* Problem Noted Date Resolved Date Other seborrheic keratosis 06/19/201202/04 Scars 11/21/2011 07/08/2016 Skin tag 09/08/2011 02/04/2014 Esophagitis, unspecified 08/05/2010 017 Contact dermatitis and other eczema, due to unspecified cause 09/16/2008 09/08/2011 INTERTRIGO///ERYTHEMATOUS COND NEC 09/16/2008 09/08/2011 ACTINIC DAMAGE///CHR SOLAR SKIN DAMAGE NOS 09/1609/08/2011 XEROSIS///SEBACEOUS GLAND DIS NEC 09/16/2008 09/08/2011 Benign neoplasm of skin of trunk, except scrotum 11/16/2007 09/08/2011 Scar condition and fibrosis of skin 11/16/2007 09/08/2011 Other seborrheic keratosis 02/14/200709/07 Mild persistent asthma without complication 03/200601/10/2017 Anal or rectal pain 01/05/2007 02/04/2014 Neoplasm of uncertain behavior of skin 7 09/08/2011 Other specified erythematous condition(695.89) 0 07/29/2006 09/16/2008 SOLAR LENTIGINES////DYSCHROMIA OTHER 07/29/2006 09/08/2011 ACTINIC KERATOSES (Premalignant AK's) 11/21/2005 02/04/2014 Viral warts, unspecified 11/21/2005 012 Other chronic dermatitis due to solar radiation 11/21/2005 09/16/2008 Hyperlipidemia 12/10/2004 01/05/2016 Other malaise and fatigue 12/10/20042013 Other psoriasis and similar disorders 02/04/2014 Overview: Psoriasis Psychosexual dysfunction, unspecified 01/10/2017 documented as of this encounter (statuses as of 07/29/2021) [facility] History of Past illness Narrative* Problem Noted Date Resolved Date Other seborrheic keratosis 06/19/201202/04 Scars 11/21/2011 07/08/2016 Skin tag 09/08/2011 02/04/2014 Esophagitis, unspecified 08/05/2010 017 Contact dermatitis and other eczema, due to unspecified cause 09/16/2008 09/08/2011 INTERTRIGO///ERYTHEMATOUS COND NEC 09/16/2008 09/08/2011 ACTINIC DAMAGE///CHR SOLAR SKIN DAMAGE NOS 09/1609/08/2011 XEROSIS///SEBACEOUS GLAND DIS NEC 09/16/2008 09/08/2011 Benign neoplasm of skin of trunk, except scrotum 11/16/2007 09/08/2011 Scar condition and fibrosis of skin 11/16/2007 09/08/2011 Other seborrheic keratosis 02/14/200709/07 Mild persistent asthma without complication 03/200601/10/2017 Anal or rectal pain 01/05/2007 02/04/2014 Neoplasm of uncertain behavior of skin 7 09/08/2011 Other specified erythematous condition(695.89) 0 07/29/2006 09/16/2008 SOLAR LENTIGINES////DYSCHROMIA OTHER 07/29/2006 09/08/2011 ACTINIC KERATOSES (Premalignant AK's) 11/21/2005 02/04/2014 Viral warts, unspecified 11/21/2005 012 Other chronic dermatitis due to solar radiation 11/21/2005 09/16/2008 Hyperlipidemia 12/10/2004 01/05/2016 Other malaise and fatigue 12/10/20042013 Other psoriasis and similar disorders 02/04/2014 Overview: Psoriasis Psychosexual dysfunction, unspecified 01/10/2017 documented as of this encounter (statuses as of 09/24/2021) [facility] History of Past illness Narrative* Problem Noted Date Resolved Date Other seborrheic keratosis 06/19/201202/04 Scars 11/21/2011 07/08/2016 Skin tag 09/08/2011 02/04/2014 Esophagitis, unspecified 08/05/2010 017 Contact dermatitis and other eczema, due to unspecified cause 09/16/2008 09/08/2011 INTERTRIGO///ERYTHEMATOUS COND NEC 09/16/2008 09/08/2011 ACTINIC DAMAGE///CHR SOLAR SKIN DAMAGE NOS 09/1609/08/2011 XEROSIS///SEBACEOUS GLAND DIS NEC 09/16/2008 09/08/2011 Benign neoplasm of skin of trunk, except scrotum 11/16/2007 09/08/2011 Scar condition and fibrosis of skin 11/16/2007 09/08/2011 Other seborrheic keratosis 02/14/200709/07 Mild persistent asthma without complication 03/200601/10/2017 Anal or rectal pain 01/05/2007 02/04/2014 Neoplasm of uncertain behavior of skin 7 09/08/2011 Other specified erythematous condition(695.89) 0 07/29/2006 09/16/2008 SOLAR LENTIGINES////DYSCHROMIA OTHER 07/29/2006 09/08/2011 ACTINIC KERATOSES (Premalignant AK's) 11/21/2005 02/04/2014 Viral warts, unspecified 11/21/2005 012 Other chronic dermatitis due to solar radiation 11/21/2005 09/16/2008 Hyperlipidemia 12/10/2004 01/05/2016 Other malaise and fatigue 12/10/20042013 Other psoriasis and similar disorders 02/04/2014 Overview: Psoriasis Psychosexual dysfunction, unspecified 01/10/2017 documented as of this encounter (statuses as of 01/04/2022) [facility] History of Past illness Narrative* Problem Noted Date Resolved Date Other seborrheic keratosis 06/19/201202/04 Scars 11/21/2011 07/08/2016 Skin tag 09/08/2011 02/04/2014 Esophagitis, unspecified 08/05/2010 017 Contact dermatitis and other eczema, due to unspecified cause 09/16/2008 09/08/2011 INTERTRIGO///ERYTHEMATOUS COND NEC 09/16/2008 09/08/2011 ACTINIC DAMAGE///CHR SOLAR SKIN DAMAGE NOS 09/1609/08/2011 XEROSIS///SEBACEOUS GLAND DIS NEC 09/16/2008 09/08/2011 Benign neoplasm of skin of trunk, except scrotum 11/16/2007 09/08/2011 Scar condition and fibrosis of skin 11/16/2007 09/08/2011 Other seborrheic keratosis 02/14/200709/07 Mild persistent asthma without complication 03/200601/10/2017 Anal or rectal pain 01/05/2007 02/04/2014 Neoplasm of uncertain behavior of skin 7 09/08/2011 Other specified erythematous condition(695.89) 0 07/29/2006 09/16/2008 SOLAR LENTIGINES////DYSCHROMIA OTHER 07/29/2006 09/08/2011 ACTINIC KERATOSES (Premalignant AK's) 11/21/2005 02/04/2014 Viral warts, unspecified 11/21/2005 012 Other chronic dermatitis due to solar radiation 11/21/2005 09/16/2008 Hyperlipidemia 12/10/2004 01/05/2016 Other malaise and fatigue 12/10/20042013 Other psoriasis and similar disorders 02/04/2014 Overview: Psoriasis Psychosexual dysfunction, unspecified 01/10/2017 documented as of this encounter (statuses as of 01/15/2022) [facility] History of Past illness Narrative* Problem Noted Date Resolved Date Other seborrheic keratosis 06/19/201202/04 Scars 11/21/2011 07/08/2016 Skin tag 09/08/2011 02/04/2014 Esophagitis, unspecified 08/05/2010 017 Contact dermatitis and other eczema, due to unspecified cause 09/16/2008 09/08/2011 INTERTRIGO///ERYTHEMATOUS COND NEC 09/16/2008 09/08/2011 ACTINIC DAMAGE///CHR SOLAR SKIN DAMAGE NOS 09/1609/08/2011 XEROSIS///SEBACEOUS GLAND DIS NEC 09/16/2008 09/08/2011 Benign neoplasm of skin of trunk, except scrotum 11/16/2007 09/08/2011 Scar condition and fibrosis of skin 11/16/2007 09/08/2011 Other seborrheic keratosis 02/14/200709/07 Mild persistent asthma without complication 03/200601/10/2017 Anal or rectal pain 01/05/2007 02/04/2014 Neoplasm of uncertain behavior of skin 7 09/08/2011 Other specified erythematous condition(695.89) 0 07/29/2006 09/16/2008 SOLAR LENTIGINES////DYSCHROMIA OTHER 07/29/2006 09/08/2011 ACTINIC KERATOSES (Premalignant AK's) 11/21/2005 02/04/2014 Viral warts, unspecified 11/21/2005 012 Other chronic dermatitis due to solar radiation 11/21/2005 09/16/2008 Hyperlipidemia 12/10/2004 01/05/2016 Other malaise and fatigue 12/10/20042013 Other psoriasis and similar disorders 02/04/2014 Overview: Psoriasis Psychosexual dysfunction, unspecified 01/10/2017 documented as of this encounter (statuses as of 02/01/2022) [facility] History of Past illness Narrative* Problem Noted Date Resolved Date Other seborrheic keratosis 06/19/201202/04 Scars 11/21/2011 07/08/2016 Skin tag 09/08/2011 02/04/2014 Esophagitis, unspecified 08/05/2010 017 Contact dermatitis and other eczema, due to unspecified cause 09/16/2008 09/08/2011 INTERTRIGO///ERYTHEMATOUS COND NEC 09/16/2008 09/08/2011 ACTINIC DAMAGE///CHR SOLAR SKIN DAMAGE NOS 09/1609/08/2011 XEROSIS///SEBACEOUS GLAND DIS NEC 09/16/2008 09/08/2011 Benign neoplasm of skin of trunk, except scrotum 11/16/2007 09/08/2011 Scar condition and fibrosis of skin 11/16/2007 09/08/2011 Other seborrheic keratosis 02/14/200709/07 Mild persistent asthma without complication 03/200601/10/2017 Anal or rectal pain 01/05/2007 02/04/2014 Neoplasm of uncertain behavior of skin 7 09/08/2011 Other specified erythematous condition(695.89) 0 07/29/2006 09/16/2008 SOLAR LENTIGINES////DYSCHROMIA OTHER 07/29/2006 09/08/2011 ACTINIC KERATOSES (Premalignant AK's) 11/21/2005 02/04/2014 Viral warts, unspecified 11/21/2005 012 Other chronic dermatitis due to solar radiation 11/21/2005 09/16/2008 Hyperlipidemia 12/10/2004 01/05/2016 Other malaise and fatigue 12/10/20042013 Other psoriasis and similar disorders 02/04/2014 Overview: Psoriasis Psychosexual dysfunction, unspecified 01/10/2017 documented as of this encounter (statuses as of 02/02/2022) [facility] History of Past illness Narrative* Problem Noted Date Resolved Date Other seborrheic keratosis 06/19/201202/04 Scars 11/21/2011 07/08/2016 Skin tag 09/08/2011 02/04/2014 Esophagitis, unspecified 08/05/2010 017 Contact dermatitis and other eczema, due to unspecified cause 09/16/2008 09/08/2011 INTERTRIGO///ERYTHEMATOUS COND NEC 09/16/2008 09/08/2011 ACTINIC DAMAGE///CHR SOLAR SKIN DAMAGE NOS 09/1609/08/2011 XEROSIS///SEBACEOUS GLAND DIS NEC 09/16/2008 09/08/2011 Benign neoplasm of skin of trunk, except scrotum 11/16/2007 09/08/2011 Scar condition and fibrosis of skin 11/16/2007 09/08/2011 Other seborrheic keratosis 02/14/200709/07 Mild persistent asthma without complication 03/200601/10/2017 Anal or rectal pain 01/05/2007 02/04/2014 Neoplasm of uncertain behavior of skin 7 09/08/2011 Other specified erythematous condition(695.89) 0 07/29/2006 09/16/2008 SOLAR LENTIGINES////DYSCHROMIA OTHER 07/29/2006 09/08/2011 ACTINIC KERATOSES (Premalignant AK's) 11/21/2005 02/04/2014 Viral warts, unspecified 11/21/2005 012 Other chronic dermatitis due to solar radiation 11/21/2005 09/16/2008 Hyperlipidemia 12/10/2004 01/05/2016 Other malaise and fatigue 12/10/20042013 Other psoriasis and similar disorders 02/04/2014 Overview: Psoriasis Psychosexual dysfunction, unspecified 01/10/2017 documented as of this encounter (statuses as of 02/16/2022) [facility] History of Past illness Narrative* Problem Noted Date Resolved Date Other seborrheic keratosis 06/19/201202/04 Scars 11/21/2011 07/08/2016 Skin tag 09/08/2011 02/04/2014 Esophagitis, unspecified 08/05/2010 017 Contact dermatitis and other eczema, due to unspecified cause 09/16/2008 09/08/2011 INTERTRIGO///ERYTHEMATOUS COND NEC 09/16/2008 09/08/2011 ACTINIC DAMAGE///CHR SOLAR SKIN DAMAGE NOS 09/1609/08/2011 XEROSIS///SEBACEOUS GLAND DIS NEC 09/16/2008 09/08/2011 Benign neoplasm of skin of trunk, except scrotum 11/16/2007 09/08/2011 Scar condition and fibrosis of skin 11/16/2007 09/08/2011 Other seborrheic keratosis 02/14/200709/07 Mild persistent asthma without complication 03/200601/10/2017 Anal or rectal pain 01/05/2007 02/04/2014 Neoplasm of uncertain behavior of skin 7 09/08/2011 Other specified erythematous condition(695.89) 0 07/29/2006 09/16/2008 SOLAR LENTIGINES////DYSCHROMIA OTHER 07/29/2006 09/08/2011 ACTINIC KERATOSES (Premalignant AK's) 11/21/2005 02/04/2014 Viral warts, unspecified 11/21/2005 012 Other chronic dermatitis due to solar radiation 11/21/2005 09/16/2008 Hyperlipidemia 12/10/2004 01/05/2016 Other malaise and fatigue 12/10/20042013 Other psoriasis and similar disorders 02/04/2014 Overview: Psoriasis Psychosexual dysfunction, unspecified 01/10/2017 documented as of this encounter (statuses as of 04/22/2022) [facility] History of Past illness Narrative* Problem Noted Date Resolved Date Other seborrheic keratosis 06/19/201202/04 Scars 11/21/2011 07/08/2016 Skin tag 09/08/2011 02/04/2014 Esophagitis, unspecified 08/05/2010 017 Contact dermatitis and other eczema, due to unspecified cause 09/16/2008 09/08/2011 INTERTRIGO///ERYTHEMATOUS COND NEC 09/16/2008 09/08/2011 ACTINIC DAMAGE///CHR SOLAR SKIN DAMAGE NOS 09/1609/08/2011 XEROSIS///SEBACEOUS GLAND DIS NEC 09/16/2008 09/08/2011 Benign neoplasm of skin of trunk, except scrotum 11/16/2007 09/08/2011 Scar condition and fibrosis of skin 11/16/2007 09/08/2011 Other seborrheic keratosis 02/14/200709/07 Mild persistent asthma without complication 03/200601/10/2017 Anal or rectal pain 01/05/2007 02/04/2014 Neoplasm of uncertain behavior of skin 7 09/08/2011 Other specified erythematous condition(695.89) 0 07/29/2006 09/16/2008 SOLAR LENTIGINES////DYSCHROMIA OTHER 07/29/2006 09/08/2011 ACTINIC KERATOSES (Premalignant AK's) 11/21/2005 02/04/2014 Viral warts, unspecified 11/21/2005 012 Other chronic dermatitis due to solar radiation 11/21/2005 09/16/2008 Hyperlipidemia 12/10/2004 01/05/2016 Other malaise and fatigue 12/10/20042013 Other psoriasis and similar disorders 02/04/2014 Overview: Psoriasis Psychosexual dysfunction, unspecified 01/10/2017 documented as of this encounter (statuses as of 05/11/2022) [facility] History of Past illness Narrative* Problem Noted Date Resolved Date Other seborrheic keratosis 06/19/201202/04 Scars 11/21/2011 07/08/2016 Skin tag 09/08/2011 02/04/2014 Esophagitis, unspecified 08/05/2010 017 Contact dermatitis and other eczema, due to unspecified cause 09/16/2008 09/08/2011 INTERTRIGO///ERYTHEMATOUS COND NEC 09/16/2008 09/08/2011 ACTINIC DAMAGE///CHR SOLAR SKIN DAMAGE NOS 09/1609/08/2011 XEROSIS///SEBACEOUS GLAND DIS NEC 09/16/2008 09/08/2011 Benign neoplasm of skin of trunk, except scrotum 11/16/2007 09/08/2011 Scar condition and fibrosis of skin 11/16/2007 09/08/2011 Other seborrheic keratosis 02/14/200709/07 Mild persistent asthma without complication 03/200601/10/2017 Anal or rectal pain 01/05/2007 02/04/2014 Neoplasm of uncertain behavior of skin 7 09/08/2011 Other specified erythematous condition(695.89) 0 07/29/2006 09/16/2008 SOLAR LENTIGINES////DYSCHROMIA OTHER 07/29/2006 09/08/2011 ACTINIC KERATOSES (Premalignant AK's) 11/21/2005 02/04/2014 Viral warts, unspecified 11/21/2005 012 Other chronic dermatitis due to solar radiation 11/21/2005 09/16/2008 Hyperlipidemia 12/10/2004 01/05/2016 Other malaise and fatigue 12/10/20042013 Other psoriasis and similar disorders 02/04/2014 Overview: Psoriasis Psychosexual dysfunction, unspecified 01/10/2017 documented as of this encounter (statuses as of 07/10/2022) [facility] History of Past illness Narrative* Problem Noted Date Resolved Date Other seborrheic keratosis 06/19/201202/04 Scars 11/21/2011 07/08/2016 Skin tag 09/08/2011 02/04/2014 Esophagitis, unspecified 08/05/2010 017 Contact dermatitis and other eczema, due to unspecified cause 09/16/2008 09/08/2011 INTERTRIGO///ERYTHEMATOUS COND NEC 09/16/2008 09/08/2011 ACTINIC DAMAGE///CHR SOLAR SKIN DAMAGE NOS 09/1609/08/2011 XEROSIS///SEBACEOUS GLAND DIS NEC 09/16/2008 09/08/2011 Benign neoplasm of skin of trunk, except scrotum 11/16/2007 09/08/2011 Scar condition and fibrosis of skin 11/16/2007 09/08/2011 Other seborrheic keratosis 02/14/200709/07 Mild persistent asthma without complication 03/200601/10/2017 Anal or rectal pain 01/05/2007 02/04/2014 Neoplasm of uncertain behavior of skin 7 09/08/2011 Other specified erythematous condition(695.89) 0 07/29/2006 09/16/2008 SOLAR LENTIGINES////DYSCHROMIA OTHER 07/29/2006 09/08/2011 ACTINIC KERATOSES (Premalignant AK's) 11/21/2005 02/04/2014 Viral warts, unspecified 11/21/2005 012 Other chronic dermatitis due to solar radiation 11/21/2005 09/16/2008 Hyperlipidemia 12/10/2004 01/05/2016 Other malaise and fatigue 12/10/20042013 Other psoriasis and similar disorders 02/04/2014 Overview: Psoriasis Psychosexual dysfunction, unspecified 01/10/2017 documented as of this encounter (statuses as of 08/04/2022) [facility] History of Past illness Narrative* Problem Noted Date Resolved Date Other seborrheic keratosis 06/19/201202/04 Scars 11/21/2011 07/08/2016 Skin tag 09/08/2011 02/04/2014 Esophagitis, unspecified 08/05/2010 017 Contact dermatitis and other eczema, due to unspecified cause 09/16/2008 09/08/2011 INTERTRIGO///ERYTHEMATOUS COND NEC 09/16/2008 09/08/2011 ACTINIC DAMAGE///CHR SOLAR SKIN DAMAGE NOS 09/1609/08/2011 XEROSIS///SEBACEOUS GLAND DIS NEC 09/16/2008 09/08/2011 Benign neoplasm of skin of trunk, except scrotum 11/16/2007 09/08/2011 Scar condition and fibrosis of skin 11/16/2007 09/08/2011 Other seborrheic keratosis 02/14/200709/07 Mild persistent asthma without complication 03/200601/10/2017 Anal or rectal pain 01/05/2007 02/04/2014 Neoplasm of uncertain behavior of skin 7 09/08/2011 Other specified erythematous condition(695.89) 0 07/29/2006 09/16/2008 SOLAR LENTIGINES////DYSCHROMIA OTHER 07/29/2006 09/08/2011 ACTINIC KERATOSES (Premalignant AK's) 11/21/2005 02/04/2014 Viral warts, unspecified 11/21/2005 012 Other chronic dermatitis due to solar radiation 11/21/2005 09/16/2008 Hyperlipidemia 12/10/2004 01/05/2016 Other malaise and fatigue 12/10/20042013 Other psoriasis and similar disorders 02/04/2014 Overview: Psoriasis Psychosexual dysfunction, unspecified 01/10/2017 documented as of this encounter (statuses as of 09/01/2022) [facility] History of Past illness Narrative* Problem Noted Date Diagnosed Date Resolved Date Other seborrheic keratosis 06/19/2012 1 04/07/2013 Scars 11/21/2011 07/08/2016 Skin tag 09/08/2011 02/04/2014 Esophagitis, unspecified 08/05/201008/2016 Contact dermatitis and other eczema, due to unspecified cause 09/16/2008 09/08/2011 INTERTRIGO///ERYTHEMATOUS COND NEC 09/16/2008 09/08/2011 ACTINIC DAMAGE///CHR SOLAR SKIN DAMAGE NOS 09/16/2008 09/08/2011 XEROSIS///SEBACEOUS GLAND DIS NEC 09/16/2008 09/08/2011 Benign neoplasm of skin of t runk, except scrotum 11/16/2007 09/08/2011 Scar condition and fibrosis of skin 11/16/2007 09/08/2011 Other seborrheic keratosis 02/14/2007 0 09/08/2011 Mild persistent asthma without complication 01/05/2007 01/10/2017 Anal or rectal pain 01/05/2007 02/05/20 14 Neoplasm of uncertain behavior of skin 07/29/2006 09/08/2011 Other specified erythematous condition(695.89) 07/29/2006 09/16/2008 SOLAR LENTIGINES////DYSCHROMIA OTHER 07/29/2006 09/08/2011 ACTINIC KERATOSES (Premalignant AK's) 11/21/2005 02/04/2014 Viral warts, unspecified 11/21/200506/2011 Other chronic dermatitis due to solar radiation 11/21/2005 09/16/2008 Hyperlipidemia 12/10/2004 01/05/2016 Other malaise and fatigue 12/10/2004 Other psoriasis and similar disorders 02/04/2014 Overview: Psoriasis Psychosexual dysfunction, unspecified 01/10/2017 documented as of this encounter (statuses as of 01/09/2023) [facility] History of Past illness Narrative* Problem Noted Date Diagnosed Date Resolved Date Other seborrheic keratosis 06/19/2012 1 04/07/2013 Scars 11/21/2011 07/08/2016 Skin tag 09/08/2011 02/04/2014 Esophagitis, unspecified 08/05/201008/2016 Contact dermatitis and other eczema, due to unspecified cause 09/16/2008 09/08/2011 INTERTRIGO///ERYTHEMATOUS COND NEC 09/16/2008 09/08/2011 ACTINIC DAMAGE///CHR SOLAR SKIN DAMAGE NOS 09/16/2008 09/08/2011 XEROSIS///SEBACEOUS GLAND DIS NEC 09/16/2008 09/08/2011 Benign neoplasm of skin of t runk, except scrotum 11/16/2007 09/08/2011 Scar condition and fibrosis of skin 11/16/2007 09/08/2011 Other seborrheic keratosis 02/14/2007 0 09/08/2011 Mild persistent asthma without complication 01/05/2007 01/10/2017 Anal or rectal pain 01/05/2007 02/05/20 14 Neoplasm of uncertain behavior of skin 07/29/2006 09/08/2011 Other specified erythematous condition(695.89) 07/29/2006 09/16/2008 SOLAR LENTIGINES////DYSCHROMIA OTHER 07/29/2006 09/08/2011 ACTINIC KERATOSES (Premalignant AK's) 11/21/2005 02/04/2014 Viral warts, unspecified 11/21/200506/2011 Other chronic dermatitis due to solar radiation 11/21/2005 09/16/2008 Hyperlipidemia 12/10/2004 01/05/2016 Other malaise and fatigue 12/10/2004 Other psoriasis and similar disorders 02/04/2014 Overview: Psoriasis Psychosexual dysfunction, unspecified 01/10/2017 documented as of this encounter (statuses as of 04/21/2023) [facility] History of Past illness Narrative* Problem Noted Date Diagnosed Date Resolved Date Other seborrheic keratosis 06/19/2012 1 04/07/2013 Scars 11/21/2011 07/08/2016 Skin tag 09/08/2011 02/04/2014 Esophagitis, unspecified 08/05/201008/2016 Contact dermatitis and other eczema, due to unspecified cause 09/16/2008 09/08/2011 INTERTRIGO///ERYTHEMATOUS COND NEC 09/16/2008 09/08/2011 ACTINIC DAMAGE///CHR SOLAR SKIN DAMAGE NOS 09/16/2008 09/08/2011 XEROSIS///SEBACEOUS GLAND DIS NEC 09/16/2008 09/08/2011 Benign neoplasm of skin of t runk, except scrotum 11/16/2007 09/08/2011 Scar condition and fibrosis of skin 11/16/2007 09/08/2011 Other seborrheic keratosis 02/14/2007 0 09/08/2011 Mild persistent asthma without complication 01/05/2007 01/10/2017 Anal or rectal pain 01/05/2007 02/05/20 14 Neoplasm of uncertain behavior of skin 07/29/2006 09/08/2011 Other specified erythematous condition(695.89) 07/29/2006 09/16/2008 SOLAR LENTIGINES////DYSCHROMIA OTHER 07/29/2006 09/08/2011 ACTINIC KERATOSES (Premalignant AK's) 11/21/2005 02/04/2014 Viral warts, unspecified 11/21/200506/2011 Other chronic dermatitis due to solar radiation 11/21/2005 09/16/2008 Hyperlipidemia 12/10/2004 01/05/2016 Other malaise and fatigue 12/10/2004 Other psoriasis and similar disorders 02/04/2014 Overview: Psoriasis Psychosexual dysfunction, unspecified 01/10/2017 documented as of this encounter (statuses as of 04/28/2023) [facility] History of Past illness Narrative* Problem Noted Date Diagnosed Date Resolved Date Other seborrheic keratosis 06/19/2012 1 04/07/2013 Scars 11/21/2011 07/08/2016 Skin tag 09/08/2011 02/04/2014 Esophagitis, unspecified 08/05/201008/2016 Contact dermatitis and other eczema, due to unspecified cause 09/16/2008 09/08/2011 INTERTRIGO///ERYTHEMATOUS COND NEC 09/16/2008 09/08/2011 ACTINIC DAMAGE///CHR SOLAR SKIN DAMAGE NOS 09/16/2008 09/08/2011 XEROSIS///SEBACEOUS GLAND DIS NEC 09/16/2008 09/08/2011 Benign neoplasm of skin of t runk, except scrotum 11/16/2007 09/08/2011 Scar condition and fibrosis of skin 11/16/2007 09/08/2011 Other seborrheic keratosis 02/14/2007 0 09/08/2011 Mild persistent asthma without complication 01/05/2007 01/10/2017 Anal or rectal pain 01/05/2007 02/05/20 14 Neoplasm of uncertain behavior of skin 07/29/2006 09/08/2011 Other specified erythematous condition(695.89) 07/29/2006 09/16/2008 SOLAR LENTIGINES////DYSCHROMIA OTHER 07/29/2006 09/08/2011 ACTINIC KERATOSES (Premalignant AK's) 11/21/2005 02/04/2014 Viral warts, unspecified 11/21/200506/2011 Other chronic dermatitis due to solar radiation 11/21/2005 09/16/2008 Hyperlipidemia 12/10/2004 01/05/2016 Other malaise and fatigue 12/10/2004 Other psoriasis and similar disorders 02/04/2014 Overview: Psoriasis Psychosexual dysfunction, unspecified 01/10/2017 documented as of this encounter (statuses as of 05/23/2023) [facility] History of Past illness Narrative* Problem Noted Date Diagnosed Date Resolved Date Other seborrheic keratosis 06/19/2012 1 04/07/2013 Scars 11/21/2011 07/08/2016 Skin tag 09/08/2011 02/04/2014 Esophagitis, unspecified 08/05/201008/2016 Contact dermatitis and other eczema, due to unspecified cause 09/16/2008 09/08/2011 INTERTRIGO///ERYTHEMATOUS COND NEC 09/16/2008 09/08/2011 ACTINIC DAMAGE///CHR SOLAR SKIN DAMAGE NOS 09/16/2008 09/08/2011 XEROSIS///SEBACEOUS GLAND DIS NEC 09/16/2008 09/08/2011 Benign neoplasm of skin of t runk, except scrotum 11/16/2007 09/08/2011 Scar condition and fibrosis of skin 11/16/2007 09/08/2011 Other seborrheic keratosis 02/14/2007 0 09/08/2011 Mild persistent asthma without complication 01/05/2007 01/10/2017 Anal or rectal pain 01/05/2007 02/05/20 14 Neoplasm of uncertain behavior of skin 07/29/2006 09/08/2011 Other specified erythematous condition(695.89) 07/29/2006 09/16/2008 SOLAR LENTIGINES////DYSCHROMIA OTHER 07/29/2006 09/08/2011 ACTINIC KERATOSES (Premalignant AK's) 11/21/2005 02/04/2014 Viral warts, unspecified 11/21/200506/2011 Other chronic dermatitis due to solar radiation 11/21/2005 09/16/2008 Hyperlipidemia 12/10/2004 01/05/2016 Other malaise and fatigue 12/10/2004 Other psoriasis and similar disorders 02/04/2014 Overview: Psoriasis Psychosexual dysfunction, unspecified 01/10/2017 documented as of this encounter (statuses as of 05/30/2023) [facility]- [facility] Essential tremor Essential and other specified forms of tremor [facility] Essential tremor- Primary Essential and other specified forms of tremor Essential hypertension Unspecified essential hypertension Mixed hyperlipidemia Mild intermittent asthma, uncomplicated Unspecified asthma Exudative age-related macular degeneration, unspecified laterality, 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 [place] (actinic keratosis) Actinic keratosis PSORIASIS Other [facility] Hyperkalemia- Primary [facility]potassemia [facility] Diagnosis Essential hypertension- Primary Unspecified essential hypertension [facility] Diagnosis Essential tremor Essential and other specified forms of tremor [facility] Diagnosis Essential tremor- Primary Essential and other specified forms of tremor Essential hypertension Unspecified essential hypertension Hyperkalemia Hyperpotassemia History of TIA (transient ischemic attack) Transient ischemic attack (TIA), 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, unspecified laterality, 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 PSORIASIS Other psoriasis Mixed hyperlipidemia Elevated hemoglobin (HCC) Other hemoglobinopathies Need for influenza vaccination Need for prophylactic vaccination and inoculation against influenza [facility] Essential hypertension- Primary Unspecified essential hypertension [facility] Essential hypertension- Primary Unspecified essential hypertension Hyperkalemia Hyperpotassemia documented in this encounter [facility] [facility]* Diagnosis Essential hypertension- Primary Unspecified essential hypertension [facility] Diagnosis Essential tremor Essential and other specified forms of tremor [facility] Diagnosis Essential hypertension Unspecified essential hypertension [facility] Diagnosis Bilateral swelling of feet- Primary Swelling of limb Essential hypertension Unspecified essential hypertension Mixed hyperlipidemia [facility] Diagnosis Bilateral swelling of feet- Primary Swelling of limb Essential hypertension Unspecified essential hypertension Essential tremor Essential and other specified forms of tremor Mixed hyperlipidemia Mild intermittent asthma, uncomplicated Unspecified asthma Family history of abdominal aortic aneurysm (AAA) History of TIA (transient ischemic attack) Transient ischemic attack (TIA), 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, unspecified laterality, unspecified stage (HCC) PSORIASIS Other psoriasis [facility] Diagnosis Essential hypertension- Primary Unspecified essential hypertension Blood pressure check Screening for hypertension [facility] Diagnosis Family history of abdominal aortic aneurysm (AAA) [facility] Diagnosis 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)- Primary Malignant melanoma of skin of trunk, except scrotum Lymphedema Other lymphedema 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) Malignant melanoma of skin of trunk, except scrotum Lymphedema Other lymphedema [facility] Diagnosis Lymphedema Other lymphedema 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) Malignant melanoma of skin of trunk, except scrotum Lymphedema Other lymphedema [facility]* Diagnosis 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 [facility]* Diagnosis Essential tremor Essential and other specified forms of tremor [facility]* Diagnosis Essential hypertension- Primary Unspecified essential hypertension Mixed hyperlipidemia Essential tremor Essential and other specified forms of tremor Malignant melanoma, unspecified site (HCC) Mild intermittent asthma, uncomplicated Unspecified asthma Exudative age-related macular degeneration of left eye, unspecified stage (HCC) Squamous cell carcinoma, face Squamous cell carcinoma of skin of other and unspecified parts of face Encounter for immunization Need for other specified prophylactic vaccination against single bacterial disease [facility] Diagnosis 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 [facility] Diagnosis 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 [facility]* Diagnosis Essential tremor Essential and other specified forms of tremor [facility]* Diagnosis Essential hypertension Unspecified essential hypertension [facility]* Diagnosis Medicare annual wellness visit, subsequent- Primary Routine general medical examination at a health care facility Screening for depression Encounter for screening examination for other mental health and behavioral disorders Screening for prostate cancer Special screening for malignant neoplasm of prostate [facility] Diagnosis Acute cough- Primary Acute URI Acute upper respiratory infections of unspecified site Mild intermittent asthma, uncomplicated Unspecified asthma [facility]* Diagnosis Essential hypertension Unspecified essential hypertension [facility] Diagnosis Essential hypertension- Primary Unspecified essential hypertension Mixed hyperlipidemia Essential tremor Essential and other specified forms of tremor PAC (premature atrial contraction) Supraventricular premature beats Glaucoma of both eyes, unspecified glaucoma type Exudative age-related macular degeneration, unspecified laterality, unspecified stage (HCC) Malignant melanoma, unspecified site (HCC) Psoriasis Other psoriasis [facility]* Diagnosis Hyponatremia- Primary Hyposmolality and/or hyponatremia [facility]* Diagnosis Essential hypertension- Primary Unspecified essential hypertension PAC (premature atrial contraction) Supraventricular premature beats [facility] Essential hypertension- Primary Unspecified essential hypertension [facility] Diagnostic Procedure Only (Routine) - Authorized Specialty Diagnoses / Procedures Referred By Mary t Referred To Contact US IMAGING Diagnoses Family history of abdominal aortic aneurysm (AAA) Procedures US SCREENING FOR AAA (2017) US ABDOMINAL AORTA REAL TIME SCREEN STUDY AAA Eladio Chávez MD [address] [place] [address] Us Imaging Referral ID Status Reason Start Date Expiration Date Visits Requested Visits Authorized [id number] Authorized Auto-Generat ed Referral 08/04/2022 09/03/2023 1 1 [facility] for referral (narrative)* Diagnostic Procedure Only (Routine) - Closed Specialty Diagnoses / Procedures Referred By Contac t Referred To Contact US IMAGING Diagnoses Family history of abdominal aortic aneurysm (AAA) Procedures US SCREENING FOR AAA (2016) US ABDOMINAL AORTA REAL TIME SCREEN STUDY AAA Eladio Chávez MD [address] [place] [address] Us Imaging [id number] Referral ID Status Reason Start Date Expiration Date V isits Requested Visits Authorized [id number] Closed Auto-Generate d Referral 08/04/2022 09/03/2023 1 1 [facility] for referral (narrative)* Diagnostic Procedure Only (Routine) - Pending Review Specialty Diagnoses / Procedures Referred By Mary t Referred To Contact MOLECULAR & FUNCTIONAL IMAGING Diagnoses Lymphedema Procedures NM LYMPH NODE IMAGING LYMPHATICS & LYMPH NODES IMAGING Chris Mercedes MD [address] [place] [address] Molecular & Functional Imaging [address] [place] [address] Referral ID Status Reason Start Date Expiration Date Visits Requested Visits Authorized [id number] Pending Review Auto-Generat ed Referral 04/20/2023 05/19/2024 1 1 [facility] for visit Narrative* Diagnostic Procedure Only (Routine) - Closed Specialty Diagnoses / Procedures Referred By Contac t Referred To Contact US IMAGING Diagnoses Family history of abdominal aortic aneurysm (AAA) Procedures US SCREENING FOR AAA (2016) US ABDOMINAL AORTA REAL TIME SCREEN STUDY AAA Eladio Chávez MD [address] [place] [address] [place] [address] Referral ID Status Reason Start Date Expiration Date V isits Requested Visits Authorized [id number] Closed Auto-Generate d Referral 08/04/2022 09/03/2023 1 1 [facility] Summary Purpose Family History No Family History Records FoundNo Family History Records FoundNo Family History Records Found Advance Directives No Advanced Directives Records FoundDocuments on File Type Date Recorded 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 Advance Directive(s) 07/27/2017 6:26 AM Advance Directive(s) 02/14/2013 9:33 AM Documents on File Type Date Recorded 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 Source Comments (unrecognize d section and content) In the event this informatio n is protected by the Federal Confidentiality of Alcohol and Drug Abuse Patient Records regulations: The Federal rules restrict any use of the information to criminally investigate or prosecute any alcohol or drug abuse patient.[facility] the event this information is protected by the Federal Confidentiality of Alcohol and Drug Abuse Patient Records regulations: The Federal rules restrict any use of the information to criminally investigate or prosecute any alcohol or drug abuse patient.[facility] the event this information is protected by the Federal Confidentiality of Alcohol and Drug Abuse Patient Records regulations: The Federal rules restrict any use of the information to criminally investigate or prosecute any alcohol or drug abuse patient.[facility] the event this information is protected by the Federal Confidentiality of Alcohol and Drug Abuse Patient Records regulations: The Federal rules restrict any use of the information to criminally investigate or prosecute any alcohol or drug abuse patient.[facility] the event this information is protected by the Federal Confidentiality of Alcohol and Drug Abuse Patient Records regulations: The Federal rules restrict any use of the information to criminally investigate or prosecute any alcohol or drug abuse patient.[facility] the event this information is protected by the Federal Confidentiality of Alcohol and Drug Abuse Patient Records regulations: The Federal rules restrict any use of the information to criminally investigate or prosecute any alcohol or drug abuse patient.[facility] the event this information is protected by the Federal Confidentiality of Alcohol and Drug Abuse Patient Records regulations: The Federal rules restrict any use of the information to criminally investigate or prosecute any alcohol or drug abuse patient.[facility] the event this information is protected by the Federal Confidentiality of Alcohol and Drug Abuse Patient Records regulations: The Federal rules restrict any use of the information to criminally investigate or prosecute any alcohol or drug abuse patient.[facility] the event this information is protected by the Federal Confidentiality of Alcohol and Drug Abuse Patient Records regulations: The Federal rules restrict any use of the information to criminally investigate or prosecute any alcohol or drug abuse patient.[facility] the event this information is protected by the Federal Confidentiality of Alcohol and Drug Abuse Patient Records regulations: The Federal rules restrict any use of the information to criminally investigate or prosecute any alcohol or drug abuse patient.[facility] the event this information is protected by the Federal Confidentiality of Alcohol and Drug Abuse Patient Records regulations: The Federal rules restrict any use of the information to criminally investigate or prosecute any alcohol or drug abuse patient.[facility] the event this information is protected by the Federal Confidentiality of Alcohol and Drug Abuse Patient Records regulations: The Federal rules restrict any use of the information to criminally investigate or prosecute any alcohol or drug abuse patient.[facility] the event this information is protected by the Federal Confidentiality of Alcohol and Drug Abuse Patient Records regulations: The Federal rules restrict any use of the information to criminally investigate or prosecute any alcohol or drug abuse patient.[facility]In the event this information is protected by the Federal Confidentiality of Alcohol and Drug Abuse Patient Records regulations: The Federal rules restrict any use of the information to criminally investigate or prosecute any alcohol or drug abuse patient.[facility] the event this information is protected by the Federal Confidentiality of Alcohol and Drug Abuse Patient Records regulations: The Federal rules restrict any use of the information to criminally investigate or prosecute any alcohol or drug abuse patient.[facility] the event this information is protected by the Federal Confidentiality of Alcohol and Drug Abuse Patient Records regulations: The Federal rules restrict any use of the information to criminally investigate or prosecute any alcohol or drug abuse patient.[facility] the event this information is protected by the Federal Confidentiality of Alcohol and Drug Abuse Patient Records regulations: The Federal rules restrict any use of the information to criminally investigate or prosecute any alcohol or drug abuse patient.[facility]In the event this information is protected by the Federal Confidentiality of Alcohol and Drug Abuse Patient Records regulations: The Federal rules restrict any use of the information to criminally investigate or prosecute any alcohol or drug abuse patient.[facility]In the event this information is protected by the Federal Confidentiality of Alcohol and Drug Abuse Patient Records regulations: The Federal rules restrict any use of the information to criminally investigate or prosecute any alcohol or drug abuse patient.[facility]In the event this information is protected by the Federal Confidentiality of Alcohol and Drug Abuse Patient Records regulations: The Federal rules restrict any use of the information to criminally investigate or prosecute any alcohol or drug abuse patient.[facility] HospitalIn the event this information is protected by the Federal Confidentiality of Alcohol and Drug Abuse Patient Records regulations: The Federal rules restrict any use of the information to criminally investigate or prosecute any alcohol or drug abuse patient.[facility] HospitalIn the event this information is protected by the Federal Confidentiality of Alcohol and Drug Abuse Patient Records regulations: The Federal rules restrict any use of the information to criminally investigate or prosecute any alcohol or drug abuse patient.[facility]In the event this information is protected by the Federal Confidentiality of Alcohol and Drug Abuse Patient Records regulations: The Federal rules restrict any use of the information to criminally investigate or prosecute any alcohol or drug abuse patient.[facility] HospitalIn the event this information is protected by the Federal Confidentiality of Alcohol and Drug Abuse Patient Records regulations: The Federal rules restrict any use of the information to criminally investigate or prosecute any alcohol or drug abuse patient.[facility]In the event this information is protected by the Federal Confidentiality of Alcohol and Drug Abuse Patient Records regulations: The Federal rules restrict any use of the information to criminally investigate or prosecute any alcohol or drug abuse patient.[facility]In the event this information is protected by the Federal Confidentiality of Alcohol and Drug Abuse Patient Records regulations: The Federal rules restrict any use of the information to criminally investigate or prosecute any alcohol or drug abuse patient.[facility]In the event this information is protected by the Federal Confidentiality of Alcohol and Drug Abuse Patient Records regulations: The Federal rules restrict any use of the information to criminally investigate or prosecute any alcohol or drug abuse patient.[facility]In the event this information is protected by the Federal Confidentiality of Alcohol and Drug Abuse Patient Records regulations: The Federal rules restrict any use of the information to criminally investigate or prosecute any alcohol or drug abuse patient.[facility]In the event this information is protected by the Federal Confidentiality of Alcohol and Drug Abuse Patient Records regulations: The Federal rules restrict any use of the information to criminally investigate or prosecute any alcohol or drug abuse patient.[facility]In the event this information is protected by the Federal Confidentiality of Alcohol and Drug Abuse Patient Records regulations: The Federal rules restrict any use of the information to criminally investigate or prosecute any alcohol or drug abuse patient.[facility]In the event this information is protected by the Federal Confidentiality of Alcohol and Drug Abuse Patient Records regulations: The Federal rules restrict any use of the information to criminally investigate or prosecute any alcohol or drug abuse patient.[facility] HospitalIn the event this information is protected by the Federal Confidentiality of Alcohol and Drug Abuse Patient Records regulations: The Federal rules restrict any use of the information to criminally investigate or prosecute any alcohol or drug abuse patient.[facility]In the event this information is protected by the Federal Confidentiality of Alcohol and Drug Abuse Patient Records regulations: The Federal rules restrict any use of the information to criminally investigate or prosecute any alcohol or drug abuse patient.[facility]In the event this information is protected by the Federal Confidentiality of Alcohol and Drug Abuse Patient Records regulations: The Federal rules restrict any use of the information to criminally investigate or prosecute any alcohol or drug abuse patient.[facility]In the event this information is protected by the Federal Confidentiality of Alcohol and Drug Abuse Patient Records regulations: The Federal rules restrict any use of the information to criminally investigate or prosecute any alcohol or drug abuse patient.[facility]In the event this information is protected by the Federal Confidentiality of Alcohol and Drug Abuse Patient Records regulations: The Federal rules restrict any use of the information to criminally investigate or prosecute any alcohol or drug abuse patient.[facility] the event this information is protected by the Federal Confidentiality of Alcohol and Drug Abuse Patient Records regulations: The Federal rules restrict any use of the information to criminally investigate or prosecute any alcohol or drug abuse patient.[facility] Reason for Visit (unrecogniz ed section and content) Reason Comments Orders Reason Onset Date Comments Refill Request 07/13/2021 Reason Comments Follow Up 6 month primidone wonders if something else he can take Reason Comments Results Reason Comments Refill Request Reason Onset Date Comments Follow Up 6 month- reports BP 126/62 this am at home.Patient reports medication doesn't seem to be helping lately. 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 Reason Comments Medicare Wellness Exam Reason Comments Cough Chest congestion, fe anthony x5 days Reason Onset Date Comments Refill Request 08/06/2024 Reason Comments 6 Month Exam Reason Onset Date Comments Results 09/13/2024 Reason Onset Date Comments Refill Request 10/02/2024 Reason Comments Patient Update Reason Comments Hypertension Follow up for elevat ed BP Reason Comments Blood Pressure Check Care Teams (unrecognized sec tion and content) Wireworker Relationship Specialty Start Date End Date Eladio Chávez MD [address] [place] [address] PCP - General Family Practice 06/15/16 Wireworker Relationship Specialty Start Date End Date Eladio Chávez MD [address] [place] [address] PCP - General Family Practice 06/15/16 Wireworker Relationship Specialty Start Date End Date Eladio Chávez MD [address] [place] [address] PCP - General Family Practice 06/15/16 Wireworker Relationship Specialty Start Date End Date Eladio Chávez MD [address] [place] [address] PCP - General Family Practice 06/15/16 Wireworker Relationship Specialty Start Date End Date Eladio Chávez MD [address] [place] [address] PCP - General Family Medicine 06/15/16 Wireworker Relationship Specialty Start Date End Date Eladio Chávez MD [address] [place] [address] PCP - General Family Medicine 06/15/16 Wireworker Relationship Specialty Start Date End Date Eladio Chávez MD [address] [place] [address] PCP - General Family Medicine 06/15/16 Wireworker Relationship Specialty Start Date End Date Eladio Chávez MD [address] [place] [address] PCP - General Family Medicine 06/15/16 Wireworker Relationship Specialty Start Date End Date Eladio Chávez MD [address] [place] [address] PCP - General Family Medicine 06/15/16 Wireworker Relationship Specialty Start Date End Date Eladio Chávez MD [address] [place] [address] PCP - General Family Medicine 06/15/16 Wireworker Relationship Specialty Start Date End Date Eladio Chávez MD [address] [place] [address] PCP - General Family Medicine 06/15/16 Wireworker Relationship Specialty Start Date End Date Eladio Chávez MD [address] [place] [address] PCP - General Family Medicine 06/15/16 Wireworker Relationship Specialty Start Date End Date Eladio Chávez MD [address] [place] [address] PCP - General Family Medicine 06/15/16 Wireworker Relationship Specialty Start Date End Date Eladio Chávez MD [address] [place] [address] PCP - General Family Medicine 06/15/16 Wireworker Relationship Specialty Start Date End Date Eladio Chávez MD [address] [place] [address] PCP - General Family Medicine 06/15/16 Wireworker Relationship Specialty Start Date End Date Eladio Chávez MD [address] [place] [address] PCP - General Family Medicine 06/15/16 Wireworker Relationship Specialty Start Date End Date Eladio Chávez MD [address] [place] [address] PCP - General Family Medicine 06/15/16 Wireworker Relationship Specialty Start Date End Date Eladio Chávez MD [address] [place] [address] PCP - General Family Medicine 06/15/16 Wireworker Relationship Specialty Start Date End Date Eladio Chávez MD [address] [place] [address] PCP - General Family Medicine 06/15/16 Wireworker Relationship Specialty Start Date End Date Eladio Chávez MD [address] [facility] [place] [address] PCP - General Family Medicine 06/15/16 Wireworker Relationship Specialty Start Date End Date Eladio Chávez MD [address] [place] [address] PCP - General Family Medicine 06/15/16 Wireworker Relationship Specialty Start Date End Date Eladio Chávez MD [address] [place] [address] PCP - General Family Medicine 06/15/16 Wireworker Relationship Specialty Start Date End Date Eladio Chávez MD [address] [place] [address] PCP - General Family Medicine 06/15/16 Wireworker Relationship Specialty Start Date End Date Eladio Chávez MD [address] [place] [address] PCP - General Family Medicine 06/15/16 PodlogarNatalie APRN.CRANBERRY SORTER [address] [place] [address] Pot Builder Family Medicine 02/11/24 Wireworker Relationship Specialty Start Date End Date Eladio Chávez MD [address] [facility] [id number] PCP - General Family Medicine 06/15/16 Podlogar, Natalie, PLUG MACHINE OPERATOR.CRANBERRY SORTER [address] [place] [address] Pot Builder Family [facility] 02/11/24 Wireworker Relationship Specialty Start Date End Date Eladio Chávez MD [address] [place] [address] PCP - General Family Medicine 06/15/16 Podlogar, Natalie, PLUG MACHINE OPERATOR.CRANBERRY SORTER [address] [place] [address] [facility]/11[facility] Wireworker Relationship Specialty Start Date End Date Eladio Chávez MD [address] [place] [address] PCP - General Family Medicine 06/15/16 Podlogar, Natalie, PLUG MACHINE OPERATOR.CRANBERRY SORTER [address] [place] [address] [facility] 02/11/24 Wireworker Relationship Specialty Start Date End Date Eladio Chávez MD [address] [place] [address] PCP - General Family Medicine 06/15/16 Podlogar, Natalie, PLUG MACHINE OPERATOR.CRANBERRY SORTER [address] [place] [address] [facility] 02/11/24 Wireworker Relationship Specialty Start Date End Date Eladio Chávez MD [address] [place] [address] PCP - General Family Medicine 06/15/16 Podlogar, Natalie, PLUG MACHINE OPERATOR.CRANBERRY SORTER [address] [place] [address] [facility] 02/11/24 Nessa Matson APRN.CRANBERRY SORTER [address] [place] [address] [facility] 08/16/24 Wireworker Relationship Specialty Start Date End Date Eladio Chávez MD [address] [place] [address] PCP - General Family Medicine 06/15/16 PodlogarNatalie APRN.CRANBERRY SORTER [address] [place] [address] [facility] 02/11/24 Nessa Matson APRN.CRANBERRY SORTER [address] [place] [address] Pot [facility] Family [facility] 08/16/24 Wireworker Relationship Specialty Start Date End Date Eladio Chávez MD [address] [place] [address] PCP - General Family Medicine 06/15/16 PodlogarNatalie APRN.CRANBERRY SORTER [address] [place] [address] Pot [facility] Family Medicine 02/11/24 Nessa Matson APRN.CRANBERRY SORTER [address] [place] [address] Pot [facility] Family Medicine 08/16/24 Wireworker Relationship Specialty Start Date End Date Eladio Chávez MD [address] [place] [address] PCP - General Family Medicine 06/15/16 PodlogarNatalie APRN.CRANBERRY SORTER [address] [place] [address] Pot [facility] Family Medicine 02/11/24 Nessa Matson APRN.CRANBERRY SORTER [address] [place] [address] Pot [facility] 08/16/24 Wireworker Relationship Specialty Start Date End Date Eladio Chávez MD [address] [place] [address] PCP - General Family Medicine 06/15/16 PodlogarNatalie APRN.CRANBERRY SORTER [address] [place] [address] Pot [facility] Family Medicine 02/11/24 Nessa Matson APRN.CRANBERRY SORTER [address] [place] [address] [facility] Wireworker Relationship Specialty Start Date End Date Eladio Chávez MD [address] [place] [address] PCP - General Family Medicine 06/15/16 PodlogarNatalie APRN.CRANBERRY SORTER [address] [place] [address] Pot Builder Family Medicine 02/11/24 Nessa Matson APRN.CRANBERRY SORTER [address] [place] [address] (work) [facility] 08/16/24 FOR RECORDS PERTAINING TO PATIENTS WHO ARE OR HAVE BEEN ENROLLED IN A CHEMICAL DEPENDENCY/SUBSTANCEABUSE PROGRAM, SOME INFORMATION MAY BE OMITTED. This clinical summary was aggregated from multiple sources. Caution should be exercised in using it in the provision of clinical care. This summary normalizes information from multiple sources, and as a consequence, information in this document may materially change the coding, format and clinical context of patient data. In addition, data may be omitted in some cases. CLINICAL DECISIONS SHOULD BE BASED ON THE PRIMARY CLINICAL RECORDS. [facility]. provides no warranty or guarantee of the accuracy or completeness of information in this document.
[2024-11-30 12:39] LABS: Anion Gap 10 (5-15); BUN 12 mg/dL (4-19); BUN/Creat Ratio 15.8 RATIO (10-20); Calcium,Total 8.4 mg/dL (7.6-11.0); Carbon Dioxide 22.6 mmol/L (21.0-32.0); Chloride 100 mmol/L (98-108); Estimated Creatinine Clearance 61.75 ml/min (50-250); Glucose 101 mg/dL (70-99); Potassium 4.9 mmol/L (3.3-5.1)
--- NOTE | 2024-11-30 12:45 | ED.RN ---
LAB CALLED FOR DELAY IN TROPONIN RESULTS. RESPONSE "THEY SHOULD BE BACK IN 12 MINUTES, SORRY FOR THE DELAY"
[2024-11-30 12:57] LABS: Pro- Brain NATRIURETIC PEPTIDE 449 pg/mL (<=1800); Troponin T High Sensitivity 26 ng/L (<=22)
[2024-11-30 14:10] LABS: Troponin T High Sens 2 HR 31 ng/L (<=22)
--- NOTE | 2024-11-30 16:06 | PCM.HP.STD ---
HPI - General General Date of Admission: 11/30/24 Date of Service: 11/30/24 Chief Complaint: Shortness of breath HPI Narrative CRISTINE JOHNSON, is a 89-year-old male history of hypertension and remote history of asthma and tremor presented to [facility] ED 11/30/2024 for shortness of breath. He developed shortness of breath yesterday and is worse with exertion. In the ED patient afebrile, heart rate 74, blood pressure 195/105, pulse ox 95% on room air. White count within normal limits, hemoglobin 15.2, BMP only notable for a glucose of 101. Troponin of 26 with repeat of 31. Chest x-ray read as mild degree of interstitial pulmonary edema and small right pleural effusion however proBNP only 449. Patient was significantly wheezy on evaluation and improved significantly with DuoNebs however still went down to 84% on ambulation so hospitalist contacted for admission. Also of note blood pressure elevated in the ED after ambulation and IV hydralazine ordered however was not needed to be given as he decreased significantly at rest. Patient evaluated bedside. He reports he has been possibly little bit more short of breath over the past couple weeks but since yesterday he noticed to significant increase, thought maybe he get better so he went to bed and given today it is not better he presented to the hospital. Reports the breathing treatments are very helpful, still wheezing, notes that he feels there is "crud” in his chest and that the breathing treatments are mobilizing up so he is able to get a little bit of phlegm up. No fevers. Denies any current chest pain, no changes in bowel or bladder, denies any swelling in his lower extremities, then noted that he does always have a little bit of an increase in size in the left extremity compared to the right but this is not new and is chronic FOR[facility]LY [facility] Medical History (Updated 11/30/24 @ 16:[address] Alyssa Ward MD) Asthma Home Medications Medication Instructions Recorded Last Taken Type aspirin 81 mg tablet,delayed 81 mg PO DAILY 11/30/24 Unknown History release (Adult Aspirin Regimen) losartan 100 mg tablet 100 mg PO DAILY 11/30/24 Unknown History metoprolol succinate 25 mg 25 mg PO DAILY 11/30/24 Unknown History tablet,extended release 24 hr primidone 50 mg tablet 200 mg PO DAILY 11/30/24 Unknown History simvastatin 20 mg tablet 20 mg PO QHS 11/30/24 Unknown History Allergy/AdvReac Type Severity Reaction Status Date / Time No Known Allergies Allergy Verified 11/30/24 10:24 Social History Smoking Status: Never smoker ROS ROS Narrative General: Denies fever/chills HENT: Denies headache, denies stuffy nose, denies sore throat EYES: Denies changes in vision Resp: Does have some phlegm he is coughing up, increased shortness of breath especially on exertion Cardiac: Denies chest pain presently GI: Denies abdominal pain, denies changes in bowel, denies nausea/vomiting : Denies changes in urination Extremity: Swelling chronically in the left greater than the right extremity without any change MSK: Denies weakness Neuro: Denies any numbness/tingling Heme: Denies any bleeding or bruising Skin: Denies rashes Psychiatric: No complaints voiced Vital Signs Vital Signs Vital Signs: 11/30/24 10:21 11/30/24 11:31 11/30/24 11:38 Temperature 97.8 F Temperature Source Oral Pulse Rate 74 Respiratory Rate 16 Respiratory Effort Respiratory Pattern Blood Pressure 185/105 H Blood Pressure Mean 131 Pulse Ox 95 92 Oxygen Delivery Method Room Air Room Air 11/30/24 11:59 11/30/24 12:36 11/30/24 13:00 Temperature Temperature Source Pulse Rate 59 L 61 62 Respiratory Rate 16 18 15 Respiratory Effort Respiratory Pattern Blood Pressure 155/87 H 160/82 H Blood Pressure Mean 109 108 Pulse Ox 96 98 Oxygen Delivery Method Room Air 11/30/24 13:23 11/30/24 14:00 11/30/24 15:00 Temperature Temperature Source Pulse Rate 62 80 Respiratory Rate 17 19 H Respiratory Effort Short of Breath Respiratory Pattern Tachypnea Blood Pressure 153/83 H 192/109 H Blood Pressure Mean 106 136 Pulse Ox 95 92 Oxygen Delivery Method Room Air Room Air Room Air 11/30/24 15:34 11/30/24 15:51 Temperature 97.7 F L Temperature Source Pulse Rate 68 70 Respiratory Rate 16 19 H Respiratory Effort Respiratory Pattern Blood Pressure 163/99 H Blood Pressure Mean 120 Pulse Ox 94 Oxygen Delivery Method Weight Weight: 79.061 kg Body Mass Index (BMI) 26.4 Physical Exam Narrative General: Alert, oriented, no apparent distress HEENT: Atraumatic, normocephalic Eyes: Anicteric, normal conjunctiva, extraocular movements grossly intact Neck: Supple Respiratory: Diffuse wheezing, normal respiratory effort Cardiovascular: Sinus arrhythmia at a regular rate GI: Soft, nontender, nondistended Extremities: Does seem to have 1+ edema in bilateral lower extremities Musculoskeletal: Moving all extremities Neuro: No overt focal neurological deficits Skin: No rashes appreciated Psych: Cooperative Results Lab / Micro Data 11/30/24 11:20 11/30/24 11:20 Labs: Laboratory Results - last 24 hr 11/30/24 11:20: WBC 7.4, RBC 4.70, Hgb 15.2, Hct 44.9, MCV 95.5 H, MCH 32.3 H, MCHC 33.9, RDW Std Deviation 46.2 H, RDW Coeff of Daria 13.0, Plt Count 213, MPV 10.9, Immature Gran % (Auto) 0.300, Neut % (Auto) 79.4 H, Lymph % (Auto) 8.1 L, Cabell % (Auto) 9.6, Eos % (Auto) 2.3, Baso % (Auto) 0.3, Absolute Neuts (auto) 5.9, Absolute Lymphs (auto) 0.60 L, Nucleated RBC % 0, Sodium 133, Potassium 4.9, Chloride 100, Carbon Dioxide 22.6, Anion Gap 10, BUN 12, Creatinine 0.79, Estim Creat Clear Calc 61.75, Est GFR (MDRD) Non-Af 86, BUN/Creatinine Ratio 15.8, Glucose 101 H, Calcium 8.4, Troponin T High Sens 26 H, NT pro BNP II 449 11/30/24 13:33: Troponin T Hi Sens 2 Hr 31 H Imaging Radiology Impression Chest X-Ray 11/30/24 11:42 IMPRESSION: A small right pleural effusion is seen. No definite left pleural effusion is noted. A mild degree of interstitial pulmonary edema is seen. No focal infiltrate is appreciated. The cardiomediastinal silhouette is remarkable for a partially calcified aorta. No evidence of cardiomegaly. Mild thoracic spine degenerative changes are seen, along with multiple mild wedge compression fractures. No subluxation is evident. Reading Location: [address] Assessment & Plan Assessment/Plan (1) Asthma exacerbation: PLAN: Plan #Acute exacerbation of asthma -Admit to floor, continuous O2 monitoring -Chest x-ray: Queried some interstitial pulmonary edema but proBNP is technically normal for age -COVID ordered, obtain respiratory panel, sputum culture if able -O2 in place, wean as tolerated -IV methylprednisone -Scheduled DuoNebs -Albuterol prn -Incentive spirometer -Mucinex # Elevated troponin -Slightly elevated troponin of 26 and repeat of 31, suspect this is secondary to patient's hypoxia on ambulation -No chest pain or other symptoms that would suggest ACS # Hypertensive urgency -Blood pressure up to 190s systolic after ambulation however improves with rest, suspect it is elevated due to his hypoxia and work of breathing on exertion -Will add as needed medication -Continue home losartan metoprolol # History of tremors -Continue home primidone #DVT ppx: Lovenox subcu Alyssa Ward MD Charges/Coding Visit Charges Inpatient E&M: 96055 Init Hosp L2
--- OUTSIDE RECORDS SUMMARY | 2024-11-30 16:41 | XMS RPT_ITS | CCD ---
Author Organization [facility] Care Team Providers Care Glazing Machine Operator Name Role Phone Eladio Chávez MD Primary Care Provider ELADIO CHÁVEZ Primary Care Unavailab CHRIS Coffey Referring Unavailable CHRIS MERCEDES Attending Unavailable CHRIS MERCEDES Admitting Unavailable REENA SALGADO Referring Unavailable CHRIS MERCEDES Attending Unavailable ELADIO CHÁVEZ Primary Care Unavailab Eladio Boone MD Primary Care Provider Eladio Chávez MD Primary Care Provider Podlogar GLOBAL SALES EXECUTIVE.Natalie SOL Unavailable [place]le GLOBAL SALES EXECUTIVE.Nessa SOL Unavailable ELADIO CHÁVEZ Referring Unavailab ELADIO [...] Drug Allergy 05-31-2023 Other: See Comments, Swelling [facility] Work Phone: Medications Current Medications Medication Drug Class(es) Dates Sig (Normalized) Sig (Original) [id number] 200 actuat albuterol 0.09 mg/actuat metered dose [...] be used as directed to monitor hypertension. Multivitamins-[place] als-Lutein (CENTRUM SILVER) tab (20 sources) Start: [...] Test Name Value Interpretation Reference Range Facility [facility] 11-13-2024 CNOV Office Visit (FAMPWS ) CRISTINE MENA ([id number]) 1935 M Date Time Provider Department 11/13/24 9:00 AM ELADIO CHÁVEZ During your visit today, we recorded the following information about you: Pulse Blood pressure Weight Height 90/minute 130/80 75.3 kg 1.702 m Eladio Chávez MD 11/13/2024 8:58 AM Signed Chief Complaint Patient presents with: Blood Pressure Check Recording using [employer] software for draft documentation of the visit was discussed with the patient/authorized direct marketing representative; all questions welcomed and answered. 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 - Plans to attend a fair and walk around. - Discussed flu shot timing; prefers to wait until December. - States that he went to the 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 Iaicziziqtlkd-Icswenqx-Djmmr n (CENTRUM SILVER) tab Take 1 tablet by mouth once daily. psyllium seed/sucrose(METAMUCIL ORAL POWDER) one teaspoon daily timolol (TIMOPTIC) 0.5 % OPHTHALMIC Drop (more content not included)... Normal [facility] CNOVon 10-30-2024 CNOV Office Visit (FAMPWS ) CRISTINE MENA ([id number]) 1935 M Date Time Provider Department 10/30/24 9:00 AM ELADIO CHÁVEZ During your visit today, we recorded the following information about you: Pulse Blood pressure Weight Height 65/minute 151/94 75.4 kg 1.702 m Eladio Chávez MD 10/30/2024 8:59 AM Signed Chief Complaint Patient presents with: Hypertension: Follow up for elevated BP Recording using [employer]lite [employer] software for draft documentation of the visit was discussed with the patient/authorized direct marketing representative; all questions welcomed and answered. Patient/authorized direct marketing representative agreed to proceed HPI Cristine Mena [...] Colon polyps Squamous cell carcinoma, face [facility] Stroke (HCC) Pt reports possible TIA in [...] to affected area twice daily as needed. Lwfhdpgslsked-Mkxpgcef-Wugyk n (CENTRUM SILVER) tab Take 1 tablet [...] oz) B (more content not included)... Normal [facility] 10-25-2024 CNPN Telephone (FAMPWS) CRISTINE MENA ([id number]) 1935 M Date Time Provider Department 10/25/24 ELADIO CHÁVEZ [facility] During your visit today, we recorded the [...] affected area twice daily as needed. - Rfubxviqhxvhb-Vbhvypal-Lveqv n (CENTRUM SILVER) tab Take 1 tablet [...] [C43.9] 05/24 (more content not included)... Normal [facility] CBC W Auto Differential pane l (Bld)on 09-11-2024 Basophils (Bld) [#/Vol] 0.03 10*3/uL [facility] Basophils/100 WBC (Bld) 0.4 % [facility] Differential cell count method Nom (Bld) Auto [facility] Eosinophils (Bld) [#/Vol] 0.18 10*3/uL [facility] Eosinophils/100 WBC (Bld) 2.3 % [facility] Erythrocyte distribution width (RBC) [Ratio] 12.7 % 11.5 - 15.0 % [facility] Hematocrit (Bld) [Volume fraction] 50.2 % 39.0 - 51.0 % [facility] Hemoglobin (Bld) [Mass/Vol] 16.9 g/dL 13.0 - 17.0 g/dL [facility] Immature granulocytes (Bld) [#/Vol] [facility] Immature granulocytes/100 WBC (Bld) 0.3 % [facility] Interpretation and review of laboratory results Abnormal [facility] Lymphocytes (Bld) [#/Vol] 0.93 10*3/uL Low [facility] Lymphocytes/100 WBC (Bld) 12 % [facility] MCH (RBC) [Entitic mass] 31.9 pg 26.0 - 34.0 pg [facility] MCHC (RBC) [Mass/Vol] 33.7 g/dL 30.5 - 36.0 g/dL [facility] MCV (RBC) [Entitic vol] 94.9 fL 80.0 - 100.0 fL [facility] Monocytes (Bld) [#/Vol] 0.89 10*3/uL High [facility] Monocytes/100 WBC (Bld) 11.5 % [facility] Neutrophils (Bld) [#/Vol] 5.71 10*3/uL [facility] Neutrophils/100 WBC (Bld) 73.5 % [facility] Nucleated RBC (Bld) [#/Vol] NINF [facility] Nucleated RBC/100 WBC (Bld) [Ratio] 0 % /100 WBC [facility] Platelet mean volume (Bld) [Entitic vol] 12.2 fL 9.0 - 12.7 fL [facility] Platelets (Bld) [#/Vol] 243 10*3/uL [facility] RBC (Bld) [#/Vol] 5.29 10*6/uL 4.20 - 6.0 0 m/uL [facility] WBC (Bld) [#/Vol] 7.76 10*3/uL [facility] Basophils (Bld) [#/Vol] 0.03 10*3/uL Normal <0.11 [facility] Comment on above: Order Comment: Speci men Type: BLOOD SPECIMENOrdering Facility: [facility] Address: [address] [place] [address] Performed By: #### 5 7021-8 ####[facility] LABCLIA [id number] [place] [address] [place] Basophils/100 WBC (Bld) 0.4 % Normal [facility] Comment on above: Order Comment: Speci men Type: BLOOD SPECIMENOrdering Facility: [facility] Address: [address] [place] [address] Performed By: #### 5 7021-8 ####[facility] LABCLIA [id number] [place] [address] [place] Differential cell count method Nom (Bld) Auto Normal [facility] Comment on above: Order Comment: Speci men Type: BLOOD SPECIMENOrdering Facility: [facility] Address: [address] [place] [address] Performed By: #### 5 7021-8 ####[facility] LABCLIA [id number] [place] [address] [place] Eosinophils (Bld) [#/Vol] 0.18 10*3/uL Normal <0.46 [facility] Comment on above: Order Comment: Speci men Type: BLOOD SPECIMENOrdering Facility: [facility] Address: [address] [place] [address] Performed By: #### 5 7021-8 ####[facility] LABCLIA [id number] [facility] [address], [facility] [place] Eosinophils/100 WBC (Bld) 2.3 % Normal [facility] Comment on above: Order Comment: Speci men Type: BLOOD SPECIMENOrdering Facility: [facility] Address: [address] [place] [address] Performed By: #### 5 7021-8 ####[facility] LABCLIA [id number] [address], [place] [address] [place] Erythrocyte distribution width (RBC) [Ratio] 12.7 % Normal 11.5-15.0 [facility] Comment on above: Order Comment: Speci men Type: BLOOD SPECIMENOrdering Facility: [facility] Address: [address] [place] [address] Performed By: #### 5 7021-8 ####[facility] LABIA [id number] [address] [place] Hematocrit (Bld) [Volume fraction] 50.2 % Normal 39.0-51.0 [facility] Comment on above: Order Comment: Speci men Type: BLOOD SPECIMENOrdering Facility: [facility] Address: [address] [place] [address] Performed By: #### 5 7021-8 ####[facility] LABIA [id number] [place] [id number] [place] Hemoglobin (Bld) [Mass/Vol] 16.9 g/dL Normal 13.0-17.0 [facility] Comment on above: Order Comment: Speci men Type: BLOOD SPECIMENOrdering Facility: [facility] Address: [address] [place] [address] Performed By: #### 5 7021-8 ####[facility] LABCLIA [id number] [place] [address] [place] Immature granulocytes (Bld) [#/Vol] 10*3/uL Normal <0.10 [facility] Comment on above: Order Comment: Speci men Type: BLOOD SPECIMENOrdering Facility: [facility] Address: [address] [place] [address] Performed By: #### 5 7021-8 ####[facility] LABCLIA [id number] [place] [address] [place] Immature granulocytes/100 WBC (Bld) 0.3 % Normal [facility] Comment on above: Order Comment: Speci men Type: BLOOD SPECIMENOrdering Facility: [facility] Address: [address] [place] [address] Performed By: #### 5 7021-8 ####[facility] LABCLIA [id number] [place] [address] [place] Lymphocytes (Bld) [#/Vol] 0.93 10*3/uL Low 1.00-4.00 [facility] Comment on above: Order Comment: Speci men Type: BLOOD SPECIMENOrdering Facility: [facility] Address: [address] [place] [address] Performed By: #### 5 7021-8 ####[facility] LABCLIA [id number] [place] [address] [place] Lymphocytes/100 WBC (Bld) 12.0 % Normal [facility] Comment on above: Order Comment: Speci men Type: BLOOD SPECIMENOrdering Facility: [facility] Address: [address] [place] [address] Performed By: #### 5 7021-8 ####[facility] LABCLIA [id number] [place] [address] [place] MCH (RBC) [Entitic mass] 31.9 pg Normal 26.0-34.0 [facility] Comment on above: Order Comment: Speci men Type: BLOOD SPECIMENOrdering Facility: [facility] Address: [address] [place] [address] Performed By: #### 5 7021-8 ####[facility] LABIA [id number] [place] [address] [place] MCHC (RBC) [Mass/Vol] 33.7 g/dL Normal 30.5-36.0 [facility] Comment on above: Order Comment: Speci men Type: BLOOD SPECIMENOrdering Facility: [facility] Address: [address] [place] [address] Performed By: #### 5 7021-8 ####[facility] LABIA [id number] [place] [address] [place] MCV (RBC) [Entitic vol] 94.9 fL Normal 80.0-100.0 [facility] Comment on above: Order Comment: Speci men Type: BLOOD SPECIMENOrdering Facility: [facility] Address: [address] [place] [address] Performed By: #### 5 7021-8 ####[facility] LABIA [id number] [place] [address] [place] Monocytes (Bld) [#/Vol] 0.89 10*3/uL High <0.87 [facility] Comment on above: Order Comment: Speci men Type: BLOOD SPECIMENOrdering Facility: [facility] Address: [address] [place] [address] Performed By: #### 5 7021-8 ####[facility] LABIA [id number] [address] [place] Monocytes/100 WBC (Bld) 11.5 % Normal [facility] Comment on above: Order Comment: Speci men Type: BLOOD SPECIMENOrdering Facility: [facility] Address: [address] [place] [address] Performed By: #### 5 7021-8 ####[facility] LABCLIA [id number] [address] [place] [address] [place] Neutrophils (Bld) [#/Vol] 5.71 10*3/uL Normal 1.45-7.50 [facility] Comment on above: Order Comment: Speci men Type: BLOOD SPECIMENOrdering Facility: [facility] Address: [address] [place] [address] Performed By: #### 5 7021-8 ####[facility] LABCLIA [id number] [facility] [address], [place] [address] [place] Neutrophils/100 WBC (Bld) 73.5 % Normal [facility] Comment on above: Order Comment: Speci men Type: BLOOD SPECIMENOrdering Facility: [facility] Address: [address] [place] [address] Performed By: #### 5 7021-8 ####[facility] LABCLIA [id number] [facility] [address], [facility]95 [place] Nucleated RBC (Bld) [#/Vol] 10*3/uL Normal <0.01 [facility] Comment on above: Order Comment: Speci men Type: BLOOD SPECIMENOrdering Facility: [facility] Address: [address] [place] [address] Performed By: #### 5 7021-8 ####[facility] LABCLIA [id number] [facility] [address], [facility] [place] Nucleated RBC/100 WBC (Bld) [Ratio] 0.0 /100 WBC Normal [facility] Comment on above: Order Comment: Speci men Type: BLOOD SPECIMENOrdering Facility: [facility] Address: [address] [place] [address] Performed By: #### 5 7021-8 ####[facility] LABCLIA [id number] [address] [place] [address] [place] Platelet mean volume (Bld) [Entitic vol] 12.2 fL Normal 9.0-12.7 [facility] Comment on above: Order Comment: Speci men Type: BLOOD SPECIMENOrdering Facility: [facility] Address: [address] [place] [address] Performed By: #### 5 7021-8 ####[facility] LABIA [id number] [place] [address] [place] Platelets (Bld) [#/Vol] 243 10*3/uL Normal 150-400 [facility] Comment on above: Order Comment: Speci men Type: BLOOD SPECIMENOrdering Facility: [facility] Address: [address] [place] [address] Performed By: #### 5 7021-8 ####[facility] LABIA [id number] [place] [address] [place] RBC (Bld) [#/Vol] 5.29 10*6/uL Normal 4.20-6.00 [facility] Comment on above: Order Comment: Speci men Type: BLOOD SPECIMENOrdering Facility: [facility] Address: [address] [place] [address] Performed By: #### 5 7021-8 ####[facility] LABIA [id number] [place] [id number] [place] WBC (Bld) [#/Vol] 7.76 10*3/uL Normal 3.70-11.00 [facility] Comment on above: Order Comment: Speci men Type: BLOOD SPECIMENOrdering Facility: [facility] Address: [address] [place] [address] Performed By: #### 5 7021-8 ####[facility] LABIA [id number] [place] [id number] [place] CNOVon 09-11-2024 [facility] CRISTINE MENA ([id number]) 1935 M Date Time Provider Department 09/11/24 10:40 AM ELADIO CHÁVEZ During your visit today, we recorded the following information about you: Pulse Blood pressure Weight Height 72/minute 141/90 76.7 kg 1.702 m Eladio Chávez MD 09/11/2024 12:13 PM Signed Chief Complaint Patient presents with: 6 Month Exam Recording using [employer] software for draft documentation of the visit was discussed with the patient/authorized direct marketing representative; all questions welcomed and answered. Patient/authorized direct marketing representative agreed to proceed HPI Cristine Mena [...] - Undergoing treatment with Dr. Salcedo in [place], receiving intravitreal injections every 3 months. - [...] drive regularly, including to medical appointments in [place]. Psoriasis: - Managed with triamcinolone ointment as [...] Colon polyps Squamous cell carcinoma, face [facility] Stroke (HCC) Pt reports possible TIA in [...] triamcinolone lena (more content not included)... Normal [facility] Comprehensive metabolic 2000 panelon 09-11-2024 Albumin [Mass/Vol] 4.2 g/dL Normal 3.9-4.9 [facility] Comment on above: Order Comment: Speci men Type: BLOOD SPECIMENOrdering Facility: [facility] Address: [address] [place] [address] Performed By: #### L IPNF, ####[facility] LABCLIA [id number] [place] [address] [place] ALP [Catalytic activity/Vol] 108 U/L Normal 38-113 [facility] Comment on above: Order Comment: Speci men Type: BLOOD SPECIMENOrdering Facility: [facility] Address: [address] [place] [address] Performed By: #### L IPNF, 47097-0 ####[facility] LABIA [id number] [place] [address] [place] ALT [Catalytic activity/Vol] 38 U/L Normal 10-54 [facility] Comment on above: Order Comment: Speci men Type: BLOOD SPECIMENOrdering Facility: [facility] Address: [address] [place] [address] Performed By: #### L IPNF, ####[facility] LABCLIA [id number] [place] [address] [place] Anion gap [Moles/Vol] 12 mmol/L Normal 8-15 [facility] Comment on above: Order Comment: Speci men Type: BLOOD SPECIMENOrdering Facility: [facility] Address: [address] [place] [address] Performed By: #### L IPNF, ####[facility] LABCLIA [id number] [address] [place] [address] [place] AST [Catalytic activity/Vol] 25 U/L Normal 14-40 [facility] Comment on above: Order Comment: Speci men Type: BLOOD SPECIMENOrdering Facility: [facility] Address: [address] [place] [address] Performed By: #### L IPNF, 16348-4 ####[facility] LABCLIA [id number] [address] [place] [address] [place] Bilirubin [Mass/Vol] 0.7 mg/dL Normal 0.2-1.3 [facility] Comment on above: Order Comment: Speci men Type: BLOOD SPECIMENOrdering Facility: [facility] Address: [address] [place] [address] Performed By: #### L IPIVANA, 78458-9 ####[facility] LABCLIA [id number] [address], [facility]95 [place] Calcium [Mass/Vol] 9.1 mg/dL Normal 8.5-10.2 [facility] Comment on above: Order Comment: Speci men Type: BLOOD SPECIMENOrdering Facility: [facility] Address: [address] [place] [address] Performed By: #### L IPNF, 09670-5 ####[facility] LABCLIA [id number] [address], [facility] [place] Chloride [Moles/Vol] 98 mmol/L Normal 98-107 [facility] Comment on above: Order Comment: Speci men Type: BLOOD SPECIMENOrdering Facility: [facility] Address: [address] [place] [address] Performed By: #### L IPNF, 19031-4 ####[facility] LABCLIA [id number] [address] [place] [address] [place] CO2 [Moles/Vol] 23 mmol/L Normal 22-30 [facility] Comment on above: Order Comment: Speci men Type: BLOOD SPECIMENOrdering Facility: [facility] Address: [address] [place] [address] Performed By: #### L IPNF, 73473-3 ####[facility] LABCLIA [id number] [facility] [address] [address] [place] Creatinine [Mass/Vol] 0.91 mg/dL Normal 0.73-1.22 [facility] Comment on above: Order Comment: Speci men Type: BLOOD SPECIMENOrdering Facility: [facility] Address: [address] [place] [address] Performed By: #### L IPNF, 88342-4 ####[facility] LABCLIA [id number] [facility] [address] [address] [place] Creatinine and Glomerular filtration rate.predicted panel (S/P/Bld) 81 mL/min/1.73m??? Normal >=60 [facility] Comment on above: Order Comment: Speci men Type: BLOOD SPECIMENOrdering Facility: [facility] Address: [address] [place] [address] Result Comment: Vanessa mated Glomerular Filtration Rate [...] actual GFR. Performed By: #### L IPNF, 32456-1 ####[facility] LABCLIA [id number] [facility] [address] [address] [place] Glucose [Mass/Vol] 97 mg/dL Normal 74-99 [facility] Comment on above: Order Comment: Speci men Type: BLOOD SPECIMENOrdering Facility: [facility] Address: [address] [place] [address] Result Comment: The [place] [employer] (ADA) provides guidance for cutoff [...] Standards of Medical Care in Diabetes 2016, [place] [employer]. Diabetes Care. 2016.39(Suppl 1). Performed By: #### L IPNF, 04075-8 ####[facility] LABCLIA [id number] [place] [address] [place] Potassium [Moles/Vol] 5.1 mmol/L Normal 3.7-5.1 [facility] Comment on above: Order Comment: Speci men Type: BLOOD SPECIMENOrdering Facility: [facility] Address: [address] [place] [address] Performed By: #### L IPNF, 08180-9 ####[facility] LABCLIA [id number] [place] [address] [place] Protein [Mass/Vol] 6.6 g/dL Normal 6.3-8.0 [facility] Comment on above: Order Comment: Yamileti men Type: BLOOD SPECIMENOrdering Facility: [facility] Address: [address] [place] [address] Performed By: #### L IPNF, 87156-1 ####[facility] LABCLIA [id number] [place] [id number] [place] Sodium [Moles/Vol] 133 mmol/L Low 136-144 [facility] Comment on above: Order Comment: Speci men Type: BLOOD SPECIMENOrdering Facility: [facility] Address: [address] [place] [address] Performed By: #### L IPNF, ####[facility] LABCLIA [id number] [address] [place] [address] [place] Urea nitrogen [Mass/Vol] 14 mg/dL Normal 9-24 [facility] Comment on above: Order Comment: Speci men Type: BLOOD SPECIMENOrdering Facility: [facility] Address: [address] [place] [address] Performed By: #### L IPNF, 78689-4 ####[facility] LABCLIA [id number] [address] [place] [address] [place] LIPID PANEL, NONFASTINGon Cholesterol [Mass/Vol] 143 mg/dL Normal <200 [facility] Comment on above: Order Comment: Speci men Type: BLOOD SPECIMENOrdering Facility: [facility] Address: [address] [place] [address] Result Comment: <200 mg/dL, Desirable 200-239 mg/dL, Borderline high >239 mg/dL, High Performed By: #### L IPNF, 81038-3 ####[facility] LABCLIA [id number] [address], [facility]95 [place] HDL CHOLESTEROL, NF 46 mg/dL Normal >39 [facility] Comment on above: Order Comment: Speci men Type: BLOOD SPECIMENOrdering Facility: [facility] Address: [address] [place] [address] Result Comment: 40-5 9 mg/dL, Acceptable >59 mg/dL, High: Negative risk factor for coronary heart disease <40 mg/dL, Low: Positive risk factor for coronary heart disease Performed By: #### L IPNF, 95349-2 ####[facility] LABCLIA [id number] [place] [id number] [place] LDL CHOLESTEROL CALCULATED, NF 83 mg/dL Normal <100 [facility] Comment on above: Order Comment: Speci men Type: BLOOD SPECIMENOrdering Facility: [facility] Address: [address] [place] [address] Result Comment: <100 mg/dL, Optimal 100-129 mg/dL, Near optimal/above optimal 130-159 mg/dL, Borderline high 160-189 mg/dL, High >189 mg/dL, Very high Secondary prevention optimal LDL Cholesterol levels are recommended to be <70 mg/dL LDL cholesterol is calculated using the Duque-NIH equation. Performed By: #### L MINGO, 10088-0 ####[facility] LABCLIA [id number] [address] LDL/HDL RATIO, NF 1.80 mg/dL Normal <2.54 [facility] Comment on above: Order Comment: Carlitos watson Type: BLOOD SPECIMENOrdering Facility: [facility] Address: [address] [place] [address] Result Comment: Refe rence: 1. National Cholesterol Education Program ATP III Guideline At-A-Glance Quick Desk Reference: National Heart, Lung, and Blood [place]. National Institutes of Health. 2001: NIH Publication No. 01-3305. 2. An International Atherosclerosis Society position paper: global recommendations for the management of dyslipidemia: executive summary, Atherosclerosis. 2014: 232(2):410-413. Performed By: #### L MINGO, ####[facility] LABIA [id number] [address] NON HDL CHOL, NF 97 mg/dL Normal <130 [facility] Comment on above: Order Comment: Carlitos watson Type: BLOOD SPECIMENOrdering Facility: [facility] Address: [address] [place] [address] Result Comment: <130 mg/dL, Optimal 130-159 mg/dL, Near optimal/above optimal 160-189 mg/dL, Borderline high 190-219 mg/dL, High >219 mg/dL, Very high Secondary prevention optimal non HDL Cholesterol levels are recommended to be <100 mg/dL Performed By: #### L MINGO, ####[facility] LABCLIA [id number] [address] OF [facility] T CHOL/HDL RATIO NF 3.11 mg/dL Normal <5.10 [facility] Comment on above: Order Comment: Speci men Type: BLOOD SPECIMENOrdering Facility: [facility] Address: [address] [place] [address] Performed By: #### L IPNF, 63573-8 ####[facility] LABCLIA [id number] [place] [address] [place] TRIGLYCERIDES, NF 73 mg/dL Normal <150 [facility] Comment on above: Order Comment: Speci men Type: BLOOD SPECIMENOrdering Facility: [facility] Address: [address] [place] [address] Result Comment: <150 mg/dL, Normal 150-199 mg/dL, Borderline high 200-499 mg/dL, High >499 mg/dL, Very high Performed By: #### L IPNF, 05485-0 ####[facility] LABCLIA [id number] [place] [address] [place] VLDL CHOLESTEROL, NF 11 mg/dL Normal <30 [facility] Comment on above: Order Comment: Speci men Type: BLOOD SPECIMENOrdering Facility: [facility] Address: [address] [place] [address] Performed By: #### L IPNF, 55923-0 ####[facility] LABCLIA [id number] [address] OF [place] CNOVon 04-18-2024 CNOV Office Visit (UCWSTR ) CRISTINE MENA ([id number]) 1935 M Date Time Provider Department 04/18/24 3:15 PM KENISHA JIMENEZ [facility] During your visit today, we recorded the following information about you: Temperature Pulse Respiration Blood pressure 98.8 degrees 75/minute 18/minute 151/72 Weight 78.5 kg Kenisha Jimenez PA-C 04/18/2024 4:26 PM Signed This note was created using Halton[employer]. Subjective Cristine Mena is a 88 year [...] asthma, uncomplicated [J45.20] Order(s):XR CHEST 2V FRONTAL/LAT [[id number]] Order #: [id number]. #:[id number] -CCF predniSONE (DELTASONE) 10 mg tabletTake 1 [...] PRESSURE CUFF) (more content not included)... Normal [facility] XR CHEST 2V FRONTAL/LATon XR CHEST [...] thoracic spine. IMPRESSION: No acute radiographic abnormality. Tax Evaluator: ROXY Transcribe Date/Time: Apr 18 2024 4:10P Dictated by : ROMULO RAINES MD This examination was interpreted and the report reviewed and electronically signed by: ROMULO RAINES MD on Apr 18 2024 4:11PM EST [id number] Normal [facility] XR Chest PA and Lateralon IMPRESSION: No acute radiographic abnormality. Tax Evaluator: ROXY Transcribe Date/Time: Apr 18 2024 4:10P [...] the thoracic spine. DIVISION OF RADIOLOGY Provider, [facility] - 04/18/2024 * * *Final Report* * [...] spine. IMPRESSION IMPRESSION: No acute radiographic abnormality. Tax Evaluator: PSCB Transcribe Date/Time: Apr 18 2024 4:10P Dictated by : ROMULO RAINES MD This examination was interpreted and the report reviewed and electronically signed by: ROMULO RAINES MD on Apr 18 2024 4:11PM EST [facility] Radiology Study observation (narrative) [facility] XR Chest PA and LateralOrder ed By: Cc Provider on 04-18-2024 [facility] CNPNon 03-14-2024 CNPN Telephone (FAMPWS) CRISTINE MENA ([id number]) 1935 M Date Time Provider Department 03/14/24 [...] affected area twice daily as needed. - Jahovgdxjxnna-Vhopaenc-Cclel n (CENTRUM SILVER) tab Take 1 tablet [...] Status:Closed by RUBA LIMON on 03/27/24 Normal [facility] metabolic 2000 panelon 03-14-2024 Albumin [Mass/Vol] 4.5 g/dL 3.9 - 4.9 g/dL [facility] ALP [Catalytic activity/Vol] 89 U/L 38 - 113 U/L [facility] ALT [Catalytic activity/Vol] 25 U/L 10 - 54 U/L [facility] Anion gap [Moles/Vol] 11 mmol/L 8 - 15 mmol/L [facility] AST [Catalytic activity/Vol] 27 U/L 14 - 40 U/L [facility] Bilirubin [Mass/Vol] 0.7 mg/dL 0.2 - 1.3 mg/dL [facility] Calcium [Mass/Vol] 9.6 mg/dL 8.5 - 10. 2 mg/dL [facility] Chloride [Moles/Vol] 99 mmol/L 98 - 107 mmol/L [facility] CO2 [Moles/Vol] 26 mmol/L 22 - 30 mmol/L [facility] Creatinine [Mass/Vol] 0.89 mg/dL 0.73 - 1.22 mg/dL [facility] GFR/1.73 sq M.predicted among non-blacks MDRD (S/P/Bld) [Vol rate/Area] 83 mL/min/{1.73_m2} - PINF [facility] Comment on above: Estimated Glomerular Filtration [...] [Mass/Vol] 98 mg/dL 74 - 99 mg/dL [facility] Comment on above: The [place] Diabete s Association (ADA) provides guidance for [...] Standards of Medical Care in Diabetes 2016, [place] Diabetes Association. Diabetes Care. 2016.39(Suppl 1). Interpretation and review of laboratory results Normal [facility] Potassium [Moles/Vol] 5.0 mmol/L 3.7 - 5.1 mmol/L [facility] Protein [Mass/Vol] 7.2 g/dL 6.3 - 8.0 g/dL [facility] Sodium [Moles/Vol] 136 mmol/L 136 - 144 mmol/L [facility] Urea nitrogen [Mass/Vol] 13 mg/dL 9 - 24 mg/dL [facility] CNOVon 03-13-2024 CNOV Office Visit (FAMPWS ) TRINACRISTINE ([id number]) 1935 M Date Time Provider Department 03/13/24 [...] General (Family Medicine) Podlogar, VALERIE Estrada.SWETA as Director Validation (Family Medicine) Outside specialists seen: Optho: Dr [...] Lymph 1.00 - 4.00 k/uL 0.99 (L) [place]% % 11.1 Abs [place] <0.87 k/uL 0.82 E[place]% % 2.0 Abs [...] PSA/PROSTATE SP (more content not included)... Normal [facility] Comprehensive metabolic 2000 panelon 03-13-2024 Albumin [Mass/Vol] 4.5 g/dL Normal 3.9-4.9 [facility] Comment on above: Order Comment: Speci men Type: BLOOD SPECIMENOrdering Facility: [facility] Address: [address] [place] [address] Performed By: #### 2 4323-8 ####[facility] LABIA [id number] [place] [address] [place] ALP [Catalytic activity/Vol] 89 U/L Normal 38-113 [facility] Comment on above: Order Comment: Speci men Type: BLOOD SPECIMENOrdering Facility: [facility] Address: [address] [place] [address] Performed By: #### 2 4323-8 ####[facility] LABIA [id number] [place] [address] [place] ALT [Catalytic activity/Vol] 25 U/L Normal 10-54 [facility] Comment on above: Order Comment: Speci men Type: BLOOD SPECIMENOrdering Facility: [facility] Address: [address] [place] [address] Performed By: #### 2 4323-8 ####[facility] LABIA [id number] [place] [address] [place] Anion gap [Moles/Vol] 11 mmol/L Normal 8-15 [facility] Comment on above: Order Comment: Speci men Type: BLOOD SPECIMENOrdering Facility: [facility] Address: [address] [place] [address] Performed By: #### 2 4323-8 ####[facility] LABIA [id number] [place] [address] [place] AST [Catalytic activity/Vol] 27 U/L Normal 14-40 [facility] Comment on above: Order Comment: Speci men Type: BLOOD SPECIMENOrdering Facility: [facility] Address: [address] [place], [place] [address] Performed By: #### 2 4323-8 ####[facility] LABCLIA [id number] [address] [address] [place] Bilirubin [Mass/Vol] 0.7 mg/dL Normal 0.2-1.3 [facility] Comment on above: Order Comment: Speci men Type: BLOOD SPECIMENOrdering Facility: [facility] Address: [address] [place] [address] Performed By: #### 2 4323-8 ####[facility] LABCLIA [id number] [place] [address] [place] Calcium [Mass/Vol] 9.6 mg/dL Normal 8.5-10.2 [facility] Comment on above: Order Comment: Speci men Type: BLOOD SPECIMENOrdering Facility: [facility] Address: [address] [place], [place] [address] Performed By: #### 2 4323-8 ####[facility] LABCLIA [id number] [place] [address] [place] Chloride [Moles/Vol] 99 mmol/L Normal 98-107 [facility] Comment on above: Order Comment: Speci men Type: BLOOD SPECIMENOrdering Facility: [facility] Address: [address] [place], [place] [address] Performed By: #### 2 4323-8 ####[facility] LABCLIA [id number] [place] [address] [place] CO2 [Moles/Vol] 26 mmol/L Normal 22-30 [facility] Comment on above: Order Comment: Speci men Type: BLOOD SPECIMENOrdering Facility: [facility] Address: [address] [place], [place] [address] Performed By: #### 2 4323-8 ####[facility] LABCLIA [id number] [address] [address] [place] Creatinine [Mass/Vol] 0.89 mg/dL Normal 0.73-1.22 [facility] Comment on above: Order Comment: Carlitos watson Type: BLOOD SPECIMENOrdering Facility: [facility] Address: [address] [place] [address] Performed By: #### 2 4323-8 ####[facility] LABIA [id number] [address] OF [facility] Creatinine and Glomerular filtration rate.predicted panel (S/P/Bld) 83 mL/min/1.73m??? Normal >=60 [facility] Comment on above: Order Comment: Carlitos watson Type: BLOOD SPECIMENOrdering Facility: [facility] Address: [address] [place] [address] Result Comment: Vanessa mated Glomerular Filtration Rate [...] actual GFR. Performed By: #### 2 4323-8 ####[facility] LABIA [id number] [place] [address] [place] Glucose [Mass/Vol] 98 mg/dL Normal 74-99 [facility] Comment on above: Order Comment: Carlitos watson Type: BLOOD SPECIMENOrdering Facility: [facility] Address: [address] [place] [address] Result Comment: The [place] Diabetes Association (ADA) provides guidance for cutoff [...] Standards of Medical Care in Diabetes 2016, [place] Diabetes Association. Diabetes Care. 2016.39(Suppl 1). Performed By: #### 2 4323-8 ####[facility] LABCLIA [id number] [place] [address] [place] Potassium [Moles/Vol] 5.0 mmol/L Normal 3.7-5.1 [facility] Comment on above: Order Comment: Speci men Type: BLOOD SPECIMENOrdering Facility: [facility] Address: [address] [place] [address] Performed By: #### 2 4323-8 ####[facility] LABCLIA [id number] [place] [address] [place] Protein [Mass/Vol] 7.2 g/dL Normal 6.3-8.0 [facility] Comment on above: Order Comment: Speci men Type: BLOOD SPECIMENOrdering Facility: [facility] Address: [address] [place] [address] Performed By: #### 2 4323-8 ####[facility] LABCLIA [id number] [place] [address] [place] Sodium [Moles/Vol] 136 mmol/L Normal 136-144 [facility] Comment on above: Order Comment: Speci men Type: BLOOD SPECIMENOrdering Facility: [facility] Address: [address] [place] [address] Performed By: #### 2 4323-8 ####[facility] LABCLIA [id number] [place] [address] [place] Urea nitrogen [Mass/Vol] 13 mg/dL Normal 9-24 [facility] Comment on above: Order Comment: Speci men Type: BLOOD SPECIMENOrdering Facility: [facility] Address: [address] [place] [address] Performed By: #### 2 4323-8 ####[facility] LABIA [id number] [place] [address] [place] PSA/PROSTATE SPECIFIC ANTIGE N SCREENINGon 03-13-2024 Interpretation and review of laboratory results Normal [facility] Prostate specific Ag [Mass/Vol] 1.79 ng/mL NINF - 2.60 ng/mL [facility] Comment on above: Total PSA test metho dology used is the Electrochemiluminescence Immunoassay by [email or web address]. Total PSA values by differing methodologies cannot be interchanged. [facility] Prostate specific Ag [Mass/Vol] 1.79 ng/mL Normal <2.60 [facility] Comment on above: Order Comment: Speci men Type: BLOOD SPECIMENOrdering Facility: [facility] Address: [address] [place] [address] Result Comment: Tota l PSA test methodology used is the Electrochemiluminescence Immunoassay by [employer]. Total PSA values by differing methodologies cannot be interchanged. Performed By: #### P SAS1 ####[facility] LABIA [id number] [place] [address] [place] CNOVon 11-21-2023 CNOV Office Visit ([place] ) CRISTINE MENA ([id number]) 1935 M Date Time Provider Department 11/21/23 2:00 PM CHRIS MERCEDES During your visit today, we recorded the following information about you: Pulse Blood pressure Weight 61/minute 169/92 77.5 kg Chris Mercedes MD 11/21/2023 2:04 PM Signed Chris Mercedes M.D. Surgical Oncology [address] [facility], [address] [place] [id number] Plan SUBJECTIVE HPI Cristine Mena is a [...] melanoma of the chest. Patient is currently ODMENICA. I discussed with patient his ongoing surveillance. [...] affected area twice daily as needed. - Pkdliouzlqnhh-Jcecdjkl-Nqkys n (CENTRUM SILVER) tab Take 1 tablet by mouth once daily. - psyllium seed/sucrose(METAMUCIL ORAL POWDER) one teaspoon daily - t (more content not included)... Normal [facility] CBC W Auto Differential pane l (Bld)on 08-10-2023 Basophils (Bld) [#/Vol] [facility] Basophils/100 WBC (Bld) 0.3 % [facility] Differential cell count method Nom (Bld) Auto [facility] Eosinophils (Bld) [#/Vol] 0.15 10*3/uL [facility] Eosinophils/100 WBC (Bld) 2.0 % [facility] Erythrocyte distribution width (RBC) [Ratio] 12.9 % 11.5 - 15.0 % [facility] Hematocrit (Bld) [Volume fraction] 49.7 % 39.0 - 51.0 % [facility] Hemoglobin (Bld) [Mass/Vol] 16.6 g/dL 13.0 - 17.0 g/dL [facility] Immature granulocytes (Bld) [#/Vol] [facility] Immature granulocytes/100 WBC (Bld) 0.1 % [facility] Interpretation and review of laboratory results Abnormal [facility] Lymphocytes (Bld) [#/Vol] 0.99 10*3/uL Low [facility] Lymphocytes/100 WBC (Bld) 13.3 % [facility] MCH (RBC) [Entitic mass] 32.6 pg 26.0 - 34.0 pg [facility] MCHC (RBC) [Mass/Vol] 33.4 g/dL 30.5 - 36.0 g/dL [facility] MCV (RBC) [Entitic vol] 97.6 fL 80.0 - 100.0 fL [facility] Monocytes (Bld) [#/Vol] 0.82 10*3/uL [facility] Monocytes/100 WBC (Bld) 11.1 % [facility] Neutrophils (Bld) [#/Vol] 5.43 10*3/uL [facility] Neutrophils/100 WBC (Bld) 73.2 % [facility] Nucleated RBC (Bld) [#/Vol] [facility] Nucleated RBC/100 WBC (Bld) [Ratio] 0.0 % /100 WBC [facility] Platelet mean volume (Bld) [Entitic vol] 12.1 fL 9.0 - 12.7 fL [facility] Platelets (Bld) [#/Vol] 231 10*3/uL [facility] RBC (Bld) [#/Vol] 5.09 10*6/uL 4.20 - 6.0 0 m/uL [facility] WBC (Bld) [#/Vol] 7.42 10*3/uL [facility] Comprehensive metabolic 2000 panelon 08-10-2023 Albumin [Mass/Vol] 4.1 g/dL 3.9 - 4.9 g/dL [facility] ALP [Catalytic activity/Vol] 86 U/L 38 - 113 U/L [facility] ALT [Catalytic activity/Vol] 22 U/L 10 - 54 U/L [facility] Anion gap [Moles/Vol] 9 mmol/L 8 - 15 mmol/L [facility] AST [Catalytic activity/Vol] 26 U/L 14 - 40 U/L [facility] Bilirubin [Mass/Vol] 0.6 mg/dL 0.2 - 1.3 mg/dL [facility] Calcium [Mass/Vol] 9.3 mg/dL 8.5 - 10. 2 mg/dL [facility] Chloride [Moles/Vol] 101 mmol/L 98 - 107 mmol/L [facility] CO2 [Moles/Vol] 26 mmol/L 22 - 30 mmol/L [facility] Creatinine [Mass/Vol] 0.96 mg/dL 0.73 - 1.22 mg/dL [facility] GFR/1.73 sq M.predicted among non-blacks MDRD (S/P/Bld) [Vol rate/Area] 77 mL/min/{1.73_m2} - PINF [facility] Comment on above: Estimated Glomerular Filtration [...] 115 mg/dL High 74 - 99 mg/dL [facility] Comment on above: The [place] Diabete s Association (ADA) provides guidance for [...] Standards of Medical Care in Diabetes 2016, [place] Diabetes Association. Diabetes Care. 2016.39(Suppl 1). Interpretation and review of laboratory results Abnormal [facility] Potassium [Moles/Vol] 4.6 mmol/L 3.7 - 5.1 mmol/L [facility] Protein [Mass/Vol] 6.2 g/dL Low 6.3 - 8.0 g/dL [facility] Sodium [Moles/Vol] 136 mmol/L 136 - 144 mmol/L [facility] Urea nitrogen [Mass/Vol] 16 mg/dL 9 - 24 mg/dL [facility] LIPID PANEL, NONFASTINGon Cholesterol [Mass/Vol] 158 mg/dL NINF - 200 mg/dL [facility] Comment on above: <200 mg/dL, Desirabl e 200-239 mg/dL, Borderline high >239 mg/dL, High HDL Cholesterol, Nonfasting 48 mg/dL 39 - PINF mg/dL [facility] Comment on above: 40-59 mg/dL, Accepta ble >59 mg/dL, High: Negative risk factor for coronary heart disease <40 mg/dL, Low: Positive risk factor for coronary heart disease Interpretation and review of laboratory results Normal [facility] LDL Cholesterol, Nonfasting 91 mg/dL NINF - 100 mg/dL [facility] Comment on above: <100 mg/dL, Optimal 100-129 mg/dL, Near optimal/above optimal 130-159 mg/dL, Borderline high 160-189 mg/dL, High >189 mg/dL, Very high Secondary prevention optimal LDL Cholesterol levels are recommended to be < 70 mg/dL LDL/HDL Ratio, Nonfasting 1.90 mg/dL NINF - 2.54 mg/dL [facility] Comment on above: Reference: 1. National Cholesterol Education Program ATP III Guideline At-A-Glance Quick Desk Reference: National Heart, Lung, and Blood [place]. National Institutes of Health. 2001: NIH Publication No. 01-3305. 2. An International Atherosclerosis Society position paper: global recommendations for the management of dyslipidemia: executive summary, Atherosclerosis. 2014: 232(2):410-413. Non HDL Cholesterol, Nonfasting 110 mg/dL NINF - 130 mg/dL [facility] Comment on above: <130 mg/dL, Optimal 130-159 mg/dL, Near optimal/above optimal 160-189 mg/dL, Borderline high 190-219 mg/dL, High >219 mg/dL, Very high Secondary prevention optimal non HDL Cholesterol levels are recommended to be <100 mg/dL Total Chol/HDL Ratio, Nonfasting 3.29 mg/dL NINF - 5.10 mg/dL [facility] Triglycerides, Nonfasting 94 mg/dL NINF - 150 mg/dL [facility] Comment on above: <150 mg/dL, Normal 150-199 mg/dL, Borderline high 200-499 mg/dL, High >499 mg/dL, Very high VLDL Cholesterol, Nonfasting 19 mg/dL NINF - 30 mg/dL [facility] No Panel Informationon 08-09 [facility] ALLIED HEALTHon 05-13-2023 ALLIED HEALTH HNO ID: [id number] Author: HAMILTON PUCKETT Chaplain Service: ? 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 Met with PT and 3 family/friends at the bedside. Exchanged pleasantries and prayed. To contact the Spiritual Care Department: Please call [phone]. SIGNATURE: Chaplain Ricardo PATIENT NAME: Cristine Mena DATE: May 13, 2023 TIME: 7:27 AM PAGER/CONTACT #: [phone] Normal [facility] ANES POSTPROC EVALon 024 ANES POSTPROC EVAL HNO ID: [id number] Author: MANAV BARKSDALE MD Service: Anesthesiology Author Type: Anesthesiologist Type: Anesthesia Postprocedure Evaluation Filed: 05/13/2023 14:29 Note Text: POST ANESTHESIA EVALUATION NOTE : 1935 Procedure Summary Date: 05/13/23 Room / Location: [facility] OR OR Anesthesia Start: 3 Anesthesia Stop: [...] May 13, 2023 TIME: 2:29 PM CSN: [id number] [facility] ANES PRE-OPon 05-13-2023 ANES PRE-OP HNO ID: [id number] Author: WALE HART MD Service: Anesthesiology Author Type: Anesthesiologist Type: Anesthesia Preprocedure Evaluation Filed: 05/13/2023 11:37 Note Text: ANESTHESIOLOGY DAY OF SURGERY NOTE : 1935 Procedure Information Anesthesia Start Date/Time: 05/13/23 1113 Procedures: WIDE LOCAL EXCISION OF CHEST MELANOMA 3 CM (Chest) SENTINEL LYMPH NODE BIOPSY Location: [facility] OR OR Surgeons: Chris Mercedes MD Estimated [...] and consent discussed: yes. Patient / Responsible Green Party agrees to proceed: yes Patient / Surrogate [...] affected area twice daily as needed. - Scqljvdyzedow-Ztmajkor-Hwpcs n (CENTRUM SILVER) tab Take 1 tablet [...] May 13, 2023 TIME: 11:36 AM CSN: [id number] [facility] BRIEF OP NOTon 05-13-2023 BRIEF OP NOT HNO ID: [id number] Author: SAVANNA LYNCH PA-C Service: General Surgery Author Type: Physician Supplier Quality Specialist Type: Brief Op Note Filed: 05/13/2023 12:51 Note Text: BRIEF OPERATIVE / PROCEDURE NOTE LOG ID: [id number] SURGERY/PROCEDURE DATE: 05/13/2023 INCISION/PROCEDURE START TIME: 11:52 AM INCISION CLOSE/PROCEDURE END TIME: 12:34 PM SURGEON(S)/PROCEDURALIST(S) AND MAGAZINE WRITER(S): Surgeon(s) and Role: * Chris Mercedes MD - Primary * Joel Spring DO - Resident - Assisting Physician Supplier Quality Specialist: Savanna Lynch PA-C SURGERY/PROCEDURE(S): Wide local excision [...] 2023 TIME: 12:50 PM Normal [facility] HISTORY PHYSICALon HISTORY PHYSICAL HNO ID: [id number] Author: TONG LARA DO Service: General Surgery [...] DATE OF EXAM: May 13 2023 8:33AM [facility] 0033 - NM LYMPH NODE IMAGING [...] site of melanoma in the chest. RESULTS: [place] lymph node identified in the left upper chest. IMPRESSION: Successful sentinel lymph node injection. Tax Evaluator: ROXY Transcribe Date/Time: May 13 2023 9:01A Dictated by : RANDI RM MD This examination was interpreted and the report reviewed and electronically signed by: RANDI RM MD on May 13 2023 9:10AM EST [id number] [facility] OPERATIVE NOon 05-13-2023 OPERATIVE NO HNO ID: [id number] Author: CHRIS MERCEDES MD Service: General Surgery Author Type: Physician Type: Operative Report Filed: 05/22/2023 13:18 Note Text: OPERATIVE/PROCEDURE REPORT LOG ID: [id number] SURGERY/PROCEDURE DATE: 05/13/2023 INCISION/PROCEDURE START TIME: 11:52 AM INCISION CLOSE/PROCEDURE END TIME: 12:34 PM SURGEON(S)/PROCEDURALIST(S) AND MAGAZINE WRITER(S): Surgeon(s) and Role: * Chris Mercedes MD - Primary * Joel Spring DO - Resident - Assisting Physician Supplier Quality Specialist: Savanna Lynch PA-C INDICATIONS: Patient is an [...] entire as there was no other qualified radiology practitioner assistant. Anesthesia was then completed without incident [...] DERM SURGICAL PATHOLOGY Chris Mercedes MD 05/13/2023 12:12 PM IMPLANTABLE DEVICES: * No implants in log * DRAINS: None COMPLICATIONS: None SIGNATURE: Chris Mercedes MD PATIENT NAME: Cristine Mena DATE: May 22, 2023 1:12 PM Normal [facility] SURGICAL PATHOLOGYon 024 CASE REPORT Normal [facility] Comment on above: Order Comment: Speci men Type: TISSUE SPECIMEN Ordering Facility: [facility] Address: [address] [place] [address] Result Comment: Surg ical Pathology Report Case: [id number] Authorizing Provider: Chris Mercedes MD Collected: 05/13/2023 [...] o'clock margin Performed By: #### S #### 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 CLIA [id number] [address] [place] [address] DIAGNOSIS COMMENT The small intraderma l nevus was reviewed by Dr. Mando Singh who agrees with this assessment. Normal [facility] Comment on above: Order Comment: Speci men Type: TISSUE SPECIMEN Ordering Facility: [facility] Address: [address] [place] [address] Performed By: #### S #### [facility] CLIA [id number] [address] FINAL DIAGNOSIS Normal [facility] Comment on above: Order Comment: Speci men Type: TISSUE SPECIMEN Ordering Facility: [facility] Address: [address] [place] [address] Result Comment: A. S kin of chest, wide local excision: - Benign skin with scar and small intradermal nevus. Negative for residual melanocytic neoplasm. See comment. B. Skin of chest, additional 12:00 margin: - No pathologic abnormalities. C. Skin of chest, additional 6:00 margin: - No pathologic abnormalities. Performed By: #### S #### [facility] CLIA [id number] [address] [place] [address] FINAL PERFORMING LAB Normal [facility] Comment on above: Order Comment: Speci men Type: TISSUE SPECIMEN Ordering Facility: [facility] Address: [address] [place] [address] Result Comment: Diag nostic interpretation performed at [facility], [address] [place] [address] CLIA# [id number] Inspector Missile: Ty Alcantara M.D. Performed By: #### S #### [facility] CLIA [id number] [address] [place] [address] GROSS DESCRIPTION [facility] Comment on above: Order Comment: Speci men Type: TISSUE SPECIMEN Ordering Facility: [facility] Address: [address] [place] [address] Result Comment: A. S KIN WIDE EXCISION [...] x 0.5 x 0.1 cm, slightly elevated, autsin-brown lesion, the lesion extends within 0.2 cm [...] C2-shaved of side Gross examination performed at [facility], [address] [place] [address] CLIA#[id number] [facility] May 16, 2023 10:26 AM Performed By: #### S #### [facility] CLIA [id number] [address] OF [facility] CNOVon 04-20-2023 CNOV Office Visit (AGGENS 3) CRISTINE MENA ([id number]) 1935 M Date Time Provider Department 04/20/23 10:00 AM CHRIS MERCEDES3 During your visit today, we recorded the following information about you: Pulse Blood pressure Weight Height 60/minute 148/80 79.8 kg 1.702 m Chris Mercedes MD 04/28/2023 3:23 PM Signed Chris Mercedes M.D. Surgical Oncology 1 [facility], [facility] [address] [address] SUBJECTIVE HPI Cristine Mena is a 87 [...] in situ. This was treated by his office electrician. Currently, patient reports no systemic symptoms related [...] Skin cancer of scalp melanoma? Seen at [facility] Unspecified essential hypertension PAST SURGICAL HISTORY Procedure [...] mouth once daily. Miscellaneous Medical Supply (BLOOD ME (more content not included)... Normal [facility] US SCREENING FOR AAAon 08-09 [facility] Comprehensive metabolic 2000 panelon 03-03-2022 Albumin [Mass/Vol] 4.3 g/dL 3.9 - 4.9 g/dL [facility] ALP [Catalytic activity/Vol] 96 U/L 38 - 113 U/L [facility] ALT [Catalytic activity/Vol] 24 U/L 10 - 54 U/L [facility] Anion gap [Moles/Vol] 8 mmol/L Low 9 - 18 mmol/L [facility] AST [Catalytic activity/Vol] 28 U/L 14 - 40 U/L [facility] Bilirubin [Mass/Vol] 0.7 mg/dL 0.2 - 1.3 mg/dL [facility] Calcium [Mass/Vol] 9.3 mg/dL 8.5 - 10. 2 mg/dL [facility] Chloride [Moles/Vol] 101 mmol/L 97 - 105 mmol/L [facility] CO2 [Moles/Vol] 28 mmol/L 22 - 30 mmol/L [facility] Creatinine [Mass/Vol] 0.86 mg/dL 0.73 - 1.22 mg/dL [facility] Estimated Glomerular Filtration Rate 85 mL/min/1.73m >=60 mL/min/1.73m [facility] Glucose [Mass/Vol] 99 mg/dL 74 - 99 mg/dL [facility] Potassium [Moles/Vol] 4.7 mmol/L 3.7 - 5.1 mmol/L [facility] Protein [Mass/Vol] 7.1 g/dL 6.3 - 8.0 g/dL [facility] Sodium [Moles/Vol] 137 mmol/L 136 - 144 mmol/L [facility] Urea nitrogen [Mass/Vol] 12 mg/dL 9 - 24 mg/dL [facility] POTASSIUM BLDon 07-17-2021 Potassium [Moles/Vol] 4.8 mmol/L 3.7 - 5.1 mmol/L [facility] CBC panel Auto (Bld)on 07-13 Erythrocyte distribution width (RBC) [Ratio] 12.8 % 11.5 - 15.0 % [facility] Hematocrit (Bld) [Volume fraction] 52.4 % High 39.0 - 51.0 % [facility] Hemoglobin (Bld) [Mass/Vol] 17.1 g/dL High 13.0 - 17.0 g/dL [facility] MCH (RBC) [Entitic mass] 31.7 pg 26.0 - 34.0 pg [facility] MCHC (RBC) [Mass/Vol] 32.6 g/dL 30.5 - 36.0 g/dL [facility] MCV (RBC) [Entitic vol] 97.2 fL 80.0 - 100.0 fL [facility] Nucleated RBC (Bld) [#/Vol] 10*3/uL <0.01 k/uL [facility] Platelet mean volume (Bld) [Entitic vol] 11.1 fL 9.0 - 12.7 fL [facility] Platelets (Bld) [#/Vol] 236 10*3/uL 150 - 400 k/uL [facility] RBC (Bld) [#/Vol] 5.39 10*6/uL 4.20 - 6.0 0 m/uL [facility] WBC (Bld) [#/Vol] 5.85 10*3/uL 3.70 - 11. 00 k/uL [facility] PSA,Total - Annual Screenon 06-23-2020 PSA,TOT SCREEN 1.22 ng/mL Normal 0.00-4.00 [facility] Comment on above: Result Comment: This test was performed using the TPSA assay method for the [employer] chemistry system. Values obtained with different assay methods cannot be used interchangably. When changing PSA assays in the course of monitoring a patient, additional sequential testing should be carried out to confirm baseline values. Performed By: #### L [id number] #### [facility] [place], [address] Potassiumon 06-17-2020 Potassium [Moles/Vol] 4.9 mmol/L Normal 3.5-5.1 [facility] Comment on above: Result Comment: Slig ht Hemolysis, Result may be falsely increased. Performed By: #### L 501.5600 #### [facility] [address] [place], [address] Vital Signs Date Time Vital Sign Value Performing Clinician Faci lity 11-13-2024 08:37-0400 Body height 170.2 cm Elaido Chávez MD Work Phone: [facility] 11-13-2024 08:37-0400 Body mass index (BMI) [Ratio] 26 kg/m2 Eladio Chávez MD Work Phone: [facility] 11-13-2024 08:37-0400 Body weight 75.3 kg Eladio Chávez MD Work Phone: [facility] 11-13-2024 08:37-0400 Diastolic blood pressure 80 mm[Hg] Eladio Chávez MD Work Phone: [facility] 11-13-2024 08:37-0400 Heart rate 90 /min Eladio Chávez MD Work Phone: [facility] 11-13-2024 08:37-0400 SaO2% (BldA) [Mass fraction] 98 % Eladio Chávez MD Work Phone: [facility] 11-13-2024 08:37-0400 Systolic blood pressure 130 mm[Hg] Eladio Chávez MD Work Phone: [facility] 10-30-2024 08:30-0400 Diastolic blood pressure 94 mm[Hg] Eladio Chávez MD Work Phone: [facility] Comment on above: Eugenio BP 10-30-2024 08:30-0400 Systolic blood pressure 151 mm[Hg] Eladio Chávez MD Work Phone: [facility] Comment on above: Eugenio BP 10-30-2024 08:22-0400 Body height 170.2 cm Eladio Chávez MD Work Phone: [facility] 10-30-2024 08:22-0400 Body mass index (BMI) [Ratio] 26.03 kg/m2 Eladio Chávez MD Work Phone: [facility] 10-30-2024 08:22-0400 Body weight 75.39 kg Eladio Chávez MD Work Phone: [facility] 10-30-2024 08:22-0400 Heart rate 65 /min Eladio Chávez MD Work Phone: [facility] 09-11-2024 12:01-0400 Diastolic blood pressure 90 mm[Hg] Eladio Chávez MD Work Phone: [facility] 09-11-2024 12:01-0400 Systolic blood pressure 141 mm[Hg] Eladio Chávez MD Work Phone: [facility] 09-11-2024 10:33-0400 Body height 170.2 cm Eladio Chávez MD Work Phone: [facility] 09-11-2024 10:33-0400 Body mass index (BMI) [Ratio] 26.47 kg/m2 Eladio Chávez MD Work Phone: [facility] 09-11-2024 10:33-0400 Body weight 76.66 kg Eladio Chávez MD Work Phone: [facility] 09-11-2024 10:33-0400 Heart rate 72 /min Eladio Chávez MD Work Phone: [facility] 04-18-2024 15:31-0500 Body mass index (BMI) [Ratio] 27.11 kg/m2 Kenisha Clutter PA-C Work Phone: [facility] 04-18-2024 15:31-0500 Body temperature 98.8 [degF] Kenisha Clutter PA-C Work Phone: [facility] 04-18-2024 15:31-0500 Body weight 78.5 kg Kenisha Clutter PA-C Work Phone: [facility] 04-18-2024 15:31-0500 Diastolic blood pressure 72 mm[Hg] Kenisha Clutter PA-C Work Phone: [facility] 04-18-2024 15:31-0500 Heart rate 75 /min Kenisha Clutter PA-C Work Phone: [facility] 04-18-2024 15:31-0500 Respiratory rate 18 /min Kenisha Clutter PA-C Work Phone: [facility] 04-18-2024 15:31-0500 SaO2% (BldA) [Mass fraction] 96 % Kenisha Clutter PA-C Work Phone: [facility] 04-18-2024 15:31-0500 Systolic blood pressure 151 mm[Hg] Kenisha Clutter PA-C Work Phone: [facility] 03-13-2024 10:00-0500 Body mass index (BMI) [Ratio] 26.85 kg/m2 Eladio Chávez MD Work Phone: [facility] 03-13-2024 10:00-0500 Body weight 77.75 kg Eladio Chávez MD Work Phone: [facility] 03-13-2024 10:00-0500 Diastolic blood pressure 82 mm[Hg] Eladio Chávez MD Work Phone: [facility] 03-13-2024 10:00-0500 Heart rate 56 /min Eladio Chávez MD Work Phone: [facility] 03-13-2024 10:00-0500 Respiratory rate 16 /min Eladio Chávez MD Work Phone: [facility] 03-13-2024 10:00-0500 SaO2% (BldA) [Mass fraction] 98 % Eladio Chávez MD Work Phone: [facility] 03-13-2024 10:00-0500 Systolic blood pressure 138 mm[Hg] Eladio Chávez MD Work Phone: [facility] 11-21-2023 13:43-0400 Body mass index (BMI) [Ratio] 26.76 kg/m2 Chris Mercedes MD Work Phone: [facility] 11-21-2023 13:43-0400 Body weight 77.5 kg Chris Mercedes MD Work Phone: [facility] 11-21-2023 13:43-0400 Diastolic blood pressure 92 mm[Hg] Chris Mercedes MD Work Phone: [facility] 11-21-2023 13:43-0400 Heart rate 61 /min Chris Mercedes MD Work Phone: [facility] 11-21-2023 13:43-0400 SaO2% (BldA) [Mass fraction] 97 % Chris Mercedes MD Work Phone: [facility] 11-21-2023 13:43-0400 Systolic blood pressure 169 mm[Hg] Chris Mercedes MD Work Phone: [facility] 08-22-2023 12:57-0400 Body mass index (BMI) [Ratio] 26.79 kg/m2 Chris Mercedes MD Work Phone: [facility] 08-22-2023 12:57-0400 Body weight 77.6 kg Chris Mercedes MD Work Phone: [facility] 08-22-2023 12:57-0400 Diastolic blood pressure 84 mm[Hg] Chris Mercedes MD Work Phone: [facility] 08-22-2023 12:57-0400 Heart rate 75 /min Chris Mercedes MD Work Phone: [facility] 08-22-2023 12:57-0400 SaO2% (BldA) [Mass fraction] 100 % Chris Mercedes MD Work Phone: [facility] 08-22-2023 12:57-0400 Systolic blood pressure 179 mm[Hg] Chris Mercedes MD Work Phone: [facility] 08-10-2023 08:36-0400 Body mass index (BMI) [Ratio] 26.78 kg/m2 Eladio Chávez MD Work Phone: [facility] 08-10-2023 08:36-0400 Body weight 77.56 kg Eladio Chávez MD Work Phone: [facility] 08-10-2023 08:36-0400 Diastolic blood pressure 78 mm[Hg] Eladio Chávez MD Work Phone: [facility] 08-10-2023 08:36-0400 Heart rate 62 /min Eladio Chávez MD Work Phone: [facility] 08-10-2023 08:36-0400 Respiratory rate 18 /min Eladio Chávez MD Work Phone: [facility] 08-10-2023 08:36-0400 SaO2% (BldA) [Mass fraction] 97 % Eladio Chávez MD Work Phone: [facility] 08-10-2023 08:36-0400 Systolic blood pressure 132 mm[Hg] Eladio Chávez MD Work Phone: [facility] 05-23-2023 14:12-0400 Body height 170.2 cm Chris Mercedes MD Work Phone: [facility] 05-23-2023 14:12-0400 Diastolic blood pressure 90 mm[Hg] Chris Mercedes MD Work Phone: [facility] 05-23-2023 14:12-0400 Heart rate 67 /min Chris Mercedes MD Work Phone: [facility] 05-23-2023 14:12-0400 SaO2% (BldA) [Mass fraction] 97 % Chris Mercedes MD Work Phone: [facility] 05-23-2023 14:12-0400 Systolic blood pressure 177 mm[Hg] Chris Mercedes MD Work Phone: [facility] 04-20-2023 09:32-0500 Body height 170.2 cm Chris Mercedes MD Work Phone: [facility] 04-20-2023 09:32-0500 Body weight 79.83 kg Chris Mercedes MD Work Phone: [facility] 04-20-2023 09:32-0500 Diastolic blood pressure 80 mm[Hg] Chris Mercedes MD Work Phone: [facility] 04-20-2023 09:32-0500 Heart rate 60 /min Chris Mercedes MD Work Phone: [facility] 04-20-2023 09:32-0500 SaO2% (BldA) [Mass fraction] 97 % Chris Mercedes MD Work Phone: [facility] 04-20-2023 09:32-0500 Systolic blood pressure 148 mm[Hg] Chris Mercedes MD Work Phone: [facility] 09-01-2022 08:44-0400 Body weight 79.56 kg Natalie Podlogar GLOBAL SALES EXECUTIVE.CIVIL LABORATORY TECHNICIAN Work Phone: [facility] 09-01-2022 08:44-0400 Diastolic blood pressure 74 mm[Hg] Natalie Podlogar GLOBAL SALES EXECUTIVE.CIVIL LABORATORY TECHNICIAN Work Phone: [facility] 09-01-2022 08:44-0400 Heart rate 64 /min Natalie Podlogar GLOBAL SALES EXECUTIVE.CIVIL LABORATORY TECHNICIAN Work Phone: [facility] 09-01-2022 08:44-0400 Respiratory rate 16 /min Natalie Podlogar GLOBAL SALES EXECUTIVE.CIVIL LABORATORY TECHNICIAN Work Phone: [facility] 09-01-2022 08:44-0400 SaO2% (BldA) [Mass fraction] 96 % Natalie Podlogar GLOBAL SALES EXECUTIVE.CIVIL LABORATORY TECHNICIAN Work Phone: [facility] 09-01-2022 08:44-0400 Systolic blood pressure 130 mm[Hg] Natalie Podlogar GLOBAL SALES EXECUTIVE.CIVIL LABORATORY TECHNICIAN Work Phone: [facility] 08-04-2022 08:48-0400 Diastolic blood pressure 80 mm[Hg] Eladio Chávez MD Work Phone: [facility] 08-04-2022 08:48-0400 Heart rate 55 /min Eladio Chávez MD Work Phone: [facility] 08-04-2022 08:48-0400 Systolic blood pressure 140 mm[Hg] Eladio Chávez MD Work Phone: [facility] 08-04-2022 08:29-0400 Body weight 79.83 kg Eladio Chávez MD Work Phone: [facility] 08-04-2022 08:29-0400 Respiratory rate 16 /min Eladio Chávez MD Work Phone: [facility] 07-05-2022 15:44-0400 Diastolic blood pressure 78 mm[Hg] Eladio Chávez MD Work Phone: [facility] 07-05-2022 15:44-0400 Heart rate 64 /min Eladio Chávez MD Work Phone: [facility] 07-05-2022 15:44-0400 Respiratory rate 16 /min Eladio Chávez MD Work Phone: [facility] 07-05-2022 15:44-0400 SaO2% (BldA) [Mass fraction] 96 % Eladio Chávez MD Work Phone: [facility] 07-05-2022 15:44-0400 Systolic blood pressure 140 mm[Hg] Eladio Chávez MD Work Phone: [facility] 02-16-2022 12:51-0500 Body weight 78.38 kg Natalie Podlogar GLOBAL SALES EXECUTIVE.CIVIL LABORATORY TECHNICIAN Work Phone: [facility] 02-16-2022 12:51-0500 Diastolic blood pressure 84 mm[Hg] Natalie Podlogar GLOBAL SALES EXECUTIVE.CIVIL LABORATORY TECHNICIAN Work Phone: [facility] 02-16-2022 12:51-0500 Heart rate 64 /min Natalie Podlogar GLOBAL SALES EXECUTIVE.CIVIL LABORATORY TECHNICIAN Work Phone: [facility] 02-16-2022 12:51-0500 Respiratory rate 18 /min Natalie Podlogar GLOBAL SALES EXECUTIVE.CIVIL LABORATORY TECHNICIAN Work Phone: [facility] 02-16-2022 12:51-0500 SaO2% (BldA) [Mass fraction] 97 % Natalie Mendez GLOBAL SALES EXECUTIVE.CIVIL LABORATORY TECHNICIAN Work Phone: [facility] 02-16-2022 12:51-0500 Systolic blood pressure 138 mm[Hg] Natalie Mendez GLOBAL SALES EXECUTIVE.CIVIL LABORATORY TECHNICIAN Work Phone: [facility] 02-01-2022 09:16-0500 Body weight 79.38 kg Eladio Chávez MD Work Phone: [facility] 02-01-2022 09:16-0500 Diastolic blood pressure 78 mm[Hg] Eladio Chávez MD Work Phone: [facility] 02-01-2022 09:16-0500 Heart rate 89 /min Eladio Chávez MD Work Phone: [facility] 02-01-2022 09:16-0500 Respiratory rate 18 /min Eladio Chávez MD Work Phone: [facility] 02-01-2022 09:16-0500 SaO2% (BldA) [Mass fraction] 93 % Eladio Chávez MD Work Phone: [facility] 02-01-2022 09:16-0500 Systolic blood pressure 138 mm[Hg] Eladio Chávez MD Work Phone: [facility] 07-24-2021 08:36-0400 Body weight 79.38 kg Eladio Chávez MD Work Phone: [facility] 07-24-2021 08:36-0400 Diastolic blood pressure 80 mm[Hg] Eladio Chávez MD Work Phone: [facility] 07-24-2021 08:36-0400 Heart rate 57 /min Eladio Chávez MD Work Phone: [facility] 07-24-2021 08:36-0400 Respiratory rate 18 /min Eladio Chávez MD Work Phone: [facility] 07-24-2021 08:36-0400 SaO2% (BldA) [Mass fraction] 96 % Eladio Chávez MD Work Phone: [facility] 07-24-2021 08:36-0400 Systolic blood pressure 124 mm[Hg] Eladio Chávez MD Work Phone: [facility] Encounters Encounter Date Encounter Type Care Provider Facility Start: 11-13-2024 End: 11-13-2024 Patient encounter procedure Eladio Chávez MD Work Phone: [facility] Comment on above: Essential hypertensi on (Primary Dx) Start: 11-13-2024 End: 11-13-2024 ambulatory ELADIO CHÁVEZ Facility:[facility] Start: 10-30-2024 End: 10-30-2024 Patient encounter procedure Eladio Chávez MD Work Phone: [facility] Comment on above: Essential hypertensi on (Primary Dx); PAC (premature atrial contraction) Start: 10-30-2024 End: 10-30-2024 ambulatory ELADIO CHÁVEZ Facility:[facility] Start: 10-25-2024 End: 10-25-2024 Telephone encounter Eladio Chávez MD Work Phone: [facility] Comment on above: Patient Update Start: 10-02-2024 End: 10-02-2024 Refill Eladio Chávez MD Work Phone: [facility] Comment on above: Refill Request Start: 09-13-2024 End: 09-13-2024 Follow-up encounter Eladio Chávez MD Work Phone: [facility] Comment on above: Results Start: 09-11-2024 End: 09-11-2024 ambulatory ELADIO CHÁVEZ Facility:[facility] Start: 09-11-2024 End: 09-11-2024 Patient encounter procedure Eladio Chávez MD Work Phone: [facility] Comment on above: Essential hypertensi on (Primary Dx); Mixed hyperlipidemia; Essential tremor; PAC (premature atrial contraction); Glaucoma of both eyes, unspecified glaucoma type; Exudative age-related macular degeneration, unspecified laterality, unspecified stage (HCC); Malignant melanoma, unspecified site (HCC); Psoriasis Start: 09-11-2024 End: 09-11-2024 ambulatory ELADIO CHÁVEZ Facility:[facility] Start: 08-06-2024 End: 08-06-2024 Refill Eladio Chávez MD Work Phone: [facility] Comment on above: Refill Request Start: 04-18-2024 End: 04-18-2024 Subsequent hospital visit by physician X[facility] Work Phone: Radiology Comment on above: Acute cough [R05.1] Start: 04-18-2024 End: 04-18-2024 ambulatory ELADIO CHÁVEZ Facility:[facility] Start: 04-18-2024 End: 04-18-2024 Office outpatient new 30 minutes Kenisha Jimenez PA-C Work Phone: [facility] Comment on above: Acute cough (Primary Dx); Acute URI; Mild intermittent asthma, uncomplicated Start: 03-14-2024 End: 03-27-2024 Telephone encounter Eladio Chávez MD Work Phone: [facility] Comment on above: Results Start: 03-13-2024 End: 03-13-2024 ambulatory ELADIO CHÁVEZ Facility:[facility] Start: 03-13-2024 End: 03-13-2024 Patient encounter procedure Eladio Chávez MD Work Phone: [facility] Comment on above: Medicare annual well ness visit, subsequent (Primary Dx); Screening for depression; Encounter for screening examination for other mental health and behavioral disorders; Screening for prostate cancer Start: 03-13-2024 End: 03-13-2024 ambulatory ELADIO CHÁVEZ Facility:[facility] Start: 02-14-2024 End: 02-14-2024 Refill Eladio Chávez MD Work Phone: [facility] Comment on above: Refill Request Start: 01-17-2024 End: 01-17-2024 Refill Eladio Chávez MD Work Phone: [facility] Comment on above: Refill Request Start: 11-21-2023 End: 11-21-2023 ambulatory CHRIS MERCEDES Facility:[facility] Start: 11-21-2023 End: 11-21-2023 Office outpatient visit 15 minutes Chris Mercedes MD Work Phone: General Surgery Comment on above: 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) Start: 08-22-2023 End: 08-22-2023 Office outpatient visit 15 minutes Chris Mercedes MD Work Phone: General Surgery Comment on above: 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) Start: 08-11-2023 Telephone encounter Damir Cháevz MD Work Phone: [facility] Comment on above: Results Start: 08-10-2023 End: 08-10-2023 Patient encounter procedure Eladio Chávez MD Work Phone: [facility] Comment on above: Essential hypertensi on (Primary Dx); Mixed hyperlipidemia; Essential tremor; Malignant melanoma, unspecified site (HCC); Mild intermittent asthma, uncomplicated; Exudative age-related macular degeneration of left eye, unspecified stage (HCC); Squamous cell carcinoma, face; Encounter for immunization Start: 05-30-2023 Refill Eladio Chávez MD Work Phone: [facility] Start: 05-23-2023 End: 05-23-2023 Office outpatient visit 15 minutes Chris Mercedes MD Work Phone: General Surgery Comment on above: 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) Start: 05-13-2023 End: 05-13-2023 ambulatory ELADIO CHÁVEZ Facility:[facility] Start: 04-21-2023 Orders Only Chris lopez MD Work Phone: [facility] Comment on above: 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); Lymphedema Start: 04-20-2023 End: 04-20-2023 ambulatory REENA SALGADO Facility:[facility] Start: 04-20-2023 End: 04-20-2023 Office outpatient new 45 minutes Chris Mercedes MD Work Phone: [facility] Comment on above: Lymphedema Start: 09-01-2022 End: 09-01-2022 Patient encounter procedure Natalie Hillshahana PADILLA.CIVIL LABORATORY TECHNICIAN Work Phone: [facility] Comment on above: Essential hypertensi on (Primary Dx); Blood pressure check Start: 09-01-2022 End: 09-01-2022 Patient encounter status Natalie Hillshahana GLOBAL SALES EXECUTIVE.CIVIL LABORATORY TECHNICIAN Work Phone: [facility] Start: 08-09-2022 End: 08-09-2022 Subsequent hospital visit by physician [facility] Work Phone: Radiology Comment on above: Family history of ab dominal aortic aneurysm (AAA) [Z82.49] Start: 08-04-2022 End: 08-04-2022 Patient encounter procedure Eladio Chávez MD Work Phone: [facility] Comment on above: Bilateral swelling o f feet (Primary Dx); Essential hypertension; Essential tremor; Mixed hyperlipidemia; Mild intermittent asthma, uncomplicated; Family history of abdominal aortic aneurysm (AAA); History of TIA (transient ischemic attack); Other glaucoma of both eyes; Exudative age-related macular degeneration, unspecified laterality, unspecified stage (HCC); PSORIASIS Start: 07-05-2022 End: 07-05-2022 Patient encounter procedure Eladio Chávez MD Work Phone: [facility] Comment on above: Bilateral swelling o f feet (Primary Dx); Essential hypertension; Mixed hyperlipidemia Start: 05-11-2022 Refill Eladio Chávez MD Work Phone: [facility] [place] Comment on above: Refill Request Start: 04-05-2022 Telephone encounter Damir Chávez MD Work Phone: [facility] Comment on above: Orders Start: 02-17-2022 Telephone encounter Damir Chávez MD Work Phone: [facility] Comment on above: Results Start: 02-16-2022 End: 02-16-2022 Patient encounter procedure Natalie Andrea BARRCIVIL LABORATORY TECHNICIAN Work Phone: [facility] Comment on above: Essential hypertensi on (Primary Dx); Hyperkalemia Start: 02-01-2022 End: 02-01-2022 Patient encounter procedure Eladio Chávez MD Work Phone: [facility] Comment on above: Essential tremor (Pr imary Dx); Essential hypertension; Hyperkalemia; History of TIA (transient ischemic attack); Exudative age-related macular degeneration, unspecified laterality, unspecified stage (HCC); Other glaucoma of both eyes; PSORIASIS; Mixed hyperlipidemia; Elevated hemoglobin (HCC); Need for influenza vaccination Start: 01-15-2022 Refill Eladio Chávez MD Work Phone: [facility] Comment on above: Refill Request Start: 01-04-2022 Telephone encounter Damir Chávez MD Work Phone: [facility] Comment on above: Orders Start: 07-24-2021 End: 07-24-2021 Patient encounter procedure Eladio Chávez MD Work Phone: [facility] Comment on above: Essential tremor (Pr imary Dx); Essential hypertension; Mixed hyperlipidemia; Mild intermittent asthma, uncomplicated; Exudative age-related macular degeneration, unspecified laterality, unspecified stage (HCC); Other glaucoma of both eyes; AK (actinic keratosis); PSORIASIS Start: 07-14-2021 Telephone encounter Damir Chávez MD Work Phone: [facility] Comment on above: Results Start: 07-13-2021 Telephone encounter Eleonora Newman MA [facility] Comment on above: Orders Refill Request Procedures Date Procedure Procedure Detail Performing Clinician Start: 04-18-2024 Radiologic exam ches t 2 views Kenisha Jimenez PA-C Work Phone: Start: 03-13-2024 Adult depression scr eening assessment Eladio Chávez MD Work Phone: Start: 08-10-2023 Seer COVI D-19 VACCINE (2023-24 SEASON) AGE 12+ YR Eladio Chávez MD Work Phone: Start: 08-09-2022 Us abdominal aorta r eal time screen study aaa Eladio Chávez MD Work Phone: Start: 02-01-2022 INFLUENZA SEASONAL QUADRIVALENT HIGH DOSE AGE 65+ Eladio Chávez MD Work Phone: Plan of Treatment Date Care Activity Detail Author Start: 09-12-2027 Diabetes Screening Diabetes Screenin g [facility] Start: 07-14-2027 Urine microalbumin profile [facility] Start: 03-13-2027 Diabetes Screening Diabetes Screenin [facility] Start: 08-09-2026 Diabetes Screening Diabetes Screenin g [facility] Start: 02-08-2026 [facility] Start: 09-03-2025 Influenza vaccination Influenza Vacc ine (#1) [facility] Comment on above: Postponed from 11/05 (Declined at this time) Start: 07-29-2025 DIABETES SCREEN DIABETES SCREEN [facility] Start: 07-29-2025 Diabetes Screening Diabetes Screenin [facility] Start: 03-18-2025 End: 03-18-2025 Patient encounter procedure 03/18/2025 12:00 PM EST Office Visit Family Ajith Gillette [address] [place] [address] PodlogarNatalie APRN.CIVIL LABORATORY TECHNICIAN [address] [facility] [place] [id number] 6 month follow up [facility] Ajith Gillette Comment on above: 6 month follow up Start: 03-13-2025 Anxiety Screening Anxiety Screening [facility] Start: 03-13-2025 Depression Screening Depression Scre ening [facility] Start: 03-03-2025 DIABETES SCREEN DIABETES SCREEN [facility] Start: 01-22-2025 DIABETES SCREEN DIABETES SCREEN [facility] Start: 11-13-2024 End: 11-13-2024 Patient encounter procedure 11/13/2024 9:00 AM EDT Office Visit Family [facility] [address] [place] [address] Eladio Chávez MD [address] [facility] [place] [address] 2 week BP follow up. Family Ajith Gillette Comment on above: 2 week BP follow up. Start: 11-05-2024 Influenza vaccination Influenza Vacc ine (#1) [facility] Start: 10-30-2024 End: 10-30-2024 Patient encounter procedure 10/30/2024 9:00 AM EDT Office Visit Family Ajith Gillette [address] [facility], [place] [id number] Eladio Chávez MD [address] [facility], [place] [phone] Elevated BP. Family Ajith Gillette Comment on above: Elevated BP. Start: 10-14-2024 End: 01-13-2025 Comprehensive metabolic 2000 panel - Serum or Plasma COMPREHENSIVE METABOLIC PANEL Lab Routine Hyponatremia Expected: 10/14/2024, Expires: 01/13/2025 [facility] Work Phone: Comment on above: Expected: 10/14/2024 , Expires: 01/13/2025 Start: 09-11-2024 End: 12-11-2024 Comprehensive metabolic 2000 panel - Serum or Plasma [facility] Work Phone: Comment on above: Expected: 09/11/2024 , Expires: 12/11/2024 Start: 09-11-2024 End: 12-11-2024 LIPID PANEL, NONFASTING [facility] Comment on above: Expected: 09/11/2024 , Expires: 12/11/2024 Start: 09-11-2024 End: 09-11-2024 Patient encounter procedure 09/11/2024 10:40 AM EDT Office Visit Family Ajith Gillette [address] [place], [place] [phone] Eladio Chávez MD [address] [place], [place] [address] 6 month follow up Family Ajith Gillette Comment on above: 6 month follow up Start: 06-11-2025 Covid-19 Vaccine ( season) Covid-19 Vaccine () [facility] Start: 07-13-2024 DIABETES SCREEN DIABETES SCREEN [facility] Start: 03-13-2024 End: 03-13-2024 Patient encounter procedure 03/13/2024 10:00 AM EST Office Visit [facility] [address] [facility] [place] [address] Eladio Chávez MD [address] [place] [address] Medicare Wellness-02/13/24 reschedule [facility] Comment on above: Medicare Wellness- reschedule Start: 02-13-2024 End: 02-13-2024 Patient encounter procedure 02/13/2024 10:00 AM EST Office Visit [facility] [address] [facility] [place] [address] Eladio Chávez MD [address] [place] [address] Medicare Wellness [facility] Comment on above: Medicare Wellness Start: 02-10-2024 End: 02-10-2024 Patient encounter procedure 02/10/2024 10:00 AM EST Office Visit [facility] [address] [facility] [place] [address] Eladio Chávez MD [address] [place] [address] Medicare Wellness [facility] Comment on above: Medicare Wellness Start: 02-09-2024 Spirometry Spirometry [facility] Comment on above: Postponed from 06/24 (Declined at this time) Start: 01-13-2024 DIABETES SCREEN DIABETES SCREEN [facility] Start: 11-06-2023 Covid-19 Vaccine ( season) Covid-19 Vaccine () [facility] Start: 11-06-2023 Influenza vaccination Influenza Vacc ine (#1) [facility] Start: 08-22-2023 End: 08-22-2023 Patient encounter procedure 08/22/2023 1:15 PM EDT Office Visit General Surgery [address] [place] [address] Chris Mercedes MD [address] [place] [address] 3Month melanoma Follow up General Surgery Comment on above: 3Month melanoma Foll ow up Start: 03-07-2023 Advance Directive Discussion Advance Directive Discussion [facility] Start: 03-07-2023 Behavioral Health Screening Behavioral Health Screening [facility] Start: 03-07-2023 Depression Assessment Depression Ass essment [facility] Start: 03-06-2023 DEPRESSION ASSESSMENT [facility] Comment on above: Postponed from 03/07 (Declined at this time) Start: 02-01-2023 COVID-19 VACCINE (5 - Booster for Moderna series) COVID-19 VACCINE (5 - Booster for Moderna series) [facility] Comment on above: Postponed from 09/19 (Declined at this time) Start: 11-05-2022 Covid-19 Vaccine (2022-24 season) Covid-19 Vaccine ( season) [facility] Start: 11-05-2022 Influenza vaccination Influenza Vacc ine (#1) [facility] Start: 07-24-2022 COVID-19 VACCINE (4 - Booster for Moderna series) COVID-19 VACCINE (4 - Booster for Moderna series) [facility] Comment on above: Postponed from 05/22 (Declined at this time) Start: 07-05-2022 End: 09-04-2022 CBC W Auto Differential panel - Blood CBC + DIFF Lab Routine Essential hypertension Expected: 07/05/2022, Expires: 09/04/2022 [facility] Work Phone: Comment on above: Expected: 07/05/2022 , Expires: 09/04/2022 Start: 07-05-2022 End: 09-04-2022 Comprehensive metabolic 2000 panel - Serum or Plasma COMP METABOLIC PANEL Lab Routine Essential hypertension Expected: 07/05/2022, Expires: 09/04/2022 [facility] Work Phone: Comment on above: Expected: 07/05/2022 , Expires: 09/04/2022 Start: 07-05-2022 End: 09-04-2022 LIPID PANEL, NONFASTING LIPID PANEL, NONFASTING Lab Routine Essential hypertension Expected: 07/05/2022, Expires: 09/04/2022 [facility] Work Phone: Comment on above: Expected: 07/05/2022 , Expires: 09/04/2022 Start: 03-07-2022 ADVANCE DIRECTIVE DISCUSSION ADVANCE DIRECTIVE DISCUSSION [facility] Start: 03-07-2022 DEPRESSION ASSESSMENT DEPRESSION ASS ESSMENT [facility] Start: 02-16-2022 End: 04-18-2022 Comprehensive metabolic 2000 panel - Serum or Plasma COMP METABOLIC PANEL Lab Routine Essential hypertension Expected: 02/16/2022, Expires: 04/18/2022 [facility] Work Phone: Comment on above: Expected: 02/16/2022 , Expires: 04/18/2022 Start: 02-01-2022 End: 04-03-2022 POTASSIUM BLD [facility] Work Phone: Comment on above: Expected: 02/01/2022 , Expires: 04/03/2022 Start: 01-04-2022 End: 03-06-2022 CBC W Auto Differential panel - Blood CBC + DIFF Lab Routine Essential hypertension Expected: 01/04/2022, Expires: 03/06/2022 [facility] Work Phone: Comment on above: Expected: 01/04/2022 , Expires: 03/06/2022 Start: 01-04-2022 End: 03-06-2022 Comprehensive metabolic 2000 panel - Serum or Plasma COMP METABOLIC PANEL Lab Routine Essential hypertension Expected: 01/04/2022, Expires: 03/06/2022 [facility] Work Phone: Comment on above: Expected: 01/04/2022 , Expires: 03/06/2022 Start: 11-05-2021 Influenza vaccination INFLUENZA (#1) [facility] Start: 09-19-2021 COVID-19 VACCINE (5 - Booster for Moderna series) COVID-19 VACCINE (5 - Booster for Moderna series) [facility] Start: 07-13-2021 End: 09-12-2021 Comprehensive metabolic 2000 panel - Serum or Plasma [facility] Work Phone: Comment on above: Expected: 07/13/2021 , Expires: 09/12/2021 Start: 07-13-2021 End: 09-12-2021 LIPID PANEL, NONFASTING [facility] Work Phone: Comment on above: Expected: 07/13/2021 , Expires: 09/12/2021 Start: 03-07-2021 ADVANCE DIRECTIVE DISCUSSION ADVANCE DIRECTIVE DISCUSSION [facility] Start: 03-07-2021 DEPRESSION ASSESSMENT DEPRESSION ASS ESSMENT [facility] Start: 1996 RSV Vaccine (1 - 1-d ose 60+ series) RSV Vaccine (1 - 1-dose 60+ series) [facility] Start: 1954 Anxiety Screening Anxiety Screening [facility] Start: 1954 Depression Screening Depression Scre ening [facility] Start: 1954 SPIROMETRY SPIROMETRY [facility] End: 05-18-2024 NM Lymph node Views NM LYMPH NODE IMAGING Radiology Routine Lymphedema 1 Occurrences starting 04/20/2023 until 05/18/2024 [facility] Work Phone: Comment on above: 1 Occurrences starti ng 04/20/2023 until 05/18/2024 End: 09-03-2023 Us abdominal aorta real time screen study aaa US SCREENING FOR AAA Radiology Routine Family history of abdominal aortic aneurysm (AAA) 1 Occurrences starting 08/04/2022 until 09/03/2023 [facility] Work Phone: Comment on above: 1 Occurrences starti ng 08/04/2022 until 09/03/2023 [facility] [place] [facility] Immunizations Immunization Date Immunization Notes Care Provider Iván garcia 01-24-2024 influenza, high dose seasonal, preservative-free Eladio Chávez MD Work Phone: [facility] 01-24-2024 influenza virus vaccine, unspecified formulation Eladio Chávez MD Work Phone: [facility] 08-10-2023 COVID-19 vaccine, ag e 12+ yr, season (JoinnusBIONTECH) Eladio Chávez MD Work Phone: [facility] 02-11-2023 respiratory syncytia l virus (RSV) vaccine, adjuvanted (AREXVY) Eladio Chávez MD Work Phone: [facility] 02-08-2023 COVID-19 vaccine, ag e 12+ yr, season (Seer) Chris Mercedes MD Work Phone: [facility] 02-08-2023 influenza (HD-IIV4) vaccine, age 65+ yr, high dose, quadrivalent, PF (FLUZONE HIGH-DOSE) Chris Mercedes MD Work Phone: [facility] 02-08-2023 influenza virus vaccine, unspecified formulation Chris Mercedes MD Work Phone: [facility] 08-05-2022 COVID-19 original vaccine, full dose, monovalent (MODERNA) Natalie Podlogar GLOBAL SALES EXECUTIVE.CIVIL LABORATORY TECHNICIAN Work Phone: [facility] 08-05-2022 COVID-19 vaccine, ag e 12+ yr, bivalent (MODERNA) Eladio Chávez MD Work Phone: [facility] 02-01-2022 COVID-19 booster vaccine, age 12+ yr, bivalent (MODERNA) Natalie Podlogar GLOBAL SALES EXECUTIVE.CIVIL LABORATORY TECHNICIAN Work Phone: [facility] 02-01-2022 influenza, high-dose , quadrivalent vaccine (FLUZONE HIGH DOSE QUADRIVALENT) Eladio Chávez MD Work Phone: [facility] 02-01-2022 influenza virus vaccine, unspecified formulation Us 2 Work Phone: [facility] 07-25-2021 COVID-19 original vaccine, full dose, monovalent (MODERNA) Eladio Chávez MD Work Phone: [facility] 12-24-2020 influenza, high-dose , quadrivalent vaccine (FLUZONE HIGH DOSE QUADRIVALENT) Eleonora Newman [facility] 09-01-2020 zoster vaccine recombinant Eleonora Newman MA [facility] 05-09-2020 COVID-19 vaccine, fu ll dose (MODERNA) Eleonora Newman [facility] Work Phone: 04-11-2020 COVID-19 vaccine, fu ll dose (MODERNA) Eleonora Newman [facility] Work Phone: 02-14-2020 zoster vaccine recombinant Eleonora Newman [facility] 12-19-2019 influenza, high-dose , quadrivalent vaccine (FLUZONE HIGH DOSE QUADRIVALENT) Eleonora Newman VALENTÍN [facility] 01-25-2019 influenza, high dose seasonal, preservative-free Eleonora Cristine [facility] 01-20-2018 influenza, high dose seasonal, preservative-free Eleonora Cristine [facility] 01-10-2017 influenza, high dose seasonal, preservative-free Eleonora Newman [facility] 01-05-2016 influenza, high dose seasonal, preservative-free Eleonora Newman [facility] 09-02-2015 pneumococcal conjuga te vaccine, 13 valent Eleonora Newman [facility] 02-05-2015 influenza, high dose seasonal, preservative-free Eleonora Newman [facility] 02-04-2014 influenza, seasonal, injectable Eleonora Cristine [facility] 01-30-2013 influenza virus vaccine, unspecified formulation Eleonora Cristine LAURA [facility] 01-28-2012 influenza virus vaccine, unspecified formulation Eleonora Newman [facility] 12-28-2011 zoster vaccine, live Eleonora Freedman Bc [facility] 12-24-2011 influenza virus vaccine, unspecified formulation Eleonora Cristine [facility] 01-27-2011 influenza virus vaccine, unspecified formulation Eleonora Newman VALENTÍN [facility] 01-23-2010 influenza virus vaccine, unspecified formulation Eleonora Newman [facility] 01-23-2010 tetanus and diphther ia toxoids, adsorbed, preservative free, for adult use (2 Lf of tetanus toxoid and 2 Lf of diphtheria toxoid) Eleonora Newman MA [facility] 02-23-2008 pneumococcal polysaccharide vaccine, 23 valent Eleonora Newman MA [facility] 02-06-2008 influenza virus vaccine, unspecified formulation Eleonora Newman MA [facility] Work Phone: 01-05-2007 influenza virus vaccine, unspecified formulation Eleonora Newman MA [facility] Work Phone: 01-11-2006 influenza virus vaccine, unspecified formulation Eleonora Nweman MA [facility] Work Phone: 01-05-2001 influenza virus vaccine, unspecified formulation Eleonora Newman MA [facility] Work Phone: 02-23-2000 pneumococcal polysaccharide vaccine, 23 valent Eleonora Newman MA [facility] Work Phone: 10-27-1999 diphtheria and tetan us toxoids, adsorbed for pediatric use Eleonora Newman MA [facility] Work Phone: Payers Date Payer Category Payer Medicare [employer] [place] [id number] 2012-Present [phone] [address] [place] [address] [facility] [id number] 2012 Medicare [employer] [place] [place] [id number] 2012-Present [phone] [address] [place] [address] [facility] [id number] 2012 [place] Care[place] [id number] 2012 Medicare [id number] Social History Date Type Detail Facility Start: 02-01-2022 Tobacco smoking stat [facility] Never smoked tobacco [facility] Start: 12-24-2020 End: 11-13-2024 Alcohol intake Current drinker of alcohol (finding) [facility] Start: 12-24-2020 End: 08-04-2022 Alcohol intake [facility] Work Phone: Start: 07-27-2017 History SDOH Alcohol Comment occasionally [facility] Start: 1935 Sex Assigned At Not on file [facility] Start: 07-03-2021 End: 02-01-2022 Exposure to SARS-CoV-2 (event) Not sure [facility] Start: 02-01-2022 Tobacco use and exposure Smokeless tobacco non-user [facility] Start: 08-04-2022 End: 03-13-2024 Tobacco use panel [facility] Work Phone: Start: 02-06-2012 Adult Depression Screening Assessment 0 [facility] Work Phone: How often to you hav e a drink containing alcohol? 2-4 times a month [facility] Work Phone: How many standard drinks containing alcohol do you have on a typical day? 1 or 2 [facility] Work Phone: How often do you hav e 6 or more drinks on 1 occasion? Never [facility] Work Phone: Functional Status Date Assessment Result Facility 08-12-2014 Are you deaf, or do you have serious difficulty hearing No 08/12/2014 8:01 AM Humberto Rodarte No [facility] 08-12-2014 Are you blind, or do you have serious difficulty seeing, even when wearing glasses No 08/12/2014 8:01 AM Humberto Rodarte No [facility] 08-12-2014 Do you have serious difficulty walking or climbing stairs No 08/12/2014 8:01 AM Humberto Rodarte [facility] 08-12-2014 Because of a physica l, mental, or emotional condition, do you have difficulty doing errands alone such as visiting a physician's office or shopping No 08/12/2014 8:01 AM EDT Humberto Chery No [facility] 08-05-2014 Do you have difficul ty dressing or bathing No 08/05/2014 9:47 AM EDT Kelsey Goode, STACY No [facility] Mental Status Date Assessment Result Facility 08-12-2014 Because of a physica l, mental, or emotional condition, do you have serious difficulty concentrating, remembering, or making decisions No 08/12/2014 8:01 AM EDT Humberto Chery No [facility] Clinical Notes 06-19-2012 to 11-13-2024 Patient InstructionsEladio Chávez MD - 11/13/2024 8:42 AM EDTPatient InstructionsEladio Chávez MD - 10/30/2024 8:40 AM EDTPatient InstructionsPatient Instructions Note Date & Type Note Facility 11-13-2024 Instructions Eladio Chávez MD - 11/13/2024 8:51 AM EDT - Continue metoprolol 25 mg once daily as prescribed. - A 90-day prescription for metoprolol will be sent to [facility]. - Plan to receive your annual flu shot in early to mid-December, either here or at your local pharmacy. - Contact the office if you experience lightheadedness, dizziness, chest pain, shortness of breath, or any new leg swelling. - Keep your scheduled 6-month follow-up appointment with Natalie in March. documented in this encounter [facility] 11-13-2024 Note HNO ID: [id number] Author: ELADIO CHÁVEZ MD Service: ? Author Type: Physician Type: Progress Notes Filed: 11/13/2024 08:58 Note Text: Chief Complaint Patient presents with: Blood Pressure Check Recording using [employer] software for draft documentation of the visit was discussed with the patient/authorized direct marketing representative; all questions welcomed and answered. 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 - Plans to attend a fair and walk around. - Discussed flu shot timing; prefers to wait until December. - States that he went to the [facility] and they told him as long [...] Colon polyps Squamous cell carcinoma, face [facility] Stroke (HCC) Pt reports possible TIA in [...] to affected area twice daily as needed. Zyniewnhdagez-Lemwfmgl-Lfzbkn (CENTRUM SILVER) tab Take 1 tablet by [...] malaise or feve (more content not included)... [facility] 11-13-2024 History of Presen t illness Narrative Chief Complaint Patient presents with: Blood Pressure Check Recording using ambient Likely.co software for draft documentation of the visit was discussed with the patient/authorized direct marketing representative; all questions welcomed and answered. 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 - Plans to attend a fair and walk around. - Discussed flu shot timing; prefers to wait until December. - States that he went to the [facility] and they told him as long [...] Colon polyps Squamous cell carcinoma, face [facility] Stroke (HCC) Pt reports possible TIA in [...] to affected area twice daily as needed. Potbjugzqhqnz-Cqmwbjyw-Vrcezj (CENTRUM SILVER) tab Take 1 tablet by [...] Lymph 1.00 - 4.00 k/uL 0.93 (L) [place]% % 11.5 Abs [place] <0.87 k/uL 0.89 (H) Eosin% % 2.3 [...] Drug use: No documented in this encounter [facility] 10-30-2024 Instructions Eladio Chávez MD - 10/30/2024 8:56 AM EDT - Start metoprolol 25 mg once daily to help lower your blood pressure and heart rate; prescription sent to [facility] pharmacy. - Continue your current losartan dose [...] approximately one week. documented in this encounter [facility] 10-30-2024 Note HNO ID: [id number] Author: ELADIO CHÁVEZ MD Service: ? Author Type: Physician Type: Progress Notes Filed: 10/30/2024 08:59 Note Text: Chief Complaint Patient presents with: Hypertension: Follow up for elevated BP Recording using [employer]lite Mountain [employer] software for draft documentation of the visit was discussed with the patient/authorized direct marketing representative; all questions welcomed and answered. Patient/authorized direct marketing representative agreed to proceed HPI Cristine Mena [...] Colon polyps Squamous cell carcinoma, face [facility] Stroke (HCC) Pt reports possible TIA in [...] to affected area twice daily as needed. Iashqqicvdfqw-Qwsismgg-Nqsoqy (CENTRUM SILVER) tab Take 1 tablet by [...] wheezing, rhonchi, ra (more content not included)... [facility] 08-26-2025 History of Presen t illness Narrative Chief Complaint Patient presents with: Hypertension: Follow up for elevated BP Recording using Hyperlite [employer] software for draft documentation of the visit was discussed with the patient/authorized direct marketing representative; all questions welcomed and answered. Patient/authorized direct marketing representative agreed to proceed HPI Cristine Mena [...] Colon polyps Squamous cell carcinoma, face [facility] Stroke (HCC) Pt reports possible TIA in [...] to affected area twice daily as needed. Igwtwtdqwbhrb-Mvgmarfn-Mrkqrb (CENTRUM SILVER) tab Take 1 tablet by [...] Lymph 1.00 - 4.00 k/uL 0.93 (L) [place]% % 11.5 Abs [place] <0.87 k/uL 0.89 (H) Eosin% % 2.3 [...] Drug use: No documented in this encounter [facility] 10-25-2024 Telephone encounter Note Patient was here in office with . Given message per Dede Gilbert MA. Johana Evans MA [facility] 10-25-2024 Miscellaneous Notes Patient was here in office with . Given message per Dede Gilbert MA. Johana Evans MA Have him continue current regimen [...] Dede Gilbert MA documented in this encounter [facility] 10-25-2024 Telephone encounter Note Have him continue current regimen and will check BP at OV in 5 days with Eugenio BP. If he has a cuff at home, would have him check it daily and bring readings and cuff to appointment to review. Call with readings at home >160/100. [facility] 10-25-2024 Telephone encounter Note KELVIN Chávez [...] verbalized understanding of instructions. Dede Gilbert MA [facility] 10-02-2024 Telephone encounter Note Prescription Refill [...] Perea RN October 02, 2024 1:00 PM [facility] 10-02-2024 Miscellaneous Notes Prescription Refill Information [...] 2024 1:00 PM documented in this encounter [facility] 09-13-2024 Telephone encounter Note Patient asking about when he was to complete repeat lab work. Went over results, notes from Dr Chávez again with him with understanding. Patient said was told to watch the salt now my sodium is low. [facility] 09-13-2024 Miscellaneous Notes Patient asking about [...] in 1 month. documented in this encounter [facility] 09-13-2024 Telephone encounter Note Pt informed Nori Austin MA [facility] 09-13-2024 Telephone encounter Note ----- Message from Eladio Chávez MD sent at 09/13/2024 7:06 AM EDT ----- Normal labs aside from mildly low sodium level. Repeat level in 1 month. [facility] 09-11-2024 Instructions Eladio Chávez MD - 09/11/2024 11:51 AM EDT - Primidone increase: begin taking 200 mg once daily. Use two 50 mg tablets each morning until your pharmacy supplies 100 mg tablets, then take one 100 mg tablet daily. Prescription sent to [facility] in [place]. - Losartan adjustment: continue one 100 mg tablet daily. Until the 100 mg tablets arrive, you may take two of your current 50 mg tablets each day. Refill called in to [facility] [place]. - Home blood pressure checks: monitor daily. If readings stay above 140/90 mmHg, contact our office. - Headache and tremor monitoring: note whether headaches recur or hand shaking improves after the primidone increase; report any concerns. - Eye care: continue receiving your scheduled eye injections in [place] every three months with Dr. Salcedo. - Vision safety and driving: wear your updated glasses. Be aware you may receive a notice from the [facility] asking you to retake vision and on-road driving tests; please complete any required evaluations to confirm you remain safe to drive. - Dermatology appointment: keep your [facility] visit on the to evaluate your skin [...] coordinate ongoing care. documented in this encounter [facility] 09-11-2024 Note HNO ID: [id number] Author: ELADIO CHÁVEZ MD Service: ? Author Type: Physician Type: Progress Notes Filed: 09/11/2024 12:13 Note Text: Chief Complaint Patient presents with: 6 Month Exam Recording using Hyperlite Mountain [employer] software for draft documentation of the visit was discussed with the patient/authorized direct marketing representative; all questions welcomed and answered. Patient/authorized direct marketing representative agreed to proceed HPI Cristine Mena [...] - Undergoing treatment with Dr. Salcedo in [place], receiving intravitreal injections every 3 months. - [...] drive regularly, including to medical appointments in [place]. Psoriasis: - Managed with triamcinolone ointment as [...] Colon polyps Squamous cell carcinoma, face [facility] Stroke (HCC) Pt reports possible TIA in [...] % ointment A (more content not included)... [facility] 09-11-2024 History of Presen t illness Narrative Chief Complaint Patient presents with: 6 Month Exam Recording using Hyperlite Mountain [employer] software for draft documentation of the visit was discussed with the patient/authorized direct marketing representative; all questions welcomed and answered. Patient/authorized direct marketing representative agreed to proceed HPI Cristine Mena [...] - Undergoing treatment with Dr. Salcedo in [place], receiving intravitreal injections every 3 months. - [...] drive regularly, including to medical appointments in [place]. Psoriasis: - Managed with triamcinolone ointment as [...] Colon polyps Squamous cell carcinoma, face [facility] Stroke (HCC) Pt reports possible TIA in [...] to affected area twice daily as needed. Rqbtjubfircyw-Xljixwqk-Twkfik (CENTRUM SILVER) tab Take 1 tablet by [...] Lymph 1.00 - 4.00 k/uL 0.99 (L) [place]% % 11.1 Abs [place] <0.87 k/uL 0.82 Eosin% % 2.0 Abs [...] - Prescription for increased dosage sent to [facility] pharmacy in [place]. 4. PAC (premature atrial contraction) (I49.1) - Occasional PACs auscultated during examination. - No new episodes of chest pain or palpitations reported. 5. Glaucoma of both eyes, unspecified glaucoma type (H40.9) 6. 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 Salcedo in [place]; receiving intravitreal injections every three months. 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 Unable to see fingers held up in front of his face today with right eye closed. - Discussed concerns about driving safety due to impaired vision. - Initiated process for [facility] vision and driving assessment to ensure patient safety. Patient refusing to sign V Request for Statement of Physician form. 7. Malignant melanoma, unspecified site (HCC) (C43.9) - Follow-up appointment scheduled with [facility] Dermatology on the . - Recent history of seborrheic keratosis and actinic damage; no new suspicious lesions observed on examination. 8. Psoriasis (L40.9) - Currently using triamcinolone ointment mixed with Vaseline as needed. - Advised to continue current treatment and report any worsening of symptoms to office electrician. Eladio Chávez MD documented in this encounter [facility] 08-06-2024 Telephone encounter Note Prescription Refill [...] Limon LPN August 06, 2024 9:52 AM [facility] 08-06-2024 Miscellaneous Notes Prescription Refill Information [...] 2024 9:52 AM documented in this encounter [facility] 04-18-2024 History of Presen t illness [...] PATIENT PRESENTS WITH AN IMPLANTABLE OR ATTACHED RADIO INSTALLER AUTOMOBILE: No RADIOLOGY DEPARTMENT: General X-ray: Exam(s) Completed: Chest X-Ray PERIPHERAL IV DATA: Not applicable SIGNED BY: YAMILKA Melvin) April 18, 2024 3:53 PM documented in this encounter [facility] 04-18-2024 Note HNO ID: [id number] Author: RIGOBERTO DIAS RT (R) Service: ? Author Type: Farmworker Cranberry Type: Progress Notes Filed: 04/18/2024 16:09 Note [...] PATIENT PRESENTS WITH AN IMPLANTABLE OR ATTACHED RADIO INSTALLER AUTOMOBILE: No RADIOLOGY DEPARTMENT: General X-ray: Exam(s) Completed: Chest X-Ray PERIPHERAL IV DATA: Not applicable SIGNED BY: RT Olegario(R) April 18, 2024 3:53 PM [facility] 04-18-2024 Note HNO ID: [id number] Author: KENISHA JIMENEZ PA-C Service: ? Author Type: Physician Supplier Quality Specialist Type: Progress Notes Filed: 04/18/2024 16:26 Note Text: This note was created using GetPrice. Subjective Cristine Mena is a 88 year [...] PREDNISONE 10 MG TABLET Kenisha Jimenez PA-C [facility] 04-18-2024 History of Presen t illness Narrative This note was created using [employer]Pir[employer]. Subjective Cristine Mena is a 88 year [...] Kenisha Jimenez PA-C documented in this encounter [facility] 03-14-2024 Telephone encounter Note Telephone call placed to patient. Made aware of results and recommendations. Voices understanding. Mary Hendrix LPN [facility] 03-14-2024 Miscellaneous Notes Telephone call placed to patient. Made aware of results and recommendations. Voices understanding. Mary Hendrix LPN ----- Message from Eladio Chávez MD sent at 03/14/2024 7:00 AM EST ----- Normal labs. PSA normal/negative to screen for prostate cancer. No change in regimen. documented in this encounter [facility] 03-14-2024 Telephone encounter Note ----- Message from Eladio Chávez MD sent at 03/14/2024 7:00 AM EST ----- Normal labs. PSA normal/negative to screen for prostate cancer. No change in regimen. [facility] 03-13-2024 Instructions Eladio Chávez MD - [...] review all the medicines you take, even yfby-psl-urchzwh medicines. As you get older, the way [...] certain medical conditions. documented in this encounter [facility] 03-13-2024 Note HNO ID: [id number] Author: ELADIO CHÁVEZ MD Service: ? Author [...] General (Family Medicine) Podlogar, VALERIE Estrada.SWETA as Director Validation (Family Medicine) Outside specialists seen: Optho: Dr [...] Lymph 1.00 - 4.00 k/uL 0.99 (L) [place]% % 11.1 Abs [place] <0.87 k/uL 0.82 Eosin% % 2.0 Abs [...] PSA/PROSTATE SPECIFIC ANTIGEN SCREENING Eladio Chávez MD [facility] 03-13-2024 History of Presen t illness [...] PCP - General (Family Medicine) Podlogar, VALERIE Estrada.CIVIL LABORATORY TECHNICIAN as Director Validation (Family Medicine) Outside specialists seen: Optho: Dr [...] Lymph 1.00 - 4.00 k/uL 0.99 (L) [place]% % 11.1 Abs [place] <0.87 k/uL 0.82 Eosin% % 2.0 Abs [...] Eladio Chávez MD documented in this encounter [facility] 02-14-2024 Telephone encounter Note Prescription Refill [...] Limon LPN February 14, 2024 10:55 AM [facility] 02-14-2024 Miscellaneous Notes Prescription Refill Information [...] 2024 10:55 AM documented in this encounter [facility] 01-17-2024 Telephone encounter Note Prescription Refill [...] Limon LPN January 17, 2024 10:16 AM [facility] 01-17-2024 Miscellaneous Notes Prescription Refill Information [...] 2024 10:16 AM documented in this encounter [facility] 11-21-2023 Note HNO ID: [id number] Author: CHRIS MERCEDES MD Service: ? Author Type: Physician Type: Progress Notes Filed: 11/21/2023 14:04 Note Text: Chris Mercedes M.D. Surgical Oncology [address] [place] [address], [facility] [address] [address] Plan SUBJECTIVE HPI Cristine Mena is a [...] patient/family/caregiver. Chris Mercedes MD 11/21/2023 1:48 PM [facility] 11-21-2023 History of Presen t illness Narrative Images from the original note were not included. Chris Mercedes M.D. Surgical Oncology [address] [facility], [address] [place] [address] Plan SUBJECTIVE HPI Cristine Mena is a [...] 11/21/2023 1:48 PM documented in this encounter [facility] 08-22-2023 History of Presen t illness Narrative Images from the original note were not included. Chris Mercedes M.D. Surgical Oncology [address] [facility], [address] [place] [address] SUBJECTIVE HPI Cristine Mena is a 88 [...] to affected area twice daily as needed. Xhukxwdogwddn-Zrpsahpp-Wwdakm (CENTRUM SILVER) tab Take 1 tablet by [...] 08/22/2023 1:03 PM documented in this encounter [facility] 08-11-2023 Telephone encounter Note Pt returned call and given provider's message below with verbalized understanding. [facility] 08-11-2023 Miscellaneous Notes Pt returned call and given provider's message below with verbalized understanding. TC no answer. Left VM to return call. AMINATA Davis ----- Message from Eladio Chávez MD sent at 08/11/2023 8:35 AM EDT ----- Labs unremarkable. No change in regimen. Continue to work on healthy diet and exercise as able. documented in this encounter [facility] 08-11-2023 Telephone encounter Note TC no answer. Left VM to return call. AMINATA Davis [facility] 08-11-2023 Telephone encounter Note ----- Message from Eladio Chávez MD sent at 08/11/2023 8:35 AM EDT ----- Labs unremarkable. No change in regimen. Continue to work on healthy diet and exercise as able. [facility] 08-10-2023 History of Presen t illness Narrative Chief Complaint Patient presents with: Follow Up: 6 month follow up HPI Cristine Mena is a 88 year old male who presents here today for Above Complaints. Patient following up with dermatology at [facility] for melanoma on his chest. Had wide excision in May with general surgery. Unable to do sentinel lymph node biopsy. 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 . 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 Has f/u with [facility] on Tuesday and f/u with general surgery [...] Skin cancer of scalp melanoma? Seen at [facility] Stroke ([facility]) Pt reports possible TIA in 2002 w/ [...] to affected area twice daily as needed. Zytfxdnpwfiks-Gvoktkgc-Fssira (CENTRUM SILVER) tab Take 1 tablet by [...] Abs Lymph 1.00 - 4.00 k/uL 1.02 [place]% % 10.1 Abs [place] <0.87 k/uL 0.55 Eosin% % 2.8 Abs [...] Eladio Chávez MD documented in this encounter [facility] 05-30-2023 Miscellaneous Notes Patient has been [...] Ruba Limon LPN. documented in this encounter [facility] 05-23-2023 History of Presen t illness Narrative Images from the original note were not included. Chris Mercedes M.D. Surgical Oncology [address] [place] [address], [address] [place] [address] SUBJECTIVE HPI Cristine Mena is a 87 [...] Skin cancer of scalp melanoma? Seen at [facility] Stroke (HCC) Pt reports possible TIA in [...] to affected area twice daily as needed. Aggcsyvgzdntm-Cumizeyk-Bqnbrc (CENTRUM SILVER) tab Take 1 tablet by [...] 05/23/2023 2:16 PM documented in this encounter [facility] 05-13-2023 Note HNO ID: [id number] Author: TIM GALLEGO APRN.CRNA Service: Nursing Author Type: Nurse County Engineer Type: Anesthesia Procedure Notes Filed: 05/13/2023 11:50 Note Text: ANESTHESIOLOGY PROCEDURE NOTE Airway General Information Procedure Start Time/Medication Administration: 05/13/2023 11:26 AM Patient location during procedure: OR Timeout Performed Pre-procedure: timeout performed Consent Obtained: Yes Staffing TRAFFIC WORKER: Tim Gallego APRN.CRNA SRNA: Layla Cagle SRNA Performed by: DALIA and TRAFFIC WORKER Indications and Patient Condition Indications for airway [...] no Airway not difficult SIGNATURE: Tim Gallego APRN.TRAFFIC WORKER PATIENT NAME: Cristine Mena DATE: May 13, 2023 TIME: 11:47 AM CSN: [id number] [facility] 04-20-2023 Note HNO ID: [id number] Author: CHRIS MERCEDES MD Service: ? Author Type: Physician Type: Progress Notes Filed: 04/28/2023 15:23 Note Text: Chris Mercedes M.D. Surgical Oncology [address] [facility], [address] [place] [address] SUBJECTIVE HPI Cristine Mena is a 87 [...] in situ. This was treated by his office electrician. Currently, patient reports no systemic symptoms related [...] Skin cancer of scalp melanoma? Seen at [facility] Unspecified essential hypertension PAST SURGICAL HISTORY Procedure [...] to affected area twice daily as needed. Llelpvwzrntfb-Nhdpbfvq-Fdznok (CENTRUM SILVER) tab Take 1 tablet by mouth once daily. (more content not included)... [facility] 04-20-2023 History of Presen t illness Narrative Images from the original note were not included. Chris Mercedes M.D. Surgical Oncology [address] [facility], [address] [place] [address] SUBJECTIVE HPI Cristine Mena is a 87 [...] in situ. This was treated by his office electrician. Currently, patient reports no systemic symptoms related [...] Skin cancer of scalp melanoma? Seen at [facility] Unspecified essential hypertension PAST SURGICAL HISTORY Procedure [...] to affected area twice daily as needed. Qvskbweudcdss-Stxctfys-Udbera (CENTRUM SILVER) tab Take 1 tablet by [...] 04/20/2023 10:17 AM documented in this encounter [facility] 09-01-2022 History of Presen t illness [...] Skin cancer of scalp melanoma? Seen at [facility] Unspecified essential hypertension ALLERGIES Amlodipine MEDICATIONS Current [...] to affected area twice daily as needed. Ocxetaohsjazb-Jfqieyka-Zagnyx (CENTRUM SILVER) tab Take 1 tablet by [...] which included preparing to see the patient, sqqu-ou-qfjj patient care, completing clinical documentation, obtaining and/or reviewing separately obtained history, performing a medically appropriate examination, and counseling and educating the patient/family/caregiver. documented in this encounter [facility] 08-09-2022 History of Presen t illness [...] 2022 9:41 AM documented in this encounter [facility] 08-04-2022 History of Presen t illness [...] cough, SOB, wheezing. Following up yearly with [facility] for psoriasis and skin cancer. Rash improved [...] Skin cancer of scalp melanoma? Seen at [facility] Unspecified essential hypertension Previous Surgical History PAST [...] to affected area twice daily as needed. Vcilvrrgyixbw-Hxjygssp-Urzead (CENTRUM SILVER) tab Take 1 tablet by [...] Abs Lymph 1.00 - 4.00 k/uL 1.02 [place]% % 10.1 Abs [place] <0.87 k/uL 0.55 Eosin% % 2.8 Abs [...] Eladio Chávez MD documented in this encounter [facility] 07-05-2022 Instructions Eladio Chávez MD - 07/05/2022 3:57 PM EDT Call if your blood pressure is less than 100/60 or more than 150/90. documented in this encounter [facility] 07-05-2022 History of Presen t illness [...] Skin cancer of scalp melanoma? Seen at [facility] Unspecified essential hypertension Previous Surgical History PAST [...] to affected area twice daily as needed. Irxywcdwqjatz-Bhnexpud-Fkvmmh (CENTRUM SILVER) tab Take 1 tablet by [...] Abs Lymph 1.00 - 4.00 k/uL 1.25 [place]% % 10.8 Abs [place] <0.87 k/uL 0.66 Eosin% % 2.6 Abs [...] Eladio Chávez MD documented in this encounter [facility] 05-11-2022 Miscellaneous Notes Patient phones requesting refills as follows: Requested Prescriptions Pending Prescriptions Disp Refills amLODIPine (NORVASC) 5 mg tablet 90 tablet 0 Sig: Take 1 tablet by mouth once daily. PRATIMA 02/16/22 NOV 08/04/22 Please review and advise. Ruba Limon LPN documented in this encounter [facility] 04-05-2022 Miscellaneous Notes Patient notified. Mary Hendrix LPN Saw patient in the hallway who stated his Primidone rx had been cancelled and needed new rx. Sent as requested to his pharmacy. documented in this encounter [facility] 02-18-2022 Miscellaneous Notes Reviewed. TC to [...] him schedule [place]. documented in this encounter [facility] 02-16-2022 Instructions Natalie Mendez APRN.SWETA - 02/16/2022 1:10 PM EST Follow-up as scheduled documented in this encounter [facility] 02-16-2022 History of Presen t illness [...] Skin cancer of scalp melanoma? Seen at [facility] Unspecified essential hypertension ALLERGIES Patient has no [...] to affected area twice daily as needed. Poyacdczcrgwr-Knqkqjsj-Hxprun (CENTRUM SILVER) tab Take 1 tablet by [...] which included preparing to see the patient, enzu-xg-pfjk patient care, completing clinical documentation, obtaining and/or reviewing separately obtained history, performing a medically appropriate examination, counseling and educating the patient/family/caregiver, and ordering medications, tests, or procedures. documented in this encounter [facility] 02-02-2022 Miscellaneous Notes Rx sent to pharmacy. From message below prescription was to be sent to [facility]. Please review. Becky Gilliam LPN Patient telephoned and given message below. Voices understanding. Please send new prescription to [facility] pharmacy. Appointment scheduled for 02/16/2022. Mary Hendrix [...] or passing out. documented in this encounter [facility] 02-01-2022 History of Presen t illness [...] Skin cancer of scalp melanoma? Seen at [facility] Unspecified essential hypertension Previous Surgical History PAST [...] 1 tablet by mouth daily at bedtime. Uoruuoynkjasp-Supaufkb-Gqziza (CENTRUM SILVER) tab Take 1 tablet by [...] Abs Lymph 1.00 - 4.00 k/uL 1.25 [place]% % 10.8 Abs [place] <0.87 k/uL 0.66 Eosin% % 2.6 Abs [...] Eladio Chávez MD documented in this encounter [facility] 01-15-2022 Miscellaneous Notes Patient in this day requesting a 30 day refill be sent to [facility] [place]. Patient phones requesting refills as follows: Requested Prescriptions Pending Prescriptions Disp Refills primidone (MYSOLINE) 50 mg tablet 180 tablet 1 Sig: Take 2 tablets by mouth once daily. Please review and advise. Mary Hendrix LPN documented in this encounter [facility] 01-04-2022 Miscellaneous Notes Pt notified, verbalized understanding. Jennifer Camejo Ma Labs ordered to be completed prior to upcoming OV documented in this encounter [facility] 07-24-2021 History of Presen t illness [...] today. Following up with Yao Villanueva in [place], but has been more than a year [...] Skin cancer of scalp melanoma? Seen at [facility] Unspecified essential hypertension Previous Surgical History PAST [...] to affected area twice daily as needed. Akxwjkbsopdcj-Lelwfozy-Quhane (CENTRUM SILVER) tab Take 1 tablet by [...] Skin: Scattered AK on scalp and right yarsani/cheek. No psoriasis rash on exposed skin. Lungs: [...] F/u with dermatology. documented in this encounter [facility] 07-14-2021 Miscellaneous Notes Patient notified. Mary Hendrix LPN Normal labs aside from high potassium. Recommend repeating blood work at the end of this week to rule out lab error. documented in this encounter [facility] 07-13-2021 Miscellaneous Notes Patient requesting labs before upcoming OV. documented in this encounter [facility] 07-13-2021 Miscellaneous Notes Patient has been [...] Jennifer Gay Pss documented in this encounter [facility] 06-19-2012 History of Past i llness [...] of this encounter (statuses as of 07/13/2021) [facility] History of Past illness Narrative* Problem [...] of this encounter (statuses as of 07/13/2021) [facility] Narrative* Problem [...] of this encounter (statuses as of 07/29/2021) [facility] Narrative* Problem [...] of this encounter (statuses as of 09/24/2021) [facility] Narrative* Problem [...] of this encounter (statuses as of 01/04/2022) [facility] Narrative* Problem [...] of this encounter (statuses as of 01/15/2022) [facility] Narrative* Problem [...] of this encounter (statuses as of 02/01/2022) [facility] N[facility]ative* Problem [...] of this encounter (statuses as of 02/02/2022) [facility] N[facility]ative* Problem [...] of this encounter (statuses as of 02/16/2022) [facility] N[facility]* Problem [...] of this encounter (statuses as of 04/22/2022) [facility] N[facility]* Problem [...] of this encounter (statuses as of 05/11/2022) [facility] N[facility]* Problem [...] of this encounter (statuses as of 07/10/2022) [facility] N[facility]* Problem [...] of this encounter (statuses as of 08/04/2022) [facility] N[facility]* Problem [...] of this encounter (statuses as of 09/01/2022) [facility] N[facility]* Problem [...] of this encounter (statuses as of 01/09/2023) [facility] N[facility]* Problem [...] of this encounter (statuses as of 04/21/2023) [facility] N[facility]* Problem [...] of this encounter (statuses as of 04/28/2023) [facility] N[facility]* Problem [...] of this encounter (statuses as of 05/23/2023) [facility] N[facility]ative* Problem [...] of this encounter (statuses as of 05/30/2023) [facility] Mixed [facility]- [facility] Essential tremor Essential and other specified forms of tremor [facility] Diagnosis Essential tremor- Primary Essential [...] inoculation against influenza [facility] Diagnosis Essential hypertension- Primary Unspecified essential hypertension [facility] Diagnosis Essential hypertension- Primary Unspecified essential hypertension Hyperkalemia Hyperpotassemia [facility] Diagnosis Essential hypertension- Primary Unspecified essential hypertension [facility] Diagnosis Essential tremor Essential and other specified forms of tremor [facility] Diagnosis Essential hypertension Unspecified essential hypertension [facility] Diagnosis Bilateral swelling of feet- Primary Swelling of limb Essential hypertension Unspecified essential hypertension Mixed hyperlipidemia [facility] Diagnosis Bilateral swelling of feet- [...] PSORIASIS Other psoriasis [facility] Diagnosis Essential hypertension- Primary Unspecified essential hypertension Blood pressure check Screening for hypertension [facility] Diagnosis Family history of abdominal aortic aneurysm (AAA) [facility] Diagnosis 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)- Primary Malignant melanoma of skin of trunk, except scrotum Lymphedema Other lymphedema 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) Malignant melanoma of skin of trunk, except scrotum Lymphedema Other lymphedema [facility] Diagnosis Lymphedema Other lymphedema 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) Malignant melanoma of skin of trunk, except scrotum Lymphedema Other lymphedema [facility] Diagnosis 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 [facility] Diagnosis Essential tremor Essential and other specified forms of tremor [facility] Diagnosis Essential hypertension- Primary Unspecified [...] single bacterial disease [facility] Diagnosis 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 [facility] Diagnosis 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 [facility] Diagnosis Essential tremor Essential and other specified forms of tremor [facility] Diagnosis Essential hypertension Unspecified essential hypertension [facility] Diagnosis Medicare annual wellness visit, subsequent- Primary Routine general medical examination at a health care facility Screening for depression Encounter for screening examination for other mental health and behavioral disorders Screening for prostate cancer Special screening for malignant neoplasm of prostate [facility] Diagnosis Acute cough- Primary Acute URI Acute upper respiratory infections of unspecified site Mild intermittent asthma, uncomplicated Unspecified asthma [facility] Diagnosis Essential hypertension Unspecified essential hypertension [facility] Diagnosis Essential hypertension- Primary Unspecified essential hypertension Mixed hyperlipidemia Essential tremor Essential and other specified forms of tremor PAC (premature atrial contraction) Supraventricular premature beats Glaucoma of both eyes, unspecified glaucoma type Exudative age-related macular degeneration, unspecified laterality, unspecified stage (HCC) Malignant melanoma, unspecified site (HCC) Psoriasis Other psoriasis [facility] Diagnosis Hyponatremia- Primary Hyposmolality and/or hyponatremia [facility] Diagnosis Essential hypertension- Primary Unspecified essential hypertension PAC (premature atrial contraction) Supraventricular premature beats [facility] Essential hypertension- Primary Unspecified essential hypertension [facility] Diagnostic Procedure Only (Routine) - Authorized Specialty Diagnoses / Procedures Referred By Mary t Referred To Contact US IMAGING Diagnoses Family history of abdominal aortic aneurysm (AAA) Procedures US SCREENING FOR AAA (2017) US ABDOMINAL AORTA REAL TIME SCREEN STUDY AAA Eladio Chávez MD [address] [place] [address] Us Imaging Referral ID Status Reason Start Date Expiration Date Visits Requested Visits Authorized [id number] Authorized Auto-Generat ed Referral 08/04/2022 09/03/2023 1 1 [facility] for referral (narrative)* Diagnostic Procedure Only (Routine) - Closed Specialty Diagnoses / Procedures Referred By Contac t Referred To Contact US IMAGING Diagnoses Family history of abdominal aortic aneurysm (AAA) Procedures US SCREENING FOR AAA (2016) US ABDOMINAL AORTA REAL TIME SCREEN STUDY AAA Eladio Chávez MD [address] [place] [address] Us Imaging [facility] Referral ID Status Reason Start Date Expiration Date V isits Requested Visits Authorized [id number] Closed Auto-Generate d Referral 08/04/2022 09/03/2023 1 1 [facility] for referral (narrative)* Diagnostic Procedure Only (Routine) - Pending Review Specialty Diagnoses / Procedures Referred By Mary t Referred To Contact MOLECULAR & FUNCTIONAL IMAGING Diagnoses Lymphedema Procedures NM LYMPH NODE IMAGING LYMPHATICS & LYMPH NODES IMAGING Chris Mercedes MD [address] [place] [address] Molecular & Functional Imaging [address] [place] [address] Referral ID Status Reason Start Date Expiration Date Visits Requested Visits Authorized [id number] Pending Review Auto-Generat ed Referral 04/20/2023 05/19/2024 1 1 [facility] for visit Narrative* Diagnostic Procedure Only (Routine) - Closed Specialty Diagnoses / Procedures Referred By Contac t Referred To Contact US IMAGING Diagnoses Family history of abdominal aortic aneurysm (AAA) Procedures US SCREENING FOR AAA (2016) US ABDOMINAL AORTA REAL TIME SCREEN STUDY AAA Eladio Chávez MD [address] [place] [address] [place] [address] Referral ID Status Reason Start Date Expiration Date V isits Requested Visits Authorized [id number] Closed Auto-Generate d Referral 08/04/2022 09/03/2023 1 1 [facility] Summary Purpose Family History No Family History Records FoundNo Family History Records FoundNo Family History Records Found Advance Directives No Advanced Directives Records FoundDocuments on File Type Date Recorded 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 Advance Directive(s) 07/27/2017 6:26 AM Advance Directive(s) 02/14/2013 9:33 AM Documents on File Type Date Recorded 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 DATE CREATED AUTHOR AUTHOR'S ORGANIZ ATION 11/19/2024 [facility] Source Comments (unrecognize d section and content) In the event this informatio n is protected by the Federal Confidentiality of Alcohol and Drug Abuse Patient Records regulations: The Federal rules restrict any use of the information to criminally investigate or prosecute any alcohol or drug abuse patient.[facility] the event this information is protected by the Federal Confidentiality of Alcohol and Drug Abuse Patient Records regulations: The Federal rules restrict any use of the information to criminally investigate or prosecute any alcohol or drug abuse patient.[facility]In the event this information is protected by the Federal Confidentiality of Alcohol and Drug Abuse Patient Records regulations: The Federal rules restrict any use of the information to criminally investigate or prosecute any alcohol or drug abuse patient.[facility] HospitalIn the event this information is protected by the Federal Confidentiality of Alcohol and Drug Abuse Patient Records regulations: The Federal rules restrict any use of the information to criminally investigate or prosecute any alcohol or drug abuse patient.[facility] HospitalIn the event this information is protected by the Federal Confidentiality of Alcohol and Drug Abuse Patient Records regulations: The Federal rules restrict any use of the information to criminally investigate or prosecute any alcohol or drug abuse patient.[facility] HospitalIn the event this information is protected by the Federal Confidentiality of Alcohol and Drug Abuse Patient Records regulations: The Federal rules restrict any use of the information to criminally investigate or prosecute any alcohol or drug abuse patient.[facility] HospitalIn the event this information is protected by the Federal Confidentiality of Alcohol and Drug Abuse Patient Records regulations: The Federal rules restrict any use of the information to criminally investigate or prosecute any alcohol or drug abuse patient.[facility] HospitalIn the event this information is protected by the Federal Confidentiality of Alcohol and Drug Abuse Patient Records regulations: The Federal rules restrict any use of the information to criminally investigate or prosecute any alcohol or drug abuse patient.[facility] HospitalIn the event this information is protected by the Federal Confidentiality of Alcohol and Drug Abuse Patient Records regulations: The Federal rules restrict any use of the information to criminally investigate or prosecute any alcohol or drug abuse patient.[facility] HospitalIn the event this information is protected by the Federal Confidentiality of Alcohol and Drug Abuse Patient Records regulations: The Federal rules restrict any use of the information to criminally investigate or prosecute any alcohol or drug abuse patient.[facility] HospitalIn the event this information is protected by the Federal Confidentiality of Alcohol and Drug Abuse Patient Records regulations: The Federal rules restrict any use of the information to criminally investigate or prosecute any alcohol or drug abuse patient.[facility] HospitalIn the event this information is protected by the Federal Confidentiality of Alcohol and Drug Abuse Patient Records regulations: The Federal rules restrict any use of the information to criminally investigate or prosecute any alcohol or drug abuse patient.[facility] HospitalIn the event this information is protected by the Federal Confidentiality of Alcohol and Drug Abuse Patient Records regulations: The Federal rules restrict any use of the information to criminally investigate or prosecute any alcohol or drug abuse patient.[facility] HospitalIn the event this information is protected by the Federal Confidentiality of Alcohol and Drug Abuse Patient Records regulations: The Federal rules restrict any use of the information to criminally investigate or prosecute any alcohol or drug abuse patient.[facility] HospitalIn the event this information is protected by the Federal Confidentiality of Alcohol and Drug Abuse Patient Records regulations: The Federal rules restrict any use of the information to criminally investigate or prosecute any alcohol or drug abuse patient.[facility] HospitalIn the event this information is protected by the Federal Confidentiality of Alcohol and Drug Abuse Patient Records regulations: The Federal rules restrict any use of the information to criminally investigate or prosecute any alcohol or drug abuse patient.[facility] HospitalIn the event this information is protected by the Federal Confidentiality of Alcohol and Drug Abuse Patient Records regulations: The Federal rules restrict any use of the information to criminally investigate or prosecute any alcohol or drug abuse patient.[facility] HospitalIn the event this information is protected by the Federal Confidentiality of Alcohol and Drug Abuse Patient Records regulations: The Federal rules restrict any use of the information to criminally investigate or prosecute any alcohol or drug abuse patient.[facility] HospitalIn the event this information is protected by the Federal Confidentiality of Alcohol and Drug Abuse Patient Records regulations: The Federal rules restrict any use of the information to criminally investigate or prosecute any alcohol or drug abuse patient.[facility] HospitalIn the event this information is protected by the Federal Confidentiality of Alcohol and Drug Abuse Patient Records regulations: The Federal rules restrict any use of the information to criminally investigate or prosecute any alcohol or drug abuse patient.[facility] HospitalIn the event this information is protected by the Federal Confidentiality of Alcohol and Drug Abuse Patient Records regulations: The Federal rules restrict any use of the information to criminally investigate or prosecute any alcohol or drug abuse patient.[facility] HospitalIn the event this information is protected by the Federal Confidentiality of Alcohol and Drug Abuse Patient Records regulations: The Federal rules restrict any use of the information to criminally investigate or prosecute any alcohol or drug abuse patient.[facility] HospitalIn the event this information is protected by the Federal Confidentiality of Alcohol and Drug Abuse Patient Records regulations: The Federal rules restrict any use of the information to criminally investigate or prosecute any alcohol or drug abuse patient.[facility] HospitalIn the event this information is protected by the Federal Confidentiality of Alcohol and Drug Abuse Patient Records regulations: The Federal rules restrict any use of the information to criminally investigate or prosecute any alcohol or drug abuse patient.[facility] HospitalIn the event this information is protected by the Federal Confidentiality of Alcohol and Drug Abuse Patient Records regulations: The Federal rules restrict any use of the information to criminally investigate or prosecute any alcohol or drug abuse patient.[facility] HospitalIn the event this information is protected by the Federal Confidentiality of Alcohol and Drug Abuse Patient Records regulations: The Federal rules restrict any use of the information to criminally investigate or prosecute any alcohol or drug abuse patient.[facility] HospitalIn the event this information is protected by the Federal Confidentiality of Alcohol and Drug Abuse Patient Records regulations: The Federal rules restrict any use of the information to criminally investigate or prosecute any alcohol or drug abuse patient.[facility] HospitalIn the event this information is protected by the Federal Confidentiality of Alcohol and Drug Abuse Patient Records regulations: The Federal rules restrict any use of the information to criminally investigate or prosecute any alcohol or drug abuse patient.[facility] HospitalIn the event this information is protected by the Federal Confidentiality of Alcohol and Drug Abuse Patient Records regulations: The Federal rules restrict any use of the information to criminally investigate or prosecute any alcohol or drug abuse patient.[facility] HospitalIn the event this information is protected by the Federal Confidentiality of Alcohol and Drug Abuse Patient Records regulations: The Federal rules restrict any use of the information to criminally investigate or prosecute any alcohol or drug abuse patient.[facility] HospitalIn the event this information is protected by the Federal Confidentiality of Alcohol and Drug Abuse Patient Records regulations: The Federal rules restrict any use of the information to criminally investigate or prosecute any alcohol or drug abuse patient.[facility] HospitalIn the event this information is protected by the Federal Confidentiality of Alcohol and Drug Abuse Patient Records regulations: The Federal rules restrict any use of the information to criminally investigate or prosecute any alcohol or drug abuse patient.[facility] HospitalIn the event this information is protected by the Federal Confidentiality of Alcohol and Drug Abuse Patient Records regulations: The Federal rules restrict any use of the information to criminally investigate or prosecute any alcohol or drug abuse patient.[facility] HospitalIn the event this information is protected by the Federal Confidentiality of Alcohol and Drug Abuse Patient Records regulations: The Federal rules restrict any use of the information to criminally investigate or prosecute any alcohol or drug abuse patient.[facility] HospitalIn the event this information is protected by the Federal Confidentiality of Alcohol and Drug Abuse Patient Records regulations: The Federal rules restrict any use of the information to criminally investigate or prosecute any alcohol or drug abuse patient.[facility] HospitalIn the event this information is protected [...] or prosecute any alcohol or drug abuse patient.[facility] Reason for Visit (unrecogniz ed section [...] Care Teams (unrecognized sec tion and content) Glazing Machine Operator Relationship Specialty Start Date End Date Eladio Chávez MD [address] [place] [address] PCP - General Family Practice 06/15/16 Glazing Machine Operator Relationship Specialty Start Date End Date Eladio Chávez MD [address] [place] [address] PCP - General Family Practice 06/15/16 Glazing Machine Operator Relationship Specialty Start Date End Date Eladio Chávez MD [address] [place] [address] PCP - General Family Practice 06/15/16 Glazing Machine Operator Relationship Specialty Start Date End Date Eladio Chávez MD [address] [place] [address] PCP - General Family Practice 06/15/16 Glazing Machine Operator Relationship Specialty Start Date End Date Eladio Chávez MD [address] [place] [address] PCP - General Family Medicine 06/15/16 Glazing Machine Operator Relationship Specialty Start Date End Date Eladio Chávez MD [address] [place] [address] PCP - General Family Medicine 06/15/16 Glazing Machine Operator Relationship Specialty Start Date End Date Eladio Chávez MD [address] [place] [address] PCP - General Family Medicine 06/15/16 Glazing Machine Operator Relationship Specialty Start Date End Date Eladio Chávez MD [address] [place] [address] PCP - General Family Medicine 06/15/16 Glazing Machine Operator Relationship Specialty Start Date End Date Eladio Chávez MD [address] [place] [address] PCP - General Family Medicine 06/15/16 Glazing Machine Operator Relationship Specialty Start Date End Date Eladio Chávez MD [address] [place] [address] PCP - General Family Medicine 06/15/16 Glazing Machine Operator Relationship Specialty Start Date End Date Eladio Chávez MD [address] [place] [address] PCP - General Family Medicine 06/15/16 Glazing Machine Operator Relationship Specialty Start Date End Date Eladio Chávez MD [address] [place] [address] PCP - General Family Medicine 06/15/16 Glazing Machine Operator Relationship Specialty Start Date End Date Eladio Chávez MD [address] [place] [address] PCP - General Family Medicine 06/15/16 Glazing Machine Operator Relationship Specialty Start Date End Date Eladio Chávez MD [address] [place] [address] PCP - General Family Medicine 06/15/16 Glazing Machine Operator Relationship Specialty Start Date End Date Eladio Chávez MD [address] [place] [address] PCP - General Family Medicine 06/15/16 Glazing Machine Operator Relationship Specialty Start Date End Date Eladio Chávez MD [address] [place] [address] PCP - General Family Medicine 06/15/16 Glazing Machine Operator Relationship Specialty Start Date End Date Eladio Chávez MD [address] [place] [address] PCP - General Family Medicine 06/15/16 Glazing Machine Operator Relationship Specialty Start Date End Date Eladio Chávez MD [address] [place] [address] PCP - General Family Medicine 06/15/16 Glazing Machine Operator Relationship Specialty Start Date End Date Eladio Chávez MD [address] [place] [address] PCP - General Family Medicine 06/15/16 Glazing Machine Operator Relationship Specialty Start Date End Date Eladio Chávez MD [address] [place] [address] PCP - General Family Medicine 06/15/16 Glazing Machine Operator Relationship Specialty Start Date End Date Eladio Chávez MD [address] [place] [address] PCP - General Family Medicine 06/15/16 Glazing Machine Operator Relationship Specialty Start Date End Date Eladio Chávez MD [address] [place] [address] PCP - General Family Medicine 06/15/16 Glazing Machine Operator Relationship Specialty Start Date End Date Eladio Chávez MD [address] [place] [address] PCP - General Family Medicine 06/15/16 Glazing Machine Operator Relationship Specialty Start Date End Date Eladio Chávez MD [address] [place] [address] PCP - General Family Medicine 06/15/16 PodlogarNatalie APRN.CIVIL LABORATORY TECHNICIAN [address] [place] [address] Director Validation Family Medicine 02/11/24 Glazing Machine Operator Relationship Specialty Start Date End Date Eladio Chávez MD [address] [place] [address] PCP - General Family Medicine 06/15/16 Podlogar, Natalie, GLOBAL SALES EXECUTIVE.CIVIL LABORATORY TECHNICIAN [address] [place] [address] Director Validation Family [facility] 02/11/24 Glazing Machine Operator Relationship Specialty Start Date End Date Eladio Chávez MD [address] [place] [address] PCP - General Family Medicine 06/15/16 Podlogar, Natalie, GLOBAL SALES EXECUTIVE.CIVIL LABORATORY TECHNICIAN [address] [place] [address] [facility] 02/11/24 Glazing Machine Operator Relationship Specialty Start Date End Date Eladio Chávez MD [address] [place] [address] PCP - General Family Medicine 06/15/16 Podlogar, Natalie, GLOBAL SALES EXECUTIVE.CIVIL LABORATORY TECHNICIAN [address] [place] [address] [facility] 02/11/24 Glazing Machine Operator Relationship Specialty Start Date End Date Eladio Chávez MD [address] [place] [address] PCP - General Family Medicine 06/15/16 Podlogar, Natalie, GLOBAL SALES EXECUTIVE.CIVIL LABORATORY TECHNICIAN [address] [place] [address] [facility] 02/11/24 Glazing Machine Operator Relationship Specialty Start Date End Date Eladio Chávez MD [address] [place] [address] PCP - General Family Medicine 06/15/16 Podlogar, Natalie, GLOBAL SALES EXECUTIVE.CIVIL LABORATORY TECHNICIAN [address] [place] [address] Director Validation Family Medicine 02/11/24 Nessa Matson APRN.CIVIL LABORATORY TECHNICIAN [address] [place] [address] Director Validation Family Medicine 08/16/24 Glazing Machine Operator Relationship Specialty Start Date End Date Eladio Chávez MD [address] [place] [address] PCP - General Family Medicine 06/15/16 PodlogarNatalie APRN.CIVIL LABORATORY TECHNICIAN [address] [place] [address] Director Validation Family Medicine 02/11/24 Nessa Matson APRN.CIVIL LABORATORY TECHNICIAN [address] [place] [address] Director Validation Family Medicine 08/16/24 Glazing Machine Operator Relationship Specialty Start Date End Date Eladio Chávez MD [address] [place] [address] PCP - General Family Medicine 06/15/16 PodlogarNatalie APRN.CIVIL LABORATORY TECHNICIAN [address] [place] [address] Director Validation Family Medicine 02/11/24 Nessa Matson APRN.CIVIL LABORATORY TECHNICIAN [address] [facility] [address] Director Validation Family Medicine 08/16/24 Glazing Machine Operator Relationship Specialty Start Date End Date Eladio Chávez MD [address] [place] [address] PCP - General Family Medicine 06/15/16 PodlogarNatalie APRN.CIVIL LABORATORY TECHNICIAN [address] [place] [address] Director Validation Family Medicine 02/11/24 Nessa Matson APRN.CIVIL LABORATORY TECHNICIAN [address] [place] [address] Director Validation Family Medicine 08/16/24 Glazing Machine Operator Relationship Specialty Start Date End Date Eladio Chávez MD [address] [place] [address] PCP - General Family Medicine 06/15/16 PodlogarNatalie APRN.CIVIL LABORATORY TECHNICIAN [address] [place] [address] Director Validation Family Medicine 02/11/24 Nessa Matson APRN.CIVIL LABORATORY TECHNICIAN [address] [place] [address] [facility] 08/[facility]/24 Glazing Machine Operator Relationship Specialty Start Date End Date Eladio Chávez MD [address] [place] [address] PCP - General Family Medicine 06/15/16 PodlogarNatalie APRN.CIVIL LABORATORY TECHNICIAN [address] [place] [address] Director Validation Family Medicine 02/11/24 Nessa Matson APRN.CIVIL LABORATORY TECHNICIAN [address] [place] [address] (work) Formerly [facility], [facility] 08/16/24 FOR RECORDS PERTAINING TO PATIENTS WHO [...] BE BASED ON THE PRIMARY CLINICAL RECORDS. [facility] [facility]. provides no warranty or guarantee of the accuracy or completeness of information in this document.
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
[2024-11-30] MEDS: Timolol 0.5% 5ML OPTH.BTL 1 DRP OPHTHALMIC (20:59)
[2024-11-30] MEDS: Latanoprost 0.005% 1 Bottle 1 DRP OPHTHALMIC (21:00)
[2024-12-01 06:42] VITALS: PULSE 70; RESP 18; O2SAT 92
[2024-12-01 07:21] LABS: Hematocrit 42.3 % (40-54); Hemoglobin 14.2 g/dL (13.0-16.5); Immature Granulocytes Count 0.030 X10^3/uL (0.0-0.0); Mean Corp Hgb Conc 33.6 g/dL (32-36); Mean Corpuscular Volume 95.1 fL (80-94); Mean Platelet Vol. 11.5 fl (6.2-12.0); NRBC Flagged by Analyzer 0 % (0-5); POSITIVE DIFFERENTIAL YES; Platelet Count 178 K/mm3 (150-450); RBC Distribution Width CV 12.7 % (11.6-14.6); RBC Distribution Width SD 45.1 fl (35.1-43.9); Red Blood Count 4.45 M/mm3 (4.6-6.2); White Blood Count 9.2 K/mm3 (4.4-11.0)
[2024-12-01 08:15] LABS: Anion Gap 10 (5-15); BUN 16 mg/dL (4-19); BUN/Creat Ratio 20.1 RATIO (10-20); Calcium,Total 8.5 mg/dL (7.6-11.0); Carbon Dioxide 23.2 mmol/L (21.0-32.0); Chloride 102 mmol/L (98-108); Estimated Creatinine Clearance 61.75 ml/min (50-250); Glucose 150 mg/dL (70-99); Potassium 4.7 mmol/L (3.3-5.1)
--- NOTE | 2024-12-01 08:43 | PCM.PN.HOSP ---
Reason for Visit Chief Complaint: Shortness of breath Subjective Subjective Breathing better. Objective Data Objective Data Vital Signs: Vital Signs Temp Pulse Resp BP Pulse Ox O2 Del Method 36.3 C L 70 18 155/63 H 92 Room Air 11/30/24 22:00 12/01/24 06:42 12/01/24 06:42 11/30/24 22:00 12/01/24 06:42 12/01/24 06:42 Oxygen Delivery Method Room Air Weight: 76.5 kg Body Mass Index (BMI) 25.6 Intake & Output: Intake and Output for Last 24 Hours 11/29/24 11/30/24 12/01/24 23:59 23:59 23:59 Intake Total 120 / 120 Balance 120 / 120 Lab / Micro Data 12/01/24 06:24 12/01/24 06:24 Labs: Laboratory Results - last 24 hr 11/30/24 11:20: WBC 7.4, RBC 4.70, Hgb 15.2, Hct 44.9, MCV 95.5 H, MCH 32.3 H, MCHC 33.9, RDW Std Deviation 46.2 H, RDW Coeff of Adria 13.0, Plt Count 213, MPV 10.9, Immature Gran % (Auto) 0.300, Neut % (Auto) 79.4 H, Lymph % (Auto) 8.1 L, [place] % (Auto) 9.6, Eos % (Auto) 2.3, Baso % (Auto) 0.3, Absolute Neuts (auto) 5.9, Absolute Lymphs (auto) 0.60 L, Nucleated RBC % 0, Sodium 133, Potassium 4.9, Chloride 100, Carbon Dioxide 22.6, Anion Gap 10, BUN 12, Creatinine 0.79, Estim Creat Clear Calc 61.75, Est GFR (MDRD) Non-Af 86, BUN/Creatinine Ratio 15.8, Glucose 101 H, Calcium 8.4, Troponin T High Sens 26 H, NT pro BNP II 449 11/30/24 13:33: Troponin T Hi Sens 2 Hr 31 H 12/01/24 06:24: WBC 9.2, RBC 4.45 L, Hgb 14.2, Hct 42.3, MCV 95.1 H, MCH 31.9, MCHC 33.6, RDW Std Deviation 45.1 H, RDW Coeff of Adria 12.7, Plt Count 178, MPV 11.5, Immature Gran % (Auto) 0.300, Neut % (Auto) 90.4 H, Lymph % (Auto) 5.5 L, [place] % (Auto) 3.7, Eos % (Auto) 0.0, Baso % (Auto) 0.1, Absolute Neuts (auto) 8.3 H, Absolute Lymphs (auto) 0.50 L, Nucleated RBC % 0, Sodium 135, Potassium 4.7, Chloride 102, Carbon Dioxide 23.2, Anion Gap 10, BUN 16, Creatinine 0.80, Estim Creat Clear Calc 61.75, Est GFR (MDRD) Non-Af 85, BUN/Creatinine Ratio 20.1 H, Glucose 150 H, Calcium 8.5 Micro: Microbiology 11/30/24 17:47 Mucosa - Nasopharyngeal Respiratory Panel (PCR) - Final 11/30/24 17:47 Nasal Secretion SARS-CoV-2 Antigen (Rapid) - Final Radiography Diagnostic Testing: Radiology Impression Chest X-Ray 11/30/24 11:42 IMPRESSION: A small right pleural effusion is seen. No definite left pleural effusion is noted. A mild degree of interstitial pulmonary edema is seen. No focal infiltrate is appreciated. The cardiomediastinal silhouette is remarkable for a partially calcified aorta. No evidence of cardiomegaly. Mild thoracic spine degenerative changes are seen, along with multiple mild wedge compression fractures. No subluxation is evident. Reading Location: [address] Physical Exam Const alert and no apparent distress HEENT head/scalp atraumatic and moist oral mucous membranes Resp normal respiratory effort, no retractions, no use of accessory muscles and clear to auscultation bilaterally Cardio regular rate, regular rhythm, S1 normal heart sound and S2 normal heart sound Extremity normal to inspection and full ROM Assessment & Plan Assessment/Plan (1) Asthma exacerbation: PLAN: Plan Acute exacerbation of asthma COVID-19 and respiratory panel negative On steroids and bronchodilators Check an amatory pulse ox patient does not require any oxygen at home. Will discharge patient with prednisone as well as albuterol. Elevated troponin Slightly elevated troponin of 26 and repeat of 31, suspect this is secondary to patient's hypoxia on ambulation and hypertensive urgency. No chest pain or other symptoms that would suggest ACS Hypertensive urgency improved Blood pressure up to 190s systolic after ambulation however improves with rest, suspect it is elevated due to his hypoxia and work of breathing on exertion Continue home losartan metoprolol History of tremors Continue home primidone DVT ppx: Lovenox subcu
[2024-12-01 08:56] VITALS: BP 153/81; PULSE 62; RESP 18; TEMP 36.7; O2SAT 96
[2024-12-01 10:05] VITALS: PULSE 62
[2024-12-01] MEDS: Metoprolol(XL)Succ 25 MG Tablet PO (10:05)
[2024-12-01] MEDS: Aspirin E.C. 81 MG Tablet PO (10:05)
[2024-12-01] MEDS: Timolol 0.5% 5ML OPTH.BTL 1 DRP OPHTHALMIC (10:06)
[2024-12-01 10:33] VITALS: PULSE 79; RESP 16; O2SAT 93; O2SAT 96
--- NOTE | 2024-12-01 11:58 | PCM.DC.SUM ---
Providers Date of Admission: 11/30/24 Primary Care Physician: Dr. Damir Chávez MD Reason For Visit: HYPOXIA SECONDARY TO ASTHMA EXACERBATION, Diagnosis Discharge Diagnosis (1) Asthma exacerbation: Status: Acute Code(s): J45.901 - Unspecified asthma with (acute) exacerbation Plan Acute exacerbation of asthma COVID-19 and respiratory panel negative On steroids and bronchodilators Check an amatory pulse ox patient does not require any oxygen at home. Will discharge patient with prednisone as well as albuterol. Elevated troponin Slightly elevated troponin of 26 and repeat of 31, suspect this is secondary to patient's hypoxia on ambulation and hypertensive urgency. No chest pain or other symptoms that would suggest ACS Hypertensive urgency improved Blood pressure up to 190s systolic after ambulation however improves with rest, suspect it is elevated due to his hypoxia and work of breathing on exertion Continue home losartan metoprolol History of tremors Continue home primidone DVT ppx: Lovenox subcu Medications at Discharge Home Medications aspirin 81 mg tablet,delayed release (Adult Aspirin Regimen) 81 mg PO QHS hear 11/30/24 latanoprost 0.005 % eye drops 1 drp ophthalmic (eye) QHS eye 11/30/24 losartan 100 mg tablet 100 mg PO DAILY bp 11/30/24 metoprolol succinate 25 mg tablet,extended release 24 hr 25 mg PO DAILY HR 11/30/24 primidone 50 mg tablet 200 mg PO DAILY tremors 11/30/24 simvastatin 20 mg tablet 20 mg PO QHS cholesterol 11/30/24 timolol maleate 0.5 % eye drops 1 drp ophthalmic (eye) BID eye 11/30/24 albuterol sulfate 90 mcg/actuation aerosol inhaler (Ventolin HFA) 1 inh inhalation Q6H PRN shortness of breath or wheezing #6.7 grams 12/01/24 guaifenesin 1,200 mg tablet, extended release 12 hr (Mucus Relief ER) 1,200 mg PO BID #10 tabs 12/01/24 prednisone 20 mg tablet 40 mg (2 x 20 mg) PO DAILY #10 tabs 12/01/24 Hospital Course Operations None Procedures None Weight / BMI Weight Weight: 76.5 kg Body Mass Index (BMI) 25.6 ABG / Lab / Microbiology Data 12/01/24 06:24 12/01/24 06:24 Laboratory: Laboratory Results - last 24 hr 11/30/24 11:20: Sodium 133, Potassium 4.9, Chloride 100, Carbon Dioxide 22.6, Anion Gap 10, BUN 12, Creatinine 0.79, Estim Creat Clear Calc 61.75, Est GFR (MDRD) Non-Af 86, BUN/Creatinine Ratio 15.8, Glucose 101 H, Calcium 8.4, Troponin T High Sens 26 H, NT pro BNP II 449 11/30/24 13:33: Troponin T Hi Sens 2 Hr 31 H 12/01/24 06:24: WBC 9.2, RBC 4.45 L, Hgb 14.2, Hct 42.3, MCV 95.1 H, MCH 31.9, MCHC 33.6, RDW Std Deviation 45.1 H, RDW Coeff of Adria 12.7, Plt Count 178, MPV 11.5, Immature Gran % (Auto) 0.300, Neut % (Auto) 90.4 H, Lymph % (Auto) 5.5 L, [place] % (Auto) 3.7, Eos % (Auto) 0.0, Baso % (Auto) 0.1, Absolute Neuts (auto) 8.3 H, Absolute Lymphs (auto) 0.50 L, Nucleated RBC % 0, Sodium 135, Potassium 4.7, Chloride 102, Carbon Dioxide 23.2, Anion Gap 10, BUN 16, Creatinine 0.80, Estim Creat Clear Calc 61.75, Est GFR (MDRD) Non-Af 85, BUN/Creatinine Ratio 20.1 H, Glucose 150 H, Calcium 8.5 Microbiology: Microbiology 11/30/24 17:47 Mucosa - Nasopharyngeal Respiratory Panel (PCR) - Final 11/30/24 17:47 Nasal Secretion SARS-CoV-2 Antigen (Rapid) - Final Radiography Diagnostic Testing: Radiology Impression Chest X-Ray 11/30/24 11:42 IMPRESSION: A small right pleural effusion is seen. No definite left pleural effusion is noted. A mild degree of interstitial pulmonary edema is seen. No focal infiltrate is appreciated. The cardiomediastinal silhouette is remarkable for a partially calcified aorta. No evidence of cardiomegaly. Mild thoracic spine degenerative changes are seen, along with multiple mild wedge compression fractures. No subluxation is evident. Reading Location: [id number] D/C Instructions DC O2, CPAP, BIPAP Needs Home O2 Discharge instructions: No Meaningful Use Info Meaningful Use Meaningful Use Diagnoses (Choose all that apply): None applicable Discharge Plan Admission Admit Date/Time: 11/30/24 16:06 Primary Reason for Your Visit: Asthma exacerbation Attending Provider: Ty Husain Primary Care Provider: Damir Chávez Consulting Providers: Alyssa Ward Discharge Orders/Prescriptions Prescriptions: New guaifenesin [Mucus Relief ER] 1,200 mg Tablet Extended Release 12hr 1,200 mg PO BID Qty: 10 0RF prednisone 20 mg tablet 40 mg PO DAILY Qty: 10 0RF albuterol sulfate [Ventolin HFA] 90 mcg/actuation HFA aerosol inhaler 1 inh inhalation Q6H PRN (Reason: shortness of breath or wheezing) Qty: 6.7 0RF Continued aspirin [Adult Aspirin Regimen] 81 mg tablet,delayed release (DR/EC) 81 mg PO QHS primidone 50 mg tablet 200 mg PO DAILY simvastatin 20 mg tablet 20 mg PO QHS metoprolol succinate 25 mg tablet extended release 24 hr 25 mg PO DAILY losartan 100 mg tablet 100 mg PO DAILY latanoprost 0.005 % drops 1 drp ophthalmic (eye) QHS timolol maleate 0.5 % drops 1 drp ophthalmic (eye) BID Patient Comments: both eyes Referrals / Follow Up: Damir Chávez MD [Primary Care Provider, Family Practice] - Within 2 Weeks Disposition Disposition (needs filled in before D/C Order can be placed): Home, Self Care Charges/Coding Visit Charges Inpatient E&M: 80924 Disch Hosp
--- NOTE | 2024-12-01 13:00 | CASEMGMT ---
STACY HERZOG ASSESSMENT RN CM to room to meet with patient for initial transition planning/care coordination assessment. STACY HERZOG introduced self and role at [facility]. Pt voices understanding and consents to assessment at this time. Pt resting in bed in no distress at this time. Pt is A/O at this time and answers all questions appropriately. Care providers, pharmacy, and demographics verified/updated at this time. PCP: Dr Chávez Specialists: abisai Preferred Pharmacy: [facility] Retail Insurance: [employer] [facility] Prescription Benefit: yes LNOK: , Palma. Son, Benito. Daughter, Kylee Mo (lives in [place]) Living Arrangements: Lives w/, Palma, who has early-onset dementia, in one-story home w/basement & 2 steps to enter. Pt states he is independent w/ADL's and IADL's and manages his own medications. Pt states he helps to take care of his and also manages her medications. 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 Transportation: Pt states drives self and states no transportation concerns at this time. He states his still has her drivers' license, but states she will no longer be driving. DME: States has the following DME: comfort-height commode, grab bars. Pt uses no DME to ambulate. Pt states no need for further DME at this time. HHC/SNF: No hx of either & no needs identified. Pt declines need for OP therapy. Discharge order is in. Pt wishes to return home and states has no concerns with going home. Home amb O2 testing has been completed. Pt does not qualify for home O2. PLAN: Home. Kely KELLER RN, CM
== END 2024-12-01 13:29 | disposition home or self-care (01) | DRG 203 ==
LOC: ED 15:37 → PCU 16:30
PROVIDERS: Admitting Provider Internal Medicine; Emergency Provider Surgery; PCP Family Medicine
DX: J45.901 Unspecified asthma with (acute) exacerbation (principal); I16.0 Hypertensive urgency; I10 Essential (primary) hypertension; R25.1 Tremor, unspecified; R09.02 Hypoxemia; R79.89 Other specified abnormal findings of blood chemistry; Z79.82 Long term (current) use of aspirin; Z79.899 Other long term (current) drug therapy
CPT/HCPCS: 36415; 71046; 80048; 83880; 84484; 85025; 87070; 87205; 87426; 87633; 93005; 94640; 94668; 94760; 99284; A4216